=== PATIENT | female | born 2000 | race Caucasian/White ===

== ENCOUNTER 2019-01-29 19:55 | Emergency (ER) | payer OTHER ==
[~2019-01-29] VITALS: Ht 165.1 cm; Wt 95.3 kg
[~2019-01-29 19:55] MED LIST: ALPR0.25 PO; POLY17PO23 PO
--- NOTE | 2019-01-29 20:12 | ED Integumentary General ---
General Chief Complaint: Skin/Wound Problems Stated Complaint: CUT R THUMB,WANTS TETANUS SHOT Source: patient Exam Limitations: no limitations History of Present Illness Date Seen by Provider: Jan 29, 2019 Time Seen by Provider: 20:09 Initial Comments to ER with concern of need for tetanus vaccination. She was at the [facility] with her friend, she was sliding her hand down the bed rail of her friend's truck which was lined with metal, a piece of this was sharp and she has a superficial laceration to the right thumb. Last tetanus vaccine greater than 5 years ago she states. Timing/Duration: just prior to arrival Severity: mild Associated Symptoms: denies symptoms Allergies and Home Medications Allergies Coded Allergies: No Known Drug Allergies (Unverified , 05/19/14) Home Medications Alprazolam 0.25 Mg Tablet, 0.25 MG PO Q8H PRN for ANXIETY take 1/2 to 1 tablet every 8 hours for acute anxiety attack Prescribed by: SARITA RODRIGUEZ on 04/16/18 1515 Polyethylene Glycol 17 Gm Pack, 17 GM PO BID PRN for CONSTIPATION FOR CONSTIPATION Prescribed by: PEE KENT on 05/19/14 0916 Patient Home Medication List Home Medication List Reviewed: Yes Review of Systems Review of Systems Constitutional: see HPI EENTM: see HPI Respiratory: no symptoms reported Cardiovascular: no symptoms reported Genitourinary: no symptoms reported Musculoskeletal: no symptoms reported Skin: see HPI Psychiatric/Neurological: No Symptoms Reported Endocrine: No Symptoms Reported Past Qudrbvt-Wxsjxu-Tsfvhi Hx Patient Social History 2nd Hand Smoke Exposure: No Recent Foreign Travel: No Contact w/Someone Who Travel: No Past Medical History Surgeries: No Respiratory: No Cardiac: No Neurological: No Reproductive Disorders: No Female Reproductive Disorders: Ovarian Cyst Gastrointestinal: No Musculoskeletal: No Endocrine: No Cancer: No Psychosocial: No Anxiety Integumentary: No Blood Disorders: No Physical Exam Vital Signs Capillary Refill : General Appearance: WD/WN, no apparent distress HEENT: PERRL/EOMI, normal ENT inspection Respiratory: no respiratory distress, no accessory muscle use Neurologic/Psychiatric: alert, normal mood/affect, oriented x 3 Skin: normal color, warm/dry Skin Problem Location: upper extremities Skin Problem Character: other (superficial laceration to the pad of the right thumb 1 cm in length) Progress/Results/Core Measures Results/Orders My Orders Orders - ETHEL DE JESUS APRN Dipht,Pertuss(Acell),Tet Adult (Boostrix (01/29/19 20:15) Departure Impression Primary Impression: Tetanus toxoid vaccination administered at current visit Disposition: HOME, SELF-CARE Condition: Stable Departure-Patient Inst. Decision time for Depature: 20:11 Referrals: [facility] (PCP/Family) Primary Care Physician Patient Instructions: Diphtheria and Tetanus Toxoids, and Acellular Pertussis Vaccine Add. Discharge Instructions: . Return to ER for any concerns All discharge instructions reviewed with patient and/or family. Voiced understanding. ETHEL DE JESUS APRN Jan 29, 2019 20:12
[2019-01-29] MEDS ORDERED: TETANUS,DIPTH,PERTUSS P/F (BOOSTRIX) 0.5 ML VIAL IM ONE (20:15)
[2019-01-29 20:30] VITALS: BP 138/80
== END 2019-01-29 20:30 | disposition home or self-care (01) ==
LOC: EDUNIT# 19:55 → ER 19:56
DX: S61.011A Laceration without foreign body of right thumb without damage to nail, initial encounter (principal); F41.9 Anxiety disorder, unspecified; Z23 Encounter for immunization; Z87.448 Personal history of other diseases of urinary system; W26.8XXA Contact with other sharp object(s), not elsewhere classified, initial encounter
CPT/HCPCS: 90715; 99284

== ENCOUNTER → 2019-02-25 | Outpatient (CLI) | payer OTHER ==
--- NOTE | 2019-02-25 15:50 | Diagnostic Imaging Report ---
PROCEDURE: US Non-ob pelvis comp/trans. TECHNIQUE: Multiple realtime grayscale images were obtained of the pelvis in various projections endovaginally. Transabdominal imaging was also performed. INDICATION: Pelvic pain. FINDINGS: Uterus measures 5.8 x 3.7 x 3.0 cm. Endometrium is 3 mm in thickness. There is a small subcentimeter cervical nabothian cyst. No myometrial mass is seen. Ovaries were not visualized due to bowel gas. No adnexal mass is detected. There is small amount of free fluid in the posterior cul-de-sac. IMPRESSION: Nonvisualized ovaries. Study is otherwise unremarkable. Dictated by: Dictated on workstation # [id number]
== END ==
LOC: RAD 12:40
PROVIDERS: ATTEND Nurse Practitioner Primary Care
DX: R10.2 Pelvic and perineal pain (principal)
CPT/HCPCS: 76830; 76856

== ENCOUNTER 2020-03-05 13:08 | Emergency (ER) | payer OTHER ==
[~2020-03-05] VITALS: Ht 162.5 cm; Wt 63.5 kg
--- NOTE | 2020-03-05 13:26 | ED Integumentary General ---
General Stated Complaint: LEFT ARM LACERATION Source: patient Exam Limitations: no limitations History of Present Illness Date Seen by Provider: March 05, 2020 Time Seen by Provider: 13:24 Initial Comments To ER with a laceration to the ulnar volar side of the left forearm. She was cutting open a package of chicken when the knife slipped lacerating her arm. Tetanus is up-to-date within the past 5 years. Timing/Duration: constant Severity: mild Location: none Associated Symptoms: denies symptoms Allergies and Home Medications Allergies Coded Allergies: No Known Drug Allergies (Unverified , 05/19/14) Home Medications Alprazolam 0.25 Mg Tablet, 0.25 MG PO Q8H PRN for ANXIETY take 1/2 to 1 tablet every 8 hours for acute anxiety attack Prescribed by: SARITA RODRIGUEZ on 04/16/18 1515 Polyethylene Glycol 17 Gm Pack, 17 GM PO BID PRN for CONSTIPATION FOR CONSTIPATION Prescribed by: PEE KENT on 05/19/14 0916 Patient Home Medication List Home Medication List Reviewed: Yes Review of Systems Review of Systems Constitutional: see HPI EENTM: see HPI Respiratory: no symptoms reported Cardiovascular: no symptoms reported Genitourinary: no symptoms reported Musculoskeletal: no symptoms reported Skin: see HPI Psychiatric/Neurological: No Symptoms Reported Endocrine: No Symptoms Reported Past Nwmjkfi-Jafkve-Hgjezy Hx Patient Social History 2nd Hand Smoke Exposure: No Recent Foreign Travel: No Contact w/Someone Who Travel: No Past Medical History Surgeries: No Respiratory: No Cardiac: No Neurological: No Reproductive Disorders: No Female Reproductive Disorders: Ovarian Cyst Gastrointestinal: No Musculoskeletal: No Endocrine: No Cancer: No Psychosocial: No Anxiety Integumentary: No Blood Disorders: No Physical Exam Vital Signs Capillary Refill : General Appearance: WD/WN, no apparent distress Respiratory: no respiratory distress, no accessory muscle use Extremities: normal range of motion, non-tender Neurologic/Psychiatric: alert, normal mood/affect, oriented x 3 Skin: normal color, warm/dry, other (superficial 2 cm laceration to the volar ulnar side of the left forearm. No active bleeding.) Skin Problem Character: other (laceration) Procedures/Interventions Wound Location: Upper Extremities Wound Length (cm): 2 Wound's Depth, Shape: linear Wound Explored: clean Other Closure Supply: Wound Adhesive Wound scrubbed with chlorhexidine/saline solution then patted dry then covered with Dermabond Departure Impression Primary Impression: Arm laceration Qualified Codes: S41.112A - Laceration without foreign body of left upper arm, initial encounter Disposition: 01 HOME, SELF-CARE Condition: Stable Departure-Patient Inst. Decision time for Depature: 13:25 Referrals: [facility] ([facility]P/Family) Primary Care Physician Patient Instructions: Laceration Repair With Glue (DC) Add. Discharge Instructions: 1. Do not apply any lotions creams or ointments to this. The glue will follow off on its own in 3-5 days. You can keep this covered with a bandage to help provide some added protection. Showering is fine. Return to ER for any concerns such as redness or swelling that may indicate infection. ETHEL DE JESUS CARDING UTILITY TENDER March 05, 2020 13:26
[2020-03-05 13:28] VITALS: BP 124/90
== END 2020-03-05 13:28 | disposition home or self-care (01) ==
LOC: EDUNIT# 13:08 → ER 13:10
DX: S51.812A Laceration without foreign body of left forearm, initial encounter (principal); F41.9 Anxiety disorder, unspecified; W26.0XXA Contact with knife, initial encounter

== ENCOUNTER 2020-04-20 23:58 | Emergency (ER) | payer OTHER ==
[~2020-04-20] VITALS: Ht 162 cm; Wt 98.0 kg
--- OUTSIDE RECORDS SUMMARY | 2020-04-21 00:05 | XMS REPORT ---
Author Author Skyler Bell [facility] Address [address] [place] [address] Care Team Providers Care Corporate Sales Trainer Name Role Phone TERENCE Bell Unavailable PROBLEMS Type Condition ICD9-CM Code JAR75-UO Code Onset Dates Condition S tatus SNOMED Code Problem Menorrhagia with irregular cycle N92.1 Active 399833482 Problem Constipation, unspecified constipation type K59.00 Active 89062661 Problem Other chronic pain G89.29 Active 8 7228919 Problem Elevated testosterone level in female R79.89 Active 404817736 Problem Generalized anxiety disorder F41.1 A ctive 43169381 Problem Major depressive disorder, recurrent, moderate F33 .1 Active 826456369 Problem 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 Active 41163285 Problem PCOS (polycystic ovarian syndrome) E28.2 Active 611085545 Problem Morbid (severe) obesity due to excess calories E66 .01 Active 631383388 Problem Morbid (severe) obesity due to excess calories E66 .01 Active 811313297 Problem Body mass index (BMI) of 37.0-37.9 in adult Z68.37 Active 898420206 ALLERGIES No Information ENCOUNTERS Encounter Location Date Diagnosis [place] [address] [facility] [id number] [address] [place] [address] Jan, Encounter for test Z32.00 [place] [address] [facility] [id number] [address] [place] [address] Oct, Generalized anxiety disorder F41.1 ; Major depressive disorder, recurrent, moderate F33.1 and Other correction (current) drug therapy Z79.899 [facility] [address] [facility] [id number] [address] [place] [address] Sep, Generalized anxiety disorder F41.1 ; 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 ; Body mass index (BMI) of 37.0-37.9 in adult Z68.37 ; PCOS (polycystic ovarian syndrome) E28.2 and Elevated testosterone level in female R79.89 [facility] [place] [facility] [id number] [address] Sep, Drug screening, pre-employme nt Z02.1 [place] [address] [facility] [id number] [address] [place] [address] Aug, [place] [address] [facility] [id number] [address] [place] [address] Aug, Generalized abdominal pain R 10.84 ; Constipation, unspecified constipation type K59.00 ; PCOS (polycystic ovarian syndrome) E28.2 and Elevated testosterone level in female R79.89 [place] [address] [facility] [id number] [address] [place] [address] Jun, PCOS (polycystic ovarian syn drome) E28.2 ; Menorrhagia with irregular cycle N92.1 ; Nonintractable episodic headache, unspecified headache type R51 ; Elevated testosterone level in female R79.89 ; Morbid (severe) obesity due to excess calories E66.01 and Body mass index (BMI) of 37.0-37.9 in adult Z68.37 [place] [address] [facility] [id number] [address] [place] [address] Jun, Nonintractable episodic head ache, unspecified headache type R51 ; Menorrhagia with irregular cycle N92.1 and PCOS (polycystic ovarian syndrome) E28.2 [facility] [address] [facility] [id number] [address] [place] [address] May, Nonintractable episodic head ache, unspecified headache type R51 and Amenorrhea N91.2 [facility] [address] [facility] [id number] [address] [place] [address] Apr, Acute strain of neck muscle, initial encounter S16.1XXA and Acute bilateral low back pain without sciatica M54.5 [facility] [address] [place] [id number] [address] [place] [address] 10 Apr, 2019 Pharyngitis due to other org anism J02.8 [facility] [address] [place] [id number] [address] [place] [address] 17 Mar, 2019 Acute left ankle pain M25.57 2 [place] [address] [address] February, Pelvic pain R10.2 ; Acute vu lvitis N76.2 and Encounter for initial prescription of transdermal patch hormonal contraceptive device Z30.016 [place] [address] [address] 12 Jan, 2019 control counseling Z30 .9 ; Contraception management Z30.9 ; Contraceptive education Z30.09 ; Encounter for immunization Z23 ; Other chronic pain G89.29 and Pain in left knee M25.562 [facility] [place] [address] [address] 16 Dec, 2018 Dysuria R30.0 ; Pelvic pain R10.2 ; Constipation, unspecified constipation type K59.00 and Menorrhagia with irregular cycle N92.1 [place] [address] [address] 17 Jul, 2018 Encounter for immunization Z 23 [place] [address] [place] [id number] [address] [place] [address] 11 Jun, 2018 Mild episode of recurrent ma odilon depressive disorder F33.0 ; Effusion, left knee M25.462 ; Acute cystitis without hematuria N30.00 and Encounter for initial prescription of vaginal ring hormonal contraceptive Z30.015 [facility] [place] [address] [address] 07 Jun, 2018 Left anterior knee pain M25. 562 [place] [address] [address] May, [place] [address] [address] Apr, Generalized anxiety disorder F41.1 and Severe episode of recurrent major depressive disorder, without 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 [facility] [address] [place] [id number] [address] [place] [address] Mar, Generalized anxiety disorder F41.1 and Severe episode of recurrent major depressive disorder, without 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 [place] [address] [place] [id number] [address] [place] [address] Mar, 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 ; Anxiety F41.9 and Irregular menstrual bleeding N92.6 [place] [address] [place] [id number] [address] [place] [address] Sep, Weight gain R63.5 [place] [address] [place] [id number] [address] [place] [address] Sep, Weight gain R63.5 [facility] [place] [address] [place] [id number] [place] [id number] Aug, Athlete's foot on left B35.3 and Athlete's foot on right B35.3 [facility] [address] [place] [id number] [place] [address] Apr, Sore throat J02.9 ; Cough R0 5 ; Dysphagia, unspecified type R13.10 and Shortness of breath R06.02 [place] [id number] [place] [address] Apr, Encounter for initial manage ment of nuvaring Z30.49 [place] [address] [place] [id number] [address] [place] [address] Mar, [place] [address] [place] [id number] [address] [place] [address] Mar, Overweight E66.3 [facility] [address] [place] [id number] [address] [place] [address] February, Nexplanon removal Z30.49 and Encounter for initial prescription of other contraceptives Z30.018 [facility] [address] [facility] [id number] [address] [place] [address] 09 Dec, 2015 Back pain M54.9 [facility] [address] [facility] [id number] [address] [place] [address] Dec, Surveillance of implantable subdermal contraceptive Z30.49 ; Irregular bleeding N92.6 ; Vaginal irritation N89.8 ; Routine screening for STI (sexually transmitted infection) Z11.3 and OCP (oral contraceptive pills) initiation Z30.011 [facility] [address] [facility] [id number] [address] [place] [address] Dec, Back pain M54.9 [facility] [address] [facility] [id number] [address] [place] [address] 29 Nov, 2015 Back pain M54.9 [facility] [address] [facility] [id number] [place] [id number] 24 Nov, 2015 Dysfunctional uterine bleedi ng N93.8 and Vaginal itching L29.8 [facility] [address] [facility] [id number] [address] [place] [address] Nov, Cervicalgia M54.2 [facility] [address] [facility] [id number] [address] [place] [address] Nov, Cervicalgia M54.2 [facility] [address] [facility] [id number] [address] [place] [address] Nov, Cervicalgia M54.2 [facility] [address] [facility] [id number] [place] [id number] Nov, Cervicalgia M54.2 [facility] [address] [facility] [id number] [address] [place] [address] Sep, Screening for tuberculosis Z 11.1 [facility] [address] [id number] [address] [place] [id number] Aug, Dental examination Z01.20 [facility] [address] [id number] [address] [place] [address] Apr, Irregular bleeding 626.4 and Screen for STD (sexually transmitted disease) V74.5 [facility] [address] [id number] [address] [place] [address] Jan, [facility] [address] [id number] [address] [place] [address] Jan, [facility] [address] [id number] [address] [place] [address] Oct, [facility] [address] [id number] [address] [place] [address] Oct, [facility] [address] [id number] [address] [place] [address] Oct, [facility] [address] [id number] [address] [place] [address] Oct, [facility] [address] [id number] [address] [place] [address] Sep, [facility] [address] [id number] [address] [place] [address] Sep, [facility] [address] [id number] [address] [place] [address] Jul, [facility] [address] [id number] [address] [place] [address] Jul, [facility] [address] [id number] [address] [place] [address] Jul, [facility] [address] [id number] [address] [place] [address] Jul, [facility] [address] [id number] [address] [place] [address] Jul, [facility] [address] [id number] [address] [place] [address] 24 Jun, 2014 [facility] [address] [id number] [address] [place] [address] [place] [address] 24 Jun, 2014 [facility] [address] [id number] [address] [place] [address], [place] [address] 10 Jun, 2014 [facility] [address] [id number] [address] [place] [address], [place] [address] Jun, [facility] [address] [id number] [address] [place] [address], [place] [address] Jan, [facility] [address] [id number] [address] [place] [address], [place] [address] Jan, [facility] [address] [id number] [address] [place] [address], [place] [address] Oct, [facility] [address] [id number] [address] [place] [address], [place] [address] Oct, [facility] [address] [id number] [address] [place] [address], [place] [address] Oct, [facility] [address] [id number] [address] [place] [address], [place] [address] Oct, [facility] [address] [id number] [address] [place] [address], [place] [address] Sep, [facility] [address] [id number] [address] [place] [address], [place] [address] Sep, [facility] [address] [id number] [address] [place] [address], [place] [address] Aug, [facility] [address] [id number] [address] [place] [address], [place] [address] Aug, [facility] [address] [id number] [address] [place] [address], [place] [address] Aug, [facility] [address] [id number] [address] [place] [address], [place] [address] Aug, [facility] [address] [id number] [address] [place] [address], [place] [address] Aug, [facility] [address] [id number] [address] [place] [address], [place] [address] 08 Aug, 2013 [facility] [address] [id number] [address] [place] [address], [place] [address] 05 Aug, 2013 [facility] [address] [id number] [address] [place] [address], [place] [address] 05 Aug, 2013 [facility] [address] [id number] [address] [place] [address], [place] [address] 30 Jul, 2013 [facility] [address] [id number] [address] [place] [address], [place] [address] 30 Jul, 2013 [facility] [address] [id number] [address] [place] [address], [place] [address] Jul, [facility] [address] [id number] [address] [place] [address], [place] [address] Jul, [facility] [address] [id number] [address] [place] [address], [place] [address] Jul, [facility] [address] [id number] [address] [place] [address], [place] [address] Jul, [facility] [address] [id number] [address] [place] [address], [place] [address] Jul, [facility] [address] [id number] [address] [place] [address], [place] [address] Jul, [facility] [address] [id number] [address] [place] [address], [place] [address] Jul, [facility] [address] [id number] [address] [place] [address], [place] [address] Jul, [facility] [address] [id number] [address] [place] [address], [place] [address] Jul, [facility] [address] [id number] [address] [place] [address] 09 Jul, 2013 [facility] [address] [id number] [address] [place] [address] Jul, [facility] [address] [id number] [address] [place] [address], [place] [address] Jun, [facility] [address] [id number] [address] [place] [address], [place] [address] May, [facility] [address] [id number] [address] [place] [address], [place] [address] Jan, [facility] [address] [id number] [address] [place] [address], [place] [address] Nov, [facility] [address] [id number] [address] [place] [address], [place] [address] Sep, [facility] [address] [id number] [address] [place] [address], [place] [address] Sep, [facility] [address] [id number] [address] [place] [address], [place] [address] Aug, [facility] [address] [id number] [address] [place] [address], [place] [address] Aug, [facility] [address] [id number] [address] [place] [address], [place] [address] Jun, [facility] [address] [id number] [address] [place] [address], [place] [address] Mar, [facility] [address] [id number] [address] [place] [address], [place] [address] February, [facility] [address] [id number] [address] [place] [address], [place] [address] Jan, [facility] [address] [id number] [address] [place] [address], [place] [address] Dec, [facility] [address] [id number] [address] [place] [address], [place] [address] Nov, [facility] [address] [id number] [address] [place] [address], [place] [address] Nov, [facility] [address] [id number] [address] [place] [address] 16 Nov, 2011 [facility] [address] [facility] [id number] [address] [place] [address] Aug, [facility] [address] [facility] [id number] [address] [place] [address] 19 Jun, 2011 [facility] [address] [facility] [id number] [address] [place] [address] 11 Jun, 2010 IMMUNIZATIONS No Known Immunizations SOCIAL HISTORY Never Assessed REASON FOR VISIT PLAN OF CARE VITAL SIGNS MEDICATIONS Unknown Medications RESULTS No Results PROCEDURES No Known procedures INSTRUCTIONS MEDICATIONS ADMINISTERED No Known Medications MEDICAL (GENERAL) HISTORY Type Description Date Medical History Nexplanon inserted Nexplanon rem deepa 2015 Medical History chronic headaches/migraines Medical History Current moderate episode of major depressive disorder without prior episode Medical History Generalized anxiety disorder Medical History PCOS (polycystic ovarian syndrome) Surgical History No Surgical history information
--- OUTSIDE RECORDS SUMMARY | 2020-04-21 00:05 | XMS REPORT ---
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 Name Role Phone Migration, Doctor Unavailable Unavailable PROBLEMS Type Condition ICD9-CM Code [id number] Code Onset Dates Condition S tatus SNOMED Code Problem Menorrhagia with irregular cycle N92.1 Active 596255751 Problem Constipation, unspecified constipation type K59.00 Active 04616908 Problem Other chronic pain G89.29 Active 8 1438099 Problem Elevated testosterone level in female R79.89 Active 222879943 Problem Generalized anxiety disorder F41.1 A ctive 40641609 Problem Major depressive disorder, recurrent, moderate F33 .1 Active 917294268 Problem 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 Active 71751311 Problem PCOS (polycystic ovarian syndrome) E28.2 Active 233437975 Problem Morbid (severe) obesity due to excess calories E66 .01 Active 591696356 Problem Morbid (severe) obesity due to excess calories E66 .01 Active 192009591 Problem Body mass index (BMI) of 37.0-37.9 in adult Z68.37 Active 254814869 ALLERGIES No Information ENCOUNTERS Encounter Location Date Diagnosis [place] [address] [address] [facility] [id number] [address] [place] [address] Jan, Encounter for test Z32.00 [place] [address] [address] [facility] [id number] [address] [place] [address] Oct, Generalized anxiety disorder F41.1 ; Major depressive disorder, recurrent, moderate F33.1 and 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 [place] [address] [address] [facility] [id number] [address] [place] [address] Sep, Generalized anxiety disorder F41.1 ; 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 ; Body mass index (BMI) of 37.0-37.9 in adult Z68.37 ; PCOS (polycystic ovarian syndrome) E28.2 and Elevated testosterone level in female R79.89 [facility] [id number] [address] Sep, Drug screening, pre-employme nt Z02.1 [id number] [address] [facility] [id number] [address] [place] [address] Aug, [place] [address] [address] [place] [id number] [place] [address] Aug, Generalized abdominal pain R 10.84 ; Constipation, unspecified constipation type K59.00 ; PCOS (polycystic ovarian syndrome) E28.2 and Elevated testosterone level in female R79.89 [place] [address] [address] [place] [id number] [place] [address] Jun, PCOS (polycystic ovarian syn drome) E28.2 ; Menorrhagia with irregular cycle N92.1 ; Nonintractable episodic headache, unspecified headache type R51 ; Elevated testosterone level in female R79.89 ; Morbid (severe) obesity due to excess calories E66.01 and Body mass index (BMI) of 37.0-37.9 in adult Z68.37 [place] [address] [address] [place] [id number] [place] [address] Jun, Nonintractable episodic head ache, unspecified headache type R51 ; Menorrhagia with irregular cycle N92.1 and PCOS (polycystic ovarian syndrome) E28.2 [place] [address] [address] [place] [id number] [address] [place] [address] May, Nonintractable episodic head ache, unspecified headache type R51 and Amenorrhea N91.2 [facility] WALK IN [facility] [address] [facility] [id number] [address] [place] [address] Apr, Acute strain of neck muscle, initial encounter S16.1XXA and Acute bilateral low back pain without sciatica M54.5 [facility] WALK IN [facility] [address] [facility] [id number] [address] [place] [address] Apr, Pharyngitis due to other org anism J02.8 [facility] [address] [facility] [id number] [address] [place] [address] 17 Mar, 2019 Acute left ankle pain M25.57 2 [place] [address] [address] [facility] [id number] [address] [place] [address] February, Pelvic pain R10.2 ; Acute vu lvitis N76.2 and Encounter for initial prescription of transdermal patch hormonal contraceptive device Z30.016 [place] [address] [address] [place] [id number] [address] [place] [address] 12 Jan, 2019 control counseling Z30 .9 ; Contraception management Z30.9 ; Contraceptive education Z30.09 ; Encounter for immunization Z23 ; Other chronic pain G89.29 and Pain in left knee M25.562 [facility] WALK IN [facility] [address] [place] [id number] [address] [place] [address] 16 Dec, 2018 Dysuria R30.0 ; Pelvic pain R10.2 ; Constipation, unspecified constipation type K59.00 and Menorrhagia with irregular cycle N92.1 [place] [address] [address] [place] [address] 17 Jul, 2018 Encounter for immunization Z 23 [place] [address] [address] [facility] [id number] [address] [place] [address] 11 Jun, 2018 Mild episode of recurrent ma odilon depressive disorder F33.0 ; Effusion, left knee M25.462 ; Acute cystitis without hematuria N30.00 and Encounter for initial prescription of vaginal ring hormonal contraceptive Z30.015 [facility] WALK IN [facility] [address] [facility] [id number] [address] [place] [address] 07 Jun, 2018 Left anterior knee pain M25. 562 [place] [address] [address] [place] [id number] [address] [place] [address] May, [place] [address] [address] [facility] [id number] [place] [address] Apr, Generalized anxiety disorder F41.1 and Severe episode of recurrent major depressive disorder, without 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 [facility] [address] [facility] [id number] [address] [place] [address] Mar, Generalized anxiety disorder F41.1 and Severe episode of recurrent major depressive disorder, without 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 [facility] [place] [address] [facility] [id number] [address] [place] [address] Mar, 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 ; Anxiety F41.9 and Irregular menstrual bleeding N92.6 [facility] [place] [address] [facility] [id number] [address] [place] [address] Sep, Weight gain R63.5 [facility] [place] [address] [place] [address] Sep, Weight gain R63.5 [facility] [address] [place] [id number] [place] [id number] Aug, Athlete's foot on left B35.3 and Athlete's foot on right B35.3 [facility] [address] [facility] [id number] [address] [place] [address] Apr, Sore throat J02.9 ; Cough R0 5 ; Dysphagia, unspecified type R13.10 and Shortness of breath R06.02 [facility] [place] [address] [place] [id number] [address] [place] [address] Apr, Encounter for initial manage ment of nuvaring Z30.49 [place] [address] [address] [place] [id number] [address] [place] [address] Mar, [place] [address] [address] [place] [id number] [address] [place] [address] Mar, Overweight E66.3 [place] [address] [address] [place] [id number] [address] [place] [address] February, Nexplanon removal Z30.49 and Encounter for initial prescription of other contraceptives Z30.018 [place] [address] [address] [place] [id number] [address] [place] [address] Dec, Back pain M54.9 [facility] [place] [address] [place] [id number] [address] [place] [address] Dec, Surveillance of implantable subdermal contraceptive Z30.49 ; Irregular bleeding N92.6 ; Vaginal irritation N89.8 ; Routine screening for STI (sexually transmitted infection) Z11.3 and OCP (oral contraceptive pills) initiation Z30.011 [facility] [place] [address] [place] [address] Dec, Back pain M54.9 [facility] [place] [address] [place] [id number] [address] [place] [address] Nov, Back pain M54.9 [facility] [address] [id number] Nov, Dysfunctional uterine bleedi ng N93.8 and Vaginal itching L29.8 [facility] [place] [address] [place] [id number] [address] [place] [address] Nov, Cervicalgia M54.2 [facility] [place] [address] [place] [id number] [address] [place] [address] Nov, Cervicalgia M54.2 [facility] [place] [address] [place] [id number] [address] [place] [address] Nov, Cervicalgia M54.2 [facility] [address] [place] [id number] [place] [id number] Nov, Cervicalgia M54.2 [facility] [place] [address] [place] [id number] [address] [place] [address] Sep, Screening for tuberculosis Z 11.1 [facility] [address] [place] [id number] [address] [place] [id number] Aug, Dental examination Z01.20 [facility] [place] [address] [place] [id number] [address] [place] [address] 13 Apr, 2015 Irregular bleeding 626.4 and Screen for STD (sexually transmitted disease) V74.5 [facility] [address] [id number] [address] [place] [address], [place] [address] 14 Jan, 2015 [facility] [address] [id number] [address] [place] [address], [place] [address] Jan, [facility] [address] [id number] [address] [place] [address], [place] [address] Oct, [facility] [address] [id number] [address] [place] [address], [place] [address] Oct, [facility] [address] [id number] [address] [place] [address], [place] [address] Oct, [facility] [address] [id number] [address] [place] [address], [place] [address] Oct, [facility] [address] [id number] [address] [place] [address], [place] [address] Sep, [facility] [address] [id number] [address] [place] [address] Sep, [facility] [address] [id number] [address] [place] [address], [place] [address] Jul, [facility] [address] [id number] [address] [place] [address] 30 Jul, 2014 [facility] [address] [id number] [address] [place] [address] 17 Jul, 2014 [facility] [address] [id number] [address] [place] [address] 15 Jul, 2014 [facility] [address] [id number] [address] [place] [address], [place] [address] 15 Jul, 2014 [facility] [address] [id number] [address] [place] [address] 24 Jun, 2014 [facility] [address] [id number] [address] [place] [address] 24 Jun, 2014 [facility] [address] [id number] [address] [place] [address] Jun, [facility] [address] [id number] [address] [place] [address], [place] [address] Jun, [facility] [address] [id number] [address] [place] [address], [place] [address] Jan, [facility] [address] [id number] [address] [place] [address], [place] [address] Jan, [facility] [address] [id number] [address] [place] [address], [place] [address] Oct, [facility] [address] [id number] [address] [place] [address], [place] [address] Oct, [facility] [address] [id number] [address] [place] [address], [place] [address] Oct, [facility] [address] [id number] [address] [place] [address], [place] [address] Oct, [facility] [address] [id number] [address] [place] [address], [place] [address] Sep, [facility] [address] [id number] [address] [place] [address], [place] [address] Sep, [facility] [address] [id number] [address] [place] [address], [place] [address] Aug, [facility] [address] [id number] [address] [place] [address], [place] [address] Aug, [facility] [address] [id number] [address] [place] [address], [place] [address] Aug, [facility] [address] [id number] [address] [place] [address], [place] [address] Aug, [facility] [address] [id number] [address] [place] [address], [place] [address] Aug, [facility] [address] [id number] [address] [place] [address], [place] [address] Aug, [facility] [address] [id number] [address] [place] [address], [place] [address] 05 Aug, 2013 [facility] [address] [id number] [address] [place] [address], [place] [address] Aug, [facility] [address] [id number] [address] [place] [address], [place] [address] Jul, [facility] [address] [id number] [address] [place] [address], [place] [address] 30 Jul, 2013 [facility] [address] [id number] [address] [place] [address], [place] [address] Jul, [facility] [address] [id number] [address] [place] [address], [place] [address] Jul, [facility] [address] [id number] [address] [place] [address], [place] [address] Jul, [facility] [address] [id number] [address] [place] [address], [place] [address] Jul, [facility] [address] [id number] [address] [place] [address], [place] [address] Jul, [facility] [address] [id number] [address] [place] [address], [place] [address] Jul, [facility] [address] [id number] [address] [place] [address], [place] [address] Jul, [facility] [address] [id number] [address] [place] [address], [place] [address] 10 Jul, 2013 [facility] [address] [id number] [address] [place] [address], [place] [address] Jul, [facility] [address] [id number] [address] [place] [address], [place] [address] Jul, [facility] [address] [id number] [address] [place] [address], [place] [address] Jul, [facility] [address] [id number] [address] [place] [address], [place] [address] Jun, [facility] [address] [id number] [address] [place] [address], [place] [address] May, [facility] [address] [id number] [address] [place] [address], [place] [address] Jan, [facility] [address] [id number] [address] [place] [address], [place] [address] Nov, [facility] [address] [id number] [address] [place] [address], [place] [address] Sep, [facility] [address] [id number] [address] [place] [address], [place] [address] Sep, [facility] [address] [id number] [address] [place] [address], [place] [address] Aug, [facility] [address] [id number] [address] [place] [address], [place] [address] Aug, [facility] [address] [id number] [address] [place] [address], [place] [address] Jun, [facility] [address] [id number] [address] [place] [address], [place] [address] Mar, [facility] [address] [id number] [address] [place] [address], [place] [address] February, [facility] [address] [id number] [address] [place] [address], [place] [address] Jan, [facility] [address] [id number] [address] [place] [address], [place] [address] Dec, [facility] [address] [id number] [address] [place] [address], [place] [address] Nov, [facility] [address] [id number] [address] [place] [address], [place] [address] Nov, [facility] [address] [id number] [address] [place] [address], [place] [address] Nov, [facility] [address] [id number] [address] [place] [address] 17 Aug, 2011 [facility] [address] [facility] [id number] [address] [place] [address] 19 Jun, 2011 [facility] [address] [facility] [id number] [address] [place] [address] 11 Jun, 2010 IMMUNIZATIONS No Known Immunizations SOCIAL HISTORY Never Assessed REASON FOR VISIT PLAN OF CARE VITAL SIGNS MEDICATIONS Unknown Medications RESULTS No Results PROCEDURES Procedure Date Ordered Result Body Site PSYCH DIAGNOSTIC EVALUATION Aug 08, 2013 INSTRUCTIONS MEDICATIONS ADMINISTERED No Known Medications MEDICAL (GENERAL) HISTORY Type Description Date Medical History Nexplanon inserted Nexplanon rem deepa 2015 Medical History chronic headaches/migraines Medical History Current moderate episode of major depressive disorder without prior episode Medical History Generalized anxiety disorder Medical History PCOS (polycystic ovarian syndrome) Surgical History No Surgical history information
--- OUTSIDE RECORDS SUMMARY | 2020-04-21 00:05 | XMS REPORT ---
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 Name Role Phone TERENCE Bell Unavailable PROBLEMS Type Condition ICD9-CM Code [id number] Code Onset Dates Condition S tatus SNOMED Code Problem Menorrhagia with irregular cycle N92.1 Active 773007910 Problem Constipation, unspecified constipation type K59.00 Active 76550205 Problem Other chronic pain G89.29 Active 8 5849600 Problem Elevated testosterone level in female R79.89 Active 705243085 Problem Generalized anxiety disorder F41.1 A ctive 11407285 Problem Major depressive disorder, recurrent, moderate F33 .1 Active 568822304 Problem 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 Active 29968691 Problem PCOS (polycystic ovarian syndrome) E28.2 Active 597606362 Problem Morbid (severe) obesity due to excess calories E66 .01 Active 929587950 Problem Morbid (severe) obesity due to excess calories E66 .01 Active 406310508 Problem Body mass index (BMI) of 37.0-37.9 in adult Z68.37 Active 616494155 ALLERGIES No Information ENCOUNTERS Encounter Location Date Diagnosis [place] [address] [facility] [id number] [address] [place] [address] Mar, [facility] [address] [facility] [id number] [address] [place] [address] Mar, Generalized anxiety disorder F41.1 [place] [address] [facility] [id number] [address] [place] [address] Jan, Encounter for test Z32.00 [facility] [address] [facility] [id number] [address] [place] [address] Oct, Generalized anxiety disorder F41.1 ; Major depressive disorder, recurrent, moderate F33.1 and 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 [facility] [address] [place] [id number] [address] [place] [address] Sep, Generalized anxiety disorder F41.1 ; 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 ; Body mass index (BMI) of 37.0-37.9 in adult Z68.37 ; PCOS (polycystic ovarian syndrome) E28.2 and Elevated testosterone level in female R79.89 [facility] [id number] [address] Sep, Drug screening, pre-employme nt Z02.1 [place] [address] [facility] [id number] [address] [place] [address] Aug, [place] [address] [place] [id number] [address] [place] [address] Aug, Generalized abdominal pain R 10.84 ; Constipation, unspecified constipation type K59.00 ; PCOS (polycystic ovarian syndrome) E28.2 and Elevated testosterone level in female R79.89 [facility] [address] [facility] [id number] [address] [place] [address] Jun, PCOS (polycystic ovarian syn drome) E28.2 ; Menorrhagia with irregular cycle N92.1 ; Nonintractable episodic headache, unspecified headache type R51 ; Elevated testosterone level in female R79.89 ; Morbid (severe) obesity due to excess calories E66.01 and Body mass index (BMI) of 37.0-37.9 in adult Z68.37 [facility] [address] [facility] [id number] [address] [place] [address] Jun, Nonintractable episodic head ache, unspecified headache type R51 ; Menorrhagia with irregular cycle N92.1 and PCOS (polycystic ovarian syndrome) E28.2 [facility] [address] [facility] [id number] [address] [place] [address] May, Nonintractable episodic head ache, unspecified headache type R51 and Amenorrhea N91.2 [facility] [address] [address] 25 Apr, 2019 Acute strain of neck muscle, initial encounter S16.1XXA and Acute bilateral low back pain without sciatica M54.5 [facility] N [address] [address] 10 Apr, 2019 Pharyngitis due to other org anism J02.8 [facility] N [address] [address] 17 Mar, 2019 Acute left ankle pain M25.[address] [address] February, Pelvic pain R10.2 ; Acute vu lvitis N76.2 and Encounter for initial prescription of transdermal patch hormonal contraceptive device Z30.[address] [address] 12 Jan, 2019 control counseling Z30 .9 ; Contraception management Z30.9 ; Contraceptive education Z30.09 ; Encounter for immunization Z23 ; Other chronic pain G89.29 and Pain in left knee M25.562 [facility] [address] [address] 16 Dec, 2018 Dysuria R30.0 ; Pelvic pain R10.2 ; Constipation, unspecified constipation type K59.00 and Menorrhagia with irregular cycle N92.1 [place] [address] [address] Jul, Encounter for immunization Z [address] [address] Jun, Mild episode of recurrent ma odilon depressive disorder F33.0 ; Effusion, left knee M25.462 ; Acute cystitis without hematuria N30.00 and Encounter for initial prescription of vaginal ring hormonal contraceptive Z30.015 [facility] [address] [place] [address] Jun, Left anterior knee pain M25. 562 [facility] [address] [facility] [id number] [address] [place] [address] May, [facility] [address] [place] [id number] [address] [place] [address] Apr, Generalized anxiety disorder F41.1 and Severe episode of recurrent major depressive disorder, without 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 [facility] [address] [place] [id number] [address] [place] [address] Mar, Generalized anxiety disorder F41.1 and Severe episode of recurrent major depressive disorder, without 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 [place] [address] [place] [id number] [address] [place] [address] Mar, 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 ; Anxiety F41.9 and Irregular menstrual bleeding N92.6 [place] [address] [place] [id number] [address] [place] [address] Sep, Weight gain R63.5 [facility] [address] [place] [id number] [address] [place] [address] Sep, Weight gain R63.5 [facility] [address] [place] [id number] [place] [id number] Aug, Athlete's foot on left B35.3 and Athlete's foot on right B35.3 [facility] [address] [place] [id number] [address] [place] [address] Apr, Sore throat J02.9 ; Cough R0 5 ; Dysphagia, unspecified type R13.10 and Shortness of breath R06.02 [facility] [address] [place] [id number] [address] [place] [address] Apr, Encounter for initial manage ment of nuvaring Z30.49 [facility] [address] [place] [id number] [address] [place] [address] Mar, [place] [address] [place] [id number] [address] Mar, Overweight E66.3 [facility] [address] [address] February, Nexplanon removal Z30.49 and Encounter for initial prescription of other contraceptives Z30.018 [facility] [address] [place] [id number] [place] [address] Dec, Back pain M54.9 [place] [address] [address] Dec, Surveillance of implantable subdermal contraceptive Z30.49 ; Irregular bleeding N92.6 ; Vaginal irritation N89.8 ; Routine screening for STI (sexually transmitted infection) Z11.3 and OCP (oral contraceptive pills) initiation Z30.011 [place] [address] [address] Dec, Back pain M54.9 [place] [address] [address] Nov, Back pain M54.9 [facility] [address] [id number] Nov, Dysfunctional uterine bleedi ng N93.8 and Vaginal itching L29.8 [place] [id number] [address] Nov, Cervicalgia M54.2 [place] [address] [place] [id number] [address] [place] [address] Nov, Cervicalgia M54.2 [place] [address] [place] [id number] [place] [address] Nov, Cervicalgia M54.2 [facility] [address] [id number] Nov, Cervicalgia M54.2 [place] [address] [place] [id number] [address] [place] [address] 02 Sep, 2015 Screening for tuberculosis Z 11.1 [facility] [address] [id number] [address] [place] [id number] Aug, Dental examination Z01.20 [facility] [address] [id number] [address] [place] [address] 13 Apr, 2015 Irregular bleeding 626.4 and Screen for STD (sexually transmitted disease) V74.5 [facility] [address] [id number] [address] [place] [address] 14 Jan, 2015 [facility] [address] [id number] [address] [place] [address] Jan, [facility] [address] [id number] [address] [place] [address] Oct, [facility] [address] [id number] [address] [place] [address] Oct, [facility] [address] [id number] [address] [place] [address] Oct, [facility] [address] [id number] [address] [place] [address] Oct, [facility] [address] [id number] [address] [place] [address] Sep, [facility] [address] [id number] [address] [place] [address] Sep, [facility] [address] [id number] [address] [place] [address] Jul, [facility] [address] [id number] [address] [place] [address] Jul, [facility] [address] [id number] [address] [place] [address] Jul, [facility] [address] [id number] [address] [place] [address] Jul, [facility] [place] [facility] [address] [id number] [address] [place] [address], [place] [address] 15 Jul, 2014 [facility] [address] [id number] [address] [place] [address], [place] [address] 24 Jun, 2014 [facility] [address] [id number] [address] [place] [address], [place] [address] 24 Jun, 2014 [facility] [address] [id number] [address] [place] [address], [place] [address] Jun, [facility] [address] [id number] [address] [place] [address], [place] [address] Jun, [facility] [address] [id number] [address] [place] [address], [place] [address] Jan, [facility] [address] [id number] [address] [place] [address], [place] [address] Jan, [facility] [address] [id number] [address] [place] [address], [place] [address] Oct, [facility] [address] [id number] [address] [place] [address], [place] [address] Oct, [facility] [address] [id number] [address] [place] [address], [place] [address] Oct, [facility] [address] [id number] [address] [place] [address], [place] [address] Oct, [facility] [address] [id number] [address] [place] [address], [place] [address] Sep, [facility] [address] [id number] [address] [place] [address], [place] [address] Sep, [facility] [address] [id number] [address] [place] [address], [place] [address] Aug, [facility] [address] [id number] [address] [place] [address], [place] [address] Aug, [facility] [address] [id number] [address] [place] [address], [place] [address] Aug, [facility] [address] [id number] [address] [place] [address], [place] [address] Aug, [facility] [place] [facility] [address] [id number] [address] [place] [address], [place] [address] Aug, [facility] [address] [id number] [address] [place] [address], [place] [address] Aug, [facility] [place] [facility] [address] [id number] [address] [place] [address], [place] [address] Aug, [facility] [address] [id number] [address] [place] [address], [place] [address] Aug, [facility] [place] [facility] [address] [id number] [address] [place] [address], [place] [address] Jul, [facility] [address] [id number] [address] [place] [address], [place] [address] Jul, [facility] [address] [id number] [address] [place] [address] Jul, [facility] [address] [id number] [address] [place] [address], [place] [address] Jul, [facility] [address] [id number] [address] [place] [address] Jul, [facility] [address] [id number] [address] [place] [address] Jul, [facility] [place] [facility] [address] [id number] [address] [place] [address] Jul, [facility] [place] [facility] [address] [id number] [address] [place] [address] Jul, [facility] [place] [facility] [address] [id number] [address] [place] [address] Jul, [facility] [place] [facility] [address] [id number] [address] [place] [address] 10 Jul, 2013 [facility] [place] [facility] [address] [id number] [address] [place] [address] Jul, [facility] [address] [id number] [address] [place] [address], [place] [address] Jul, [facility] [address] [id number] [address] [place] [address], [place] [address] Jul, [facility] [address] [id number] [address] [place] [address], [place] [address] Jun, [facility] [address] [id number] [address] [place] [address], [place] [address] May, [facility] [address] [id number] [address] [place] [address], [place] [address] Jan, [facility] [address] [id number] [address] [place] [address], [place] [address] Nov, [facility] [address] [id number] [address] [place] [address], [place] [address] Sep, [facility] [address] [id number] [address] [place] [address], [place] [address] Sep, [facility] [address] [id number] [address] [place] [address], [place] [address] Aug, [facility] [address] [id number] [address] [place] [address], [place] [address] Aug, [facility] [address] [id number] [address] [place] [address], [place] [address] Jun, [facility] [address] [id number] [address] [place] [address], [place] [address] Mar, [facility] [address] [id number] [address] [place] [address], [place] [address] February, [facility] [address] [id number] [address] [place] [address], [place] [address] Jan, [facility] [address] [id number] [address] [place] [address], [place] [address] Dec, [facility] [address] [facility] [id number] [address] [place] [address] Nov, [facility] [address] [id number] [address] [place] [address] Nov, [facility] [address] [facility] [id number] [address] [place] [address] 16 Nov, 2011 [facility] [address] [facility] [id number] [address] [place] [address] Aug, [facility] [address] [facility] [id number] [address] [place] [address] Jun, [facility] [address] [facility] [id number] [address] [place] [address] Jun, IMMUNIZATIONS No Known Immunizations SOCIAL HISTORY Never Assessed REASON FOR VISIT PLAN OF CARE VITAL SIGNS Height 66 in 2013-05-27 Weight 175 lbs 2013-05-27 Heart Rate 72 bpm 2013-05-27 Respiratory Rate 18 2013-05-27 Blood pressure systolic 108 mmHg 2013-05-27 Blood pressure diastolic 64 mmHg 2013-05-27 MEDICATIONS Unknown Medications RESULTS No Results PROCEDURES Procedure Date Ordered Result Body Site VISUAL ACUITY SCREEN May 27, 2013 INSTRUCTIONS MEDICATIONS ADMINISTERED No Known Medications MEDICAL (GENERAL) HISTORY Type Description Date Medical History Nexplanon inserted Nexplanon rem deepa 2015 Medical History chronic headaches/migraines Medical History Current moderate episode of major depressive disorder without prior episode Medical History Generalized anxiety disorder Medical History PCOS (polycystic ovarian syndrome) Surgical History No Surgical history information
--- OUTSIDE RECORDS SUMMARY | 2020-04-21 00:05 | XMS REPORT ---
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 [facility] [employer] Address [address] [address] Care Team Providers Care Chief Clerk Name Role Phone TERENCE GRAMAJO Unavailable Unavailable VANDANA FARR Unavailable Unavailable [facility] Unavailable [phone] YAHIR CACERES Unavailable [facility] Unavailable MARYANN AGUILLON Unavailable MARYANN AGUILLON Unavailable SHAKIRA TAYLOR Unavailable MCCRAY, ANNEMARIE Unavailable MCCRAY, ANNEMARIE Unavailable Migration, Doctor Unavailable Unavailable [facility] PCP Migration, Doctor Unavailable Unavailable ETHEL DE JESUS APRN Unavailable Unavailable zzCAREY, ANNEMARIE Unavailable Unavailable MAI JOHANSEN, PEE No Unavailable Unavailable SARITA RODRIGUEZ Unavailable Unavailable MANOJ GUEVARA APRN Unavailable Unavailable Migration, Doctor Unavailable Unavailable Migration, Doctor Unavailable Unavailable Migration, Doctor Unavailable Unavailable HEMAL MERCER Unavailable Migration, Doctor Unavailable Unavailable MANOJ GUEVARA Unavailable zzHEIMAN, LIANNA Unavailable zzRAJOTTE, TERENCE Unavailable zzHEIMAN, LIANNA Unavailable zzRAJOTTE, TERENCE Unavailable PCP, TRANSITION Unavailable Unavailable KRISSY MANJARREZ Unavailable Unavailable zzRAJOTTE, TERENCE Unavailable Migration, Doctor Unavailable Unavailable Migration, Doctor Unavailable Unavailable zzRAJOTTE, TERENCE Unavailable Unavailable Unavailable HOA GALVAN Unavailable EMILY CORTES MD Unavailable Unavailable ETHEL DE JESUS APRN Unavailable Unavailable [facility] PCP Migration, Doctor Unavailable Unavailable Migration, Doctor Unavailable Unavailable jeanmariejeanmarieJAGDEEPRACHEL TimYL Unavailable Migration, Doctor Unavailable Unavailable Ray TERENCE Unavailable Unavailable Unavailable Unavailable Unavailable Unavailable Unavailable Unavailable Unavailable Allergies Normalized Allergy Reported Date of Reaction(s) Care Provider Facility Allergy Type classification allergen Allergy Onset DA (13 Unclassified No Known Drug 05-19-2014 - no information TERENCE GRAMAJO Not Available sources.) Allergies (99219) Medications Medication Ingredient Drug Dose Dates Status Sig Sig Care Class(es) (Normalized) (Original) Provid er acetaminoph acetaminoph no 325 mg Active take 1 Tylenol 325 no en 325 mg en information capsule by MG Orally name oral Translation mouth every every 4 hrs capsule (2 s: [ four hours 1 capsule as sources.) Tylenol 325 as needed needed 4h MG, Tylenol Active 325 MG] escitalopra escitalopra Serotonin 10 mg 07-02-20 Active no Escitalopram no m 10 mg m Reuptake 18 information Oxalate 10 nam e oral tablet Translation Inhibitor mg Orally (1 source.) s: [ Once a day 1 Escitalopra tablet 24h m Oxalate Jun, 10 mg] 30 day(s) Active 21 day ethinyl Progestin, 07-02-20 Active no NuvaRing no ethinyl estradiol / Estrogen 18 information 0.12-0.015 name estradiol etonogestre MG/24HR 1 0.393308 l ring Jun, mg/hr / Translation 2017 etonogestre s: [ day(s) l 0.005 NuvaRing Active mg/hr 0.12-0.015 vaginal MG/24HR] ring (1 source.) no nitrofurant no 100 mg 07-02-20 Active no Nitrofur anto no information oin information 18 - information in 100 mg name (1 source.) 07-07-20 Orally twice 18 a day 1 capsule with food 12h Jun, Jun, 5 days Active sertraline sertraline Serotonin 50 mg 04-11-20 Active no Se rtraline no 50 mg oral Translation Reuptake 18 information HCl 50 mg name tablet (1 s: [ Inhibitor Orally Once source.) Sertraline a day 1 HCl 50 mg] tablet 24h Mar, 30 day(s) Active Problems Active Problems Problem Normalized Date Last Normalized Normalized Provider Fa cility Classification Problem(s) Recorded Problem Problem Sta tus Duration Other Constipation, Episodic Active PEE Not Avai lable gastrointestin unspecified MAI , (03250) al disorders (7 sources.) External cause Contact with 03-08-2020 - Episodic Active ETHEL DE JESUS [facility] Via codes: knife, initial BIOMATHEMATICIAN Miesha Cut/valenzuela (1 encounter Hospital - source.) [place] ([address]) Contraceptive Encounter for Episodic Active [facility] and initial [address] [place] [address] procreative prescription of [place] management (20 of other [place] ([address]) sources.) contraceptives Translations: [ - Encounter for initial prescription of other contraceptives Z30.018, - OCP (oral contraceptive pills) initiation Z30.011, - Encounter for initial management of nuvaring Z30.49, - Surveillance of implantable subdermal contraceptive Z30.49, - Nexplanon removal Z30.49, - Encounter for initial prescription of other contraceptives Z30.018, - OCP (oral contraceptive pills) initiation Z30.011, - Encounter for initial management of nuvaring Z30.49, - Surveillance of implantable subdermal contraceptive Z30.49, - Nexplanon removal Z30.49, - control counseling Z30.9, - Contraceptive education Z30.09, - Contraception management Z30.9, - Encounter for initial prescription of transdermal patch hormonal contraceptive device Z30.016, - Encounter for initial prescription of vaginal ring hormonal contraceptive Z30.015] Anxiety Generalized 03-08-2020 - Chronic Active SARITA JENNIFER No t Available disorders (20 anxiety (29297) sources.) disorder Translations: [ - Generalized anxiety disorder F41.1, - Anxiety F41.9, Anxiety, Anxiety, Generalized anxiety disorder, Generalized anxiety disorder, - Generalized anxiety disorder F41.1, - Anxiety F41.9, Anxiety, Generalized anxiety disorder] Open wounds of Laceration 03-08-2020 - Episodic Active ETHEL MURRAY [facility] Via extremities (2 without BIOMATHEMATICIAN Miesha sources.) foreign body Hospital - of left [place] forearm, ([address]) initial encounter Open wounds of Laceration Episodic Active ETHEL DE JESUS Not Available extremities (7 without (54750) sources.) foreign body of right thumb without damage to nail, initial encounter Translations: [ Laceration of upper extremity] Mood disorders Moderate major Chronic Active MARYANN ARCINIEGA T Community (20 sources.) depression, [address] [facility] single episode of [place] Translations: [place] ([address]) [ Current moderate episode of major depressive disorder without prior episode, - 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, Severe episode of recurrent major depressive disorder, without psychotic features, Severe episode of recurrent major depressive disorder, without psychotic features, - Severe episode of recurrent major depressive disorder, without 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, Current moderate episode of major depressive disorder without prior episode, - 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, Severe episode of recurrent major depressive disorder, without psychotic features, - Severe episode of recurrent major depressive disorder, without 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, - Mild episode of recurrent major depressive disorder F33.0, Mild episode of recurrent major depressive disorder, Mild episode of recurrent major depressive disorder, Mild episode of recurrent major depressive disorder, - Mild episode of recurrent major depressive disorder F33.0, Major depressive disorder, recurrent, moderate, - Major depressive disorder, recurrent, moderate F33.1] Nausea and Nausea with Episodic Active PEE Not Avail able vomiting (9 vomiting BRUEGGEMANN , (25507) sources.) Translations: [ Vomiting] Ovarian cyst Other and Episodic Active TERENCE RAJOTTE Not Available (5 sources.) unspecified (95762) ovarian cyst Other female Personal Episodic Active SARITA JENNIFER Not Availa ble genital history of (08662) disorders (6 other diseases sources.) of the female genital tract Past or Other Problems Problem Normalized Date Last Normalized Normalized Provider Fa cility Classification Problem(s) Recorded Problem Problem Sta tus Duration External cause Contact with no information no information ETHEL DE JESUS Not Available codes: other sharp (30886) Cut/valenzuela (3 object(s), not sources.) elsewhere classified, initial encounter Unclassified Medication no information Completed [facility] Asc ension Via (1 source.) [facility]/[place] [address] (Work Hospital Phone: [phone]) ) Procedures Procedure Normalized Procedure Procedure Result Performer Facility Date 04-02-2012 Cryotherapy co2 slush no information [facility] (48642) 01-04-2019 Culture bacterial no information no name [facility] quantt[facility] colony [facility] (64029) 07-02-2018 Culture bacterial no information no name [facility] quanttative colony [facility] (40970) 11-11-2014 Iaadiadoo influenza no information no name Com munity Health [facility] (79189) 01-04-2019 [facility] trichomonas no information [facility] vaginal[facility] (53098) 01-04-2019 Iadna chlamydia no information no name [facility] trachomatis amplified [facility] (85650) 01-04-2019 Iadna neisseria no information no name [facility] gonorrhoeae amplified [facility] (42735) 01-04-2019 Infectious agent no information no name [facility] enzymatic actv oth/thn [facility] (79820) 09-29-2014 Insj non-biodegradable no information no name [facility] drug delivery implant [facility] (99302) 04-11-2018 Psychiatric diagnostic no information no name [facility] evaluation [facility] (14155) 08-08-2013 Psychiatric diagnostic no information no name [facility] evaluation [facility] (95496) 11-20-2013 Psychotherapy no information no name [facility] w/patient 30 minutes [facility] (15108) 11-03-2013 Psychotherapy no information no name [facility] w/patient 30 minutes [facility] (15184) 04-30-2018 Psychotherapy no information no name [facility] w/patient 45 minutes [facility] (57390) 09-16-2013 Psychotherapy no information no name [facility] w/patient 45 minutes [facility] (68032) 09-08-2013 Psychotherapy no information no name [facility] w/patient 45 minutes [facility] (73094) 08-12-2013 Psychotherapy no information no name [facility] w/patient 45 minutes [facility] (69434) 07-02-2018 Urine test no information no name [facility] visual color cmprsn [facility] (33847) 09-29-2014 Urine test no information no name [facility] visual color cmprsn [facility] (35869) 01-04-2019 Urnls dip stick/tablet no information no name [facility] rgnt auto w/o [facility] (87236) 07-02-2018 Urnls dip stick/tablet no information no name [facility] rgnt auto w/o [facility] (92312) Immunizations Normalized Immunization Date Notes Care Provider Facili ty Immunization Human Papillomavirus 01-31-2019 no information no name [facility] 9-valent vaccine [facility] (72238) influenza, seasonal, 08-07-2018 no information no name [facility] injectable [facility] (24332) tetanus toxoid, 01-29-2019 no information no name Not Yessi ilable reduced diphtheria (43702) toxoid, and acellular pertussis vaccine, adsorbed tetanus toxoid, 01-29-2019 - no information [facility]/ [place] Via reduced diphtheria 01-29-2019 [address] [facility] toxoid, and (28448) acellular pertussis vaccine, adsorbed Results Test Name Value Interpretation Reference Range Date Time Fa cility (Normalized) (Normalized) (Medline Reference) laboratory on 2020-02-19 Beta HCG Negative (N) [facility] ( test) [facility] (63256) laboratory on 2019-11-07 Calcidiol 16 ng/mL (L) 20 - 50 ng/mL Pending Sale To [facility] ealt [Mass/Vol] [facility] (14565) Free T4 1.3 ng/dL (N) 0.9 - 2.2 ng/dL [facility] [Mass/Vol] [facility] (18926) TSH Qn 2.48 m[IU]/L (N) 0.4 - 4 m[IU]/L [facility] (70996) not yet categorized on 2019-07-15 Exp date +~01/20/2020 (no code) [facility] (66969) Lot # [id number] (no code) [facility] (59400) RESULTS Negative (no code) [facility] (86020) laboratory on 2019-07-01 Albumin 4.3 g/dL (N) 3.4 - 5.4 g/dL [facility] [Mass/Vol] [facility] (23513) Albumin/Globulin 1.5 {ratio} (N) 1 - 2.5 {ratio} [facility] [Mass ratio] [facility] (66639) ALP [Catalytic 79 U/L (N) 44 - 147 U/L [facility] activity/Vol] [facility] (61434) ALT [Catalytic 25 U/L (N) 4 - 40 U/L [facility] ealt activity/Vol] [facility] (66111) AST [Catalytic 20 U/L (N) 10 - 34 U/L [facility] activity/Vol] [facility] (56960) Basophils (Bld) 0.065 10*3/uL (N) 0 - 0.3 10*3/uL [facility] [#/Vol] [facility] (37982) Basophils/100 0.6 % (N) 0.5 - 1 % [facility] alth WBC (Bld) [facility] (59896) Bilirubin 0.3 mg/dL (N) 0.1 - 1.2 mg/dL [facility] [Mass/Vol] [facility] (75551) Calcium 9.6 mg/dL (N) 8.5 - 10.2 mg/dL [facility] [Mass/Vol] [facility] (15259) Chloride 103 mmol/L (N) 95 - 106 mmol/L [facility] [Moles/Vol] [facility] (93804) CO2 [Moles/Vol] 28 mmol/L (N) 23 - 29 mmol/L [facility] (32555) Creatinine 0.80 mg/dL (N) [facility] [Mass/Vol] [facility] (01407) Eosinophils 0.153 10*3/uL (N) 0.05 - 0.5 Community [facility] (Bld) [#/Vol] 10*3/uL [facility] (89988) Eosinophils/100 1.4 % (N) 1 - 4 % [facility] WBC (Bld) [facility] (71987) Erythrocyte 12.7 % (N) 11.6 - 14.6 % [facility] ealth distribution [facility] width (RBC) [facility] [Ratio] (30457) GFR/1.73 sq M 122 (N) 90 - 120 [facility] predicted among mL/min/{1.73_m2} mL/min/{1.73_m2} Center o f [facility] blacks MDRD [facility] (S/P/Bld) [Vol (85882) rate/Area] GFR/1.73 sq 105 (N) 90 - 120 [facility] M.predicted MDRD mL/min/{1.73_m2} mL/min/{1.73_m2} [facility] (S/P/Bld) [Vol [facility] rate/Area] (61068) Globulin (S) 2.9 g/dL (N) 2 - 3.5 g/dL [facility] [Mass/Vol] [facility] (70725) Glucose 88 mg/dL (N) 60 - 125 mg/dL [facility] [Mass/Vol] [facility] (24258) Hematocrit (Bld) 41.4 % (N) 36.1 - 50.3 % [facility] [Volume [facility]] [facility] (94007) Hemoglobin (Bld) 13.4 g/dL (N) 12.1 - 17.2 g/dL [facility] [Mass/Vol] [facility] (48467) Lymphocytes 2.845 10*3/uL (N) 0.9 - 2.9 Community [facility] (Bld) [#/Vol] 10*3/uL [facility] (57291) Lymphocytes/100 26.1 % (N) 20 - 40 % [facility] WBC (Bld) [facility] (99104) MCH (RBC) 27.9 pg (N) 27 - 31 pg [facility] [Entitic mass] [facility] (50636) MCHC (RBC) 32.4 g/dL (N) 32 - 36 g/dL [facility] [Mass/Vol] [facility] (93363) MCV (RBC) 86.3 fL (N) 80 - 100 fL [facility] [Entitic vol] [facility] (58311) Monocytes (Bld) 0.828 10*3/uL (N) 0.3 - 0.9 Communit y Health [#/Vol] 10*3/uL [facility] (95693) Monocytes/100 7.6 % (N) 2 - 8 % [facility] alth WBC (Bld) [facility] (32906) Neutrophils 7.009 10*3/uL (N) 1.7 - 7 10*3/uL [facility] (Bld) [#/Vol] [facility] (95165) Neutrophils/100 64.3 % (N) 40 - 60 % [facility] WBC (Bld) [facility] (30008) Platelet mean 9.2 fL (N) 7.2 - 11.7 fL [facility] volume (Bld) [facility] [Entitic vol] [facility] (57738) Platelets (Bld) 315 10*3/uL (N) 150 - 450 [facility] [#/Vol] 10*3/uL [facility] (35205) Potassium 4.0 mmol/L (N) 3.7 - 5.2 mmol/L [facility] [Moles/Vol] [facility] (27932) Protein 7.2 g/dL (N) 6.4 - 8.3 g/dL [facility] [Mass/Vol] [facility] (52553) RBC (Bld) 4.80 10*6/uL (N) 4.2 - 6.1 [facility] lth [#/Vol] 10*6/uL [facility] (69032) Sodium 138 mmol/L (N) 135 - 145 mmol/L [facility] [Moles/Vol] [facility] (68225) Testosterone 61 ng/dL (H) [facility] [Mass/Vol] [facility] (56898) Testosterone 61 ng/dL (H) [facility] [Mass/Vol] [facility] (69752) Testosterone 6.2 (no code) [facility] Free [Mass/Vol] [facility] (69386) Testosterone 6.2 (no code) [facility] Free [Mass/Vol] [facility] (82725) Urea nitrogen 13 mg/dL (N) 7 - 20 mg/dL [facility] [Mass/Vol] [facility] (01346) Urea NOT APPLICABLE (no code) [facility] nitrogen/Creatin [facility] [Mass ratio] [facility] (14414) WBC (Bld) 10.9 10*3/uL (H) 3.5 - 10.5 [facility] [#/Vol] 10*3/uL [facility] (44406) not yet categorized on 2019-06-16 Exp date +~01/20/2020 (no code) [facility] (60687) Lot # [id number] (no code) [facility] (23676) RESULTS Negative (no code) [facility] (78604) other on 2019-02-19 COMMENT no information (no code) [facility] (75456) Control Negative (no code) [facility] (11597) Exp date 01/2020 (no code) [facility] (28703) Exp date 10/2019 (no code) [facility] (82908) Lot # [id number] (no code) [facility] (48321) Lot # [id number] (no code) [facility] (64425) imm/path on 2019-02-19 C. trachomatis NOT DETECTED (N) [facility] rRNA ARNAV+probe [facility] (Unsp spec) [facility] (68348) N. gonorrhoeae NOT DETECTED (N) [facility] (Unsp spec) [facility] (60198) other on 2019-01-31 Exp date +~04/2020 (no code) [facility] (11811) Lot # [id number] (no code) [facility] (13822) RESULTS Negative (no code) [facility] (23998) urinalysis on 2019-01-04 Bacteria SEE NOTE (no code) [facility] identified Cx [facility] (U) [facility] (08647) Protein (U) Negative (no code) 0 - 20 mg/dL [facility]th [Mass/Vol] [facility] (71118) other on 2019-01-04 BLO Trace-lysed (no code) [facility] (93216) COMMENT no information (no code) [facility] (04415) Exp date 2019 01 (no code) [facility] (18483) Exp date Negative (no code) [facility] (68993) KET 06/2019~Cloudy~Y (no code) [facility] ellow~Slight~Neg [facility] ative~Negative~N [facility] egative (65956) Lot # [id number] (no code) [facility] (80808) Lot # [id number] (no code) [facility] (05229) SG 1.025 (no code) [facility] (76882) URO 0.2 (no code) [facility] (94410) imm/path on 2019-01-04 C. trachomatis NOT DETECTED (N) [facility] rRNA ARNAV+probe [facility] (Unsp spec) [facility] (92657) N. gonorrhoeae NOT DETECTED (N) [facility] ARNAV+probe [facility] (Unsp spec) [facility] (22711) hematology on 2019-01-04 pH (Bld) 7.0 [pH] (no code) 7.38 - 7.42 [pH] Communit y [facility] (96898) urinalysis on 2018-07-02 Bacteria SEE NOTE (A) Community Healt h identified Cx [facility] (U) [facility] (98931) Protein mass Negative (no code) 0 - 20 mg/dL no informat ion conc (U) other on 2018-07-02 BLO 1+ (no code) no information Exp date +~12/2019 (no code) no information KET 01/2019~CLOUDY~Y (no code) no informatio n ELLOW~NO~NEG~NEG ~NEG ALTA NEG~3+ (no code) no information Lot # [id number] (no code) no information Lot # [id number] (no code) no information RESULTS Negative (no code) no information SG 1.025 (no code) no information URO 0.2 (no code) no information hematology on 2018-07-02 pH (Bld) 6.5 [pH] (no code) 7.38 - 7.42 [pH] no infor mation Vital Signs Vital Sign Value Interpretation Reference Date Time Care Prov ider Facility (Normalized) (Normalized) Range BMI (Body Mass 38.1 kg/m2 (no code) 15 - 25 kg/m2 01-04-2019 JAYE GRAHAM Community Index) 13:40-[address] [place] [address] (27389) BMI (Body Mass 35.97 kg/m2 (no code) 15 - 25 kg/m2 07-02-2018 Reddy MCCRAY Community Index) 15:40-[address] [place] [address] (22251) BMI (Body Mass 35.44 kg/m2 (no code) 15 - 25 kg/m2 06-28-2018 Americo TAYLOR Community Index) 13:20-[address] [place] [address] (87541) Body height 165.1 cm (no code) cm 07-01-2014 TERENCE Com munity 09:35-[address] (21156) Body height 166.37 cm (no code) cm 04-02-2012 [facility] 17:19-0400 00108 (Other Health Center Phone: of [facility] ) [place] (63913) Body 98.1 [degF] (no code) 97.8 - 99.0 01-04-2019 [facility] Temperature [degF] 13:40-0400 GARRETT [address] Health Cent er of [facility] (87380) Body 97.8 [degF] (no code) 97.8 - 99.0 07-02-2018 [facility] [degF[facility] 15:40-0400 195[address] Health Cent[facility] r of [facility] (41399) Body 98.6 [degF] (no code) 97.8 - 99.0 06-28-2018 SHAKIRA [facility] Temperature [degF] 13:20-0400 06431 Health Cente r [facility] (67628) Body 99.8 [degF] (no code) 97.8 - 99.0 11-11-2014 [facility] Temperature [degF] 12:43-[address] [place] [address] nter [facility] (77676) Body 97.6 [degF] (no code) 97.8 - 99.0 07-01-2014 [facility] temperature [degF] 09:35-0400 [facility] Cente r [address] [place] [address] (80478) Body 99 [degF] (no code) 97.8 - 99.0 04-02-2012 [facility] temperature [degF] 17:19-0400 64061 (Other Health Cent er Phone: of [facility] ) [place] (95017) Body weight 103.87 kg (no code) kg 01-04-2019 MANOJ C ommunity 13:40-[address] (00468) Body weight 83.92 kg (no code) kg 11-11-2014 HEMAL Com munity 12:43-[address] [place] [address] (20620) Body weight 89.72 kg (no code) kg 09-29-2014 LIANNA Collado [facility] 15:500500 [id number] [place] [address] ([id number]) Body weight 80.02 kg (no code) kg 07-01-2014 [facility] [id number] [address] ([id number]) Body weight 76.61 kg (no code) kg 04-02-2012 [facility] 17:00-8198 [id number] (Other [facility] Phone: [facility] ) [place] ([id number]) Height 165.1 cm (no code) cm 01-04-2019 MANOJ Isabel nitcorbin 13:40-[id number] [place] [address] ([id number]) Height 165.1 cm (no code) cm 07-02-2018 ANNEMARIE Gama [facility] 15:40-[id number] [place] [address] ([id number]) Height 165.1 cm (no code) cm 06-28-2018 SHAKIRA Conroy [facility] 13:200400 [address] [place] [address] ([id number]) Height 162.56 cm (no code) cm 09-29-2014 [facility] 15:500500 [id number] [facility] ([id number]) Weight 98.07 kg (no code) kg 07-02-2018 ANNEMARIE Gama [facility] 15:40-[id number] [place] [address] ([id number]) Weight 96.62 kg (no code) kg 06-28-2018 SHAKIRA TAYLOR [facility] 13:200400 [address] [place] [address] ([id number]) Interventions No Information Plan of Treatment Normalized Care Care Detail Care Activity Date Care Provider F acility Activity Patient Education Laceration Repair no information [facility] [place] [facility] (DC) [id number] (Work Phone: [place] [phone] ) ([id number]) Patient referral no information no information [facility] [place] [address] [address] (Work Phone: [place] [phone] ) ([id number]) no information no information no information ANNEMARIE MCCRAY [address] [place] [address] ([id number]) Goals Patient Goal Desired Goal no information no information Social History Normalized Code Original Code Date Value no information no information 05-19-2014 Denies Use no information no information 05-19-2014 No no information no information 03-05-2020 Denies Sex Assigned At Sex Assigned At no information F emale Functional Status The data below is from unstructured sourcesNo functional status results.No functional status information available.No functional status information available.No functional status information available.No functional status information available.No Functional Status information availableNo Functional Status information availableNo Functional Status information av ailableNo Functional Status information availableNo Functional Status informatio n availableNo Functional Status information available Mental Status The data below is from unstructured sourcesNo Mental Status Information AvailableNo Mental Status Information AvailableNo Mental Status Information AvailableNo Mental Status Information AvailableNo Mental Status Information Available Encounters Encounter Normalized Encounter Encounter Diagnosis Care Provi maikel Organization Date Type 07-18-2018 ([facility]) Chronic Health no information ANNEMARIE BELLOY ( no [facility] Maintenance phone) (no phone) 12-06-2015 (XRAY) xray Cervicalgia [facility] (no phone) 02-19-2020 Consultation for Encounter for KRISSY MANJARREZ (no [facility] laboratory medicine test, result phone) (n o phone) unknown 03-05-2020 Emergency department no information (no phone) [facility] - patient visit Hospital (no phone) 03-05-2020 03-05-2020 Emergency department no information EMILY CORTES MD (no [facility] [address] [facility] phone[facility] BIOMATHEMATICIAN (no phone) (no phone) 01-29-2019 Emergency department no information ETHEL Driscoll APRN BA MARGIE no organization name - patient visit Work Phone: 01-29-2019 NEGATED Patient encounter no information no name no or ganization name 07-02-2018 04-16-2018 Patient encounter no information no name no or ganization name 08-25-2013 Patient encounter no information no name no or ganization name Patient encounter no information no name no organizat ion name 03-05-2020 Patient encounter no information ETHEL DE JESUS APRN (no [facility] procedure phone) [facility] (no phone) 02-19-2020 Patient encounter no information (no phone) [facility] (no phone) 11-07-2019 Patient encounter no information no name no or ganization name procedure 10-01-2019 Patient encounter no information no name no or ganization name procedure 09-24-2019 Patient encounter no information no name no or ganization name procedure 08-26-2019 Patient encounter no information no name no or ganization name procedure 07-15-2019 Patient encounter no information no name no or ganization name procedure 07-01-2019 Patient encounter no information no name no or ganization name procedure 07-01-2019 Patient encounter no information no name no or ganization name procedure 06-16-2019 Patient encounter no information no name no or ganization name procedure 06-16-2019 Patient encounter no information no name no or ganization name procedure 05-15-2019 Patient encounter no information no name no or ganization name procedure 05-15-2019 Patient encounter no information no name no or ganization name procedure 04-30-2019 Patient encounter no information no name no or ganization name procedure 04-07-2019 Patient encounter no information no name no or ganization name procedure 04-07-2019 Patient encounter no information no name no or ganization name procedure 02-25-2019 Patient encounter no information no name no or ganization name procedure 02-25-2019 Patient encounter no information no name no or ganization name procedure 02-19-2019 Patient encounter no information no name no or ganization name procedure 01-31-2019 Patient encounter no information no name no or ganization name procedure 01-29-2019 Patient encounter no information no name no or ganization name procedure 01-04-2019 Patient encounter no information no name no or ganization name procedure Medical Equipment The data below is from unstructured sourcesNo Medical Equipment Information availableNo Medical Equipment Information availableNo Medical Equipment Information availableNo Medical Equipment Information a vailableNo Medical Equipment Information available Payers Normalized Payer Value Private Health Insurance [id number]) Private Health Insurance no information ([id number]) Clinical Notes 2019-12-23 to 2020-03-18 Note Type Note Facility History general Narrative - Reported Type Medical Nexplanon inserted Nexplanon removed 2016 History Medical chronic headaches/migraines History Medical Current moderate episode of major depressive disorder without prior episode History Medical Generalized anxiety disorde r History Medical PCOS (polycystic ovarian sy ndrome) History Surgical No Surgical history informa tion History [facility] ([id number]) History general Narrative - Reported Type Description Date Medical History Nexplanon inserted Nexplanon removed 2015 Medical History chronic he adaches/migraines Medical History Current mo derate episode of major depressive disorder without prior episode Medical History Generalize d anxiety disorder Medical History PCOS (poly cystic ovarian syndrome) Surgical History No Surgic al history information [facility] ([id number]) History general Narrative - Reported Type Description Date Medical History Nexplanon inserted Nexplanon removed 2015 Medical History chronic he adaches/migraines Medical History Current mo derate episode of major depressive disorder without prior episode Medical History Generalize d anxiety disorder Medical History PCOS (poly cystic ovarian syndrome) Surgical History No Surgic al history information [facility] ([id number]) History general Narrative - Reported Type Description Date Medical History Nexplanon inserted Nexplanon removed 2016 Medical History chronic he adaches/migraines Medical History Current mo derate episode of major depressive disorder without prior episode Medical History Generalize d anxiety disorder Medical History PCOS (poly cystic ovarian syndrome) Surgical History No Surgic al history information [facility] ([id number]) History general Narrative - Reported Type Description Date Medical History Nexplanon inserted Nexplanon removed 2016 Medical History chronic he adaches/migraines Medical History Current mo derate episode of major depressive disorder without prior episode Medical History Generalize d anxiety disorder Medical History PCOS (poly cystic ovarian syndrome) Surgical History No Surgic al history information [facility] ([id number]) History general Narrative - Reported Type Description Date Medical History Nexplanon inserted Nexplanon removed 2016 Medical History chronic he adaches/migraines Medical History Current mo derate episode of major depressive disorder without prior episode Medical History Generalize d anxiety disorder Medical History PCOS (poly cystic ovarian syndrome) Surgical History No Surgic al history information [facility] ([id number]) History general Narrative - Reported Type Description Date Medical History Nexplanon inserted Nexplanon removed 2016 Medical History chronic he adaches/migraines Medical History Current mo derate episode of major depressive disorder without prior episode Medical History Generalize d anxiety disorder Medical History PCOS (poly cystic ovarian syndrome) Surgical History No Surgic al history information [facility] ([id number]) History general Narrative - Reported Type Description Date Medical History Nexplanon inserted Nexplanon removed 2016 Medical History chronic he adaches/migraines Medical History Current mo derate episode of major depressive disorder without prior episode Medical History Generalize d anxiety disorder Medical History PCOS (poly cystic ovarian syndrome) Surgical History No Surgic al history information [facility] ([id number]) History general Narrative - Reported Type Description Date Medical History Nexplanon inserted Nexplanon removed 2015 Medical History chronic he adaches/migraines Medical History Current mo derate episode of major depressive disorder without prior episode Medical History Generalize d anxiety disorder Medical History PCOS (poly cystic ovarian syndrome) Surgical History No Surgic al history information [facility] ([id number]) History general Narrative - Reported Type Description Date Medical History Nexplanon inserted Nexplanon removed 2016 Medical History chronic he adaches/migraines Medical History Current mo derate episode of major depressive disorder without prior episode Medical History Generalize d anxiety disorder Medical History PCOS (poly cystic ovarian syndrome) Surgical History No Surgic al history information [facility] ([id number]) History general Narrative - Reported Type Description Date Medical History Nexplanon inserted Nexplanon removed 2016 Medical History chronic he adaches/migraines Medical History Current mo derate episode of major depressive disorder without prior episode Medical History Generalize d anxiety disorder Medical History PCOS (poly cystic ovarian syndrome) Surgical History No Surgic al history [facility] ([id number]) Evaluation note No Assessments Information Available [place] [facility] ([id number]) Summary Purpose eClinicalWorks SubmissioneClinicalWorks SubmissioneClinicalWorks SubmissioneClinicalWorks Submission Advance Directives Directive Response Recor ded Date/Time Advance Directives No 7:45am Resuscitation Status Full Code 05/19/14 7:45am Directive Response Recor ded Date/Time Advance Directives No 2:35pm Resuscitation Status Full Code 04/16/18 2:35pm Directive Response Recor ded Date/Time Advance Directives No 8:02pm Resuscitation Status Full Code 01/29/19 8:02pm Advance Directive Response Recorded Date/Time Advance Directives No Ma y 2019 1:16pm Resuscitation Status Full Code March 05, 2020 1:16pm Discharge Instructions No hospital discharge instructions.No hospital discharge instruction information available.No hospital discharge instruction information available. Chief Complaint and Reason for Visit Chief Complaint Skin/Wound Problems Reason for Visit Tetanus toxoid vacc ination administered at current visit Chief Complaint Laceration Reason for Visit [id number] Additional Source Comments This clinical document has been generated using [employer] software that has been certified by the Office of the National Coordinator for Health Information Technology (ONC 15.99.04.3023.Diam.[id number]) and the National Committee for Resident Care Coordinator (NCQA, as an eMeasure certified technology). FOR RECORDS PERTAINING TO PATIENTS WHO ARE OR HAVE BEEN ENROLLED IN A CHEMICAL D EPENDENCY/SUBSTANCE ABUSE PROGRAM, SOME INFORMATION MAY BE OMITTED. This clinica l summary was aggregated from multiple sources. Caution should be exercised in using it in the provision of clinical care. This summary normalizes information from multiple sources, and as a consequence, information in this document may ma terially change the coding, format and clinical context of patient data. In corbin tion, data may be omitted in some cases. CLINICAL DECISIONS SHOULD BE BASED ON T HE PRIMARY CLINICAL RECORDS. [employer] provides no warranty or guara ntee of the accuracy or completeness of information in this document.The followi ng information is based on time limited clinical information UNRECOGNIZED CONTENT PROVIDED BELOW FOR UNRECOGNIZED SECTION MEDICAL (GENERAL) HISTORY Type Description Date Medical History Nexplanon inserted Nexplanon removed 2015 Type Description Date Medical History Nexplanon inserted Nexplanon removed 2016 Surgical History No Surgical history information Type Description Date Medical History Nexplanon inserted Nexplanon removed 2015 Surgical History No know Surgical history Type Description Date Medical History Nexplanon inserted Nexplanon removed 2015 Medical History chronic headaches/migraine s Surgical History No know Surgical history UNRECOGNIZED CONTENT PROVIDED BELOW FOR UNRECOGNIZED SECTION REASON FOR VISIT BH f/uchronic left knee pain for 8 years. was cleaning last weekend...down on he r knees...now has pain in her left knee. kbullardrnknee pain Pt c/o L knee pain, states 8 years ago injured during basketball. A couple of weeks ago she was te aning and feels she reinjured. Would also like to discuss antidepression medicat ions and control She, MAMedication [id number] [id number]-MigDiscomfort and difficulty urinating; occasional burning with urination; symptoms 2-3 weeks ago - ADALGISA Herrera, Sharp pelvic pain; LMP: 1 week ago
--- OUTSIDE RECORDS SUMMARY | 2020-04-21 00:05 | XMS REPORT ---
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 Name Role Phone Migration, Doctor Unavailable Unavailable PROBLEMS Type Condition ICD9-CM Code [id number] Code Onset Dates Condition S tatus SNOMED Code Problem Menorrhagia with irregular cycle N92.1 Active 606605963 Problem Constipation, unspecified constipation type K59.00 Active 42097522 Problem Other chronic pain G89.29 Active 8 6334484 Problem Elevated testosterone level in female R79.89 Active 675615834 Problem Generalized anxiety disorder F41.1 A ctive 02093952 Problem Major depressive disorder, recurrent, moderate F33 .1 Active 512774237 Problem 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 Active 14871356 Problem PCOS (polycystic ovarian syndrome) E28.2 Active 340644698 Problem Morbid (severe) obesity due to excess calories E66 .01 Active 946337075 Problem Morbid (severe) obesity due to excess calories E66 .01 Active 806035143 Problem Body mass index (BMI) of 37.0-37.9 in adult Z68.37 Active 252734717 ALLERGIES No Information ENCOUNTERS Encounter Location Date Diagnosis [place] [address] [address] [facility] [id number] [address] [place] [address] Jan, Encounter for test Z32.00 [place] [address] [address] [facility] [id number] [address] [place] [address] Oct, Generalized anxiety disorder F41.1 ; Major depressive disorder, recurrent, moderate F33.1 and 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 [place] [address] [address] [facility] [id number] [address] [place] [address] Sep, Generalized anxiety disorder F41.1 ; 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 ; Body mass index (BMI) of 37.0-37.9 in adult Z68.37 ; PCOS (polycystic ovarian syndrome) E28.2 and Elevated testosterone level in female R79.89 [facility] [place] [facility] [id number] [place] [address] Sep, Drug screening, pre-employme nt Z02.1 [place] [id number] [facility] [id number] [address] [place] [address] Aug, [place] [address] [address] [place] [id number] [place] [address] Aug, Generalized abdominal pain R 10.84 ; Constipation, unspecified constipation type K59.00 ; PCOS (polycystic ovarian syndrome) E28.2 and Elevated testosterone level in female R79.89 [place] [address] [address] [place] [id number] [place] [address] Jun, PCOS (polycystic ovarian syn drome) E28.2 ; Menorrhagia with irregular cycle N92.1 ; Nonintractable episodic headache, unspecified headache type R51 ; Elevated testosterone level in female R79.89 ; Morbid (severe) obesity due to excess calories E66.01 and Body mass index (BMI) of 37.0-37.9 in adult Z68.37 [place] [address] [place] [id number] [place] [address] Jun, Nonintractable episodic head ache, unspecified headache type R51 ; Menorrhagia with irregular cycle N92.1 and PCOS (polycystic ovarian syndrome) E28.2 [place] [address] [place] [id number] [address] [place] [address] May, Nonintractable episodic head ache, unspecified headache type R51 and Amenorrhea N91.2 [facility] [address] [facility] [id number] [address] [place] [address] Apr, Acute strain of neck muscle, initial encounter S16.1XXA and Acute bilateral low back pain without sciatica M54.5 [facility] [address] [facility] [id number] [address] [place] [address] Apr, Pharyngitis due to other org anism J02.8 [facility] [address] [facility] [id number] [address] [place] [phone] 17 Mar, 2019 Acute left ankle pain M25.57 2 [place] [address] [address] [facility] [id number] [address] [place] [address] February, Pelvic pain R10.2 ; Acute vu lvitis N76.2 and Encounter for initial prescription of transdermal patch hormonal contraceptive device Z30.016 [place] [address] [address] [place] [id number] [address] [place] [address] 12 Jan, 2019 control counseling Z30 .9 ; Contraception management Z30.9 ; Contraceptive education Z30.09 ; Encounter for immunization Z23 ; Other chronic pain G89.29 and Pain in left knee M25.562 [facility] [address] [place] [id number] [address] [place] [id number] 16 Dec, 2018 Dysuria R30.0 ; Pelvic pain R10.2 ; Constipation, unspecified constipation type K59.00 and Menorrhagia with irregular cycle N92.1 [place] [address] [address] [place] [address] 17 Jul, 2018 Encounter for immunization Z 23 [place] [address] [address] [facility] [id number] [address] [place] [address] 11 Jun, 2018 Mild episode of recurrent ma odilon depressive disorder F33.0 ; Effusion, left knee M25.462 ; Acute cystitis without hematuria N30.00 and Encounter for initial prescription of vaginal ring hormonal contraceptive Z30.015 [facility] [address] [facility] [id number] [address] [place] [address] 07 Jun, 2018 Left anterior knee pain M25. 562 [place] [address] [address] [place] [id number] [address] [place] [address] May, [place] [address] [address] [facility] [id number] [place] [address] Apr, Generalized anxiety disorder F41.1 and Severe episode of recurrent major depressive disorder, without 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 [facility] [address] [facility] [id number] [address] [place] [address] Mar, Generalized anxiety disorder F41.1 and Severe episode of recurrent major depressive disorder, without 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 [facility] [address] [facility] [id number] [address] [place] [address] Mar, 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 ; Anxiety F41.9 and Irregular menstrual bleeding N92.6 [facility] [address] [facility] [id number] [address] [place] [address] Sep, Weight gain R63.5 [facility] [address] [place] [address] Sep, Weight gain R63.5 [facility] [place] [address] [place] [id number] [place] [id number] Aug, Athlete's foot on left B35.3 and Athlete's foot on right B35.3 [facility] [address] [facility] [id number] [address] [place] [address] Apr, Sore throat J02.9 ; Cough R0 5 ; Dysphagia, unspecified type R13.10 and Shortness of breath R06.02 [facility] [address] [place] [id number] [address] [place] [address] Apr, Encounter for initial manage ment of nuvaring Z30.49 [place] [address] [address] [place] [id number] [address] [place] [address] Mar, [place] [address] [place] [id number] [address] [place] [phone] Mar, Overweight E66.3 [place] [address] [address] [place] [id number] [address] [place] [address] February, Nexplanon removal Z30.49 and Encounter for initial prescription of other contraceptives Z30.018 [place] [address] [place] [id number] [address] [place] [phone] Dec, Back pain M54.9 [facility] [address] [place] [id number] [address] [place] [address] Dec, Surveillance of implantable subdermal contraceptive Z30.49 ; Irregular bleeding N92.6 ; Vaginal irritation N89.8 ; Routine screening for STI (sexually transmitted infection) Z11.3 and OCP (oral contraceptive pills) initiation Z30.011 [facility] [address] [place] [address] Dec, Back pain M54.9 [facility] [address] [place] [id number] [address] [place] [address] Nov, Back pain M54.9 [facility] [address] [id number] Nov, Dysfunctional uterine bleedi ng N93.8 and Vaginal itching L29.8 [facility] [address] [place] [id number] [address] [place] [address] Nov, Cervicalgia M54.2 [facility] [address] [place] [id number] [address] [place] [phone] Nov, Cervicalgia M54.2 [facility] [address] [place] [id number] [address] [place] [address] Nov, Cervicalgia M54.2 [facility] [address] [place] [id number] [place] [address] [id number] Nov, Cervicalgia M54.2 [facility] [address] [place] [id number] [address] [place] [phone] Sep, Screening for tuberculosis Z 11.1 [facility] [address] [place] [id number] [address] [place] [id number] Aug, Dental examination Z01.20 [facility] [address] [place] [id number] [address] [place] [id number] 13 Apr, 2015 Irregular bleeding 626.4 and Screen for STD (sexually transmitted disease) V74.5 [facility] [address] [id number] [address] [place] [address], [place] [id number] 14 Jan, 2015 [facility] [address] [id number] [address] [place] [address], [place] [address] Jan, [facility] [address] [id number] [address] [place] [address], [place] [address] Oct, [facility] [address] [id number] [address] [place] [address], [place] [address] Oct, [facility] [address] [id number] [address] [place] [address], [place] [address] Oct, [facility] [address] [id number] [address] [place] [address], [place] [address] Oct, [facility] [address] [id number] [address] [place] [address], [place] [address] Sep, [facility] [address] [id number] [address] [place] [id number] Sep, [facility] [address] [id number] [address] [place] [address], [place] [address] Jul, [facility] [address] [id number] [address] [place] [phone] 30 Jul, 2014 [facility] [address] [id number] [address] [place] [phone] 17 Jul, 2014 [facility] [address] [id number] [address] [place] [phone] 15 Jul, 2014 [facility] [address] [id number] [address] [place] [address], [place] [id number] 15 Jul, 2014 [facility] [address] [id number] [address] [place] [id number] 24 Jun, 2014 [facility] [address] [id number] [address] [place] [id number] 24 Jun, 2014 [facility] [address] [id number] [address] [place] [phone] Jun, [facility] [address] [id number] [address] [place] [address], [place] [address] Jun, [facility] [address] [id number] [address] [place] [address], [place] [address] Jan, [facility] [address] [id number] [address] [place] [address], [place] [address] Jan, [facility] [address] [id number] [address] [place] [address], [place] [address] Oct, [facility] [address] [id number] [address] [place] [address], [place] [id number] Oct, [facility] [address] [id number] [address] [place] [address], [place] [address] Oct, [facility] [address] [id number] [address] [place] [address], [place] [address] Oct, [facility] [address] [id number] [address] [place] [address], [place] [id number] Sep, [facility] [address] [id number] [address] [place] [address], [place] [address] Sep, [facility] [address] [id number] [address] [place] [address], [place] [address] Aug, [facility] [address] [id number] [address] [place] [address], [place] [address] Aug, [facility] [address] [id number] [address] [place] [address], [place] [id number] Aug, [facility] [address] [id number] [address] [place] [address], [place] [id number] Aug, [facility] [address] [id number] [address] [place] [address], [place] [address] Aug, [facility] [address] [id number] [address] [place] [address], [place] [id number] Aug, [facility] [address] [id number] [address] [place] [address], [place] [address] 05 Aug, 2013 [facility] [address] [id number] [address] [place] [address], [place] [address] Aug, [facility] [address] [id number] [address] [place] [address], [place] [address] Jul, [facility] [address] [id number] [address] [place] [address], [place] [id number] 30 Jul, 2013 [facility] [address] [id number] [address] [place] [address], [place] [address] Jul, [facility] [address] [id number] [address] [place] [address], [place] [address] Jul, [facility] [address] [id number] [address] [place] [address], [place] [address] Jul, [facility] [address] [id number] [address] [place] [address], [place] [address] Jul, [facility] [address] [id number] [address] [place] [address], [place] [address] Jul, [facility] [address] [id number] [address] [place] [address], [place] [address] Jul, [facility] [address] [id number] [address] [place] [address], [place] [address] Jul, [facility] [address] [id number] [address] [place] [address], [place] [address] 10 Jul, 2013 [facility] [address] [id number] [address] [place] [address], [place] [address] Jul, [facility] [address] [id number] [address] [place] [address], [place] [address] Jul, [facility] [address] [id number] [address] [place] [address], [place] [address] Jul, [facility] [address] [id number] [address] [place] [address], [place] [address] Jun, [facility] [address] [id number] [address] [place] [address], [place] [address] May, [facility] [address] [id number] [address] [place] [address], [place] [address] Jan, [facility] [address] [id number] [address] [place] [address], [place] [address] Nov, [facility] [address] [id number] [address] [place] [address], [place] [address] Sep, [facility] [address] [id number] [address] [place] [address], [place] [address] Sep, [facility] [address] [id number] [address] [place] [address], [place] [address] Aug, [facility] [address] [id number] [address] [place] [address], [place] [address] Aug, [facility] [address] [id number] [address] [place] [address], [place] [address] Jun, [facility] [address] [id number] [address] [place] [address], [place] [address] Mar, [facility] [address] [id number] [address] [place] [address], [place] [address] February, [facility] [address] [id number] [address] [place] [address], [place] [address] Jan, [facility] [address] [id number] [address] [place] [address], [place] [address] Dec, [facility] [address] [id number] [address] [place] [address], [place] [address] Nov, [facility] [address] [id number] [address] [place] [address], [place] [address] Nov, [facility] [address] [id number] [address] [place] [address], [place] [address] Nov, [facility] [address] [id number] [address] [place] [id number] 17 Aug, 2011 [facility] [address] [facility] [id number] [address] [place] [id number] 19 Jun, 2011 [facility] [address] [facility] [id number] [address] [place] [id number] 11 Jun, 2010 IMMUNIZATIONS No Known Immunizations SOCIAL HISTORY Never Assessed REASON FOR VISIT PLAN OF CARE VITAL SIGNS MEDICATIONS Unknown Medications RESULTS No Results PROCEDURES Procedure Date Ordered Result Body Site PSYTX PT&/FAMILY 45 MINUTES Sep 16, 2013 INSTRUCTIONS MEDICATIONS ADMINISTERED No Known Medications MEDICAL (GENERAL) HISTORY Type Description Date Medical History Nexplanon inserted Nexplanon rem deepa 2015 Medical History chronic headaches/migraines Medical History Current moderate episode of major depressive disorder without prior episode Medical History Generalized anxiety disorder Medical History PCOS (polycystic ovarian syndrome) Surgical History No Surgical history information
--- OUTSIDE RECORDS SUMMARY | 2020-04-21 00:05 | XMS REPORT ---
Author Author Skyler Bell [facility] Address [address] [place] [address] Care Team Providers Care Supervisor [facility] Name Role Phone TERENCE Bell Unavailable PROBLEMS Type Condition ICD9-CM Code JEO63-WP Code Onset Dates Condition S tatus SNOMED Code Problem Menorrhagia with irregular cycle N92.1 Active 453651716 Problem Constipation, unspecified constipation type K59.00 Active 79747771 Problem Other chronic pain G89.29 Active 8 2977883 Problem Elevated testosterone level in female R79.89 Active 246182737 Problem Generalized anxiety disorder F41.1 A ctive 47953621 Problem Major depressive disorder, recurrent, moderate F33 .1 Active 489840800 Problem 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 Active 09670484 Problem PCOS (polycystic ovarian syndrome) E28.2 Active 007009912 Problem Morbid (severe) obesity due to excess calories E66 .01 Active 354142003 Problem Morbid (severe) obesity due to excess calories E66 .01 Active 329911896 Problem Body mass index (BMI) of 37.0-37.9 in adult Z68.37 Active 426103276 ALLERGIES No Information ENCOUNTERS Encounter Location Date Diagnosis [place] [address] [address] [facility] [id number] [address] [place] [id number] Jan, Encounter for test Z32.00 [place] [address] [facility] [id number] [address] [place] [phone] Oct, Generalized anxiety disorder F41.1 ; Major depressive disorder, recurrent, moderate F33.1 and Other correction (current) drug therapy Z79.899 [facility] [address] [facility] [id number] [address] [place] [address] Sep, Generalized anxiety disorder F41.1 ; 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 ; Body mass index (BMI) of 37.0-37.9 in adult Z68.37 ; PCOS (polycystic ovarian syndrome) E28.2 and Elevated testosterone level in female R79.89 [facility] [place] [facility] [id number] [place] [address] Sep, Drug screening, pre-employme nt Z02.1 [place] [address] [facility] [id number] [address] [place] [address] Aug, [place] [address] [facility] [id number] [address] [place] [id number] Aug, Generalized abdominal pain R 10.84 ; Constipation, unspecified constipation type K59.00 ; PCOS (polycystic ovarian syndrome) E28.2 and Elevated testosterone level in female R79.89 [place] [address] [facility] [id number] [address] [place] [address] Jun, PCOS (polycystic ovarian syn drome) E28.2 ; Menorrhagia with irregular cycle N92.1 ; Nonintractable episodic headache, unspecified headache type R51 ; Elevated testosterone level in female R79.89 ; Morbid (severe) obesity due to excess calories E66.01 and Body mass index (BMI) of 37.0-37.9 in adult Z68.37 [place] [address] [facility] [id number] [address] [place] [address] Jun, Nonintractable episodic head ache, unspecified headache type R51 ; Menorrhagia with irregular cycle N92.1 and PCOS (polycystic ovarian syndrome) E28.2 [facility] [address] [facility] [id number] [address] [place] [phone] May, Nonintractable episodic head ache, unspecified headache type R51 and Amenorrhea N91.2 [facility] [address] [facility] [id number] [address] [place] [address] Apr, Acute strain of neck muscle, initial encounter S16.1XXA and Acute bilateral low back pain without sciatica M54.5 [facility] [address] [place] [id number] [address] [place] [phone] 10 Apr, 2019 Pharyngitis due to other org anism J02.8 [facility] [address] [place] [id number] [address] [place] [id number] 17 Mar, 2019 Acute left ankle pain M25.57 2 [place] [address] [address] February, Pelvic pain R10.2 ; Acute vu lvitis N76.2 and Encounter for initial prescription of transdermal patch hormonal contraceptive device Z30.016 [place] [address] [address] 12 Jan, 2019 control counseling Z30 .9 ; Contraception management Z30.9 ; Contraceptive education Z30.09 ; Encounter for immunization Z23 ; Other chronic pain G89.29 and Pain in left knee M25.562 [facility] [place] [address] [address] 16 Dec, 2018 Dysuria R30.0 ; Pelvic pain R10.2 ; Constipation, unspecified constipation type K59.00 and Menorrhagia with irregular cycle N92.1 [place] [address] [id number] 17 Jul, 2018 Encounter for immunization Z 23 [place] [address] [address] [place] [id number] [address] [place] [id number] 11 Jun, 2018 Mild episode of recurrent ma odilon depressive disorder F33.0 ; Effusion, left knee M25.462 ; Acute cystitis without hematuria N30.00 and Encounter for initial prescription of vaginal ring hormonal contraceptive Z30.015 [facility] [place] [address] [address] 07 Jun, 2018 Left anterior knee pain M25. 562 [place] [address] [address] May, [place] [address] [address] Apr, Generalized anxiety disorder F41.1 and Severe episode of recurrent major depressive disorder, without 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 [facility] [address] [place] [id number] [address] [place] [phone] Mar, Generalized anxiety disorder F41.1 and Severe episode of recurrent major depressive disorder, without 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 [place] [address] [place] [id number] [address] [place] [phone] Mar, 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 ; Anxiety F41.9 and Irregular menstrual bleeding N92.6 [place] [address] [place] [id number] [address] [place] [address] Sep, Weight gain R63.5 [place] [address] [place] [id number] [address] [place] [phone] Sep, Weight gain R63.5 [facility] [address] [place] [id number] [place] [id number] Aug, Athlete's foot on left B35.3 and Athlete's foot on right B35.3 [facility] [address] [place] [id number] [place] [address] Apr, Sore throat J02.9 ; Cough R0 5 ; Dysphagia, unspecified type R13.10 and Shortness of breath R06.02 [place] [id number] [place] [address] Apr, Encounter for initial manage ment of nuvaring Z30.49 [place] [address] [address] [place] [id number] [address] [place] [phone] Mar, [place] [address] [address] [place] [id number] [address] [place] [phone] Mar, Overweight E66.3 [facility] [address] [place] [id number] [address] [place] [phone] February, Nexplanon removal Z30.49 and Encounter for initial prescription of other contraceptives Z30.018 [facility] [address] [facility] [id number] [address] [place] [phone] 09 Dec, [address] [facility] [address] [facility] [id number] [address] [place] [phone] Dec, Surveillance of implantable subdermal contraceptive Z30.49 ; Irregular bleeding N92.6 ; Vaginal irritation N89.8 ; Routine screening for STI (sexually transmitted infection) Z11.3 and OCP (oral contraceptive pills) initiation Z30.011 [facility] [address] [facility] [id number] [address] [place] [phone] Dec, Back pain M54.9 [facility] [address] [facility] [id number] [address] [place] [phone] 29 Nov, 2015 Back pain M54.9 [facility] [address] [facility] [id number] [place] [id number] 24 Nov, 2015 Dysfunctional uterine bleedi ng N93.8 [address] Vaginal itching L29.8 [facility] [address] [facility] [id number] [address] [place] [phone] Nov, Cervicalgia M54.2 [facility] [address] [facility] [id number] [address] [place] [id number] Nov, Cervicalgia M54.2 [facility] [address] [facility] [id number] [address] [place] [phone] Nov, Cervicalgia M54.2 [facility] [address] [facility] [id number] [place] [id number] Nov, Cervicalgia M54.2 [facility] [address] [facility] [id number] [address] [place] [phone] Sep, Screening for tuberculosis Z 11.1 [facility] [address] [id number] [address] [place] [id number] Aug, Dental examination Z01.20 [facility] [address] [id number] [address] [place] [phone] Apr, Irregular bleeding 626.4 and Screen for STD (sexually transmitted disease) V74.5 [facility] [address] [id number] [address] [place] [phone] Jan, [facility] [address] [id number] [address] [place] [phone] Jan, [facility] [address] [id number] [address] [place] [phone] Oct, [facility] [address] [id number] [address] [place] [phone] Oct, [facility] [address] [id number] [address] [place] [phone] Oct, [facility] [address] [id number] [address] [place] [phone] Oct, [facility] [address] [id number] [address] [place] [phone] Sep, [facility] [address] [id number] [address] [place] [phone] Sep, [facility] [address] [id number] [address] [place] [phone] Jul, [facility] [address] [id number] [address] [place] [id number] Jul, [facility] [address] [id number] [address] [place] [phone] Jul, [facility] [address] [id number] [address] [place] [phone] Jul, [facility] [address] [id number] [address] [place] [phone] Jul, [facility] [address] [id number] [address] [place] [phone] 24 Jun, 2014 [facility] [address] [id number] [address] [place] [address] [place] [address] 24 Jun, 2014 [facility] [address] [id number] [address] [place] [address], [place] [address] 10 Jun, 2014 [facility] [address] [id number] [address] [place] [address], [place] [address] Jun, [facility] [address] [id number] [address] [place] [address], [place] [address] Jan, [facility] [address] [id number] [address] [place] [address], [place] [address] Jan, [facility] [address] [id number] [address] [place] [address], [place] [address] Oct, [facility] [address] [id number] [address] [place] [address], [place] [address] Oct, [facility] [address] [id number] [address] [place] [address], [place] [address] Oct, [facility] [address] [id number] [address] [place] [address], [place] [address] Oct, [facility] [address] [id number] [address] [place] [address], [place] [address] Sep, [facility] [address] [id number] [address] [place] [address], [place] [address] Sep, [facility] [address] [id number] [address] [place] [address], [place] [address] Aug, [facility] [address] [id number] [address] [place] [address], [place] [address] Aug, [facility] [address] [id number] [address] [place] [address], [place] [address] Aug, [facility] [address] [id number] [address] [place] [address], [place] [address] Aug, [facility] [address] [id number] [address] [place] [address], [place] [address] Aug, [facility] [address] [id number] [address] [place] [address], [place] [address] 08 Aug, 2013 [facility] [address] [id number] [address] [place] [address], [place] [address] 05 Aug, 2013 [facility] [address] [id number] [address] [place] [address], [place] [address] 05 Aug, 2013 [facility] [address] [id number] [address] [place] [address], [place] [address] 30 Jul, 2013 [facility] [address] [id number] [address] [place] [address], [place] [address] 30 Jul, 2013 [facility] [address] [id number] [address] [place] [address], [place] [address] Jul, [facility] [address] [id number] [address] [place] [address], [place] [address] Jul, [facility] [address] [id number] [address] [place] [address], [place] [address] Jul, [facility] [address] [id number] [address] [place] [address], [place] [address] Jul, [facility] [address] [id number] [address] [place] [address], [place] [address] Jul, [facility] [address] [id number] [address] [place] [address], [place] [address] Jul, [facility] [address] [id number] [address] [place] [address], [place] [address] Jul, [facility] [address] [id number] [address] [place] [address], [place] [address] Jul, [facility] [address] [id number] [address] [place] [address], [place] [address] Jul, [facility] [address] [id number] [address] [place] [phone] 09 Jul, 2013 [facility] [address] [id number] [address] [place] [phone] Jul, [facility] [address] [id number] [address] [place] [address], [place] [address] Jun, [facility] [address] [id number] [address] [place] [address], [place] [address] May, [facility] [address] [id number] [address] [place] [address], [place] [address] Jan, [facility] [address] [id number] [address] [place] [address], [place] [address] Nov, [facility] [address] [id number] [address] [place] [address], [place] [address] Sep, [facility] [address] [id number] [address] [place] [address], [place] [address] Sep, [facility] [address] [id number] [address] [place] [address], [place] [address] Aug, [facility] [address] [id number] [address] [place] [address], [place] [address] Aug, [facility] [address] [id number] [address] [place] [address], [place] [address] Jun, [facility] [address] [id number] [address] [place] [address], [place] [address] Mar, [facility] [address] [id number] [address] [place] [address], [place] [address] February, [facility] [address] [id number] [address] [place] [address], [place] [address] Jan, [facility] [address] [id number] [address] [place] [address], [place] [address] Dec, [facility] [address] [id number] [address] [place] [address], [place] [address] Nov, [facility] [address] [id number] [address] [place] [address], [place] [address] Nov, [facility] [address] [id number] [address] [place] [id number] [address], [address] [facility] [address] [facility] [id number] [address] [place] [phone] Aug, [facility] [address] [facility] [id number] [address] [place] [id number] 19 Jun, 2011 [facility] [address] [facility] [id number] [address] [place] [id number] 11 Jun, 2010 IMMUNIZATIONS No Known Immunizations [...]
--- OUTSIDE RECORDS SUMMARY | 2020-04-21 00:06 | XMS REPORT ---
Author Author Skyler Duran Doctor Organization [facility] Address Unknown Phone Unavailable Care Team Providers Care Adult Education Instructor Name Role Phone Migration, Doctor Unavailable Unavailable PROBLEMS Type Condition ICD9-CM Code [id number] Code Onset Dates Condition S tatus SNOMED Code Problem Menorrhagia with irregular cycle N92.1 Active 712697221 Problem Constipation, unspecified constipation type K59.00 Active 44104475 Problem Other chronic pain G89.29 Active 8 1208086 Problem Elevated testosterone level in female R79.89 Active 850912258 Problem Generalized anxiety disorder F41.1 A ctive 50307926 Problem Major depressive disorder, recurrent, moderate F33 .1 Active 077924478 Problem 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 Active 85632053 Problem PCOS (polycystic ovarian syndrome) E28.2 Active 894049924 Problem Morbid (severe) obesity due to excess calories E66 .01 Active 504856103 Problem Morbid (severe) obesity due to excess calories E66 .01 Active 561668686 Problem Body mass index (BMI) of 37.0-37.9 in adult Z68.37 Active 517738687 ALLERGIES No Information ENCOUNTERS Encounter Location Date Diagnosis [place] [address] [facility] [id number] [address] [place] [address] Jan, Encounter for test Z32.00 [place] [address] 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 [id number] [address] [place] [address] Sep, Generalized anxiety disorder F41.1 ; 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 ; Body mass index (BMI) of 37.0-37.9 in adult Z68.37 ; PCOS (polycystic ovarian syndrome) E28.2 and Elevated testosterone level in female R79.89 [facility] [place] [facility] [id number] [address] Sep, Drug screening, pre-employme nt Z02.1 [place] [id number] [facility] [id number] [address] [place] [address] Aug, [place] [address] [place] [id number] [place] [address] Aug, Generalized abdominal pain R 10.84 ; Constipation, unspecified constipation type K59.00 ; PCOS (polycystic ovarian syndrome) E28.2 and Elevated testosterone level in female R79.89 [place] [address] [place] [id number] [place] [address] Jun, PCOS (polycystic ovarian syn drome) E28.2 ; Menorrhagia with irregular cycle N92.1 ; Nonintractable episodic headache, unspecified headache type R51 ; Elevated testosterone level in female R79.89 ; Morbid (severe) obesity due to excess calories E66.01 and Body mass index (BMI) of 37.0-37.9 in adult Z68.37 [place] [address] [place] [id number] [place] [address] Jun, Nonintractable episodic head ache, unspecified headache type R51 ; Menorrhagia with irregular cycle N92.1 and PCOS (polycystic ovarian syndrome) E28.2 [place] [address] [place] [id number] [address] [place] [address] May, Nonintractable episodic head ache, unspecified headache type R51 and Amenorrhea N91.2 [facility] [address] [facility] [id number] [address] [place] [address] Apr, Acute strain of neck muscle, initial encounter S16.1XXA and Acute bilateral low back pain without sciatica M54.5 [facility] [address] [facility] [id number] [address] [place] [address] Apr, Pharyngitis due to other org anism J02.8 [facility] [address] [facility] [id number] [address] [place] [address] 17 Mar, 2019 Acute left ankle pain M25.57 2 [place] [address] [facility] [id number] [address] [place] [address] February, Pelvic pain R10.2 ; Acute vu lvitis N76.2 and Encounter for initial prescription of transdermal patch hormonal contraceptive device Z30.016 [place] [address] [place] [id number] [address] [place] [address] 12 Jan, 2019 control counseling Z30 .9 ; Contraception management Z30.9 ; Contraceptive education Z30.09 ; Encounter for immunization Z23 ; Other chronic pain G89.29 and Pain in left knee M25.562 [facility] [address] [place] [id number] [address] [place] [address] 16 Dec, 2018 Dysuria R30.0 ; Pelvic pain R10.2 ; Constipation, unspecified constipation type K59.00 and Menorrhagia with irregular cycle N92.1 [place] [id number] [place] [address] 17 Jul, 2018 Encounter for immunization Z 23 [place] [address] [facility] [id number] [address] [place] [address] 11 Jun, 2018 Mild episode of recurrent ma odilon depressive disorder F33.0 ; Effusion, left knee M25.462 ; Acute cystitis without hematuria N30.00 and Encounter for initial prescription of vaginal ring hormonal contraceptive Z30.015 [facility] [address] [facility] [id number] [address] [place] [address] 07 Jun, 2018 Left anterior knee pain M25. 562 [place] [address] [place] [id number] [address] [place] [address] May, [place] [address] [facility] [id number] [place] [address] Apr, Generalized anxiety disorder F41.1 and Severe episode of recurrent major depressive disorder, without 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 [facility] [address] [facility] [id number] [address] [place] [address] Mar, Generalized anxiety disorder F41.1 and Severe episode of recurrent major depressive disorder, without 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 [facility] [address] [facility] [id number] [address] [place] [address] Mar, 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 ; Anxiety F41.9 and Irregular menstrual bleeding N92.6 [facility] [address] [facility] [id number] [address] [place] [address] Sep, Weight gain R63.5 [facility] [id number] [place] [address] Sep, Weight gain R63.5 [facility] [address] [place] [id number] [place] [id number] Aug, Athlete's foot on left B35.3 and Athlete's foot on right B35.3 [facility] [address] [facility] [id number] [address] [place] [address] Apr, Sore throat J02.9 ; Cough R0 5 ; Dysphagia, unspecified type R13.10 and Shortness of breath R06.02 [facility] [address] [place] [id number] [address] [place] [address] Apr, Encounter for initial manage ment of nuvaring Z30.49 [place] [address] [place] [id number] [address] [place] [address] Mar, [place] [address] [place] [id number] [address] [place] [address] Mar, Overweight E66.3 [place] [address] [place] [id number] [address] [place] [address] February, Nexplanon removal Z30.49 and Encounter for initial prescription of other contraceptives Z30.018 [place] [address] [place] [id number] [address] [place] [address] Dec, Back pain M54.9 [facility] [address] [place] [id number] [address] [place] [address] Dec, Surveillance of implantable subdermal contraceptive Z30.49 ; Irregular bleeding N92.6 ; Vaginal irritation N89.8 ; Routine screening for STI (sexually transmitted infection) Z11.3 and OCP (oral contraceptive pills) initiation Z30.011 [facility] [address] [place] [address] Dec, Back pain M54.9 [facility] [address] [place] [id number] [address] [place] [address] Nov, Back pain M54.9 [facility] [address] [id number] Nov, Dysfunctional uterine bleedi ng N93.8 and Vaginal itching L29.8 [facility] [address] [place] [id number] [address] [place] [address] Nov, Cervicalgia M54.2 [facility] [address] [place] [id number] [address] [place] [address] Nov, Cervicalgia M54.2 [facility] [address] [place] [id number] [address] [place] [address] Nov, Cervicalgia M54.2 [facility] [address] [place] [id number] [place] [id number] Nov, Cervicalgia M54.2 [facility] [address] [place] [id number] [address] [place] [phone] Sep, Screening for tuberculosis Z 11.1 [facility] [address] [place] [id number] [address] [place] [id number] Aug, Dental examination Z01.20 [facility] [address] [place] [id number] [address] [place] [address] 13 Apr, 2015 Irregular bleeding 626.4 and Screen for STD (sexually transmitted disease) V74.5 [facility] [address] [id number] [address] [place] [address], [place] [address] 14 Jan, 2015 [facility] [address] [id number] [address] [place] [address], [place] [address] Jan, [facility] [address] [id number] [address] [place] [address], [place] [address] Oct, [facility] [address] [id number] [address] [place] [address], [place] [address] Oct, [facility] [address] [id number] [address] [place] [address], [place] [address] Oct, [facility] [address] [id number] [address] [place] [address], [place] [address] Oct, [facility] [address] [id number] [address] [place] [address], [place] [address] Sep, [facility] [address] [id number] [address] [place] [address] Sep, [facility] [address] [id number] [address] [place] [address], [place] [address] Jul, [facility] [address] [id number] [address] [place] [id number] 30 Jul, 2014 [facility] [address] [id number] [address] [place] [address] 17 Jul, 2014 [facility] [address] [id number] [address] [place] [address] 15 Jul, 2014 [facility] [address] [id number] [address] [place] [address], [place] [address] 15 Jul, 2014 [facility] [address] [id number] [address] [place] [address] 24 Jun, 2014 [facility] [address] [id number] [address] [place] [phone] 24 Jun, 2014 [facility] [address] [id number] [address] [place] [address] Jun, [facility] [address] [id number] [address] [place] [address], [place] [address] Jun, [facility] [address] [id number] [address] [place] [address], [place] [address] Jan, [facility] [address] [id number] [address] [place] [address], [place] [address] Jan, [facility] [address] [id number] [address] [place] [address], [place] [address] Oct, [facility] [address] [id number] [address] [place] [address], [place] [address] Oct, [facility] [address] [id number] [address] [place] [address], [place] [address] Oct, [facility] [address] [id number] [address] [place] [address], [place] [address] Oct, [facility] [address] [id number] [address] [place] [address], [place] [address] Sep, [facility] [address] [id number] [address] [place] [address], [place] [address] Sep, [facility] [address] [id number] [address] [place] [address], [place] [address] Aug, [facility] [address] [id number] [address] [place] [address], [place] [address] Aug, [facility] [address] [id number] [address] [place] [address], [place] [address] Aug, [facility] [address] [id number] [address] [place] [address], [place] [address] Aug, [facility] [address] [id number] [address] [place] [address], [place] [address] Aug, [facility] [address] [id number] [address] [place] [address], [place] [address] Aug, [facility] [address] [id number] [address] [place] [address], [place] [address] 05 Aug, 2013 [facility] [address] [id number] [address] [place] [address], [place] [address] Aug, [facility] [address] [id number] [address] [place] [address], [place] [address] Jul, [facility] [address] [id number] [address] [place] [address], [place] [address] 30 Jul, 2013 [facility] [address] [id number] [address] [place] [address], [place] [address] Jul, [facility] [address] [id number] [address] [place] [address], [place] [address] Jul, [facility] [address] [id number] [address] [place] [address], [place] [address] Jul, [facility] [address] [id number] [address] [place] [address], [place] [address] Jul, [facility] [address] [id number] [address] [place] [address], [place] [address] Jul, [facility] [address] [id number] [address] [place] [address], [place] [address] Jul, [facility] [address] [id number] [address] [place] [address], [place] [address] Jul, [facility] [address] [id number] [address] [place] [address], [place] [address] 10 Jul, 2013 [facility] [address] [id number] [address] [place] [address], [place] [address] Jul, [facility] [address] [id number] [address] [place] [address], [place] [address] Jul, [facility] [address] [id number] [address] [place] [address], [place] [address] Jul, [facility] [address] [id number] [address] [place] [address], [place] [address] Jun, [facility] [address] [id number] [address] [place] [address], [place] [address] May, [facility] [address] [id number] [address] [place] [address], [place] [address] Jan, [facility] [address] [id number] [address] [place] [address], [place] [address] Nov, [facility] [address] [id number] [address] [place] [address], [place] [address] Sep, [facility] [address] [id number] [address] [place] [address], [place] [address] Sep, [facility] [address] [id number] [address] [place] [address], [place] [address] Aug, [facility] [address] [id number] [address] [place] [address], [place] [address] Aug, [facility] [address] [id number] [address] [place] [address], [place] [address] Jun, [facility] [address] [id number] [address] [place] [address], [place] [address] Mar, [facility] [address] [id number] [address] [place] [address], [place] [address] February, [facility] [address] [id number] [address] [place] [address], [place] [address] Jan, [facility] [address] [id number] [address] [place] [address], [place] [address] Dec, [facility] [address] [id number] [address] [place] [address], [place] [address] Nov, [facility] [address] [id number] [address] [place] [address], [place] [address] Nov, [facility] [address] [id number] [address] [place] [address], [place] [address] Nov, [facility] [address] [id number] [address] [place] [address] 17 Aug, 2011 [facility] [address] [facility] [id number] [address] [place] [address] 19 Jun, 2011 [facility] [address] [facility] [id number] [address] [place] [address] 11 Jun, 2010 IMMUNIZATIONS No Known Immunizations SOCIAL HISTORY Never Assessed REASON FOR VISIT PLAN OF CARE VITAL SIGNS MEDICATIONS Unknown Medications RESULTS No Results PROCEDURES Procedure Date Ordered Result Body Site PSYTX PT&/FAMILY 45 MINUTES Aug 12, 2013 INSTRUCTIONS MEDICATIONS ADMINISTERED No Known Medications MEDICAL (GENERAL) HISTORY Type Description Date Medical History Nexplanon inserted Nexplanon rem deeap 2015 Medical History chronic headaches/migraines Medical History Current moderate episode of major depressive disorder without prior episode Medical History Generalized anxiety disorder Medical History PCOS (polycystic ovarian syndrome) Surgical History No Surgical history information
--- OUTSIDE RECORDS SUMMARY | 2020-04-21 00:06 | XMS REPORT ---
Author Author Skyler Duran Doctor Organization [facility] Address Unknown Phone Unavailable Care Team Providers Care Loan Funder Name Role Phone Migration, Doctor Unavailable Unavailable PROBLEMS Type Condition ICD9-CM Code TUE60-VJ Code Onset Dates Condition S tatus SNOMED Code Problem Menorrhagia with irregular cycle N92.1 Active 725226935 Problem Constipation, unspecified constipation type K59.00 Active 95545666 Problem Other chronic pain G89.29 Active 8 3108128 Problem Elevated testosterone level in female R79.89 Active 295208663 Problem Generalized anxiety disorder F41.1 A ctive 19185219 Problem Major depressive disorder, recurrent, moderate F33 .1 Active 072714672 Problem 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 Active 43306675 Problem PCOS (polycystic ovarian syndrome) E28.2 Active 037013930 Problem Morbid (severe) obesity due to excess calories E66 .01 Active 866186254 Problem Morbid (severe) obesity due to excess calories E66 .01 Active 033338224 Problem Body mass index (BMI) of 37.0-37.9 in adult Z68.37 Active 064195773 ALLERGIES No Information ENCOUNTERS Encounter Location Date Diagnosis [facility] [address] [id number] [place] [address] Oct, Generalized anxiety disorder F41.1 ; Ricardo or depressive disorder, recurrent, moderate F33.1 and Other senior living (current) drug therapy Z79.899 [facility] [address] [id number] [place] [address] Sep, Generalized anxiety disorder F41.1 ; Cur rent moderate episode of major depressive disorder without prior episode F32.1 ; Body mass index (BMI) of 37.0- 37.9 in adult Z68.37 ; PCOS (polycystic ovarian syndrome) E28.2 and Elevated testosterone level in female R79.89 [facility] [address] [address] [place] [address] Sep, Drug screening, pre-employme nt Z02.1 [place] [id number] [place] [address] Aug, [place] [address] [address] Aug, Generalized abdominal pain R10.84 ; Cons tipation, unspecified constipation type K59.00 ; PCOS (polycystic ovarian syndrome) E28.2 and Elevated testosterone level in female R79.89 [place] [address] [address] 24 Jun, 2019 PCOS (polycystic ovarian syndrome) E28.2 ; Menorrhagia with irregular cycle N92.1 ; Nonintractable episodic headache, unspecified headache type R51 ; Elevated testosterone level in female R79.89 ; Morbid (severe) obesity due to excess calories E66.01 and Body mass index (BMI) of 37.0-37.9 in adult Z68.37 [place] [id number] [place] [address] Jun, Nonintractable episodic headache, unspec ified headache type R51 ; Menorrhagia with irregular cycle N92.1 and PCOS (polycystic ovarian syndrome) E28.2 [place] [id number] [place] [address] May, Nonintractable episodic headache, unspec ified headache type R51 and Amenorrhea N91.2 [facility] [address] [place] [id number] [address] [place] [address] Apr, Acute strain of neck muscle, initial encounter S16.1XXA and Acute bilateral low back pain without sciatica M54.5 [facility] [address] [address] Apr, Pharyngitis due to other org anism J02.8 [facility] [place] [id number] [place] [address] Mar, Acute left ankle pain M25.57 [address] [address] [address] February, Pelvic pain R10.2 ; Acute vulvitis N76.2 and Encounter for initial prescription of transdermal patch hormonal contraceptive device Z30.016 [place] [address] [address] 12 Jan, 2019 control counseling Z30.9 ; Contrac eption management Z30.9 ; Contraceptive education Z30.09 ; Encounter for immunization Z23 ; Other chronic pain G89.29 and Pain in left knee M25.562 [facility] [id number] [place] [address] 16 Dec, 2018 Dysuria R30.0 ; Pelvic pain R10.2 ; Constipation, unspecified constipation type K59.00 and Menorrhagia with irregular cycle N92.1 [place] [address] [address] 17 Jul, 2018 Encounter for immunization Z23 [place] [address] [address] 11 Jun, 2018 Mild episode of recurrent major depressi ve disorder F33.0 ; Effusion, left knee M25.462 ; Acute cystitis without hematuria N30.00 and Encounter for initial prescription of vaginal ring hormonal contraceptive Z30.015 [facility] [address] [place] [id number] [place] [address] 07 Jun, 2018 Left anterior knee pain M25. 562 [place] [address] [address] May, [place] [address] [address] Apr, Generalized anxiety disorder F41.1 and S evere episode of recurrent major depressive disorder, without 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 [place] [address] [address] Mar, Generalized anxiety disorder F41.1 and S evere episode of recurrent major depressive disorder, without 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 [place] [id number] [place] [address] Mar, Current moderate episode of major depres sive disorder without prior episode F32.1 ; Anxiety F41.9 and Irregular menstrual bleeding N92.6 [place] [id number] [place] [address] Sep, Weight gain R63.5 [place] [id number] [place] [address] Sep, Weight gain R63.5 [facility] [address] [id number] [place] [id number] Aug, Athlete's foot on left B35.3 and Athlete 's foot on right B35.3 [facility] [address] [facility] [id number] [place] [address] Apr, Sore throat J02.9 ; Cough R0 5 ; Dysphagia, unspecified type R13.10 and Shortness of breath R06.02 [place] [address] [address] Apr, Encounter for initial management of nuva ring Z30.[address] [address] Mar, [address] [address] Mar, Overweight E66.[address] [address] February, Nexplanon removal Z30.49 and Encounter f or initial prescription of other contraceptives Z30.[address] [address] Dec, Back pain M54.[address] [address] Dec, Surveillance of implantable subdermal co ntraceptive Z30.49 ; Irregular bleeding N92.6 ; Vaginal irritation N89.8 ; Routine screening for STI (sexually transmitted infection) Z11.3 and OCP (oral contraceptive pills) initiation Z30.011 [place] [id number] [place] [address] Dec, Back pain M54.9 [place] [address] [address] 29 Nov, 2015 Back pain M54.9 [facility] [id number] [place] [id number] Nov, Dysfunctional uterine bleeding N93.8 and Vaginal itching L29.8 [place] [address] [address] Nov, Cervicalgia M54.2 [place] [address] [address] Nov, Cervicalgia M54.2 [place] [address] [address] Nov, Cervicalgia M54.2 [place] [id number] [place] [id number] Nov, Cervicalgia M54.2 [place] [address] [address] Sep, Screening for tuberculosis Z11.1 [facility] [address] [facility] [place] [id number] Aug, Dental examination Z01.20 [place] [id number] [place] [address] Apr, Irregular bleeding 626.4 and Screen for STD (sexually transmitted disease) V74.5 [place] [address] [address] 14 Jan, 2015 [place] [address] [address] Jan, [place] [address] [address] Oct, [facility] [address] [id number] [place] [address] Oct, [facility] [address] [id number] [place] [address] Oct, [facility] [address] [id number] [place] [address] Oct, [facility] [address] [id number] [place] [address] Sep, [facility] [address] [id number] [place] [address] Sep, [facility] [address] [id number] [place] [address] Jul, [facility] [address] [id number] [place] [address] Jul, [facility] [address] [id number] [place] [address] 17 Jul, 2014 [facility] [address] [id number] [place] [address] 15 Jul, 2014 [facility] [address] [id number] [place] [address] 15 Jul, 2014 [facility] [address] [id number] [place] [address] 24 Jun, 2014 [facility] [address] [id number] [place] [address] 24 Jun, 2013 [facility] [address] [id number] [place] [address] 10 Jun, 2013 [facility] [address] [id number] [place] [address] 10 Jun, 2013 [facility] [address] [id number] [place] [address] 23 Jan, 2014 [facility] [address] [id number] [place] [address] Jan, [facility] [address] [id number] [place] [address] Oct, [facility] [address] [id number] [place] [address] Oct, [facility] [address] [id number] [place] [address] Oct, [facility] [address] [id number] [place] [address] Oct, [facility] [address] [id number] [place] [address] Sep, [facility] [address] [id number] [place] [address] Sep, [facility] [address] [id number] [place] [address] Aug, [facility] [id number] [place] [address] Aug, [facility] [id number] [place] [address] Aug, [facility] [address] [id number] [place] [address] Aug, [facility] [id number] [place] [address] Aug, [facility] [address] [id number] [place] [address] Aug, [facility] [id number] [place] [address] Aug, [facility] [address] [id number] [place] [address] Aug, [facility] [id number] [place] [address] Jul, [facility] [address] [id number] [place] [address] Jul, [facility] [address] [id number] [place] [address] Jul, [facility] [address] [id number] [place] [address] Jul, [facility] [address] [id number] [place] [address] Jul, [facility] [address] [id number] [place] [address] Jul, [facility] [address] [id number] [place] [address] Jul, [facility] [address] [id number] [place] [address] Jul, [facility] [address] [id number] [place] [address] Jul, [facility] [address] [id number] [place] [address] Jul, [facility] [address] [id number] [place] [address] Jul, [facility] [address] [id number] [place] [address] Jul, [facility] [address] [id number] [place] [address] Jul, [facility] [address] [id number] [place] [address] Jun, [facility] [address] [id number] [place] [address] May, [facility] [address] [id number] [place] [address] Jan, [facility] [address] [id number] [place] [address] Nov, [facility] [id number] [place] [address] Sep, [facility] [address] [id number] [place] [address] Sep, [facility] [address] [id number] [place] [address] Aug, [facility] [address] [id number] [place] [address] Aug, [facility] [address] [id number] [place] [address] Jun, [facility] [address] [id number] [place] [address] Mar, [facility] [id number] [place] [address] February, [facility] [address] [id number] [place] [address] Jan, [facility] [id number] [place] [address] Dec, [facility] [address] [id number] [place] [address] Nov, [facility] [id number] [place] [address] Nov, [facility] [address] [id number] [place] [address] Nov, [facility] [id number] [place] [address] Aug, [facility] [address] [id number] [place] [address] Jun, [facility] [id number] [place] [address] Jun, IMMUNIZATIONS No Known Immunizations SOCIAL HISTORY Never Assessed REASON FOR VISIT PLAN OF CARE VITAL SIGNS MEDICATIONS Unknown Medications RESULTS No Results PROCEDURES Procedure Date Ordered Result Body Site PSYTX PT&/FAMILY 30 MINUTES Nov 20, 2013 INSTRUCTIONS MEDICATIONS ADMINISTERED No Known Medications MEDICAL (GENERAL) HISTORY Type Description Date Medical History Nexplanon inserted Nexplanon rem deepa 2015 Medical History chronic headaches/migraines Medical History Current moderate episode of major depressive disorder without prior episode Medical History Generalized anxiety disorder Medical History PCOS (polycystic ovarian syndrome) Surgical History No Surgical history information
--- OUTSIDE RECORDS SUMMARY | 2020-04-21 00:06 | XMS REPORT ---
Author Author Skyler Duran Doctor Organization [facility] Address Unknown Phone Unavailable Care Team Providers Care Special Events Manager Name Role Phone Migration, Doctor Unavailable Unavailable PROBLEMS Type Condition ICD9-CM Code NRQ21-BB Code Onset Dates Condition S tatus SNOMED Code Problem Menorrhagia with irregular cycle N92.1 Active 720607241 Problem Constipation, unspecified constipation type K59.00 Active 86807882 Problem Other chronic pain G89.29 Active 8 4970287 Problem Elevated testosterone level in female R79.89 Active 898558593 Problem Generalized anxiety disorder F41.1 A ctive 84738765 Problem Major depressive disorder, recurrent, moderate F33 .1 Active 683627340 Problem 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 Active 84638664 Problem PCOS (polycystic ovarian syndrome) E28.2 Active 036264802 Problem Morbid (severe) obesity due to excess calories E66 .01 Active 622096674 Problem Morbid (severe) obesity due to excess calories E66 .01 Active 123239394 Problem Body mass index (BMI) of 37.0-37.9 in adult Z68.37 Active 235415230 ALLERGIES No Information ENCOUNTERS Encounter Location Date Diagnosis [facility] [address] [id number] [place] [address] Oct, Generalized anxiety disorder F41.1 ; Ricardo or depressive disorder, recurrent, moderate F33.1 and Other residential (current) drug therapy Z79.899 [facility] [address] [id number] [place] [address] Sep, Generalized anxiety disorder F41.1 ; Cur rent moderate episode of major depressive disorder without prior episode F32.1 ; Body mass index (BMI) of 37.0- 37.9 in adult Z68.37 ; PCOS (polycystic ovarian syndrome) E28.2 and Elevated testosterone level in female R79.89 [facility] [place] [facility] [address] [address] [place] [address] Sep, Drug screening, pre-employme nt Z02.1 [place] [id number] [place] [address] Aug, [place] [address] [address] Aug, Generalized abdominal pain R10.84 ; Cons tipation, unspecified constipation type K59.00 ; PCOS (polycystic ovarian syndrome) E28.2 and Elevated testosterone level in female R79.89 [place] [address] [address] 24 Jun, 2019 PCOS (polycystic ovarian syndrome) E28.2 ; Menorrhagia with irregular cycle N92.1 ; Nonintractable episodic headache, unspecified headache type R51 ; Elevated testosterone level in female R79.89 ; Morbid (severe) obesity due to excess calories E66.01 and Body mass index (BMI) of 37.0-37.9 in adult Z68.37 [place] [id number] [place] [address] Jun, Nonintractable episodic headache, unspec ified headache type R51 ; Menorrhagia with irregular cycle N92.1 and PCOS (polycystic ovarian syndrome) E28.2 [place] [id number] [place] [address] May, Nonintractable episodic headache, unspec ified headache type R51 and Amenorrhea N91.2 [facility] [address] [place], [place] [id number] [address] [place] [address] Apr, Acute strain of neck muscle, initial encounter S16.1XXA and Acute bilateral low back pain without sciatica M54.5 [facility] [address] [address] Apr, Pharyngitis due to other org anism J02.8 [facility] [place] [id number] [place] [address] Mar, Acute left ankle pain M25.57 [address] [address] [address] February, Pelvic pain R10.2 ; Acute vulvitis N76.2 and Encounter for initial prescription of transdermal patch hormonal contraceptive device Z30.016 [place] [address] [address] 12 Jan, 2019 control counseling Z30.9 ; Contrac eption management Z30.9 ; Contraceptive education Z30.09 ; Encounter for immunization Z23 ; Other chronic pain G89.29 and Pain in left knee M25.562 [facility] [id number] [place] [address] 16 Dec, 2018 Dysuria R30.0 ; Pelvic pain R10.2 ; Constipation, unspecified constipation type K59.00 and Menorrhagia with irregular cycle N92.1 [place] [address] [address] 17 Jul, 2018 Encounter for immunization Z23 [place] [address] [address] 11 Jun, 2018 Mild episode of recurrent major depressi ve disorder F33.0 ; Effusion, left knee M25.462 ; Acute cystitis without hematuria N30.00 and Encounter for initial prescription of vaginal ring hormonal contraceptive Z30.015 [facility] [place] [id number] [place] [address] 07 Jun, 2018 Left anterior knee pain M25. 562 [place] [address] [address] May, [place] [address] [address] Apr, Generalized anxiety disorder F41.1 and S evere episode of recurrent major depressive disorder, without 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 [place] [address] [address] Mar, Generalized anxiety disorder F41.1 and S evere episode of recurrent major depressive disorder, without 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 [place] [id number] [place] [address] Mar, Current moderate episode of major depres sive disorder without prior episode F32.1 ; Anxiety F41.9 and Irregular menstrual bleeding N92.6 [place] [id number] [place] [address] Sep, Weight gain R63.5 [place] [id number] [place] [address] Sep, Weight gain R63.5 [facility] [address] [id number] [place] [id number] Aug, Athlete's foot on left B35.3 and Athlete 's foot on right B35.3 [facility] [address] [facility] [id number] [place] [address] Apr, Sore throat J02.9 ; Cough R0 5 ; Dysphagia, unspecified type R13.10 and Shortness of breath R06.02 [place] [address] [address] Apr, Encounter for initial management of nuva ring Z30.[address] [address] Mar, [address] [address] Mar, Overweight E66.[address] [address] February, Nexplanon removal Z30.49 and Encounter f or initial prescription of other contraceptives Z30.[address] [address] Dec, Back pain M54.[address] [address] Dec, Surveillance of implantable subdermal co ntraceptive Z30.49 ; Irregular bleeding N92.6 ; Vaginal irritation N89.8 ; Routine screening for STI (sexually transmitted infection) Z11.3 and OCP (oral contraceptive pills) initiation Z30.011 [place] [id number] [place] [address] Dec, Back pain M54.9 [place] [address] [address] 29 Nov, 2015 Back pain M54.9 [facility] [id number] [place] [id number] Nov, Dysfunctional uterine bleeding N93.8 and Vaginal itching L29.8 [place] [address] [address] Nov, Cervicalgia M54.2 [place] [address] [address] Nov, Cervicalgia M54.2 [place] [address] [address] Nov, Cervicalgia M54.2 [place] [id number] [place] [id number] Nov, Cervicalgia M54.2 [place] [address] [address] Sep, Screening for tuberculosis Z11.1 [facility] [address] [facility] [place] [id number] Aug, Dental examination Z01.20 [place] [id number] [place] [address] Apr, Irregular bleeding 626.4 and Screen for STD (sexually transmitted disease) V74.5 [place] [address] [address] 14 Jan, 2015 [place] [address] [address] Jan, [place] [address] [address] Oct, [facility] [address] [id number] [place] [address] Oct, [facility] [address] [id number] [place] [address] Oct, [facility] [address] [id number] [place] [address] Oct, [facility] [address] [id number] [place] [address] Sep, [facility] [address] [id number] [place] [address] Sep, [facility] [address] [id number] [place] [address] Jul, [facility] [address] [id number] [place] [address] Jul, [facility] [address] [id number] [place] [address] 17 Jul, 2014 [facility] [address] [id number] [place] [address] 15 Jul, 2014 [facility] [address] [id number] [place] [address] 15 Jul, 2014 [facility] [address] [id number] [place] [address] 24 Jun, 2014 [facility] [address] [id number] [place] [address] 24 Jun, 2013 [facility] [address] [id number] [place] [address] 10 Jun, 2013 [facility] [address] [id number] [place] [address] 10 Jun, 2013 [facility] [address] [id number] [place] [address] 23 Jan, 2014 [facility] [address] [id number] [place] [address] Jan, [facility] [address] [id number] [place] [address] Oct, [facility] [address] [id number] [place] [address] Oct, [facility] [address] [id number] [place] [address] Oct, [facility] [address] [id number] [place] [address] Oct, [facility] [address] [id number] [place] [address] Sep, [facility] [address] [id number] [place] [address] Sep, [facility] [address] [id number] [place] [address] Aug, [facility] [id number] [place] [address] Aug, [facility] [id number] [place] [address] Aug, [facility] [address] [id number] [place] [address] Aug, [facility] [id number] [place] [address] Aug, [facility] [address] [id number] [place] [address] Aug, [facility] [id number] [place] [address] Aug, [facility] [address] [id number] [place] [address] Aug, [facility] [id number] [place] [address] Jul, [facility] [address] [id number] [place] [address] Jul, [facility] [address] [id number] [place] [address] Jul, [facility] [address] [id number] [place] [address] Jul, [facility] [address] [id number] [place] [address] Jul, [facility] [address] [id number] [place] [address] Jul, [facility] [address] [id number] [place] [address] Jul, [facility] [address] [id number] [place] [address] Jul, [facility] [address] [id number] [place] [address] Jul, [facility] [address] [id number] [place] [address] Jul, [facility] [address] [id number] [place] [address] Jul, [facility] [address] [id number] [place] [address] Jul, [facility] [address] [id number] [place] [address] Jul, [facility] [address] [id number] [place] [address] Jun, [facility] [address] [id number] [place] [address] May, [facility] [address] [id number] [place] [address] Jan, [facility] [address] [id number] [place] [address] Nov, [facility] [id number] [place] [address] Sep, [facility] [address] [facility] [id number] [place] [address] Sep, [facility] [address] [id number] [place] [address] Aug, [facility] [address] [id number] [place] [address] Aug, [facility] [address] [id number] [place] [address] Jun, [facility] [address] [id number] [place] [address] Mar, [facility] [id number] [place] [address] February, [facility] [address] [id number] [place] [address] Jan, [facility] [id number] [place] [address] Dec, [facility] [address] [id number] [place] [address] Nov, [facility] [id number] [place] [address] Nov, [facility] [address] [id number] [place] [address] Nov, [facility] [id number] [place] [address] Aug, [facility] [id number] [place] [address] Jun, [facility] [id number] [place] [address] Jun, IMMUNIZATIONS No Known Immunizations SOCIAL HISTORY Never Assessed REASON FOR VISIT PLAN OF CARE VITAL SIGNS MEDICATIONS Unknown Medications RESULTS No Results PROCEDURES Procedure Date Ordered Result Body Site PSYTX PT&/FAMILY 30 MINUTES Nov 03, 2013 INSTRUCTIONS MEDICATIONS ADMINISTERED No Known Medications MEDICAL (GENERAL) HISTORY Type Description Date Medical History Nexplanon inserted Nexplanon rem deepa 2015 Medical History chronic headaches/migraines Medical History Current moderate episode of major depressive disorder without prior episode Medical History Generalized anxiety disorder Medical History PCOS (polycystic ovarian syndrome) Surgical History No Surgical history information
--- OUTSIDE RECORDS SUMMARY | 2020-04-21 00:06 | XMS REPORT ---
Author Author Skyler Bell [facility] Address [address] [place] [address] Care Team Providers Care Barrel Maker Name Role Phone TERENCE Bell Unavailable PROBLEMS Type Condition ICD9-CM Code HFQ49-QC Code Onset Dates Condition S tatus SNOMED Code Problem Menorrhagia with irregular cycle N92.1 Active 909860666 Problem Constipation, unspecified constipation type K59.00 Active 08193693 Problem Other chronic pain G89.29 Active 8 0148652 Problem Elevated testosterone level in female R79.89 Active 293609920 Problem Generalized anxiety disorder F41.1 A ctive 69223370 Problem Major depressive disorder, recurrent, moderate F33 .1 Active 389279502 Problem 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 Active 46974933 Problem PCOS (polycystic ovarian syndrome) E28.2 Active 378133578 Problem Morbid (severe) obesity due to excess calories E66 .01 Active 959376783 Problem Morbid (severe) obesity due to excess calories E66 .01 Active 772602910 Problem Body mass index (BMI) of 37.0-37.9 in adult Z68.37 Active 637769157 ALLERGIES No Information ENCOUNTERS Encounter Location Date Diagnosis [place] [address] [address] [facility] [id number] [address] [place] [address] Oct, Generalized anxiety disorder F41.1 ; Major depressive disorder, recurrent, moderate F33.1 and 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 [place] [address] [address] [facility] [id number] [address] [place] [address] Sep, Generalized anxiety disorder F41.1 ; 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 ; Body mass index (BMI) of 37.0-37.9 in adult Z68.37 ; PCOS (polycystic ovarian syndrome) E28.2 and Elevated testosterone level in female R79.89 [facility] [place] [facility] [id number] [address] Sep, Drug screening, pre-employme nt Z02.1 [facility] [address] [facility] [id number] [address] [place] [address] Aug, [place] [address] [address] [facility] [id number] [address] [place] [address] Aug, Generalized abdominal pain R 10.84 ; Constipation, unspecified constipation type K59.00 ; PCOS (polycystic ovarian syndrome) E28.2 and Elevated testosterone level in female R79.89 [place] [address] [address] [facility] [id number] [address] [place] [address] Jun, PCOS (polycystic ovarian syn drome) E28.2 ; Menorrhagia with irregular cycle N92.1 ; Nonintractable episodic headache, unspecified headache type R51 ; Elevated testosterone level in female R79.89 ; Morbid (severe) obesity due to excess calories E66.01 and Body mass index (BMI) of 37.0-37.9 in adult Z68.37 [place] [address] [address] [place] [id number] [address] [place] [address] Jun, Nonintractable episodic head ache, unspecified headache type R51 ; Menorrhagia with irregular cycle N92.1 and PCOS (polycystic ovarian syndrome) E28.2 [place] [address] [address] [facility] [id number] [address] [place] [address] May, Nonintractable episodic head ache, unspecified headache type R51 and Amenorrhea N91.2 [facility] WALK IN [facility] [address] [facility] [id number] [address] [place] [address] Apr, Acute strain of neck muscle, initial encounter S16.1XXA and Acute bilateral low back pain without sciatica M54.5 [facility] [address] [facility] [id number] [address] [place] [address] Apr, Pharyngitis due to other org anism J02.8 [facility] [address] [facility] [id number] [address] [place] [address] 17 Mar, 2019 Acute left ankle pain M25.57 2 [place] [id number] [place] [address] February, Pelvic pain R10.2 ; Acute vu lvitis N76.2 and Encounter for initial prescription of transdermal patch hormonal contraceptive device Z30.016 [place] [address] [address] [place] [id number] [address] [place] [address] Jan, control counseling Z30 .9 ; Contraception management Z30.9 ; Contraceptive education Z30.09 ; Encounter for immunization Z23 ; Other chronic pain G89.29 and Pain in left knee M25.562 [facility]ALK IN [facility] [address] [place] [id number] [address] [place] [address] 16 Dec, 2018 Dysuria R30.0 ; Pelvic pain R10.2 ; Constipation, unspecified constipation type K59.00 and Menorrhagia with irregular cycle N92.1 [place] [address] [address] [place] [id number] [address] [place] [address] 17 Jul, 2018 Encounter for immunization Z 23 [place] [address] [address] [place] [id number] [address] [place] [address] 11 Jun, 2018 Mild episode of recurrent ma odilon depressive disorder F33.0 ; Effusion, left knee M25.462 ; Acute cystitis without hematuria N30.00 and Encounter for initial prescription of vaginal ring hormonal contraceptive Z30.015 [facility] W[facility] IN [facility] [address] [place] [id number] [address] [place] [address] 07 Jun, 2018 Left anterior knee pain M25. 562 [place] [address] [address] [place] [id number] [address] [place] [address] May, [place] [address] [address] Apr, Generalized anxiety disorder F41.1 and Severe episode of recurrent major depressive disorder, without 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 [place] [address] [address] [place] [id number] [address] [place] [address] Mar, Generalized anxiety disorder F41.1 and Severe episode of recurrent major depressive disorder, without 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 [facility] [address] [place] [id number] [address] [place] [address] Mar, 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 ; Anxiety F41.9 and Irregular menstrual bleeding N92.6 [facility] [address] [place] [id number] [address] [place] [address] Sep, Weight gain R63.5 [place] [address] [address] Sep, Weight gain R63.5 [facility] [address] [place] [id number] [place] [id number] Aug, Athlete's foot on left B35.3 and Athlete's foot on right B35.3 [facility] [address] [place] [id number] [address] [place] [address] Apr, Sore throat J02.9 ; Cough R0 5 ; Dysphagia, unspecified type R13.10 and Shortness of breath R06.02 [facility] [address] [place] [id number] [address] [place] [address] Apr, Encounter for initial manage ment of nuvaring Z30.49 [place] [address] [address] [place] [id number] [address] [place] [address] Mar, [place] [address] [address] [place] [id number] [address] [place] [address] Mar, Overweight E66.3 [place] [address] [address] February, Nexplanon removal Z30.49 and Encounter for initial prescription of other contraceptives Z30.018 [place] [address] [address] Dec, Back pain M54.9 [facility] [address] [facility] [id number] [address] [place] [address] Dec, Surveillance of implantable subdermal contraceptive Z30.49 ; Irregular bleeding N92.6 ; Vaginal irritation N89.8 ; Routine screening for STI (sexually transmitted infection) Z11.3 and OCP (oral contraceptive pills) initiation Z30.011 [facility] [address] [place] [id number] [address] [place] [address] Dec, Back pain M54.9 [facility] [address] [place] [id number] [address] [place] [address] Nov, Back pain M54.9 [facility] [address] [id number] 24 Nov, 2015 Dysfunctional uterine bleedi ng N93.8 and Vaginal itching L29.8 [facility] [address] [place] [id number] [address] [place] [address] Nov, Cervicalgia M54.2 [facility] [address] [place] [id number] [address] [place] [address] Nov, Cervicalgia M54.2 [facility] [address] [place] [id number] [address] [place] [address] Nov, Cervicalgia M54.2 [facility] [address] [place] [id number] [place] [id number] Nov, Cervicalgia M54.2 [facility] [address] [place] [id number] [address] [place] [address] Sep, Screening for tuberculosis Z 11.1 [facility] [address] [place] [id number] [address] [place] [id number] Aug, Dental examination Z01.20 [facility] [address] [place] [id number] [address] [place] [id number] 13 Apr, 2015 Irregular bleeding 626.4 and Screen for STD (sexually transmitted disease) V74.5 [facility] [address] [id number] [address] [place] [address], [place] [address] 14 Jan, 2015 [facility] [address] [id number] [address] [place] [address], [place] [address] Jan, [facility] [address] [id number] [address] [place] [address], [place] [address] Oct, [facility] [address] [id number] [address] [place] [address], [place] [address] Oct, [facility] [address] [id number] [address] [place] [address], [place] [address] Oct, [facility] [address] [id number] [address] [place] [address], [place] [address] Oct, [facility] [address] [id number] [address] [place] [address], [place] [address] Sep, [facility] [address] [id number] [address] [place] [address], [place] [address] Sep, [facility] [address] [id number] [address] [place] [address], [place] [address] Jul, [facility] [address] [id number] [address] [place] [address], [place] [address] 30 Jul, 2014 [facility] [address] [id number] [address] [place] [address], [place] [address] 17 Jul, 2014 [facility] [address] [id number] [address] [place] [address], [place] [address] 15 Jul, 2014 [facility] [address] [id number] [address] [place] [address], [place] [address] 15 Jul, 2014 [facility] [address] [id number] [address] [place] [address], [place] [address] 24 Jun, 2014 [facility] [address] [id number] [address] [place] [address], [place] [address] 24 Jun, 2014 [facility] [address] [id number] [address] [place] [address], [place] [address] Jun, [facility] [address] [id number] [address] [place] [address], [place] [address] Jun, [facility] [address] [id number] [address] [place] [address], [place] [address] Jan, [facility] [address] [id number] [address] [place] [address], [place] [address] Jan, [facility] [address] [id number] [address] [place] [address], [place] [address] Oct, [facility] [address] [id number] [address] [place] [address], [place] [address] Oct, [facility] [address] [id number] [address] [place] [address], [place] [address] Oct, [facility] [address] [id number] [address] [place] [address], [place] [address] Oct, [facility] [address] [id number] [address] [place] [address], [place] [address] Sep, [facility] [address] [id number] [address] [place] [address], [place] [address] Sep, [facility] [address] [id number] [address] [place] [address], [place] [address] Aug, [facility] [address] [id number] [address] [place] [address], [place] [address] Aug, [facility] [address] [id number] [address] [place] [address] Aug, [facility] [address] [id number] [address] [place] [address], [place] [address] Aug, [facility] [address] [id number] [address] [place] [address], [place] [address] Aug, [facility] [address] [id number] [address] [place] [address] Aug, [facility] [address] [id number] [address] [place] [address], [place] [address] 05 Aug, 2012 [facility] [address] [id number] [address] [place] [address], [place] [address] Aug, 2012 [facility] [address] [id number] [address] [place] [address], [place] [address] 30 Jul, 2013 [facility] [address] [id number] [address] [place] [address], [place] [address] 30 Jul, 2013 [facility] [address] [id number] [address] [place] [address], [place] [address] Jul, [facility] [address] [id number] [address] [place] [address], [place] [address] Jul, [facility] [address] [id number] [address] [place] [address], [place] [address] Jul, [facility] [address] [id number] [address] [place] [address], [place] [address] Jul, [facility] [address] [id number] [address] [place] [address], [place] [address] Jul, [facility] [address] [id number] [address] [place] [address], [place] [address] Jul, [facility] [address] [id number] [address] [place] [address], [place] [address] Jul, [facility] [address] [id number] [address] [place] [address], [place] [address] Jul, [facility] [address] [id number] [address] [place] [address], [place] [address] Jul, [facility] [address] [id number] [address] [place] [address], [place] [address] Jul, [facility] [address] [id number] [address] [place] [address], [place] [address] Jul, [facility] [address] [id number] [address] [place] [address], [place] [address] Jun, [facility] [address] [id number] [address] [place] [address], [place] [address] May, [facility] [address] [id number] [address] [place] [address], [place] [address] Jan, [facility] [address] [id number] [address] [place] [address], [place] [address] Nov, [facility] [address] [id number] [address] [place] [address], [place] [address] Sep, [facility] [address] [id number] [address] [place] [address], [place] [address] Sep, [facility] [address] [id number] [address] [place] [address], [place] [address] Aug, [facility] [address] [id number] [address] [place] [address], [place] [address] Aug, [facility] [address] [id number] [address] [place] [address], [place] [address] Jun, [facility] [address] [id number] [address] [place] [address], [place] [address] Mar, [facility] [address] [id number] [address] [place] [address], [place] [address] February, [facility] [address] [id number] [address] [place] [address], [place] [address] Jan, [facility] [address] [id number] [address] [place] [address], [place] [address] Dec, [facility] [address] [id number] [address] [place] [address], [place] [address] Nov, [facility] [address] [id number] [address] [place] [address], [place] [address] Nov, [facility] [address] [id number] [address] [place] [address], [place] [address] Nov, [facility] [address] [id number] [address] [place] [address] 17 Aug, 2011 [facility] [address] [facility] [id number] [address] [place] [address] 19 Jun, 2011 [facility] [address] [facility] [id number] [address] [place] [address] 11 Jun, 2010 IMMUNIZATIONS No Known Immunizations SOCIAL HISTORY Never Assessed REASON FOR VISIT PLAN OF CARE VITAL SIGNS Height 65 in 2014-07-01 Weight 176.4 lbs 2014-07-01 Temperature 97.6 degrees Fahrenheit 2014-07-01 Heart Rate 75 bpm 2014-07-01 Respiratory Rate 18 2014-07-01 Blood pressure systolic 114 mmHg 2014-07-01 Blood pressure diastolic 60 mmHg 2014-07-01 MEDICATIONS No Known Medications RESULTS No Results PROCEDURES No Known [...]
--- OUTSIDE RECORDS SUMMARY | 2020-04-21 00:06 | XMS REPORT ---
Author Author Skyler GALVAN Organization [facility] Address [address] [place] [address] Care Team Providers Care Investment Specialist Name Role Phone HOA GALVAN Unavailable PROBLEMS Type Condition ICD9-CM Code [id number] Code Onset Dates Condition S tatus SNOMED Code Problem Menorrhagia with irregular cycle N92.1 Active 315138807 Problem Constipation, unspecified constipation type K59.00 Active 60214879 Problem Other chronic pain G89.29 Active 8 8186400 Problem Elevated testosterone level in female R79.89 Active 286986616 Problem Generalized anxiety disorder F41.1 A ctive 47461019 Problem Major depressive disorder, recurrent, moderate F33 .1 Active 029467175 Problem 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 Active 89002923 Problem PCOS (polycystic ovarian syndrome) E28.2 Active 907500832 Problem Morbid (severe) obesity due to excess calories E66 .01 Active 108570523 Problem Morbid (severe) obesity due to excess calories E66 .01 Active 211145892 Problem Body mass index (BMI) of 37.0-37.9 in adult Z68.37 Active 345547416 ALLERGIES No Information ENCOUNTERS Encounter Location Date Diagnosis [place] [address] [address] [facility] [id number] [address] [place] [id number] 30 Jan, 2020 Encounter for test Z32.00 [facility] [address] [facility] [id number] [address] [place] [phone] Oct, Generalized anxiety disorder F41.1 ; Major depressive disorder, recurrent, moderate F33.1 and Other terminal carman (current) drug therapy Z79.899 [facility] [address] [facility] [id number] [address] [place] [address] Sep, Generalized anxiety disorder F41.1 ; 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 ; Body mass index (BMI) of 37.0-37.9 in adult Z68.37 ; PCOS (polycystic ovarian syndrome) E28.2 and Elevated testosterone level in female R79.89 [facility] [id number] [address] Sep, Drug screening, pre-employme nt Z02.1 [place] [address] [address] [facility] [id number] [address] [place] [phone] Aug, [place] [address] [address] [facility] [id number] [address] [place] [phone] Aug, Generalized abdominal pain R 10.84 ; Constipation, unspecified constipation type K59.00 ; PCOS (polycystic ovarian syndrome) E28.2 and Elevated testosterone level in female R79.89 [place] [address] [address] [facility] [id number] [address] [place] [phone] Jun, PCOS (polycystic ovarian syn drome) E28.2 ; Menorrhagia with irregular cycle N92.1 ; Nonintractable episodic headache, unspecified headache type R51 ; Elevated testosterone level in female R79.89 ; Morbid (severe) obesity due to excess calories E66.01 and Body mass index (BMI) of 37.0-37.9 in adult Z68.37 [place] [address] [facility] [id number] [address] [place] [phone] Jun, Nonintractable episodic head ache, unspecified headache type R51 ; Menorrhagia with irregular cycle N92.1 and PCOS (polycystic ovarian syndrome) E28.2 [place] [address] [facility] [id number] [address] [place] [phone] May, Nonintractable episodic head ache, unspecified headache type R51 and Amenorrhea N91.2 [facility] [address] [facility] [id number] [address] [place] [id number] Apr, Acute strain of neck muscle, initial encounter S16.1XXA and Acute bilateral low back pain without sciatica M54.5 [facility] [address] [facility] [id number] [address] [place] [id number] 10 Apr, 2019 Pharyngitis due to other org anism J02.8 [facility] [address] [place] [id number] [address] [place] [id number] 17 Mar, 2019 Acute left ankle pain M25.57 2 [facility] [address] [place] [id number] [address] [place] [phone] February, Pelvic pain R10.2 ; Acute vu lvitis N76.2 and Encounter for initial prescription of transdermal patch hormonal contraceptive device Z30.016 [place] [address] [address] [place] [id number] [address] [place] [id number] 12 Jan, 2019 control counseling Z30 .9 ; Contraception management Z30.9 ; Contraceptive education Z30.09 ; Encounter for immunization Z23 ; Other chronic pain G89.29 and Pain in left knee M25.562 [facility] [address] [place] [id number] [address] [place] [id number] 16 Dec, 2018 Dysuria R30.0 ; Pelvic pain R10.2 ; Constipation, unspecified constipation type K59.00 and Menorrhagia with irregular cycle N92.1 [place] [address] [address] [place] [id number] [address] [place] [phone] 17 Jul, 2018 Encounter for immunization Z 23 [place] [address] [address] [place] [id number] [address] [place] [phone] 11 Jun, 2018 Mild episode of recurrent ma odilon depressive disorder F33.0 ; Effusion, left knee M25.462 ; Acute cystitis without hematuria N30.00 and Encounter for initial prescription of vaginal ring hormonal contraceptive Z30.015 [facility] [address] [place] [id number] [address] [place] [id number] 07 Jun, 2018 Left anterior knee pain M25. 562 [facility] [address] [place] [id number] [address] [place] [id number] May, [place] [address] [address] [place] [id number] [address] [place] [phone] Apr, Generalized anxiety disorder F41.1 and Severe episode of recurrent major depressive disorder, without 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 [facility] [address] [facility] [id number] [address] [place] [id number] Mar, Generalized anxiety disorder F41.1 and Severe episode of recurrent major depressive disorder, without 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 [facility] [address] [facility] [id number] [address] [place] [id number] Mar, 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 ; Anxiety F41.9 and Irregular menstrual bleeding N92.6 [facility] [address] [facility] [id number] [address] [place] [id number] Sep, Weight gain R63.5 [facility] [address] [place] [id number] [address] [place] [phone] Sep, Weight gain R63.5 [facility] [address] [place] [id number] [place] [id number] Aug, Athlete's foot on left B35.3 and Athlete's foot on right B35.3 [facility] [address] [facility] [id number] [address] [place] [id number] Apr, Sore throat J02.9 ; Cough R0 5 ; Dysphagia, unspecified type R13.10 and Shortness of breath R06.02 [place] [address] [address] [place] [id number] [address] [place] [phone] Apr, Encounter for initial manage ment of nuvaring Z30.49 [facility] [address] [facility] [id number] [address] [place] [phone] Mar, [place] [address] [address] [place] [id number] [address] [place] [phone] Mar, Overweight E66.3 [facility] [address] [facility] [id number] [address] [place] [id number] February, Nexplanon removal Z30.49 and Encounter for initial prescription of other contraceptives Z30.018 [facility] [address] [facility] [id number] [address] [place] [phone] 09 Dec, 2015 Back pain M54.9 [facility] [address] [facility] [id number] [address] [place] [id number] 02 Dec, 2015 Surveillance of implantable subdermal contraceptive Z30.49 ; Irregular bleeding N92.6 ; Vaginal irritation N89.8 ; Routine screening for STI (sexually transmitted infection) Z11.3 and OCP (oral contraceptive pills) initiation Z30.011 [facility] [address] [facility] [id number] [address] [place] [id number] Dec, Back pain M54.9 [facility] [address] [facility] [id number] [address] [place] [id number] Nov, Back pain M54.9 [facility] [address] [id number] Nov, 2015 Dysfunctional uterine bleedi ng N93.8 and Vaginal itching L29.8 [facility] [address] [facility] [id number] [address] [place] [id number] Nov, Cervicalgia M54.2 [facility] [address] [place] [id number] [address] [place] [phone] Nov, Cervicalgia M54.2 [facility] [address] [place] [id number] [address] [place] [phone] Nov, Cervicalgia M54.2 [facility] [address] [facility] [id number] [place] [id number] Nov, Cervicalgia M54.2 [facility] [address] [facility] [id number] [address] [place] [phone] Sep, Screening for tuberculosis Z 11.1 [facility] [address] [facility] [id number] [address] [place] [id number] Aug, Dental examination Z01.20 [facility] [address] [facility] [id number] [address] [place] [phone] Apr, Irregular bleeding 626.4 and Screen for STD (sexually transmitted disease) V74.5 [facility] [address] [id number] [address] [place] [id number] Jan, [facility] [address] [id number] [address] [place] [id number] Jan, [facility] [address] [id number] [address] [place] [id number] Oct, [facility] [address] [id number] [address] [place] [id number] Oct, [facility] [address] [id number] [address] [place] [id number] Oct, [facility] [address] [id number] [address] [place] [id number] Oct, [facility] [address] [id number] [address] [place] [id number] Sep, [facility] [address] [id number] [address] [place] [id number] Sep, [facility] [address] [id number] [address] [place] [phone] Jul, [facility] [address] [id number] [address] [place] [id number] Jul, [facility] [address] [id number] [address] [place] [id number] Jul, [facility] [address] [id number] [address] [place] [id number] Jul, [facility] [address] [id number] [address] [place] [id number] Jul, [facility] [address] [id number] [address] [place] [id number] Jun, [facility] [address] [id number] [address] [place] [id number] Jun, [facility] [address] [id number] [address] [place] [address], [place] [id number] Jun, [facility] [address] [id number] [address] [place] [address], [place] [address] Jun, [facility] [address] [id number] [address] [place] [address], [place] [id number] Jan, [facility] [address] [id number] [address] [place] [address], [place] [id number] Jan, [facility] [address] [id number] [address] [place] [address], [place] [id number] Oct, [facility] [address] [id number] [address] [place] [address], [place] [id number] Oct, [facility] [address] [id number] [address] [place] [address], [place] [address] Oct, [facility] [address] [id number] [address] [place] [address], [place] [address] Oct, [facility] [address] [id number] [address] [place] [address], [place] [id number] Sep, [facility] [address] [id number] [address] [place] [address], [place] [id number] Sep, [facility] [address] [id number] [address] [place] [address], [place] [address] Aug, [facility] [address] [id number] [address] [place] [address], [place] [address] Aug, [facility] [address] [id number] [address] [place] [address], [place] [id number] Aug, [facility] [address] [id number] [address] [place] [address], [place] [address] Aug, [facility] [address] [id number] [address] [place] [address], [place] [id number] Aug, [facility] [address] [id number] [address] [place] [id number] 08 Aug, 2013 [facility] [address] [id number] [address] [place] [address], [place] [id number] 05 Aug, 2012 [facility] [address] [id number] [address] [place] [id number] Aug, [facility] [address] [id number] [address] [place] [address], [place] [id number] 30 Jul, 2012 [facility] [address] [id number] [address] [place] [address], [place] [id number] 30 Jul, 2013 [facility] [address] [id number] [address] [place] [address], [place] [address] Jul, [facility] [address] [id number] [address] [place] [address], [place] [address] Jul, [facility] [address] [id number] [address] [place] [address], [place] [id number] Jul, [facility] [address] [id number] [address] [place] [address], [place] [address] Jul, [facility] [address] [id number] [address] [place] [address], [place] [address] Jul, [facility] [address] [id number] [address] [place] [phone] Jul, [facility] [address] [id number] [address] [place] [address], [place] [id number] 10 Jul, 2013 [facility] [address] [id number] [address] [place] [phone] Jul, [facility] [address] [id number] [address] [place] [phone] Jul, [facility] [address] [id number] [address] [place] [id number] Jul, [facility] [address] [id number] [address] [place] [phone] Jul, [facility] [address] [id number] [address] [place] [address], [place] [id number] Jun, [facility] [address] [id number] [address] [place] [address], [place] [id number] May, [facility] [address] [id number] [address] [place] [address], [place] [address] Jan, [facility] [address] [id number] [address] [place] [address], [place] [id number] Nov, [facility] [address] [id number] [address] [place] [address], [place] [address] Sep, [facility] [address] [id number] [address] [place] [address], [place] [address] Sep, [facility] [address] [id number] [address] [place] [address], [place] [address] Aug, [facility] [address] [id number] [address] [place] [address], [place] [address] Aug, [facility] [address] [id number] [address] [place] [address], [place] [address] Jun, [facility] [address] [id number] [address] [place] [address], [place] [address] Mar, [facility] [address] [id number] [address] [place] [address], [place] [address] February, [facility] [address] [id number] [address] [place] [address], [place] [address] Jan, [facility] [address] [id number] [address] [place] [address], [place] [address] Dec, [facility] [address] [id number] [address] [place] [address], [place] [address] Nov, [facility] [address] [id number] [address] [place] [address], [place] [address] Nov, [facility] [address] [id number] [place] [address] 16 Nov, 2011 [facility] [address] [facility] [id number] [address] [place] [id number] Aug, [facility] [address] [facility] [id number] [address] [place] [id number] 19 Jun, 2011 [facility] [address] [facility] [id number] [address] [place] [id number] 11 Jun, 2010 IMMUNIZATIONS No Known Immunizations SOCIAL HISTORY Never Assessed REASON FOR VISIT PLAN OF CARE VITAL SIGNS Height 65.5 in 2012-04-02 Weight 168.9 lbs 2012-04-02 Temperature 99 degrees Fahrenheit 2012-04-02 Heart Rate 78 bpm 2012-04-02 Respiratory Rate 18 2012-04-02 Blood pressure systolic 110 mmHg 2012-04-02 Blood pressure diastolic 64 mmHg 2012-04-02 MEDICATIONS Unknown Medications RESULTS No Results PROCEDURES Procedure Date Ordered Result Body Site CRYOTHERAPY OF SKIN April 02, 2012 INSTRUCTIONS MEDICATIONS ADMINISTERED No Known Medications MEDICAL (GENERAL) HISTORY Type Description Date Medical History Nexplanon inserted Nexplanon rem deepa 2015 Medical History chronic headaches/migraines Medical History Current moderate episode of major depressive disorder without prior episode Medical History Generalized anxiety disorder Medical History PCOS (polycystic ovarian syndrome) Surgical History No Surgical history information
--- OUTSIDE RECORDS SUMMARY | 2020-04-21 00:06 | XMS REPORT ---
Author Author Skyler Bell [facility] [place] Address [address] [place] [address] Care Team Providers Care Bean Dumper Name Role Phone TERENCE Bell Unavailable PROBLEMS Type Condition ICD9-CM Code TGP03-FL Code Onset Dates Condition S tatus SNOMED Code Problem Menorrhagia with irregular cycle N92.1 Active 450784931 Problem Constipation, unspecified constipation type K59.00 Active 57218896 Problem Other chronic pain G89.29 Active 8 7194772 Problem Elevated testosterone level in female R79.89 Active 526409795 Problem Generalized anxiety disorder F41.1 A ctive 62017370 Problem Major depressive disorder, recurrent, moderate F33 .1 Active 244455246 Problem 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 Active 60577601 Problem PCOS (polycystic ovarian syndrome) E28.2 Active 206634152 Problem Morbid (severe) obesity due to excess calories E66 .01 Active 215800718 Problem Morbid (severe) obesity due to excess calories E66 .01 Active 843438293 Problem Body mass index (BMI) of 37.0-37.9 in adult Z68.37 Active 769393231 ALLERGIES No Information ENCOUNTERS Encounter Location Date Diagnosis [place] [address] [id number] [place] [address] Nov, [place] [address] [id number] [place] [address] Oct, Generalized anxiety disorder F41.1 ; Ricardo or depressive disorder, recurrent, moderate F33.1 and 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 [place] [address] [id number] [place] [address] Sep, Generalized anxiety disorder F41.1 ; Cur rent moderate episode of major depressive disorder without prior episode F32.1 ; Body mass index (BMI) of 37.0- 37.9 in adult Z68.37 ; PCOS (polycystic ovarian syndrome) E28.2 and Elevated testosterone level in female R79.89 [facility] [place] [facility] [address] [place] [address] [place] [address] Sep, Drug screening, pre-employme nt Z02.[address] [address] Aug, [address] [address] Aug, Generalized abdominal pain R10.84 ; Cons tipation, unspecified constipation type K59.00 ; PCOS (polycystic ovarian syndrome) E28.2 and Elevated testosterone level in female R79.[address] [address] Jun, PCOS (polycystic ovarian syndrome) E28.2 ; Menorrhagia with irregular cycle N92.1 ; Nonintractable episodic headache, unspecified headache type R51 ; Elevated testosterone level in female R79.89 ; Morbid (severe) obesity due to excess calories E66.01 and Body mass index (BMI) of 37.0-37.9 in adult Z68.[address] [address] Jun, Nonintractable episodic headache, unspec ified headache type R51 ; Menorrhagia with irregular cycle N92.1 and PCOS (polycystic ovarian syndrome) E28.[address] [address] May, Nonintractable episodic headache, unspec ified headache type R51 and Amenorrhea N91.2 [facility] IN [place] [id number] [place] [address] Apr, Acute strain of neck muscle, initial encounter S16.1XXA and Acute bilateral low back pain without sciatica M54.5 [facility] [place] [id number] [place] [address] Apr, Pharyngitis due to other org anism J02.8 [facility] [address] [place] [address] Mar, Acute left ankle pain M25.57 2 [place] [address] [address] February, Pelvic pain R10.2 ; Acute vulvitis N76.2 and Encounter for initial prescription of transdermal patch hormonal contraceptive device Z30.016 [place] [address] [address] 12 Jan, 2019 control counseling Z30.9 ; Contrac eption management Z30.9 ; Contraceptive education Z30.09 ; Encounter for immunization Z23 ; Other chronic pain G89.29 and Pain in left knee M25.562 [facility] IN [facility] [address] [place] [id number] [place] [address] 16 Dec, 2018 Dysuria R30.0 ; Pelvic pain R10.2 ; Constipation, unspecified constipation type K59.00 and Menorrhagia with irregular cycle N92.1 [place] [address] [address] 17 Jul, 2018 Encounter for immunization Z23 [place] [address] [address] 11 Jun, 2018 Mild episode of recurrent major depressi ve disorder F33.0 ; Effusion, left knee M25.462 ; Acute cystitis without hematuria N30.00 and Encounter for initial prescription of vaginal ring hormonal contraceptive Z30.015 [facility] IN [facility] [address] [place] [id number] [place] [address] 07 Jun, 2018 Left anterior knee pain M25. 562 [place] [address] [address] May, [place] [address] [address] Apr, Generalized anxiety disorder F41.1 and S evere episode of recurrent major depressive disorder, without 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 [place] [address] [address] Mar, Generalized anxiety disorder F41.1 and S evere episode of recurrent major depressive disorder, without 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 [place] [address] [address] Mar, Current moderate episode of major depres sive disorder without prior episode F32.1 ; Anxiety F41.9 and Irregular menstrual bleeding N92.6 [place] [address] [address] Sep, Weight gain R63.5 [place] [address] [address] Sep, Weight gain R63.5 [facility] [place] [address] [id number] [place] [id number] Aug, Athlete's foot on left B35.3 and Athlete 's foot on right B35.3 [facility] [address] [facility] [id number] [place] [address] Apr, Sore throat J02.9 ; Cough R0 5 ; Dysphagia, unspecified type R13.10 and Shortness of breath R06.02 [place] [address] [address] Apr, Encounter for initial management of nuva ring Z30.49 [place] [address] [address] Mar, [place] [address] [address] Mar, Overweight E66.3 [place] [address] [address] February, Nexplanon removal Z30.49 and Encounter f or initial prescription of other contraceptives Z30.[address] [address] Dec, Back pain M54.9 [place] [address] [address] Dec, Surveillance of implantable subdermal co ntraceptive Z30.49 ; Irregular bleeding N92.6 ; Vaginal irritation N89.8 ; Routine screening for STI (sexually transmitted infection) Z11.3 and OCP (oral contraceptive pills) initiation Z30.011 [place] [address] [address] Dec, Back pain M54.9 [place] [address] [address] Nov, Back pain M54.9 [place] [address] [id number] 24 Nov, 2015 Dysfunctional uterine bleeding N93.8 and Vaginal itching L29.8 [place] [address] [address] Nov, Cervicalgia M54.2 [place] [address] [address] Nov, Cervicalgia M54.2 [place] [address] [address] Nov, Cervicalgia M54.2 [place] [address] [id number] 03 Nov, 2015 Cervicalgia M54.2 [place] [address] [address] Sep, Screening for tuberculosis Z11.1 [facility] [address] [id number] [place] [id number] Aug, Dental examination Z01.20 [place] [address] [address] 13 Apr, 2015 Irregular bleeding 626.4 and Screen for STD (sexually transmitted disease) V74.5 [place] [address] [address] 14 Jan, 2015 [facility] [address] [id number] [place] [address] 13 Jan, 2015 [facility] [address] [id number] [place] [address] Oct, [facility] [address] [id number] [place] [address] Oct, [facility] [address] [id number] [place] [address] Oct, [facility] [address] [id number] [place] [address] Oct, [facility] [address] [id number] [place] [address] Sep, [facility] [address] [id number] [place] [address] Sep, [facility] [address] [id number] [place] [address] Jul, [facility] [address] [id number] [place] [address] 30 Jul, 2014 [facility] [address] [id number] [place] [address] 17 Jul, 2014 [facility] [address] [id number] [place] [address] 15 Jul, 2014 [facility] [address] [id number] [place] [address] 15 Jul, 2014 [facility] [address] [id number] [place] [address] 24 Jun, 2013 [facility] [address] [id number] [place] [address] 24 Jun, 2013 [facility] [address] [id number] [place] [address] 10 Jun, 2013 [facility] [address] [id number] [place] [address] 10 Jun, 2013 [facility] [address] [id number] [place] [address] Jan, [facility] [address] [id number] [place] [address] Jan, [facility] [address] [id number] [place] [address] Oct, [facility] [address] [id number] [place] [address] Oct, [facility] [address] [id number] [place] [address] Oct, [facility] [address] [id number] [place] [address] Oct, [facility] [address] [id number] [place] [address] Sep, [facility] [address] [place] [id number] [place] [address] Sep, [facility] [address] [place] [id number] [place] [address] Aug, [facility] [address] [id number] [place] [address] Aug, [facility] [address] [place] [id number] [place] [address] Aug, [facility] [address] [place] [id number] [place] [address] Aug, [facility] [address] [id number] [place] [address] Aug, [facility] [address] [id number] [place] [address] Aug, [facility] [address] [place] [id number] [place] [address] Aug, [facility] [address] [id number] [place] [address] Aug, [facility] [address] [place] [id number] [place] [address] Jul, [facility] [address] [facility] [id number] [place] [address] Jul, [facility] [address] [id number] [place] [address] Jul, [facility] [address] [id number] [place] [address] Jul, [facility] [address] [id number] [place] [address] Jul, [facility] [address] [facility] [id number] [place] [address] Jul, [facility] [address] [id number] [place] [address] Jul, [facility] [address] [id number] [place] [address] Jul, [facility] [address] [id number] [place] [address] Jul, [facility] [address] [id number] [place] [address] Jul, [facility] [address] [id number] [place] [address] Jul, [facility] [address] [id number] [place] [address] Jul, [facility] [address] [id number] [place] [address] Jul, [facility] [address] [id number] [place] [address] Jun, [facility] [address] [id number] [place] [address] May, [facility] [address] [id number] [place] [address] Jan, [facility] [address] [id number] [place] [address] Nov, [facility] [address] [id number] [place] [address] Sep, [facility] [address] [place] [id number] [place] [address] Sep, [facility] [address] [place] [id number] [place] [address] Aug, [facility] [address] [place] [id number] [place] [address] Aug, [facility] [address] [place] [id number] [place] [address] Jun, [facility] [address] [place] [id number] [place] [address] Mar, [facility] [address] [place] [id number] [place] [address] February, [facility] [address] [place] [id number] [place] [address] Jan, [facility] [address] [place] [id number] [place] [address] Dec, [facility] [address] [place] [id number] [place] [address] Nov, [facility] [address] [place] [id number] [place] [address] Nov, [facility] [address] [place] [id number] [place] [address] Nov, [facility] [address] [place] [id number] [place] [address] Aug, [facility] [address] [place] [id number] [place] [address] Jun, [facility] [address] [place] [id number] [place] [address] Jun, IMMUNIZATIONS No Known Immunizations SOCIAL HISTORY Never Assessed REASON FOR VISIT PLAN OF CARE VITAL SIGNS Height 66 in 2014-02-11 Weight 175 lbs 2014-02-11 Temperature 97.5 degrees Fahrenheit 2014-02-11 Heart Rate 72 bpm 2014-02-11 Respiratory Rate 16 2014-02-11 Blood pressure systolic 118 mmHg 2014-02-11 Blood pressure diastolic 72 mmHg 2014-02-11 MEDICATIONS Unknown Medications RESULTS No Results PROCEDURES [...]
--- OUTSIDE RECORDS SUMMARY | 2020-04-21 00:07 | XMS REPORT ---
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 Name Role Phone TERENCE Bell Unavailable PROBLEMS Type Condition ICD9-CM Code XBG28-PK Code Onset Dates Condition S tatus SNOMED Code Problem Other chronic pain G89.29 Active 8 7668987 Problem PCOS (polycystic ovarian syndrome) E28.2 Active 955685381 Problem 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 Active 71004778 Problem Generalized anxiety disorder F41.1 A ctive 14049164 Problem Menorrhagia with irregular cycle N92.1 Active 786126272 Problem Constipation, unspecified constipation type K59.00 Active 67825238 ALLERGIES No Information ENCOUNTERS Encounter Location Date Diagnosis [facility] [address] [id number] [address] [place] [id number] Jun, [facility] [address] [id number] [address] [place] [phone] Jun, Nonintractable episodic head ache, unspecified headache type R51 ; Menorrhagia with irregular cycle N92.1 and PCOS (polycystic ovarian syndrome) E28.2 [facility] [address] [id number] [address] [place] [phone] May, Nonintractable episodic head ache, unspecified headache type R51 and Amenorrhea N91.2 [facility] [address] [id number] [address] [place] [address] Apr, Acute strain of neck muscle, initial encounter S16.1XXA and Acute bilateral low back pain without sciatica M54.5 [facility] [address] [id number] [address] [place] [address] Apr, Pharyngitis due to other org anism J02.8 [facility] [address] [facility] [id number] [address] [place] [id number] 17 Mar, 2019 Acute left ankle pain M25.57 2 [facility] [address] [facility] [id number] [address] [place] [phone] February, Pelvic pain R10.2 ; Acute vu lvitis N76.2 and Encounter for initial prescription of transdermal patch hormonal contraceptive device Z30.016 [place] [place] [address] [facility] [id number] [address] [place] [phone] 12 Jan, 2019 control counseling Z30 .9 ; Contraception management Z30.9 ; Contraceptive education Z30.09 ; Encounter for immunization Z23 ; Other chronic pain G89.29 and Pain in left knee M25.562 [facility] [address] [facility] [id number] [address] [place] [phone] 16 Dec, 2018 Dysuria R30.0 ; Pelvic pain R10.2 ; Constipation, unspecified constipation type K59.00 and Menorrhagia with irregular cycle N92.1 [place] [address] [facility] [id number] [address] [place] [id number] 17 Jul, 2018 Encounter for immunization Z 23 [place] [address] [facility] [id number] [address] [place] [phone] 11 Jun, 2018 Mild episode of recurrent ma odilon depressive disorder F33.0 ; Effusion, left knee M25.462 ; Acute cystitis without hematuria N30.00 and Encounter for initial prescription of vaginal ring hormonal contraceptive Z30.015 [facility] [address] [facility] [id number] [address] [place] [phone] 07 Jun, 2018 Left anterior knee pain M25. 562 [place] [address] [facility] [id number] [address] [place] [phone] May, [place] [address] [facility] [id number] [address] [place] [phone] 10 Apr, 2018 Generalized anxiety disorder F41.1 and Severe episode of recurrent major depressive disorder, without 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 [facility] [address] [facility] [id number] [address] [place] [phone] Mar, Generalized anxiety disorder F41.1 and Severe episode of recurrent major depressive disorder, without 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 [facility] [address] [facility] [id number] [address] [place] [phone] Mar, 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 ; Anxiety F41.9 and Irregular menstrual bleeding N92.6 [facility] [address] [facility] [id number] [address] [place] [phone] Sep, Weight gain R63.5 [place] [address] [facility] [id number] [address] [place] [phone] Sep, Weight gain R63.5 [facility] [address] [id number] [place] [id number] Aug, Athlete's foot on left B35.3 and Athlete's foot on right B35.3 [facility] [address] [id number] [address] [place] [phone] Apr, Sore throat J02.9 ; Cough R0 5 ; Dysphagia, unspecified type R13.10 and Shortness of breath R06.02 [facility] [address] [id number] [address] [place] [phone] Apr, Encounter for initial manage ment of nuvaring Z30.49 [facility] [address] [facility] [id number] [address] [place] [phone] Mar, [facility] [address] [facility] [id number] [address] [place] [phone] Mar, Overweight E66.3 [facility] [address] [id number] [address] [place] [phone] February, Nexplanon removal Z30.49 and Encounter for initial prescription of other contraceptives Z30.018 [facility] [address] [id number] [address] [place] [phone] Dec, Back pain M54.9 [facility] [address] [facility] [id number] [address] [place] [phone] Dec, Surveillance of implantable subdermal contraceptive Z30.49 ; Irregular bleeding N92.6 ; Vaginal irritation N89.8 ; Routine screening for STI (sexually transmitted infection) Z11.3 and OCP (oral contraceptive pills) initiation Z30.011 [facility] [address] [facility] [id number] [address] [place] [phone] Dec, Back pain M54.9 [facility] [address] [facility] [id number] [address] [place] [phone] Nov, Back pain M54.9 [facility] [address] [facility] [id number] [address] [place] [address] [id number] Nov, Dysfunctional uterine bleedi ng N93.8 and Vaginal itching L29.8 [facility] [address] [facility] [id number] [address] [place] [phone] Nov, Cervicalgia M54.2 [facility] [address] [facility] [id number] [address] [place] [phone] Nov, Cervicalgia M54.2 [facility] [address] [facility] [id number] [address] [place] [phone] Nov, Cervicalgia M54.2 [facility] [address] [facility] [id number] [place] [address] [id number] Nov, Cervicalgia M54.2 [facility] [address] [facility] [id number] [address] [place] [phone] Sep, Screening for tuberculosis Z 11.1 [facility] [address] [id number] [address] [place] [id number] Aug, Dental examination Z01.20 [facility] [address] [facility] [id number] [address] [place] [id number] 13 Apr, 2015 Irregular bleeding 626.4 and Screen for STD (sexually transmitted disease) V74.5 [facility] [address] [id number] [address] [place] [address], [place] [address] Jan, [facility] [address] [id number] [address] [place] [phone] Jan, [facility] [address] [id number] [address] [place] [phone] Oct, [facility] [address] [id number] [address] [place] [phone] Oct, [facility] [address] [id number] [address] [place] [address], [place] [address] Oct, [facility] [address] [id number] [address] [place] [phone] Oct, [facility] [address] [id number] [address] [place] [phone] Sep, [facility] [address] [id number] [address] [place] [phone] Sep, [facility] [address] [id number] [address] [place] [id number] Jul, [facility] [address] [id number] [address] [place] [phone] Jul, [facility] [address] [id number] [address] [place] [phone] Jul, [facility] [address] [id number] [address] [place] [id number] 15 Jul, 2014 [facility] [address] [id number] [address] [place] [address], [place] [address] Jul, [facility] [address] [id number] [address] [place] [phone] Jun, [facility] [address] [id number] [address] [place] [phone] Jun, [facility] [address] [id number] [address] [place] [address], [place] [address] 10 Jun, 2014 [facility] [address] [id number] [address] [place] [address], [place] [address] Jun, [facility] [address] [id number] [address] [place] [address], [place] [address] Jan, [facility] [address] [id number] [address] [place] [address], [place] [address] Jan, [facility] [address] [id number] [address] [place] [address], [place] [address] Oct, [facility] [address] [id number] [address] [place] [address], [place] [address] Oct, [facility] [address] [id number] [address] [place] [address], [place] [address] Oct, [facility] [address] [id number] [address] [place] [address], [place] [phone] Oct, [facility] [address] [id number] [address] [place] [address], [place] [address] Sep, [facility] [address] [id number] [address] [place] [address], [place] [address] Sep, [facility] [address] [id number] [address] [place] [address], [place] [address] Aug, [facility] [address] [id number] [address] [place] [address], [place] [address] Aug, [facility] [address] [id number] [address] [place] [address], [place] [address] Aug, [facility] [address] [id number] [address] [place] [address], [place] [address] Aug, [facility] [address] [id number] [address] [place] [address], [place] [address] Aug, [facility] [address] [id number] [address] [place] [address], [place] [address] Aug, [facility] [address] [id number] [address] [place] [address], [place] [phone] 05 Aug, 2013 [facility] [address] [id number] [address] [place] [address], [place] [address] Aug, [facility] [address] [id number] [address] [place] [address], [place] [address] Jul, [facility] [address] [id number] [address] [place] [address], [place] [address] Jul, [facility] [address] [id number] [address] [place] [address], [place] [address] Jul, [facility] [address] [id number] [address] [place] [address], [place] [address] Jul, [facility] [address] [id number] [address] [place] [address], [place] [address] Jul, [facility] [address] [id number] [address] [place] [address], [place] [address] Jul, [facility] [address] [id number] [address] [place] [address], [place] [address] Jul, [facility] [address] [id number] [address] [place] [phone] Jul, [facility] [address] [id number] [address] [place] [phone] Jul, [facility] [address] [id number] [address] [place] [phone] Jul, [facility] [address] [id number] [address] [place] [phone] Jul, [facility] [address] [id number] [address] [place] [id number] Jul, [facility] [address] [id number] [address] [place] [phone] Jul, [facility] [address] [id number] [address] [place] [phone] Jun, [facility] [address] [id number] [address] [place] [address], [place] [address] May, [facility] [address] [id number] [address] [place] [address], [place] [address] Jan, [facility] [address] [id number] [address] [place] [address], [place] [address] Nov, [facility] [address] [id number] [address] [place] [address], [place] [address] Sep, [facility] [address] [id number] [address] [place] [address], [place] [address] Sep, [facility] [address] [id number] [address] [place] [address], [place] [address] Aug, [facility] [address] [id number] [address] [place] [address], [place] [address] Aug, [facility] [address] [id number] [address] [place] [address], [place] [address] Jun, [facility] [address] [id number] [address] [place] [address], [place] [address] Mar, [facility] [address] [id number] [address] [place] [address], [place] [address] February, [facility] [address] [id number] [address] [place] [address], [place] [address] Jan, [facility] [address] [id number] [address] [place] [address], [place] [address] Dec, [facility] [address] [id number] [address] [place] [address], [place] [address] Nov, [facility] [address] [id number] [address] [place] [address], [place] [address] Nov, [facility] [address] [id number] [address] [place] [address], [place] [address] Nov, [facility] [address] [facility] [id number] [address] [address] Aug, [facility] [address] [facility] [id number] [address] [place] [id number] 19 Jun, 2011 [facility] [address] [facility] [id number] [address] [address] 11 Jun, 2010 IMMUNIZATIONS No Known Immunizations SOCIAL HISTORY Never Assessed REASON FOR VISIT PLAN OF CARE VITAL SIGNS Height 65 in 2014-10-28 Weight 190 lbs 2014-10-28 Temperature 98.3 degrees Fahrenheit 2014-10-28 Heart Rate 106 bpm 2014-10-28 Respiratory Rate 20 2014-10-28 Blood pressure systolic 106 mmHg 2014-10-28 Blood pressure diastolic 64 mmHg 2014-10-28 MEDICATIONS Unknown Medications RESULTS No Results PROCEDURES No Known procedures INSTRUCTIONS MEDICATIONS ADMINISTERED No Known Medications MEDICAL (GENERAL) HISTORY Type Description Date Medical History Nexplanon inserted Nexplanon rem deepa 2015 Medical History chronic headaches/migraines Surgical History No know Surgical history
--- OUTSIDE RECORDS SUMMARY | 2020-04-21 00:07 | XMS REPORT ---
Author Author Skyler Duran Doctor Organization [facility] Address Unknown Phone Unavailable Care Team Providers Care Senior Bioinformatics Specialist Name Role Phone Migration, Doctor Unavailable Unavailable PROBLEMS Type Condition ICD9-CM Code ILA45-SL Code Onset Dates Condition S tatus SNOMED Code Problem Anxiety F41.9 Active 63840995 Problem Irregular menstrual bleeding N92.6 A ctive 53621835 Problem 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 Active 69811071 Problem Constipation, unspecified constipation type K59.00 Active 59860382 Problem Other chronic pain G89.29 Active 8 3183066 Problem Severe episode of recurrent major depressive disorder, without 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 Active 85783102 Problem Generalized anxiety disorder F41.1 A ctive 21555656 Problem Mild episode of recurrent major depressive disorder F33.0 Active 448514841 Problem Menorrhagia with irregular cycle N92.1 Active [id number] ALLERGIES No Information ENCOUNTERS Encounter Location Date Diagnosis [facility] [address] [facility] [id number] [address] [place] [phone] Apr, Acute strain of neck muscle, initial encounter S16.1XXA and Acute bilateral low back pain without sciatica M54.5 [facility] [address] [facility] [id number] [address] [place] [phone] Apr, Pharyngitis due to other org anism J02.8 [facility] [address] [facility] [id number] [address] [place] [phone] Mar, Acute left ankle pain M25.57 2 [facility] [place] [address] [facility] [id number] [address] [place] [phone] February, Pelvic pain R10.2 ; Acute vu lvitis N76.2 and Encounter for initial prescription of transdermal patch hormonal contraceptive device Z30.016 [facility] [place] [address] [facility] [id number] [address] [place] [id number] 12 Jan, 2019 control counseling Z30 .9 ; Contraception management Z30.9 ; Contraceptive education Z30.09 ; Encounter for immunization Z23 ; Other chronic pain G89.29 and Pain in left knee M25.562 [facility] [address] [address] 16 Dec, 2018 Dysuria R30.0 ; Pelvic pain R10.2 ; Constipation, unspecified constipation type K59.00 and Menorrhagia with irregular cycle N92.1 [place] [address] [address] 17 Jul, 2018 Encounter for immunization Z 23 [place] [address] [address] 11 Jun, 2018 Mild episode of recurrent ma odilon depressive disorder F33.0 ; Effusion, left knee M25.462 ; Acute cystitis without hematuria N30.00 and Encounter for initial prescription of vaginal ring hormonal contraceptive Z30.015 [facility] [address] [address] 07 Jun, 2018 Left anterior knee pain M25. 562 [place] [address] [address] May, [place] [address] [address] Apr, Generalized anxiety disorder F41.1 and Severe episode of recurrent major depressive disorder, without 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 [place] [address] [address] Mar, Generalized anxiety disorder F41.1 and Severe episode of recurrent major depressive disorder, without 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 [place] [address] [address] Mar, 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 ; Anxiety F41.9 and Irregular menstrual bleeding N92.6 [place] [address] [address] Sep, Weight gain R63.5 [facility] [place] [address] [place] [phone] Sep, Weight gain R63.5 [facility] [address] [facility] [id number] [place] [id number] 17 Aug, 2016 Athlete's foot on left B35.3 and Athlete's foot on right B35.3 [facility] [address] [place] [address] Apr, Sore throat J02.9 ; Cough R0 5 ; Dysphagia, unspecified type R13.10 and Shortness of breath R06.02 [place] [address] [place] [id number] [address] [place] [phone] Apr, Encounter for initial manage ment of nuvaring Z30.49 [place] [address] [address] Mar, [facility] [place] [address] [address] Mar, Overweight E66.3 [place] [address] [address] February, Nexplanon removal Z30.49 and Encounter for initial prescription of other contraceptives Z30.018 [place] [address] [place] [id number] [address] [place] [phone] Dec, Back pain M54.9 [place] [address] [place] [id number] [address] [place] [phone] Dec, Surveillance of implantable subdermal contraceptive Z30.49 ; Irregular bleeding N92.6 ; Vaginal irritation N89.8 ; Routine screening for STI (sexually transmitted infection) Z11.3 and OCP (oral contraceptive pills) initiation Z30.011 [place] [address] [place] [address] Dec, Back pain M54.9 [place] [address] [facility] [id number] [address] [place] [phone] 29 Nov, 2015 Back pain M54.9 [facility] [address] [facility] [id number] [place] [id number] 24 Nov, 2015 Dysfunctional uterine bleedi ng N93.8 and Vaginal itching L29.8 [facility] [place] [address] [facility] [id number] [address] [place] [phone] Nov, Cervicalgia M54.2 [facility] [place] [address] [facility] [id number] [address] [place] [phone] Nov, Cervicalgia M54.2 [facility] [place] [address] [facility] [id number] [address] [place] [id number] 10 Nov, 2015 Cervicalgia M54.2 [facility] [address] [place] [id number] [place] [id number] Nov, Cervicalgia M54.2 [facility] [place] [address] [place] [phone] Sep, Screening for tuberculosis Z 11.1 [facility] [address] [place] [id number] [place] [id number] Aug, Dental examination Z01.20 [facility] [place] [address] [place] [id number] [address] [place] [id number] Apr, Irregular bleeding 626.4 and Screen for STD (sexually transmitted disease) V74.5 [facility] [place] [address] [place] [id number] [address] [place] [phone] Jan, [facility] [place] [address] [facility] [id number] [address] [place] [phone] Jan, [facility] [place] [address] [place] [id number] [address] [place] [phone] Oct, [facility] [place] [address] [place] [id number] [address] [place] [phone] Oct, [facility] [address] [id number] [address] [place] [address], [place] [address] Oct, [facility] [address] [id number] [address] [place] [address], [place] [address] Oct, [facility] [address] [id number] [address] [place] [address], [place] [address] Sep, [facility] [address] [id number] [address] [place] [address], [place] [address] Sep, [facility] [address] [id number] [address] [place] [address], [place] [address] Jul, [facility] [address] [id number] [address] [place] [address], [place] [address] 30 Jul, 2014 [facility] [address] [id number] [address] [place] [address], [place] [address] 17 Jul, 2014 [facility] [address] [id number] [address] [place] [address], [place] [address] 15 Jul, 2014 [facility] [address] [id number] [address] [place] [address], [place] [address] 15 Jul, 2014 [facility] [address] [id number] [address] [place] [address], [place] [address] 24 Jun, 2014 [facility] [address] [id number] [address] [place] [address], [place] [address] 24 Jun, 2014 [facility] [address] [id number] [address] [place] [address], [place] [address] 10 Jun, 2014 [facility] [address] [id number] [address] [place] [address], [place] [address] 10 Jun, 2014 [facility] [address] [id number] [address] [place] [address], [place] [address] Jan, [facility] [address] [id number] [address] [place] [address], [place] [address] Jan, [facility] [address] [id number] [address] [place] [address], [place] [address] Oct, [facility] [address] [id number] [address] [place] [address], [place] [address] Oct, [facility] [address] [id number] [address] [place] [address], [place] [address] Oct, [facility] [address] [id number] [address] [place] [address], [place] [address] Oct, [facility] [address] [id number] [address] [place] [address], [place] [id number] Sep, [facility] [address] [id number] [address] [place] [address], [place] [address] Sep, [facility] [address] [id number] [address] [place] [address], [place] [address] Aug, [facility] [address] [id number] [address] [place] [address], [place] [address] Aug, [facility] [address] [id number] [address] [place] [phone] Aug, [facility] [address] [id number] [address] [place] [address], [place] [address] Aug, [facility] [address] [id number] [address] [place] [phone] Aug, [facility] [address] [id number] [address] [place] [phone] Aug, [facility] [address] [id number] [address] [place] [id number] Aug, [facility] [address] [id number] [address] [place] [address], [place] [address] Aug, [facility] [address] [id number] [address] [place] [phone] Jul, [facility] [address] [id number] [address] [place] [phone] Jul, [facility] [address] [id number] [address] [place] [address], [place] [address] Jul, [facility] [address] [id number] [address] [place] [address], [place] [address] Jul, [facility] [address] [id number] [address] [place] [address], [place] [address] Jul, [facility] [address] [id number] [address] [place] [address], [place] [id number] Jul, [facility] [address] [id number] [address] [place] [address], [place] [address] Jul, [facility] [address] [id number] [address] [place] [address], [place] [address] Jul, [facility] [address] [id number] [address] [place] [address], [place] [address] Jul, [facility] [address] [id number] [address] [place] [address], [place] [address] Jul, [facility] [address] [id number] [address] [place] [address], [place] [address] Jul, [facility] [address] [id number] [address] [place] [address], [place] [address] Jul, [facility] [address] [id number] [address] [place] [address], [place] [address] Jul, [facility] [address] [id number] [address] [place] [address], [place] [address] Jun, [facility] [address] [id number] [address] [place] [address], [place] [address] May, [facility] [address] [id number] [address] [place] [address], [place] [address] Jan, [facility] [address] [id number] [address] [place] [address], [place] [address] Nov, [facility] [address] [id number] [address] [place] [phone] Sep, [facility] [place] [address] [id number] [address] [place] [phone] Sep, [facility] [place] [address] [id number] [address] [place] [phone] Aug, [facility] [place] [address] [id number] [address] [place] [phone] Aug, [facility] [place] [address] [id number] [address] [place] [phone] Jun, [facility] [place] [address] [id number] [address] [place] [id number] Mar, [facility] [place] [address] [id number] [address] [place] [phone] February, [facility] [place] [address] [id number] [address] [place] [phone] Jan, [facility] [place] [address] [id number] [address] [place] [phone] Dec, [facility] [place] [address] [id number] [address] [place] [id number] Nov, [facility] [place] [address] [id number] [address] [place] [phone] Nov, [facility] [place] [address] [id number] [address] [place] [phone] Nov, [facility] [place] [address] [id number] [address] [place] [id number] Aug, [facility] [place] [address] [id number] [address] [place] [id number] Jun, [facility] [place] [address] [id number] [address] [place] [phone] Jun, IMMUNIZATIONS No Known Immunizations SOCIAL HISTORY Never Assessed REASON FOR VISIT PLAN OF CARE VITAL SIGNS MEDICATIONS No Known Medications RESULTS No Results PROCEDURES Procedure Date Ordered Result Body Site PSYTX PT&/FAMILY 45 MINUTES Sep 08, 2013 INSTRUCTIONS MEDICATIONS ADMINISTERED No Known Medications MEDICAL (GENERAL) HISTORY Type Description Date Medical History Nexplanon inserted Nexplanon rem deepa 2015 Surgical History No know Surgical history
--- OUTSIDE RECORDS SUMMARY | 2020-04-21 00:07 | XMS REPORT ---
Author Author Skyler Moreno Organization [facility] Address [address] [place] [address] Care Team Providers Care Paleology Teacher Name Role Phone LIANNA Moreno Unavailable PROBLEMS Type Condition ICD9-CM Code [id number] Code Onset Dates Condition S tatus SNOMED Code Problem Anxiety F41.9 Active 93021269 Problem Irregular menstrual bleeding N92.6 A ctive 36367062 Problem 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 Active 29358779 Problem Constipation, unspecified constipation type K59.00 Active 17156888 Problem Other chronic pain G89.29 Active 8 0365674 Problem Severe episode of recurrent major depressive disorder, without 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 Active 29040229 Problem Generalized anxiety disorder F41.1 A ctive 06044123 Problem Mild episode of recurrent major depressive disorder F33.0 Active 864623902 Problem Menorrhagia with irregular cycle N92.1 Active 472836724 ALLERGIES No Information ENCOUNTERS Encounter Location Date Diagnosis [facility] [address] [id number] [address] [place] [phone] Apr, Acute strain of neck muscle, initial encounter S16.1XXA and Acute bilateral low back pain without sciatica M54.5 [facility] [address] [id number] [address] [place] [phone] Apr, Pharyngitis due to other org anism J02.8 [facility] [address] [facility] [id number] [address] [place] [phone] Mar, Acute left ankle pain M25.57 2 [facility] [address] [facility] [id number] [address] [place] [address] February, Pelvic pain R10.2 ; Acute vu lvitis N76.2 and Encounter for initial prescription of transdermal patch hormonal contraceptive device Z30.016 [facility] [address] [facility] [id number] [address] [place] [phone] 12 Jan, 2019 control counseling Z30 .9 ; Contraception management Z30.9 ; Contraceptive education Z30.09 ; Encounter for immunization Z23 ; Other chronic pain G89.29 and Pain in left knee M25.562 [facility] [address] [facility] [id number] [address] [place] [phone] 16 Dec, 2018 Dysuria R30.0 ; Pelvic pain R10.2 ; Constipation, unspecified constipation type K59.00 and Menorrhagia with irregular cycle N92.1 [place] [address] [facility] [id number] [address] [place] [phone] 17 Jul, 2018 Encounter for immunization Z [id number] [facility] [id number] [address] [place] [phone] 11 Jun, 2018 Mild episode of recurrent ma odilon depressive disorder F33.0 ; Effusion, left knee M25.462 ; Acute cystitis without hematuria N30.00 and Encounter for initial prescription of vaginal ring hormonal contraceptive Z30.015 [facility] [address] [facility] [id number] [address] [place] [phone] 07 Jun, 2018 Left anterior knee pain M25. 562 [address] [address] [id number] [facility] [id number] [address] [place] [phone] May, [place] [address] [id number] [address] [place] [address] Apr, Generalized anxiety disorder F41.1 and Severe episode of recurrent major depressive disorder, without 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 [place] [address] [facility] [id number] [address] [place] [address] Mar, Generalized anxiety disorder F41.1 and Severe episode of recurrent major depressive disorder, without 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 [place] [address] [facility] [id number] [address] [place] [phone] Mar, 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 ; Anxiety F41.9 and Irregular menstrual bleeding N92.6 [facility] [address] [facility] [id number] [address] [place] [address] Sep, Weight gain R63.5 [facility] [address] [facility] [id number] [address] [place] [phone] Sep, Weight gain R63.5 [facility] [address] [facility] [id number] [place] [address] [id number] Aug, Athlete's foot on left B35.3 and Athlete's foot on right B35.3 [facility] [address] [facility] [id number] [address] [place] [phone] Apr, Sore throat J02.9 ; Cough R0 5 ; Dysphagia, unspecified type R13.10 and Shortness of breath R06.02 [place] [address] [id number] [address] [place] [phone] Apr, Encounter for initial manage ment of nuvaring Z30.49 [place] [address] [id number] [address] [place] [phone] Mar, [place] [address] [id number] [address] [place] [phone] Mar, Overweight E66.3 [place] [address] [id number] [address] [place] [phone] February, Nexplanon removal Z30.49 and Encounter for initial prescription of other contraceptives Z30.018 [place] [id number] [id number] [address] [place] [phone] Dec, Back pain M54.9 [place] [address] [id number] [address] [place] [phone] Dec, Surveillance of implantable subdermal contraceptive Z30.49 ; Irregular bleeding N92.6 ; Vaginal irritation N89.8 ; Routine screening for STI (sexually transmitted infection) Z11.3 and OCP (oral contraceptive pills) initiation Z30.011 [place] [address] [id number] [address] [place] [phone] Dec, Back pain M54.9 [facility] [address] [facility] [id number] [address] [place] [phone] 29 Nov, 2015 Back pain M54.9 [facility] [address] [facility] [id number] [place] [address] [id number] 24 Nov, 2015 Dysfunctional uterine bleedi ng N93.8 and Vaginal itching L29.8 [facility] [address] [facility] [id number] [address] [place] [phone] 15 Nov, 2015 Cervicalgia M54.2 [facility] [address] [id number] [address] [place] [phone] Nov, Cervicalgia M54.2 [facility] [address] [id number] [address] [place] [phone] Nov, Cervicalgia M54.2 [facility] [address] [id number] [place] [address] [id number] Nov, Cervicalgia M54.2 [facility] [address] [id number] [address] [place] [phone] Sep, Screening for tuberculosis Z 11.1 [facility] [address] [id number] [address] [place] [id number] Aug, Dental examination Z01.20 [facility] [address] [id number] [address] [place] [phone] Apr, Irregular bleeding 626.4 and Screen for STD (sexually transmitted disease) V74.5 [facility] [address] [facility] [id number] [address] [place] [phone] Jan, [facility] [address] [id number] [address] [place] [phone] Jan, [facility] [address] [id number] [address] [place] [phone] Oct, [facility] [address] [id number] [address] [place] [address], [place] [address] Oct, [facility] [address] [id number] [address] [place] [address], [place] [address] Oct, [facility] [address] [id number] [address] [place] [address], [place] [address] Oct, [facility] [address] [id number] [address] [place] [address], [place] [address] Sep, [facility] [address] [id number] [address] [place] [address], [place] [address] Sep, [facility] [address] [id number] [address] [place] [address], [place] [address] Jul, [facility] [address] [id number] [address] [place] [address], [place] [address] Jul, [facility] [address] [id number] [address] [place] [address], [place] [address] Jul, [facility] [address] [id number] [address] [place] [address], [place] [address] 15 Jul, 2014 [facility] [address] [id number] [address] [place] [address], [place] [address] 15 Jul, 2014 [facility] [address] [id number] [address] [place] [address], [place] [address] 24 Jun, 2014 [facility] [address] [id number] [address] [place] [address], [place] [address] 24 Jun, 2014 [facility] [address] [id number] [address] [place] [address], [place] [address] 10 Jun, 2014 [facility] [address] [id number] [address] [place] [address], [place] [address] 10 Jun, 2014 [facility] [address] [id number] [address] [place] [address], [place] [address] 23 Jan, 2014 [facility] [address] [id number] [address] [place] [address], [place] [address] Jan, [facility] [address] [id number] [address] [place] [address], [place] [address] Oct, [facility] [address] [id number] [address] [place] [address], [place] [address] Oct, [facility] [address] [id number] [address] [place] [address], [place] [address] Oct, [facility] [address] [id number] [address] [place] [address], [place] [address] Oct, [facility] [address] [id number] [address] [place] [address], [place] [address] Sep, [facility] [address] [id number] [address] [place] [address], [place] [address] Sep, [facility] [address] [id number] [address] [place] [address], [place] [address] Aug, [facility] [address] [id number] [address] [place] [address], [place] [address] Aug, [facility] [address] [id number] [address] [place] [address], [place] [address] Aug, [facility] [address] [id number] [address] [place] [address], [place] [address] Aug, [facility] [address] [id number] [address] [place] [address], [place] [address] Aug, [facility] [address] [id number] [address] [place] [phone] Aug, [facility] [address] [id number] [address] [place] [address], [place] [address] Aug, [facility] [address] [id number] [address] [place] [place] [address], [place] [address] Aug, [facility] [address] [id number] [address] [place] [address], [place] [address] Jul, [facility] [address] [id number] [address] [place] [address] [place] [address] 30 Jul, 2013 [facility] [address] [id number] [address] [place] [address], [place] [address] Jul, [facility] [address] [id number] [address] [place] [address], [place] [address] Jul, [facility] [address] [id number] [address] [place] [address], [place] [address] Jul, [facility] [address] [id number] [address] [place] [address], [place] [address] Jul, [facility] [address] [id number] [address] [place] [address], [place] [address] Jul, [facility] [address] [id number] [address] [place] [address], [place] [address] Jul, [facility] [address] [id number] [address] [place] [address], [place] [address] Jul, [facility] [address] [id number] [address] [place] [address], [place] [address] Jul, [facility] [address] [id number] [address] [place] [address], [place] [address] Jul, [facility] [address] [id number] [address] [place] [address], [place] [address] Jul, [facility] [address] [id number] [address] [place] [address], [place] [address] Jul, [facility] [address] [id number] [address] [place] [address], [place] [address] Jun, [facility] [address] [id number] [address] [place] [address], [place] [address] May, [facility] [address] [id number] [address] [place] [address], [place] [address] Jan, [facility] [address] [id number] [address] [place] [place] [address], [place] [address] Nov, [facility] [address] [id number] [address] [place] [address] Sep, [facility] [address] [id number] [address] [place] [address] Sep, [facility] [address] [id number] [address] [place] [address] Aug, [facility] [address] [id number] [address] [place] [address] Aug, [facility] [address] [id number] [address] [place] [address] Jun, [facility] [address] [id number] [address] [place] [phone] Mar, [facility] [address] [id number] [address] [place] [phone] February, [facility] [address] [id number] [address] [place] [address] Jan, [facility] [address] [id number] [address] [place] [phone] Dec, [facility] [address] [id number] [address] [place] [phone] Nov, [facility] [address] [id number] [address] [place] [address] Nov, [facility] [address] [id number] [address] [place] [phone] Nov, [facility] [address] [id number] [address] [place] [phone] Aug, [facility] [address] [id number] [address] [place] [phone] Jun, [facility] [address] [id number] [address] [place] [phone] Jun, IMMUNIZATIONS No Known Immunizations SOCIAL HISTORY Never Assessed REASON FOR VISIT PLAN OF CARE VITAL SIGNS Height 64 in 2014-09-29 Weight 197.8 lbs 2014-09-29 Heart Rate 84 bpm 2014-09-29 Respiratory Rate 18 2014-09-29 Blood pressure systolic 114 mmHg 2014-09-29 Blood pressure diastolic 74 mmHg 2014-09-29 MEDICATIONS No Known Medications RESULTS No Results PROCEDURES Procedure Date Ordered Result Body Site URINE TEST Sep 29, 2014 INSERT DRUG IMPLANT DEVICE Sep 29, 2014 INSTRUCTIONS MEDICATIONS ADMINISTERED No Known Medications MEDICAL (GENERAL) HISTORY Type Description Date Medical History Nexplanon inserted Nexplanon rem deepa 2015 Surgical History No know Surgical history
--- OUTSIDE RECORDS SUMMARY | 2020-04-21 00:07 | XMS REPORT ---
Author Author Skyler Bell Organization [facility] Address [address] [place] [address] Care Team Providers Care Laminator Name Role Phone TERENCE Bell Unavailable PROBLEMS Type Condition ICD9-CM Code PPO16-SH Code Onset Dates Condition S tatus SNOMED Code Problem Other chronic pain G89.29 Active 8 0951725 Problem PCOS (polycystic ovarian syndrome) E28.2 Active [id number] Problem 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 Active 38351373 Problem Generalized anxiety disorder F41.1 A ctive 04034163 Problem Menorrhagia with irregular cycle N92.1 Active 087294770 Problem Constipation, unspecified constipation type K59.00 Active 82507108 ALLERGIES No Information ENCOUNTERS Encounter Location Date Diagnosis [facility] [address] [id number] [address] [place] [address] Jun, [facility] [address] [id number] [address] [place] [address] Jun, Nonintractable episodic head ache, unspecified headache type R51 ; Menorrhagia with irregular cycle N92.1 and PCOS (polycystic ovarian syndrome) E28.2 [facility] [address] [id number] [address] [place] [address] May, Nonintractable episodic head ache, unspecified headache type R51 and Amenorrhea N91.2 [facility] [address] [id number] [address] [place] [address] Apr, Acute strain of neck muscle, initial encounter S16.1XXA and Acute bilateral low back pain without sciatica M54.5 [facility] [address] [id number] [address] [place] [address] Apr, Pharyngitis due to other org anism J02.8 [facility] [address] [facility] [id number] [address] [place] [address] 17 Mar, 2019 Acute left ankle pain M25.57 2 [facility] [address] [facility] [id number] [address] [place] [address] February, Pelvic pain R10.2 ; Acute vu lvitis N76.2 and Encounter for initial prescription of transdermal patch hormonal contraceptive device Z30.016 [address] [address] [facility] [id number] [address] [place] [address] 12 Jan, 2019 control counseling Z30 .9 ; Contraception management Z30.9 ; Contraceptive education Z30.09 ; Encounter for immunization Z23 ; Other chronic pain G89.29 and Pain in left knee M25.562 [facility] [address] [facility] [id number] [address] [place] [address] 16 Dec, 2018 Dysuria R30.0 ; Pelvic pain R10.2 ; Constipation, unspecified constipation type K59.00 and Menorrhagia with irregular cycle N92.1 [place] [address] [address] [facility] [id number] [address] [place] [address] 17 Jul, 2018 Encounter for immunization Z 23 [address] [address] [address] [facility] [id number] [address] [place] [address] 11 Jun, 2018 Mild episode of recurrent ma odilon depressive disorder F33.0 ; Effusion, left knee M25.462 ; Acute cystitis without hematuria N30.00 and Encounter for initial prescription of vaginal ring hormonal contraceptive Z30.015 [facility] [address] [facility] [id number] [address] [place] [phone] 07 Jun, 2018 Left anterior knee pain M25. 562 [address] [place] [address] [address] [facility] [id number] [address] [place] [address] May, [place] [address] [address] [facility] [id number] [address] [place] [address] 10 Apr, 2018 Generalized anxiety disorder F41.1 and Severe episode of recurrent major depressive disorder, without 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 [facility] [address] [facility] [id number] [address] [place] [address] Mar, Generalized anxiety disorder F41.1 and Severe episode of recurrent major depressive disorder, without 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 [facility] [address] [facility] [id number] [address] [place] [address] Mar, 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 ; Anxiety F41.9 and Irregular menstrual bleeding N92.6 [facility] [address] [facility] [id number] [address] [place] [address] Sep, Weight gain R63.5 [place] [address] [address] [facility] [id number] [address] [place] [address] Sep, Weight gain R63.5 [facility] [address] [id number] [place] [id number] Aug, Athlete's foot on left B35.3 and Athlete's foot on right B35.3 [facility] [address] [id number] [address] [place] [address] Apr, Sore throat J02.9 ; Cough R0 5 ; Dysphagia, unspecified type R13.10 and Shortness of breath R06.02 [facility] [address] [id number] [address] [place] [address] Apr, Encounter for initial manage ment of nuvaring Z30.49 [facility] [address] [facility] [id number] [address] [place] [address] Mar, [facility] [address] [facility] [id number] [address] [place] [address] Mar, Overweight E66.3 [facility] [address] [id number] [address] [place] [address] February, Nexplanon removal Z30.49 and Encounter for initial prescription of other contraceptives Z30.018 [facility] [address] [id number] [address] [place] [address] Dec, Back pain M54.9 [facility] [address] [facility] [id number] [address] [place] [address] Dec, Surveillance of implantable subdermal contraceptive Z30.49 ; Irregular bleeding N92.6 ; Vaginal irritation N89.8 ; Routine screening for STI (sexually transmitted infection) Z11.3 and OCP (oral contraceptive pills) initiation Z30.011 [facility] [address] [facility] [id number] [address] [place] [phone] Dec, Back pain M54.9 [facility] [address] [facility] [id number] [address] [place] [address] Nov, Back pain M54.9 [facility] [address] [facility] [id number] [address] [place] [id number] Nov, Dysfunctional uterine bleedi ng N93.8 and Vaginal itching L29.8 [facility] [address] [facility] [id number] [address] [place] [address] Nov, Cervicalgia M54.2 [facility] [address] [facility] [id number] [address] [place] [address] Nov, Cervicalgia M54.2 [facility] [address] [facility] [id number] [address] [place] [address] Nov, Cervicalgia M54.2 [facility] [address] [facility] [id number] [place] [id number] Nov, Cervicalgia M54.2 [facility] [address] [facility] [id number] [address] [place] [address] Sep, Screening for tuberculosis Z 11.1 [facility] [address] [id number] [address] [place] [id number] Aug, Dental examination Z01.20 [facility] [address] [facility] [id number] [address] [place] [phone] 13 Apr, 2015 Irregular bleeding 626.4 and Screen for STD (sexually transmitted disease) V74.5 [facility] [address] [id number] [address] [place] [address], [place] [address] Jan, [facility] [address] [id number] [address] [place] [phone] Jan, [facility] [address] [id number] [address] [place] [phone] Oct, [facility] [address] [id number] [address] [place] [address] Oct, [facility] [address] [id number] [address] [place] [address], [place] [address] Oct, [facility] [address] [id number] [address] [place] [address] Oct, [facility] [address] [id number] [address] [place] [phone] Sep, [facility] [address] [id number] [address] [place] [phone] Sep, [facility] [address] [id number] [address] [place] [phone] Jul, [facility] [address] [id number] [address] [place] [address] Jul, [facility] [address] [id number] [address] [place] [phone] Jul, [facility] [address] [id number] [address] [place] [id number] 15 Jul, 2014 [facility] [address] [id number] [address] [place] [address], [place] [address] Jul, [facility] [address] [id number] [address] [place] [phone] Jun, [facility] [address] [id number] [address] [place] [phone] Jun, [facility] [address] [id number] [address] [place] [address], [place] [address] 10 Jun, 2014 [facility] [address] [id number] [address] [place] [address], [place] [address] Jun, [facility] [address] [id number] [address] [place] [address], [place] [address] Jan, [facility] [address] [id number] [address] [place] [address], [place] [address] Jan, [facility] [address] [id number] [address] [place] [address], [place] [address] Oct, [facility] [address] [id number] [address] [place] [address], [place] [address] Oct, [facility] [address] [id number] [address] [place] [address], [place] [address] Oct, [facility] [address] [id number] [address] [place] [address], [place] [address] Oct, [facility] [address] [id number] [address] [place] [address], [place] [address] Sep, [facility] [address] [id number] [address] [place] [address], [place] [address] Sep, [facility] [address] [id number] [address] [place] [address], [place] [address] Aug, [facility] [address] [id number] [address] [place] [address], [place] [address] Aug, [facility] [address] [id number] [address] [place] [address], [place] [address] Aug, [facility] [address] [id number] [address] [place] [address], [place] [address] Aug, [facility] [address] [id number] [address] [place] [address], [place] [address] Aug, [facility] [address] [id number] [address] [place] [address], [place] [address] Aug, [facility] [address] [id number] [address] [place] [address], [place] [address] 05 Aug, 2013 [facility] [address] [id number] [address] [place] [address], [place] [address] Aug, [facility] [address] [id number] [address] [place] [address], [place] [address] Jul, [facility] [address] [id number] [address] [place] [address], [place] [address] Jul, [facility] [address] [id number] [address] [place] [address], [place] [address] Jul, [facility] [address] [id number] [address] [place] [address], [place] [address] Jul, [facility] [address] [id number] [address] [place] [address], [place] [address] Jul, [facility] [address] [id number] [address] [place] [address], [place] [address] Jul, [facility] [address] [id number] [address] [place] [address], [place] [address] Jul, [facility] [address] [id number] [address] [place] [address] Jul, [facility] [address] [id number] [address] [place] [address] Jul, [facility] [address] [id number] [address] [place] [address] Jul, [facility] [address] [id number] [address] [place] [address] Jul, [facility] [address] [id number] [address] [place] [address] Jul, [facility] [address] [id number] [address] [place] [address] Jul, [facility] [address] [id number] [address] [place] [phone] Jun, [facility] [address] [id number] [address] [place] [address], [place] [address] May, [facility] [address] [id number] [address] [place] [address], [place] [address] Jan, [facility] [address] [id number] [address] [place] [address], [place] [address] Nov, [facility] [address] [id number] [address] [place] [address], [place] [address] Sep, [facility] [address] [id number] [address] [place] [address], [place] [address] Sep, [facility] [address] [id number] [address] [place] [address], [place] [address] Aug, [facility] [address] [id number] [address] [place] [address], [place] [address] Aug, [facility] [address] [id number] [address] [place] [address], [place] [address] Jun, [facility] [address] [id number] [address] [place] [address], [place] [address] Mar, [facility] [address] [id number] [address] [place] [address], [place] [address] February, [facility] [address] [id number] [address] [place] [address], [place] [address] Jan, [facility] [address] [id number] [address] [place] [address], [place] [address] Dec, [facility] [address] [id number] [address] [place] [address], [place] [address] Nov, [facility] [address] [id number] [address] [place] [address], [place] [address] Nov, [facility] [address] [id number] [address] [place] [address], [place] [address] Nov, [facility] [address] [facility] [id number] [address] [place] [address] Aug, [facility] [address] [facility] [id number] [address] [place] [address] Jun, [facility] [address] [facility] [id number] [address] [place] [address] 11 Jun, 2010 IMMUNIZATIONS No Known Immunizations SOCIAL HISTORY Never Assessed REASON FOR VISIT PLAN OF CARE VITAL SIGNS MEDICATIONS Unknown Medications RESULTS No Results PROCEDURES Procedure Date Ordered Result Body Site TB INTRADERMAL TEST Aug 05, 2014 INSTRUCTIONS MEDICATIONS ADMINISTERED No Known Medications MEDICAL (GENERAL) HISTORY Type Description Date Medical History Nexplanon inserted Nexplanon rem deepa 2015 Medical History chronic headaches/migraines Surgical History No know Surgical history
--- OUTSIDE RECORDS SUMMARY | 2020-04-21 00:07 | XMS REPORT ---
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 Active 96068944 Problem Generalized anxiety disorder F41.1 A ctive 87112269 Problem Menorrhagia with irregular cycle N92.1 Active 694529335 Problem Constipation, unspecified constipation type K59.00 Active 23117073 ALLERGIES No Information ENCOUNTERS Encounter Location Date Diagnosis [facility] [address] [id number] [address] [place] [id number] Jun, [facility] [place] [address] [id number] [address] [place] [phone] Jun, Nonintractable episodic head ache, unspecified headache type R51 ; Menorrhagia with irregular cycle N92.1 and PCOS (polycystic ovarian syndrome) E28.2 [facility] [place] [address] [id number] [address] [place] [phone] May, Nonintractable episodic head ache, unspecified headache type R51 and Amenorrhea N91.2 [facility] [address] [facility] [id number] [address] [place] [phone] Apr, Acute strain of neck muscle, initial encounter S16.1XXA and Acute bilateral low back pain without sciatica M54.5 [facility] [address] [id number] [address] [place] [address] Apr, Pharyngitis due to other org anism J02.8 [facility] [address] [facility] [id number] [address] [place] [id number] 17 Mar, 2019 Acute left ankle pain M25.57 2 [facility] [place] [address] [facility] [id number] [address] [place] [phone] February, Pelvic pain R10.2 ; Acute vu lvitis N76.2 and Encounter for initial prescription of transdermal patch hormonal contraceptive device Z30.016 [place] [address] [id number] [address] [place] [address] 12 Jan, 2019 control counseling Z30 .9 ; Contraception management Z30.9 ; Contraceptive education Z30.09 ; Encounter for immunization Z23 ; Other chronic pain G89.29 and Pain in left knee M25.562 [facility] [address] [id number] [address] [place] [id number] 16 Dec, 2018 Dysuria R30.0 ; Pelvic pain R10.2 ; Constipation, unspecified constipation type K59.00 and Menorrhagia with irregular cycle N92.1 [facility] [place] [address] [id number] [address] [place] [id number] 17 Jul, 2018 Encounter for immunization Z 23 [place] [address] [id number] [address] [place] [phone] 11 Jun, 2018 Mild episode of recurrent ma odilon depressive disorder F33.0 ; Effusion, left knee M25.462 ; Acute cystitis without hematuria N30.00 and Encounter for initial prescription of vaginal ring hormonal contraceptive Z30.015 [facility] [address] [facility] [id number] [address] [place] [phone] 07 Jun, 2018 Left anterior knee pain M25. 562 [place] [address] [id number] [address] [place] [phone] May, [place] [address] [id number] [address] [place] [address] Apr, Generalized anxiety disorder F41.1 and Severe episode of recurrent major depressive disorder, without 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 [facility] [place] [address] [facility] [id number] [address] [place] [address] Mar, Generalized anxiety disorder F41.1 and Severe episode of recurrent major depressive disorder, without 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 [facility] [place] [address] [facility] [id number] [address] [place] [address] Mar, 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 ; Anxiety F41.9 and Irregular menstrual bleeding N92.6 [facility] [place] [address] [id number] [address] [place] [phone] Sep, Weight gain R63.5 [facility] [place] [address] [address] Sep, Weight gain R63.5 [facility] [address] [id number] [place] [id number] Aug, Athlete's foot on left B35.3 and Athlete's foot on right B35.3 [facility] [address] [id number] [address] [place] [address] Apr, Sore throat J02.9 ; Cough R0 5 ; Dysphagia, unspecified type R13.10 and Shortness of breath R06.02 [place] [id number] [id number] [address] [place] [phone] Apr, Encounter for initial manage ment of nuvaring Z30.49 [place] [address] [id number] [address] [place] [address] Mar, [facility] [place] [address] [id number] [address] [place] [address] Mar, Overweight E66.3 [facility] [place] [address] [id number] [address] [place] [address] February, Nexplanon removal Z30.49 and Encounter for initial prescription of other contraceptives Z30.018 [facility] [place] [address] [id number] [address] [place] [phone] Dec, Back pain M54.9 [facility] [place] [address] [facility] [id number] [address] [place] [address] Dec, Surveillance of implantable subdermal contraceptive Z30.49 ; Irregular bleeding N92.6 ; Vaginal irritation N89.8 ; Routine screening for STI (sexually transmitted infection) Z11.3 and OCP (oral contraceptive pills) initiation Z30.011 [facility] [place] [address] [facility] [id number] [address] [place] [phone] Dec, Back pain M54.9 [facility] [place] [address] [facility] [id number] [address] [place] [phone] Nov, Back pain M54.9 [facility] [id number] [place] [id number] Nov, Dysfunctional uterine bleedi ng N93.8 and Vaginal itching L29.8 [facility] [place] [address] [facility] [id number] [address] [place] [phone] Nov, Cervicalgia M54.2 [place] [id number] [facility] [id number] [address] [place] [phone] Nov, Cervicalgia M54.2 [facility] [place] [address] [id number] [address] [place] [phone] Nov, Cervicalgia M54.2 [facility] [address] [facility] [id number] [place] [id number] Nov, Cervicalgia M54.2 [facility] [place] [address] [facility] [id number] [address] [place] [phone] Sep, Screening for tuberculosis Z 11.1 [facility] [address] [id number] [address] [place] [id number] Aug, Dental examination Z01.20 [facility] [place] [address] [facility] [id number] [address] [place] [phone] 13 Apr, 2015 Irregular bleeding 626.4 and Screen for STD (sexually transmitted disease) V74.5 [facility] [address] [id number] [address] [place] [address], [place] [address] 14 Jan, 2015 [facility] [address] [id number] [address] [place] [phone] Jan, [facility] [address] [id number] [address] [place] [address], [place] [address] Oct, [facility] [address] [id number] [address] [place] [phone] Oct, [facility] [address] [id number] [address] [place] [address], [place] [address] Oct, [facility] [address] [id number] [address] [place] [phone] Oct, [facility] [address] [id number] [address] [place] [address], [place] [address] Sep, [facility] [address] [id number] [address] [place] [phone] Sep, [facility] [address] [id number] [address] [place] [address], [place] [address] Jul, [facility] [address] [id number] [address] [place] [phone] 30 Jul, 2014 [facility] [address] [id number] [address] [place] [phone] Jul, [facility] [address] [id number] [address] [place] [id number] 15 Jul, 2014 [facility] [address] [id number] [address] [place] [phone] 15 Jul, 2014 [facility] [address] [id number] [address] [place] [phone] 24 Jun, 2014 [facility] [address] [id number] [address] [place] [phone] Jun, [facility] [address] [id number] [address] [place] [address], [place] [address] 10 Jun, 2014 [facility] [address] [id number] [address] [place] [address], [place] [address] 10 Jun, 2014 [facility] [address] [id number] [address] [place] [address], [place] [address] Jan, [facility] [address] [id number] [address] [place] [address], [place] [address] Jan, [facility] [address] [id number] [address] [place] [address], [place] [address] Oct, [facility] [address] [id number] [address] [place] [address], [place] [address] Oct, [facility] [address] [id number] [address] [place] [address], [place] [address] Oct, [facility] [address] [id number] [address] [place] [address], [place] [address] Oct, [facility] [address] [id number] [address] [place] [address], [place] [address] Sep, [facility] [address] [id number] [address] [place] [address], [place] [address] Sep, [facility] [address] [id number] [address] [place] [address], [place] [address] Aug, [facility] [address] [id number] [address] [place] [address], [place] [address] Aug, [facility] [address] [id number] [address] [place] [address], [place] [address] Aug, [facility] [address] [id number] [address] [place] [address], [place] [address] Aug, [facility] [address] [id number] [address] [place] [address], [place] [address] Aug, [facility] [address] [id number] [address] [place] [address], [place] [address] Aug, [facility] [address] [id number] [address] [place] [address], [place] [address] 05 Aug, 2013 [facility] [address] [id number] [address] [place] [address], [place] [address] Aug, 2012 [facility] [address] [id number] [address] [place] [address], [place] [address] Jul, [facility] [address] [id number] [address] [place] [address], [place] [address] Jul, [facility] [address] [id number] [address] [place] [address], [place] [address] Jul, [facility] [address] [id number] [address] [place] [address], [place] [address] Jul, [facility] [address] [id number] [address] [place] [address], [place] [address] Jul, [facility] [address] [id number] [address] [place] [address], [place] [address] Jul, [facility] [address] [id number] [address] [place] [address], [place] [address] Jul, [facility] [address] [id number] [address] [place] [address], [place] [address] Jul, [facility] [address] [id number] [address] [place] [address], [place] [address] Jul, [facility] [address] [id number] [address] [place] [address], [place] [address] Jul, [facility] [address] [id number] [address] [place] [address], [place] [address] Jul, [facility] [address] [id number] [address] [place] [address], [place] [address] Jul, [facility] [address] [id number] [address] [place] [address], [place] [address] Jul, [facility] [address] [id number] [address] [place] [address], [place] [address] Jun, [facility] [address] [id number] [address] [place] [address], [place] [address] May, [facility] [address] [id number] [address] [place] [address], [place] [address] Jan, [facility] [address] [id number] [address] [place] [address], [place] [address] Nov, [facility] [address] [id number] [address] [place] [address], [place] [address] Sep, [facility] [address] [id number] [address] [place] [address], [place] [address] Sep, [facility] [address] [id number] [address] [place] [address], [place] [address] Aug, [facility] [address] [id number] [address] [place] [address], [place] [address] Aug, [facility] [address] [id number] [address] [place] [address], [place] [address] Jun, [facility] [address] [id number] [address] [place] [address], [place] [address] Mar, [facility] [address] [id number] [address] [place] [address], [place] [address] February, [facility] [address] [id number] [address] [place] [address], [place] [address] Jan, [facility] [address] [id number] [address] [place] [address], [place] [address] Dec, [facility] [address] [id number] [address] [place] [address], [place] [address] Nov, [facility] [address] [id number] [address] [place] [address], [place] [address] Nov, [facility] [address] [id number] [address] [place] [address], [place] [address] 16 Nov, 2011 [facility] [address] [id number] [address] [address] 17 Aug, 2011 [facility] [place] [address] [facility] [id number] [address] [address] 19 Jun, 2011 [facility] [place] [address] [facility] [id number] [address] [address] 11 Jun, 2010 IMMUNIZATIONS No Known Immunizations SOCIAL HISTORY Never Assessed REASON FOR VISIT PLAN OF CARE VITAL SIGNS Height 64 in 2014-08-20 Weight 185.3 lbs 2014-08-20 Temperature 97 degrees Fahrenheit 2014-08-20 Heart Rate 88 bpm 2014-08-20 Respiratory Rate 18 2014-08-20 Blood pressure systolic 118 mmHg 2014-08-20 Blood pressure diastolic 74 mmHg 2014-08-20 MEDICATIONS Unknown Medications RESULTS No Results PROCEDURES Procedure Date Ordered Result Body Site URINE TEST Aug 20, 2014 INSTRUCTIONS MEDICATIONS ADMINISTERED No Known Medications MEDICAL (GENERAL) HISTORY Type Description Date Medical History Nexplanon inserted Nexplanon rem deepa 2015 Medical History chronic headaches/migraines Surgical History No know Surgical history
--- OUTSIDE RECORDS SUMMARY | 2020-04-21 00:07 | XMS REPORT ---
Author Author Skyler GUEVARA Organization [facility] [place] Address [address] [place] [address] Care Team Providers Care Lab Coordinator Name Role Phone MANOJ GUEVARA Unavailable PROBLEMS Type Condition ICD9-CM Code NTS40-MG Code Onset Dates Condition S tatus SNOMED Code Problem Anxiety F41.9 Active 90139248 Problem Irregular menstrual bleeding N92.6 A ctive 25974843 Problem 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 Active 79052806 Problem Constipation, unspecified constipation type K59.00 Active 91083063 Problem Other chronic pain G89.29 Active 8 3617113 Problem Severe episode of recurrent major depressive disorder, without 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 Active 76694734 Problem Generalized anxiety disorder F41.1 A ctive 97789796 Problem Mild episode of recurrent major depressive disorder F33.0 Active 690281147 Problem Menorrhagia with irregular cycle N92.1 Active 481295379 ALLERGIES No Known Allergies ENCOUNTERS Encounter Location Date Diagnosis [facility] [address] [id number] [address] [place] [phone] Apr, Acute strain of neck muscle, initial encounter S16.1XXA and Acute bilateral low back pain without sciatica M54.5 [facility] [id number] [address] [place] [phone] Apr, Pharyngitis due to other org anism J02.8 [facility] [address] [facility] [id number] [address] [place] [phone] Mar, Acute left ankle pain M25.57 2 [facility] [place] [address] [facility] [id number] [address] [place] [phone] February, Pelvic pain R10.2 ; Acute vu lvitis N76.2 and Encounter for initial prescription of transdermal patch hormonal contraceptive device Z30.016 [facility] [place] [address] [facility] [id number] [address] [place] [phone] 12 Jan, 2019 control counseling Z30 .9 ; Contraception management Z30.9 ; Contraceptive education Z30.09 ; Encounter for immunization Z23 ; Other chronic pain G89.29 and Pain in left knee M25.562 [facility] [address] [facility] [id number] [address] [place] [id number] 16 Dec, 2018 Dysuria R30.0 ; Pelvic pain R10.2 ; Constipation, unspecified constipation type K59.00 and Menorrhagia with irregular cycle N92.1 [place] [address] [facility] [id number] [address] [place] [id number] 17 Jul, 2018 Encounter for immunization Z 23 [place] [address] [facility] [id number] [address] [place] [phone] 11 Jun, 2018 Mild episode of recurrent ma odilon depressive disorder F33.0 ; Effusion, left knee M25.462 ; Acute cystitis without hematuria N30.00 and Encounter for initial prescription of vaginal ring hormonal contraceptive Z30.015 [facility] [address] [facility] [id number] [address] [place] [phone] 07 Jun, 2018 Left anterior knee pain M25. 562 [place] [address] [facility] [id number] [address] [place] [phone] May, [place] [id number] [address] [place] [address] Apr, Generalized anxiety disorder F41.1 and Severe episode of recurrent major depressive disorder, without 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 [place] [address] [facility] [id number] [address] [place] [phone] Mar, Generalized anxiety disorder F41.1 and Severe episode of recurrent major depressive disorder, without 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 [place] [address] [facility] [id number] [address] [place] [address] Mar, 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 ; Anxiety F41.9 and Irregular menstrual bleeding N92.6 [facility] [place] [address] [facility] [id number] [address] [place] [phone] Sep, Weight gain R63.5 [facility] [place] [id number] [address] [place] [phone] Sep, Weight gain R63.5 [facility] [id number] [place] [address] [id number] Aug, Athlete's foot on left B35.3 and Athlete's foot on right B35.3 [facility] [address] [facility] [id number] [address] [place] [phone] Apr, Sore throat J02.9 ; Cough R0 5 ; Dysphagia, unspecified type R13.10 and Shortness of breath R06.02 [place] [id number] [address] [place] [phone] Apr, Encounter for initial manage ment of nuvaring Z30.49 [facility] [place] [id number] [place] [address] Mar, [place] [address] [address] Mar, Overweight E66.3 [place] [address] [address] [id number] [address] [place] [address] February, Nexplanon removal Z30.49 and Encounter for initial prescription of other contraceptives Z30.018 [facility] [place] [id number] [address] [place] [address] Dec, Back pain M54.9 [place] [address] [id number] [address] [place] [phone] Dec, Surveillance of implantable subdermal contraceptive Z30.49 ; Irregular bleeding N92.6 ; Vaginal irritation N89.8 ; Routine screening for STI (sexually transmitted infection) Z11.3 and OCP (oral contraceptive pills) initiation Z30.011 [place] [address] [place] [id number] [address] [place] [address] Dec, Back pain M54.9 [facility] [place] [address] [facility] [id number] [address] [place] [phone] 29 Nov, 2015 Back pain M54.9 [facility] [address] [facility] [id number] [place] [address] [id number] 24 Nov, 2015 Dysfunctional uterine bleedi ng N93.8 and Vaginal itching L29.8 [facility] [place] [address] [facility] [id number] [address] [place] [phone] 15 Nov, 2015 Cervicalgia M54.2 [facility] [place] [address] [facility] [id number] [address] [place] [phone] Nov, Cervicalgia M54.2 [facility] [place] [address] [facility] [id number] [address] [place] [phone] Nov, Cervicalgia M54.2 [facility] [address] [facility] [id number] [place] [id number] 03 Nov, 2015 Cervicalgia M54.2 [facility] [place] [address] [facility] [id number] [address] [place] [phone] Sep, Screening for tuberculosis Z 11.1 [facility] [address] [facility] [id number] [address] [place] [address] [id number] Aug, Dental examination Z01.20 [facility] [place] [address] [facility] [id number] [address] [place] [phone] Apr, Irregular bleeding 626.4 and Screen for STD (sexually transmitted disease) V74.5 [facility] [place] [address] [facility] [id number] [address] [place] [id number] 14 Jan, 2015 [facility] [place] [address] [facility] [id number] [address] [place] [phone] Jan, [facility] [place] [address] [facility] [id number] [address] [place] [phone] Oct, [facility] [address] [id number] [address] [place] [address], [place] [address] Oct, [facility] [address] [id number] [address] [place] [address], [place] [address] Oct, [facility] [address] [id number] [address] [place] [address], [place] [address] Oct, [facility] [address] [id number] [address] [place] [address], [place] [address] Sep, [facility] [address] [id number] [address] [place] [address], [place] [address] Sep, [facility] [address] [id number] [address] [place] [address], [place] [address] Jul, [facility] [address] [id number] [address] [place] [address], [place] [address] Jul, [facility] [address] [id number] [address] [place] [address], [place] [address] Jul, [facility] [address] [id number] [address] [place] [address], [place] [address] 15 Jul, 2014 [facility] [address] [id number] [address] [place] [address], [place] [address] Jul, [facility] [address] [id number] [address] [place] [address], [place] [address] 24 Jun, 2014 [facility] [address] [id number] [address] [place] [address], [place] [address] 24 Jun, 2014 [facility] [address] [id number] [address] [place] [address], [place] [address] 10 Jun, 2014 [facility] [address] [id number] [address] [place] [address], [place] [address] 10 Jun, 2014 [facility] [address] [id number] [address] [place] [address], [place] [address] Jan, [facility] [address] [id number] [address] [place] [address], [place] [address] Jan, [facility] [address] [id number] [address] [place] [address], [place] [address] Oct, [facility] [address] [id number] [address] [place] [address], [place] [address] Oct, [facility] [address] [id number] [address] [place] [address], [place] [address] Oct, [facility] [address] [id number] [address] [place] [address], [place] [address] Oct, [facility] [address] [id number] [address] [place] [address], [place] [address] Sep, [facility] [address] [id number] [address] [place] [address], [place] [address] Sep, [facility] [address] [id number] [address] [place] [address], [place] [address] Aug, [facility] [address] [id number] [address] [place] [phone] Aug, [facility] [address] [id number] [address] [place] [address], [place] [address] Aug, [facility] [address] [id number] [address] [place] [phone] Aug, [facility] [address] [id number] [address] [place] [address] Aug, [facility] [address] [id number] [address] [place] [id number] Aug, [facility] [address] [id number] [address] [place] [address], [place] [address] Aug, [facility] [address] [id number] [address] [place] [phone] Aug, [facility] [address] [id number] [address] [place] [address], [place] [address] Jul, [facility] [address] [id number] [address] [place] [address], [place] [address] 30 Jul, 2013 [facility] [address] [id number] [address] [place] [address], [place] [address] Jul, [facility] [address] [id number] [address] [place] [address], [place] [address] Jul, [facility] [address] [id number] [address] [place] [address], [place] [address] Jul, [facility] [address] [id number] [address] [place] [address], [place] [address] Jul, [facility] [address] [id number] [address] [place] [address], [place] [address] Jul, [facility] [address] [id number] [address] [place] [address], [place] [address] Jul, [facility] [address] [id number] [address] [place] [address], [place] [address] Jul, [facility] [address] [id number] [address] [place] [address], [place] [address] 10 Jul, 2013 [facility] [address] [id number] [address] [place] [address], [place] [address] Jul, [facility] [address] [id number] [address] [place] [address], [place] [address] Jul, [facility] [address] [id number] [address] [place] [address], [place] [address] Jul, [facility] [address] [id number] [address] [place] [address], [place] [address] Jun, [facility] [address] [id number] [address] [place] [address], [place] [address] May, [facility] [address] [id number] [address] [place] [address], [place] [address] Jan, [facility] [address] [id number] [address] [place] [address], [place] [address] Nov, [facility] [place] [address] [id number] [address] [place] [address] Sep, [facility] [place] [address] [id number] [address] [place] [address] Sep, [facility] [place] [address] [id number] [address] [place] [address] Aug, [facility] [place] [address] [id number] [address] [place] [address] Aug, [facility] [place] [address] [id number] [address] [place] [address] Jun, [facility] [place] [address] [id number] [address] [place] [phone] Mar, [facility] [place] [address] [id number] [address] [place] [address] February, [facility] [place] [address] [id number] [address] [place] [phone] Jan, [facility] [place] [address] [id number] [address] [place] [address] Dec, [facility] [place] [address] [id number] [address] [place] [address] Nov, [facility] [place] [address] [id number] [address] [place] [address] Nov, [facility] [place] [address] [id number] [address] [place] [address] Nov, [facility] [place] [address] [id number] [address] [place] [address] Aug, [facility] [place] [address] [id number] [address] [place] [address] Jun, [facility] [place] [address] [id number] [address] [place] [address] Jun, IMMUNIZATIONS No Known Immunizations SOCIAL HISTORY Never Assessed REASON FOR VISIT Discomfort and difficulty urinating; occasional burning with urination; symptoms 2-3 weeks ago - ADALGISA Herrera, Sharp pelvic pain; LMP: 1 week ago PLAN OF CARE Activity Details Follow Up 2-4W Reason:BC consult VITAL SIGNS Height 65 in 2019-01-04 Weight 229.0 lbs 2019-01-04 Temperature 98.1 degrees Fahrenheit 2019-01-04 Heart Rate 92 bpm 2019-01-04 Respiratory Rate 16 2019-01-04 BMI 38.1 kg/m2 2019-01-04 Blood pressure systolic 118 mmHg 2019-01-04 Blood pressure diastolic 78 mmHg 2019-01-04 MEDICATIONS Medication Instructions Dosage Frequency Start Date End Date Duration S tatus Fluconazole 150 MG Orally q 72hr 1 tablet Dec, 2 doses Active Tylenol 325 MG Orally every 4 hrs 1 capsule as needed 4h Active RESULTS No Results PROCEDURES Procedure Date Ordered Result Body Site Bacterial Vaginosis In House January 04, 2019 TRICHOMONAS ASSAY W/OPTIC January 04, 2019 N.GONORRHOEAE, DNA, AMP PROB January 04, 2019 CHYLMD TRACH, DNA, AMP PROBE January 04, 2019 URINE CULTURE/COLONY COUNT January 04, 2019 URINALYSIS, AUTO, W/O SCOPE January 04, 2019 INSTRUCTIONS MEDICATIONS ADMINISTERED No Known Medications MEDICAL (GENERAL) HISTORY Type Description Date Medical History Nexplanon inserted Nexplanon rem deepa 2015 Surgical History No know Surgical history
--- OUTSIDE RECORDS SUMMARY | 2020-04-21 00:08 | XMS REPORT ---
Author Author Skyler TAYLOR Organization [facility] Address [address] [place] [address] Care Team Providers Care Marketing Co Op Name Role Phone SHAKIRA TAYLOR Unavailable PROBLEMS Type Condition ICD9-CM Code PPQ31-GD Code Onset Dates Condition S tatus SNOMED Code Problem Mild episode of recurrent major depressive disorder F33.0 Active 217528944 Problem Generalized anxiety disorder F41.1 A ctive 52670712 Problem Irregular menstrual bleeding N92.6 A ctive 55781747 Problem 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 Active 96861686 Problem Severe episode of recurrent major depressive disorder, without 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 Active 91343080 Problem Anxiety F41.9 Active 60112732 ALLERGIES No Known Allergies ENCOUNTERS Encounter Location Date Diagnosis [facility] [id number] [place] [address] Jun, Mild episode of recurrent ma odilon depressive disorder F33.0 ; Effusion, left knee M25.462 ; Acute cystitis without hematuria N30.00 and Encounter for initial prescription of vaginal ring hormonal contraceptive Z30.015 [facility] [address] [facility] [id number] [address] [place] [address] Jun, Left anterior knee pain M25. 562 [facility] [address] [facility] [id number] [address] [place] [address] May, [facility] [id number] [place] [address] Apr, Generalized anxiety disorder F41.1 and Severe episode of recurrent major depressive disorder, without 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 [facility] [id number] [place] [address] Mar, Generalized anxiety disorder F41.1 and Severe episode of recurrent major depressive disorder, without 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 [facility] [id number] [place] [address] Mar, 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 ; Anxiety F41.9 and Irregular menstrual bleeding N92.6 [facility] [id number] [place] [address] Sep, Weight gain R63.5 [facility] [id number] [place] [address] Sep, Weight gain R63.5 [facility] [id number] [place] [id number] Aug, Athlete's foot on left B35.3 and Athlete's foot on right B35.3 [facility] [id number] [place] [address] Apr, Sore throat J02.9 ; Cough R0 5 ; Dysphagia, unspecified type R13.10 and Shortness of breath R06.02 [place] [address] [address] Apr, Encounter for initial manage ment of nuvaring Z30.49 [place] [id number] [place] [address] Mar, [place] [address] [address] Mar, Overweight E66.3 [place] [id number] [place] [phone] February, Nexplanon removal Z30.49 and Encounter for initial prescription of other contraceptives Z30.018 [place] [id number] [place] [address] Dec, Back pain M54.9 [place] [id number] [place] [address] Dec, Surveillance of implantable subdermal contraceptive Z30.49 ; Irregular bleeding N92.6 ; Vaginal irritation N89.8 ; Routine screening for STI (sexually transmitted infection) Z11.3 and OCP (oral contraceptive pills) initiation Z30.011 [facility] [address] [facility] [id number] [address] [place] [address] Dec, Back pain M54.9 [facility] [address] [id number] [place] [address] Nov, Back pain M54.9 [facility] [address] [facility] [id number] [place] [id number] 24 Nov, 2015 Dysfunctional uterine bleedi ng N93.8 and Vaginal itching L29.8 [facility] [id number] [place] [address] Nov, Cervicalgia M54.2 [facility] [address] [id number] [address] [place] [address] Nov, Cervicalgia M54.2 [facility] [address] [place] [address] Nov, Cervicalgia M54.2 [facility] [id number] [place] [id number] 03 Nov, 2015 Cervicalgia M54.2 [facility] [id number] [place] [address] Sep, Screening for tuberculosis Z 11.1 [facility] [address] [facility] [id number] [address] [place] [id number] 11 Aug, 2015 Dental examination Z01.20 [facility] [id number] [address] [place] [id number] 13 Apr, 2015 Irregular bleeding 626.4 and Screen for STD (sexually transmitted disease) V74.5 [facility] [id number] [place] [phone] 14 Jan, 2015 [facility] [address] [id number] [address] [place] [address], [place] [address] Jan, [facility] [address] [id number] [address] [place] [address], [place] [address] Oct, [facility] [address] [id number] [address] [place] [address], [place] [address] Oct, [facility] [address] [id number] [address] [place] [address], [place] [address] Oct, [facility] [address] [id number] [address] [place] [address], [place] [address] Oct, [facility] [address] [id number] [address] [place] [address], [place] [address] Sep, [facility] [address] [id number] [address] [place] [address], [place] [address] Sep, [facility] [address] [id number] [address] [place] [address], [place] [address] Jul, [facility] [address] [id number] [address] [place] [address], [place] [address] 30 Jul, 2014 [facility] [address] [id number] [address] [place] [address], [place] [address] Jul, [facility] [address] [id number] [address] [place] [address], [place] [address] 15 Jul, 2014 [facility] [address] [id number] [address] [place] [address], [place] [address] 15 Jul, 2014 [facility] [address] [id number] [address] [place] [address], [place] [address] 24 Jun, 2014 [facility] [address] [id number] [address] [place] [address], [place] [address] 24 Jun, 2014 [facility] [address] [id number] [address] [place] [address], [place] [address] 10 Jun, 2014 [facility] [address] [id number] [address] [place] [address], [place] [address] Jun, [facility] [address] [id number] [address] [place] [address], [place] [address] Jan, [facility] [address] [id number] [address] [place] [address], [place] [address] Jan, [facility] [address] [id number] [address] [place] [address], [place] [address] Oct, [facility] [address] [id number] [address] [place] [address], [place] [address] Oct, [facility] [address] [id number] [address] [place] [address], [place] [address] Oct, [facility] [address] [id number] [address] [place] [address], [place] [address] Oct, [facility] [address] [id number] [address] [place] [address], [place] [address] Sep, [facility] [address] [id number] [address] [place] [phone] Sep, [facility] [address] [id number] [address] [place] [address], [place] [address] Aug, [facility] [address] [id number] [address] [place] [address] Aug, [facility] [address] [id number] [address] [place] [address] Aug, [facility] [address] [id number] [address] [place] [address] Aug, [facility] [address] [id number] [address] [place] [address], [place] [address] Aug, [facility] [address] [id number] [address] [place] [address] Aug, [facility] [address] [id number] [address] [place] [address] Aug, [facility] [address] [id number] [address] [place] [address] 05 Aug, 2013 [facility] [address] [id number] [address] [place] [address], [place] [address] 30 Jul, 2013 [facility] [address] [id number] [address] [place] [address] 30 Jul, 2013 [facility] [address] [id number] [address] [place] [address], [place] [address] Jul, [facility] [address] [id number] [address] [place] [address] Jul, [facility] [address] [id number] [address] [place] [address], [place] [address] Jul, [facility] [address] [id number] [address] [place] [address], [place] [address] Jul, [facility] [address] [id number] [address] [place] [address] Jul, [facility] [address] [id number] [address] [place] [address] Jul, [facility] [address] [id number] [address] [place] [address] Jul, [facility] [address] [id number] [address] [place] [address] Jul, [facility] [address] [id number] [address] [place] [address] Jul, [facility] [address] [id number] [address] [place] [address] Jul, [facility] [address] [id number] [address] [place] [address] Jul, [facility] [address] [id number] [address] [place] [address] Jun, [facility] [address] [id number] [address] [place] [address] May, [facility] [address] [id number] [address] [place] [address], [place] [address] Jan, [facility] [address] [id number] [address] [place] [address], [place] [address] Nov, [facility] [address] [id number] [address] [place] [address], [place] [address] Sep, [facility] [address] [id number] [address] [place] [address], [place] [address] Sep, [facility] [address] [id number] [address] [place] [address], [place] [address] Aug, [facility] [address] [id number] [address] [place] [address], [place] [address] Aug, [facility] [address] [id number] [address] [place] [address], [place] [address] Jun, [facility] [address] [id number] [address] [place] [address], [place] [address] Mar, [facility] [address] [id number] [address] [place] [address], [place] [address] February, [facility] [address] [id number] [address] [place] [address], [place] [address] Jan, [facility] [address] [id number] [address] [place] [address], [place] [address] Dec, [facility] [address] [id number] [address] [place] [address], [place] [address] Nov, [facility] [address] [id number] [address] [place] [address], [place] [address] Nov, [facility] [address] [id number] [address] [place] [address], [place] [address] Nov, [facility] [address] [id number] [address] [place] [address], [place] [address] Aug, [facility] [address] [id number] [address] [place] [address], [place] [address] Jun, [facility] [address] [facility] [id number] [address] [place] [address] 11 Jun, 2010 IMMUNIZATIONS No Known Immunizations SOCIAL HISTORY Never Assessed REASON FOR VISIT chronic left knee pain for 8 years. was cleaning last weekend...down on her knee s...now has pain in her left knee. [email or web address] PLAN OF CARE Activity Details Follow Up w/ PCP 07/18 Reason:depressio n/chronic knee pain if possible VITAL SIGNS Height 65 in 2018-06-28 Weight 213.0 lbs 2018-06-28 Temperature 98.6 degrees Fahrenheit 2018-06-28 Heart Rate 82 bpm 2018-06-28 Respiratory Rate 20 2018-06-28 BMI 35.44 kg/m2 2018-06-28 Blood pressure systolic 126 mmHg 2018-06-28 Blood pressure diastolic 80 mmHg 2018-06-28 MEDICATIONS No Known Medications RESULTS No Results PROCEDURES No Known procedures INSTRUCTIONS MEDICATIONS ADMINISTERED No Known Medications MEDICAL (GENERAL) HISTORY Type Description Date Medical History Nexplanon inserted Nexplanon rem deepa 2015 Surgical History No Surgical history information
--- OUTSIDE RECORDS SUMMARY | 2020-04-21 00:08 | XMS REPORT ---
Author Author Skyler Duran Doctor Organization [facility] Address Unknown Phone Unavailable Care Team Providers Care Public Transit Specialist Name Role Phone Migration, Doctor Unavailable Unavailable PROBLEMS Type Condition ICD9-CM Code ZQX37-LX Code Onset Dates Condition S tatus SNOMED Code Problem 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 Active 72355627 Problem Irregular menstrual bleeding N92.6 A ctive 98666830 Problem Menorrhagia with irregular cycle N92.1 Active 258350046 Problem Constipation, unspecified constipation type K59.00 Active 67666111 Problem Anxiety F41.9 Active 02397169 Problem Generalized anxiety disorder F41.1 A ctive 59652818 Problem Severe episode of recurrent major depressive disorder, without 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 Active 90136157 Problem Mild episode of recurrent major depressive disorder F33.0 Active [id number] ALLERGIES No Information ENCOUNTERS Encounter Location Date Diagnosis [facility] [id number] [address] [place] [id number] 12 Jan, 2019 [facility] [address] [id number] 16 Dec, 2018 Dysuria R30.0 ; Pelvic pain R10.2 ; Constipation, unspecified constipation type K59.00 and Menorrhagia with irregular cycle N92.1 [facility] [id number] [place] [id number] 17 Jul, 2018 Encounter for immunization Z 23 [facility] [id number] [address] [place] [id number] 11 Jun, 2018 Mild episode of recurrent ma odilon depressive disorder F33.0 ; Effusion, left knee M25.462 ; Acute cystitis without hematuria N30.00 and Encounter for initial prescription of vaginal ring hormonal contraceptive Z30.015 [facility] [id number] [address] [place] [phone] Jun, Left anterior knee pain M25. 562 [facility] [address] [id number] [address] [place] [phone] May, [place] [id number] [place] [phone] Apr, Generalized anxiety disorder F41.1 and Severe episode of recurrent major depressive disorder, without 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 [facility] [address] [phone] Mar, Generalized anxiety disorder F41.1 and Severe episode of recurrent major depressive disorder, without 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 [place] [address] [address] Mar, 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 ; Anxiety F41.9 and Irregular menstrual bleeding N92.6 [place] [id number] [place] [id number] Sep, Weight gain R63.5 [facility] [id number] [place] [id number] Sep, Weight gain R63.5 [facility] [id number] [place] [id number] Aug, Athlete's foot on left B35.3 and Athlete's foot on right B35.3 [facility] [address] [id number] [address] [place] [id number] Apr, Sore throat J02.9 ; Cough R0 5 ; Dysphagia, unspecified type R13.10 and Shortness of breath R06.02 [place] [id number] [place] [phone] Apr, Encounter for initial manage ment of nuvaring Z30.49 [facility] [id number] [place] [id number] Mar, [facility] [id number] [place] [phone] Mar, Overweight E66.3 [facility] [address] [facility] [id number] [address] [place] [phone] February, Nexplanon removal Z30.49 and Encounter for initial prescription of other contraceptives Z30.018 [facility] [address] [id number] [address] [place] [phone] Dec, Back pain M54.9 [place] [id number] [place] [phone] Dec, Surveillance of implantable subdermal contraceptive Z30.49 ; Irregular bleeding N92.6 ; Vaginal irritation N89.8 ; Routine screening for STI (sexually transmitted infection) Z11.3 and OCP (oral contraceptive pills) initiation Z30.011 [place] [id number] [place] [phone] Dec, Back pain M54.9 [place] [address] [id number] Nov, Back pain M54.9 [facility] [address] [id number] Nov, Dysfunctional uterine bleedi ng N93.8 and Vaginal itching L29.8 [place] [address] [id number] [place] [phone] Nov, Cervicalgia M54.2 [place] [address] [id number] [place] [phone] Nov, Cervicalgia M54.2 [place] [address] [id number] [place] [phone] Nov, Cervicalgia M54.2 [facility] [id number] [place] [id number] Nov, Cervicalgia M54.2 [facility] [address] [id number] [place] [phone] Sep, Screening for tuberculosis Z 11.1 [facility] [address] [place] [address] [id number] [address] [place] [id number] Aug, Dental examination Z01.20 [facility] [address] [id number] [address] [place] [phone] 13 Apr, 2015 Irregular bleeding 626.4 and Screen for STD (sexually transmitted disease) V74.5 [facility] [address] [id number] [address] [place] [phone] 14 Jan, 2015 [facility] [address] [id number] [address] [place] [phone] Jan, [facility] [address] [id number] [address] [place] [id number] Oct, [facility] [address] [id number] [address] [place] [phone] Oct, [facility] [address] [id number] [address] [place] [phone] Oct, [facility] [address] [id number] [address] [place] [phone] Oct, [facility] [address] [id number] [address] [place] [id number] Sep, [facility] [address] [id number] [address] [place] [phone] Sep, [facility] [address] [id number] [address] [place] [phone] Jul, [facility] [address] [id number] [address] [place] [phone] Jul, [facility] [address] [id number] [address] [place] [phone] Jul, [facility] [address] [id number] [address] [place] [phone] Jul, [facility] [address] [id number] [address] [place] [id number] 15 Jul, 2014 [facility] [address] [id number] [address] [place] [address], [place] [id number] Jun, [facility] [address] [id number] [address] [place] [address], [place] [id number] 24 Jun, 2014 [facility] [address] [id number] [address] [place] [address], [place] [id number] Jun, [facility] [address] [id number] [address] [place] [address], [place] [id number] Jun, [facility] [address] [id number] [address] [place] [address], [place] [id number] Jan, [facility] [address] [id number] [address] [place] [address], [place] [id number] Jan, [facility] [address] [id number] [address] [place] [address], [place] [id number] Oct, [facility] [address] [id number] [address] [place] [address], [place] [id number] Oct, [facility] [address] [id number] [address] [place] [address], [place] [id number] Oct, [facility] [address] [id number] [address] [place] [address], [place] [id number] Oct, [facility] [address] [id number] [address] [place] [address], [place] [id number] Sep, [facility] [address] [id number] [address] [place] [address], [place] [id number] Sep, [facility] [address] [id number] [address] [place] [address], [place] [id number] Aug, [facility] [address] [id number] [address] [place] [address], [place] [phone] Aug, [facility] [address] [id number] [address] [place] [address], [place] [id number] Aug, [facility] [address] [id number] [address] [place] [address], [place] [id number] 18 Aug, 2013 [facility] [address] [id number] [address] [place] [address], [place] [id number] 08 Aug, 2013 [facility] [address] [id number] [address] [place] [address], [place] [id number] 08 Aug, 2013 [facility] [address] [id number] [address] [place] [address], [place] [id number] Aug, [facility] [address] [id number] [address] [place] [address], [place] [phone] Aug, [facility] [address] [id number] [address] [place] [address], [place] [id number] Jul, [facility] [address] [id number] [address] [place] [address], [place] [id number] Jul, [facility] [address] [id number] [address] [place] [address], [place] [id number] Jul, [facility] [address] [id number] [address] [place] [address], [place] [id number] Jul, [facility] [address] [id number] [address] [place] [address], [place] [id number] Jul, [facility] [address] [id number] [address] [place] [address], [place] [id number] Jul, [facility] [address] [id number] [address] [place] [address], [place] [id number] Jul, [facility] [address] [id number] [address] [place] [address], [place] [id number] 18 Jul, 2013 [facility] [address] [id number] [address] [place] [address], [place] [phone] Jul, [facility] [address] [id number] [address] [place] [address], [place] [id number] 10 Jul, 2013 [facility] [address] [id number] [address] [place] [address], [place] [id number] Jul, [facility] [address] [id number] [address] [place] [address], [place] [id number] Jul, [facility] [address] [id number] [address] [place] [address], [place] [id number] Jul, [facility] [address] [id number] [address] [place] [address], [place] [id number] Jun, [facility] [address] [id number] [address] [place] [address], [place] [id number] May, [facility] [address] [id number] [address] [place] [address], [place] [id number] Jan, [facility] [address] [id number] [address] [place] [address], [place] [id number] Nov, [facility] [address] [id number] [address] [place] [address], [place] [id number] Sep, [facility] [address] [id number] [address] [place] [address], [place] [id number] Sep, [facility] [address] [id number] [address] [place] [address], [place] [id number] Aug, [facility] [address] [id number] [address] [place] [address], [place] [id number] Aug, [facility] [address] [id number] [address] [place] [address], [place] [id number] Jun, [facility] [address] [id number] [address] [place] [address], [place] [id number] Mar, [facility] [address] [id number] [address] [place] [address], [place] [id number] February, [facility] [address] [id number] [address] [place] [address], [place] [id number] Jan, [facility] [address] [id number] [address] [place] [address], [place] [id number] Dec, [facility] [address] [id number] [address] [place] [id number] Nov, [facility] [address] [facility] [id number] [address] [place] [phone] Nov, [facility] [address] [facility] [id number] [address] [place] [phone] Nov, [facility] [address] [facility] [id number] [address] [place] [phone] Aug, [facility] [address] [facility] [id number] [address] [place] [id number] Jun, [facility] [address] [facility] [id number] [address] [place] [phone] Jun, IMMUNIZATIONS No Known Immunizations SOCIAL HISTORY Never Assessed REASON FOR VISIT EMR-[place] PLAN OF CARE VITAL SIGNS MEDICATIONS Medication Instructions Dosage Frequency Start Date End Date Duration S tatus Tamiflu 75 mg 1 capsule by Oral ro [place] 2 times per day for 5 day(s) Treatment Dosing Oct, Active Naproxen 500 mg take 1 tablet by Ora l route 2 times per day with food Do not take Ibuprofen if taking this product. Oct, Active Amoxicillin 500 mg take 1 capsule (500 mg) by oral route every 8 hours for 10 days Jan, Active RESULTS No Results PROCEDURES No Known procedures INSTRUCTIONS MEDICATIONS ADMINISTERED No Known Medications MEDICAL (GENERAL) HISTORY Type Description Date Medical History Nexplanon inserted Nexplanon rem deepa 2015 Surgical History No know Surgical history
--- OUTSIDE RECORDS SUMMARY | 2020-04-21 00:08 | XMS REPORT ---
Author Author Skyler Duran Doctor Organization [facility] Address Unknown Phone Unavailable Care Team Providers Care Conference Assistant Name Role Phone Migration, Doctor Unavailable Unavailable PROBLEMS Type Condition ICD9-CM Code [id number] Code Onset Dates Condition S tatus SNOMED Code Problem Anxiety F41.9 Active 95385773 Problem Irregular menstrual bleeding N92.6 A ctive 09877121 Problem 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 Active 49845936 Problem Constipation, unspecified constipation type K59.00 Active 95170567 Problem Other chronic pain G89.29 Active 8 0218039 Problem Severe episode of recurrent major depressive disorder, without 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 Active 74013358 Problem Generalized anxiety disorder F41.1 A ctive 74806652 Problem Mild episode of recurrent major depressive disorder F33.0 Active 617662672 Problem Menorrhagia with irregular cycle N92.1 Active [id number] ALLERGIES No Information ENCOUNTERS Encounter Location Date Diagnosis [facility] [address] [facility] [id number] [address] [place] [id number] February, Pelvic pain R10.2 ; Acute vu lvitis N76.2 and Encounter for initial prescription of transdermal patch hormonal contraceptive device Z30.016 [facility] [address] [place] [id number] [address] [place] [id number] 12 Jan, 2019 control counseling Z30 .9 ; Contraception management Z30.9 ; Contraceptive education Z30.09 ; Encounter for immunization Z23 ; Other chronic pain G89.29 and Pain in left knee M25.562 [facility] [address] [facility] [id number] [address] [place] [phone] Dec, Dysuria R30.0 ; Pelvic pain R10.2 ; Constipation, unspecified constipation type K59.00 and Menorrhagia with irregular cycle N92.1 [facility] [address] [facility] [id number] [address] [place] [address] Jul, Encounter for immunization Z 23 [facility] [address] [facility] [id number] [address] [place] [id number] 11 Jun, 2018 Mild episode of recurrent ma odilon depressive disorder F33.0 ; Effusion, left knee M25.462 ; Acute cystitis without hematuria N30.00 and Encounter for initial prescription of vaginal ring hormonal contraceptive Z30.015 [facility] [address] [facility] [id number] [address] [place] [id number] 07 Jun, 2018 Left anterior knee pain M25. 562 [facility] [address] [facility] [id number] [address] [place] [address] May, [place] [address] [facility] [id number] [address] [place] [phone] Apr, Generalized anxiety disorder F41.1 and Severe episode of recurrent major depressive disorder, without 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 [facility] [address] [place] [id number] [address] [place] [id number] Mar, Generalized anxiety disorder F41.1 and Severe episode of recurrent major depressive disorder, without 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 [place] [address] [facility] [id number] [address] [place] [phone] Mar, 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 ; Anxiety F41.9 and Irregular menstrual bleeding N92.6 [facility] [address] [facility] [id number] [address] [place] [phone] Sep, Weight gain R63.5 [facility] [address] [facility] [id number] [address] [place] [phone] Sep, Weight gain R63.5 [facility] [address] [facility] [id number] [place] [id number] Aug, Athlete's foot on left B35.3 and Athlete's foot on right B35.3 [facility] [address] [facility] [id number] [address] [place] [id number] 14 Apr, 2016 Sore throat J02.9 ; Cough R0 5 ; Dysphagia, unspecified type R13.10 and Shortness of breath R06.02 [place] [address] [id number] Apr, Encounter for initial manage ment of nuvaring Z30.49 [place] [address] [address] Mar, [place] [address] [address] Mar, Overweight E66.3 [place] [address] [id number] February, Nexplanon removal Z30.49 and Encounter for initial prescription of other contraceptives Z30.018 [place] [address] [address] Dec, Back pain M54.9 [place] [address] [address] Dec, Surveillance of implantable subdermal contraceptive Z30.49 ; Irregular bleeding N92.6 ; Vaginal irritation N89.8 ; Routine screening for STI (sexually transmitted infection) Z11.3 and OCP (oral contraceptive pills) initiation Z30.011 [place] [address] [address] Dec, Back pain M54.9 [place] [address] [id number] Nov, Back pain M54.9 [facility] [address] [place] [id number] [place] [id number] Nov, Dysfunctional uterine bleedi ng N93.8 and Vaginal itching L29.8 [place] [address] [place] [id number] [address] [place] [phone] Nov, Cervicalgia M54.2 [place] [address] [address] 15 Nov, 2015 Cervicalgia M54.2 [facility] [address] [id number] [address] [place] [id number] 10 Nov, 2015 Cervicalgia M54.2 [facility] [address] [id number] [place] [id number] 03 Nov, 2015 Cervicalgia M54.2 [facility] [address] [id number] [address] [place] [id number] 02 Sep, 2015 Screening for tuberculosis Z 11.1 [facility] [address] [id number] [address] [place] [id number] Aug, Dental examination Z01.20 [facility] [address] [id number] [address] [place] [id number] 13 Apr, 2015 Irregular bleeding 626.4 and Screen for STD (sexually transmitted disease) V74.5 [facility] [address] [id number] [address] [place] [id number] 14 Jan, 2015 [facility] [address] [id number] [address] [place] [id number] Jan, [facility] [address] [id number] [address] [place] [id number] Oct, [facility] [address] [id number] [address] [place] [phone] Oct, [facility] [address] [id number] [address] [place] [phone] Oct, [facility] [address] [id number] [address] [place] [phone] Oct, [facility] [address] [facility] [id number] [address] [place] [phone] Sep, [facility] [address] [id number] [address] [place] [id number] Sep, [facility] [address] [id number] [address] [place] [id number] 30 Jul, 2014 [facility] [address] [id number] [address] [place] [address], [place] [address] 30 Jul, 2014 [facility] [address] [id number] [address] [place] [address], [place] [address] 17 Jul, 2014 [facility] [address] [id number] [address] [place] [address], [place] [address] 15 Jul, 2014 [facility] [address] [id number] [address] [place] [address], [place] [address] 15 Jul, 2014 [facility] [address] [id number] [address] [place] [address], [place] [address] 24 Jun, 2014 [facility] [address] [id number] [address] [place] [address], [place] [address] 24 Jun, 2014 [facility] [address] [id number] [address] [place] [address], [place] [address] Jun, [facility] [address] [id number] [address] [place] [address], [place] [address] 10 Jun, 2014 [facility] [address] [id number] [address] [place] [address], [place] [address] Jan, [facility] [address] [id number] [address] [place] [address], [place] [address] Jan, [facility] [address] [id number] [address] [place] [address], [place] [address] Oct, [facility] [address] [id number] [address] [place] [address], [place] [address] Oct, [facility] [address] [id number] [address] [place] [address], [place] [address] Oct, [facility] [address] [id number] [address] [place] [address], [place] [address] Oct, [facility] [address] [id number] [address] [place] [address], [place] [address] Sep, [facility] [address] [id number] [address] [place] [address], [place] [address] Sep, [facility] [address] [id number] [address] [place] [address], [place] [address] Aug, [facility] [address] [id number] [address] [place] [address], [place] [address] Aug, [facility] [address] [id number] [address] [place] [address], [place] [address] Aug, [facility] [address] [id number] [address] [place] [address], [place] [address] Aug, [facility] [address] [id number] [address] [place] [address], [place] [address] Aug, [facility] [address] [id number] [address] [place] [address], [place] [address] Aug, [facility] [address] [id number] [address] [place] [address], [place] [address] Aug, [facility] [address] [id number] [address] [place] [address], [place] [address] Aug, [facility] [address] [id number] [address] [place] [address], [place] [address] Jul, [facility] [address] [id number] [address] [place] [address], [place] [address] Jul, [facility] [address] [id number] [address] [place] [address], [place] [address] Jul, [facility] [address] [id number] [address] [place] [address], [place] [address] Jul, [facility] [address] [id number] [address] [place] [address], [place] [address] Jul, [facility] [address] [id number] [address] [place] [address], [place] [address] Jul, [facility] [address] [id number] [address] [place] [address], [place] [address] Jul, [facility] [address] [id number] [address] [place] [address], [place] [address] Jul, [facility] [address] [id number] [address] [place] [address], [place] [address] Jul, [facility] [address] [id number] [address] [place] [address], [place] [address] Jul, [facility] [address] [id number] [address] [place] [address], [place] [address] Jul, [facility] [address] [id number] [address] [place] [address], [place] [address] Jul, [facility] [address] [id number] [address] [place] [address], [place] [address] Jul, [facility] [address] [id number] [address] [place] [address], [place] [address] Jun, [facility] [address] [id number] [address] [place] [address], [place] [address] May, [facility] [address] [id number] [address] [place] [address], [place] [address] Jan, [facility] [address] [id number] [address] [place] [address], [place] [address] Nov, [facility] [address] [id number] [address] [place] [address], [place] [address] Sep, [facility] [address] [id number] [address] [place] [address], [place] [address] Sep, [facility] [address] [id number] [address] [place] [address], [place] [address] Aug, [facility] [address] [id number] [address] [place] [address], [place] [address] Aug, [facility] [address] [id number] [address] [place] [address], [place] [address] Jun, [facility] [address] [id number] [address] [place] [phone] Mar, [facility] [address] [id number] [address] [place] [address] February, [facility] [address] [id number] [address] [place] [address] Jan, [facility] [address] [id number] [address] [place] [address] Dec, [facility] [address] [id number] [address] [place] [address] Nov, [facility] [address] [id number] [address] [place] [address] Nov, [facility] [address] [id number] [address] [place] [address] Nov, [facility] [address] [id number] [address] [place] [address] Aug, [facility] [address] [id number] [address] [place] [id number] Jun, [facility] [address] [id number] [address] [place] [phone] Jun, IMMUNIZATIONS No Known Immunizations SOCIAL HISTORY Never Assessed REASON FOR VISIT [facility] [place] CARE VITAL SIGNS MEDICATIONS Unknown Medications RESULTS No Results PROCEDURES No Known procedures INSTRUCTIONS MEDICATIONS ADMINISTERED No Known Medications MEDICAL (GENERAL) HISTORY Type Description Date Medical History Nexplanon inserted Nexplanon rem deepa 2015 Surgical History No Surgical history information
--- OUTSIDE RECORDS SUMMARY | 2020-04-21 00:08 | XMS REPORT ---
Author Author Skyler Duran Doctor Organization [facility] Address Unknown Phone Unavailable Care Team Providers Care Configuration Management Architect Name Role Phone Migration, Doctor Unavailable Unavailable PROBLEMS Type Condition ICD9-CM Code [id number] Code Onset Dates Condition S tatus SNOMED Code Problem Anxiety F41.9 Active 42594768 Problem Irregular menstrual bleeding N92.6 A ctive 90913764 Problem 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 Active 29245878 Problem Constipation, unspecified constipation type K59.00 Active 61521977 Problem Other chronic pain G89.29 Active 8 6574880 Problem Severe episode of recurrent major depressive disorder, without 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 Active 95850357 Problem Generalized anxiety disorder F41.1 A ctive 91916236 Problem Mild episode of recurrent major depressive disorder F33.0 Active 941383343 Problem Menorrhagia with irregular cycle N92.1 Active 314338041 ALLERGIES No Information ENCOUNTERS Encounter Location Date Diagnosis [facility] [address] [id number] [address] [place] [id number] 12 Jan, 2019 control counseling Z30 .9 ; Contraception management Z30.9 ; Contraceptive education Z30.09 ; Encounter for immunization Z23 ; Other chronic pain G89.29 and Pain in left knee M25.562 [facility] [address] [id number] [address] [place] [id number] 16 Dec, 2018 Dysuria R30.0 ; Pelvic pain R10.2 ; Constipation, unspecified constipation type K59.00 and Menorrhagia with irregular cycle N92.1 [facility] [address] [id number] [address] [place] [id number] 17 Jul, 2018 Encounter for immunization Z 23 [facility] [address] [id number] [address] [place] [id number] 11 Jun, 2018 Mild episode of recurrent ma odilon depressive disorder F33.0 ; Effusion, left knee M25.462 ; Acute cystitis without hematuria N30.00 and Encounter for initial prescription of vaginal ring hormonal contraceptive Z30.015 [facility] [address] [id number] [address] [place] [id number] Jun, Left anterior knee pain M25. 562 [facility] [id number] [place] [phone] May, [facility] [address] [address] Apr, Generalized anxiety disorder F41.1 and Severe episode of recurrent major depressive disorder, without 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 [place] [address] [address] Mar, Generalized anxiety disorder F41.1 and Severe episode of recurrent major depressive disorder, without 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 [place] [address] [address] Mar, 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 ; Anxiety F41.9 and Irregular menstrual bleeding N92.6 [place] [address] [address] Sep, Weight gain R63.5 [facility] [address] [id number] [address] [place] [id number] Sep, Weight gain R63.5 [facility] [id number] [place] [address] [id number] Aug, Athlete's foot on left B35.3 and Athlete's foot on right B35.3 [facility] [id number] [address] [place] [id number] 14 Apr, 2016 Sore throat J02.9 ; Cough R0 5 ; Dysphagia, unspecified type R13.10 and Shortness of breath R06.02 [facility] [id number] [address] [place] [id number] Apr, Encounter for initial manage ment of nuvaring Z30.49 [facility] [address] [facility] [id number] [address] [place] [id number] Mar, [facility] [address] [facility] [id number] [address] [place] [id number] Mar, Overweight E66.3 [facility] [address] [facility] [id number] [address] [place] [id number] February, Nexplanon removal Z30.49 and Encounter for initial prescription of other contraceptives Z30.018 [facility] [address] [facility] [id number] [address] [place] [id number] Dec, Back pain M54.9 [place] [address] [facility] [id number] [address] [place] [id number] Dec, Surveillance of implantable subdermal contraceptive Z30.49 ; Irregular bleeding N92.6 ; Vaginal irritation N89.8 ; Routine screening for STI (sexually transmitted infection) Z11.3 and OCP (oral contraceptive pills) initiation Z30.011 [place] [address] [facility] [id number] [address] [place] [id number] Dec, Back pain M54.9 [place] [address] [facility] [id number] [address] [place] [id number] Nov, Back pain M54.9 [facility] [id number] [place] [address] [id number] Nov, Dysfunctional uterine bleedi ng N93.8 and Vaginal itching L29.8 [facility] [address] [facility] [id number] [address] [place] [id number] Nov, Cervicalgia M54.2 [facility] [address] [facility] [id number] [address] [place] [phone] Nov, Cervicalgia M54.2 [facility] [address] [facility] [id number] [address] [place] [id number] Nov, Cervicalgia M54.2 [facility] [address] [facility] [id number] [place] [id number] Nov, 2015 Cervicalgia M54.2 [facility] [address] [id number] [address] [place] [id number] 02 Sep, 2015 Screening for tuberculosis Z 11.1 [facility] [address] [id number] [address] [place] [id number] Aug, Dental examination Z01.20 [facility] [address] [id number] [address] [place] [id number] 13 Apr, 2015 Irregular bleeding 626.4 and Screen for STD (sexually transmitted disease) V74.5 [facility] [address] [id number] [address] [place] [id number] 14 Jan, 2015 [facility] [address] [id number] [address] [place] [id number] Jan, [facility] [address] [id number] [address] [place] [phone] Oct, [facility] [address] [id number] [address] [place] [phone] Oct, [facility] [address] [id number] [address] [place] [phone] Oct, [facility] [address] [id number] [address] [place] [phone] Oct, [facility] [address] [id number] [address] [place] [phone] Sep, [facility] [address] [id number] [address] [place] [id number] Sep, [facility] [address] [id number] [address] [place] [id number] Jul, [facility] [address] [id number] [address] [place] [phone] Jul, [facility] [address] [id number] [address] [place] [id number] 17 Jul, 2014 [facility] [address] [id number] [address] [place] [address], [place] [address] 15 Jul, 2014 [facility] [address] [id number] [address] [place] [address], [place] [address] 15 Jul, 2014 [facility] [address] [id number] [address] [place] [address], [place] [address] Jun, [facility] [address] [id number] [address] [place] [address], [place] [address] 24 Jun, 2014 [facility] [address] [id number] [address] [place] [address], [place] [address] Jun, [facility] [address] [id number] [address] [place] [address], [place] [address] Jun, [facility] [address] [id number] [address] [place] [address], [place] [address] Jan, [facility] [address] [id number] [address] [place] [address], [place] [address] Jan, [facility] [address] [id number] [address] [place] [address], [place] [address] Oct, [facility] [address] [id number] [address] [place] [address], [place] [address] Oct, [facility] [address] [id number] [address] [place] [address], [place] [address] Oct, [facility] [address] [id number] [address] [place] [id number] Oct, [facility] [address] [id number] [address] [place] [address], [place] [address] Sep, [facility] [address] [id number] [address] [place] [address], [place] [address] Sep, [facility] [address] [id number] [address] [place] [address], [place] [address] Aug, [facility] [address] [id number] [address] [place] [address], [place] [address] Aug, [facility] [address] [id number] [address] [place] [address], [place] [address] Aug, [facility] [address] [id number] [address] [place] [address], [place] [address] Aug, [facility] [address] [id number] [address] [place] [address], [place] [address] Aug, [facility] [address] [id number] [address] [place] [address], [place] [address] Aug, [facility] [address] [id number] [address] [place] [address], [place] [address] Aug, [facility] [address] [id number] [address] [place] [address], [place] [address] Aug, [facility] [address] [id number] [address] [place] [address], [place] [address] Jul, [facility] [address] [id number] [address] [place] [address], [place] [address] 30 Jul, 2013 [facility] [address] [id number] [address] [place] [address], [place] [address] Jul, [facility] [address] [id number] [address] [place] [address], [place] [address] Jul, [facility] [address] [id number] [address] [place] [address], [place] [address] Jul, [facility] [address] [id number] [address] [place] [address], [place] [address] Jul, [facility] [address] [id number] [address] [place] [address], [place] [address] Jul, [facility] [address] [id number] [address] [place] [address], [place] [address] 18 Jul, 2013 [facility] [address] [id number] [address] [place] [address], [place] [address] Jul, [facility] [address] [id number] [address] [place] [address], [place] [address] Jul, [facility] [address] [id number] [address] [place] [address], [place] [address] Jul, [facility] [address] [id number] [address] [place] [address], [place] [address] Jul, [facility] [address] [id number] [address] [place] [address], [place] [address] Jul, [facility] [address] [id number] [address] [place] [address], [place] [address] Jun, [facility] [address] [id number] [address] [place] [address], [place] [address] May, [facility] [address] [id number] [address] [place] [address], [place] [address] Jan, [facility] [address] [id number] [address] [place] [address], [place] [address] Nov, [facility] [address] [id number] [address] [place] [address], [place] [address] Sep, [facility] [address] [id number] [address] [place] [address], [place] [address] Sep, [facility] [address] [id number] [address] [place] [address], [place] [address] Aug, [facility] [address] [id number] [address] [place] [address] Aug, [facility] [address] [id number] [address] [place] [address], [place] [address] Jun, [facility] [address] [id number] [address] [place] [address], [place] [address] Mar, [facility] [address] [id number] [address] [place] [address], [place] [address] February, [facility] [address] [id number] [address] [place] [address] Jan, [facility] [address] [id number] [address] [place] [address] Dec, [facility] [address] [id number] [address] [place] [address] Nov, [facility] [address] [facility] [id number] [address] [place] [address] Nov, [facility] [address] [facility] [id number] [address] [place] [address] Nov, [facility] [address] [facility] [id number] [address] [place] [address] Aug, [facility] [address] [facility] [id number] [address] [place] [id number] Jun, [facility] [address] [facility] [id number] [address] [place] [address] Jun, IMMUNIZATIONS No Known Immunizations SOCIAL HISTORY Never Assessed REASON FOR VISIT EMR-[facility] PLAN OF CARE VITAL SIGNS MEDICATIONS Unknown Medications RESULTS No Results PROCEDURES No Known procedures INSTRUCTIONS MEDICATIONS ADMINISTERED No Known Medications MEDICAL (GENERAL) HISTORY Type Description Date Medical History Nexplanon inserted Nexplanon rem deepa 2015 Surgical History No Surgical history information
--- OUTSIDE RECORDS SUMMARY | 2020-04-21 00:08 | XMS REPORT ---
Author Author Skyler MERCER Organization [facility] Address [address] [place] [address] Care Team Providers Care Solar System Installer Name Role Phone HEMAL MERCER Unavailable PROBLEMS Type Condition ICD9-CM Code [id number] Code Onset Dates Condition S tatus SNOMED Code Problem Anxiety F41.9 Active 11899217 Problem Irregular menstrual bleeding N92.6 A ctive 19232818 Problem 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 Active 53697388 Problem Constipation, unspecified constipation type K59.00 Active 03586203 Problem Other chronic pain G89.29 Active 8 9531133 Problem Severe episode of recurrent major depressive disorder, without 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 Active 41282141 Problem Generalized anxiety disorder F41.1 A ctive 50362039 Problem Mild episode of recurrent major depressive disorder F33.0 Active 866699155 Problem Menorrhagia with irregular cycle N92.1 Active [id number] ALLERGIES No Information ENCOUNTERS Encounter Location Date Diagnosis [facility] [address] [facility] [id number] [address] [place] [id number] 17 Mar, 2019 Acute left ankle pain M25.57 2 [facility] [address] [facility] [id number] [address] [place] [id number] February, Pelvic pain R10.2 ; Acute vu lvitis N76.2 and Encounter for initial prescription of transdermal patch hormonal contraceptive device Z30.016 [facility] [address] [facility] [id number] [address] [place] [id number] 12 Jan, 2019 control counseling Z30 .9 ; Contraception management Z30.9 ; Contraceptive education Z30.09 ; Encounter for immunization Z23 ; Other chronic pain G89.29 and Pain in left knee M25.562 [facility] [address] [facility] [id number] [address] [place] [id number] 16 Dec, 2018 Dysuria R30.0 ; Pelvic pain R10.2 ; Constipation, unspecified constipation type K59.00 and Menorrhagia with irregular cycle N92.1 [place] [address] [address] [facility] [id number] [address] [place] [id number] 17 Jul, 2018 Encounter for immunization Z 23 [facility] [address] [facility] [id number] [address] [place] [id number] 11 Jun, 2018 Mild episode of recurrent ma odilon depressive disorder F33.0 ; Effusion, left knee M25.462 ; Acute cystitis without hematuria N30.00 and Encounter for initial prescription of vaginal ring hormonal contraceptive Z30.015 [facility] [address] [facility] [id number] [address] [place] [id number] 07 Jun, 2018 Left anterior knee pain M25. 562 [facility] [address] [facility] [id number] [address] [place] [phone] May, [place] [address] [address] [place] [id number] [address] [place] [phone] Apr, Generalized anxiety disorder F41.1 and Severe episode of recurrent major depressive disorder, without 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 [place] [address] [address] [facility] [id number] [address] [place] [phone] Mar, Generalized anxiety disorder F41.1 and Severe episode of recurrent major depressive disorder, without 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 [facility] [address] [facility] [id number] [address] [place] [phone] Mar, 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 ; Anxiety F41.9 and Irregular menstrual bleeding N92.6 [place] [address] [facility] [id number] [address] [place] [phone] Sep, Weight gain R63.5 [facility] [address] [facility] [id number] [address] [place] [id number] Sep, Weight gain R63.5 [facility] [address] [facility] [id number] [place] [id number] Aug, Athlete's foot on left B35.3 and Athlete's foot on right B35.3 [facility] [address] [place] [id number] [address] [place] [phone] Apr, Sore throat J02.9 ; Cough R0 5 ; Dysphagia, unspecified type R13.10 and Shortness of breath R06.02 [facility] [address] [place] [id number] [address] [place] [phone] Apr, Encounter for initial manage ment of nuvaring Z30.49 [facility] [address] [id number] Mar, [place] [address] [id number] Mar, Overweight E66.3 [place] [address] [phone] February, Nexplanon removal Z30.49 and Encounter for initial prescription of other contraceptives Z30.018 [facility] [address] [id number] Dec, Back pain M54.9 [facility] [address] [id number] Dec, Surveillance of implantable subdermal contraceptive Z30.49 ; Irregular bleeding N92.6 ; Vaginal irritation N89.8 ; Routine screening for STI (sexually transmitted infection) Z11.3 and OCP (oral contraceptive pills) initiation Z30.011 [facility] [address] [place] [id number] [address] [place] [phone] Dec, Back pain M54.9 [facility] [address] [id number] Nov, Back pain M54.9 [facility] [address] [place] [id number] [place] [id number] Nov, Dysfunctional uterine bleedi ng N93.8 and Vaginal itching L29.8 [facility] [address] [id number] [address] [place] [id number] 15 Nov, 2015 Cervicalgia M54.2 [facility] [address] [id number] [address] [place] [id number] 15 Nov, 2015 Cervicalgia M54.2 [facility] [address] [id number] [address] [place] [phone] 10 Nov, 2015 Cervicalgia M54.2 [facility] [address] [id number] [place] [id number] 03 Nov, 2015 Cervicalgia M54.2 [facility] [address] [facility] [id number] [address] [place] [id number] 02 Sep, 2015 Screening for tuberculosis Z 11.1 [facility] [address] [id number] [address] [place] [id number] Aug, Dental examination Z01.20 [facility] [address] [facility] [id number] [address] [place] [phone] Apr, Irregular bleeding 626.4 and Screen for STD (sexually transmitted disease) V74.5 [facility] [address] [facility] [id number] [address] [place] [id number] 14 Jan, 2015 [facility] [address] [facility] [id number] [address] [place] [phone] Jan, [facility] [address] [id number] [address] [place] [phone] Oct, [facility] [address] [id number] [address] [place] [id number] Oct, [facility] [address] [facility] [id number] [address] [place] [phone] Oct, [facility] [address] [facility] [id number] [address] [place] [phone] Oct, [facility] [address] [facility] [id number] [address] [place] [phone] Sep, [facility] [address] [id number] [address] [place] [address], [place] [address] Sep, [facility] [address] [id number] [address] [place] [address], [place] [address] Jul, [facility] [address] [id number] [address] [place] [address], [place] [id number] 30 Jul, 2014 [facility] [address] [id number] [address] [place] [address], [place] [address] Jul, [facility] [address] [id number] [address] [place] [address], [place] [id number] 15 Jul, 2014 [facility] [address] [id number] [address] [place] [address], [place] [address] Jul, [facility] [address] [id number] [address] [place] [address], [place] [id number] 24 Jun, 2014 [facility] [address] [id number] [address] [place] [address], [place] [id number] 24 Jun, 2014 [facility] [address] [id number] [address] [place] [address], [place] [address] 10 Jun, 2014 [facility] [address] [id number] [address] [place] [address], [place] [address] Jun, [facility] [address] [id number] [address] [place] [address], [place] [address] Jan, [facility] [address] [id number] [address] [place] [phone] Jan, [facility] [address] [id number] [address] [place] [address], [place] [address] Oct, [facility] [address] [id number] [address] [place] [address], [place] [address] Oct, [facility] [address] [id number] [address] [place] [address], [place] [address] Oct, [facility] [address] [id number] [address] [place] [address], [place] [address] Oct, [facility] [address] [id number] [address] [place] [address], [place] [address] Sep, [facility] [address] [id number] [address] [place] [address], [place] [address] Sep, [facility] [address] [id number] [address] [place] [address], [place] [address] Aug, [facility] [address] [id number] [address] [place] [address], [place] [address] Aug, [facility] [address] [id number] [address] [place] [address], [place] [address] Aug, [facility] [address] [id number] [address] [place] [address], [place] [address] Aug, [facility] [address] [id number] [address] [place] [address], [place] [address] Aug, [facility] [address] [id number] [address] [place] [address], [place] [address] Aug, [facility] [address] [id number] [address] [place] [address], [place] [address] Aug, [facility] [address] [id number] [address] [place] [address], [place] [address] Aug, [facility] [address] [id number] [address] [place] [address], [place] [address] Jul, [facility] [address] [id number] [address] [place] [address], [place] [address] Jul, [facility] [address] [id number] [address] [place] [address], [place] [address] Jul, [facility] [address] [id number] [address] [place] [address], [place] [address] Jul, [facility] [address] [id number] [address] [place] [address], [place] [address] Jul, [facility] [address] [id number] [address] [place] [address], [place] [address] Jul, [facility] [address] [id number] [address] [place] [address], [place] [address] Jul, [facility] [address] [id number] [address] [place] [address], [place] [address] Jul, [facility] [address] [id number] [address] [place] [address], [place] [address] Jul, [facility] [address] [id number] [address] [place] [address], [place] [address] Jul, [facility] [address] [id number] [address] [place] [address], [place] [address] Jul, [facility] [address] [id number] [address] [place] [address], [place] [address] Jul, [facility] [address] [id number] [address] [place] [id number] Jul, [facility] [address] [id number] [address] [place] [address], [place] [address] Jun, [facility] [address] [id number] [address] [place] [phone] May, [facility] [address] [id number] [address] [place] [phone] Jan, [facility] [address] [id number] [address] [place] [phone] Nov, [facility] [address] [id number] [address] [place] [phone] Sep, [facility] [address] [id number] [address] [place] [phone] Sep, [facility] [address] [id number] [address] [place] [phone] Aug, [facility] [address] [id number] [address] [place] [phone] Aug, [facility] [address] [id number] [address] [place] [phone] Jun, [facility] [address] [id number] [address] [place] [phone] Mar, [facility] [address] [id number] [address] [place] [phone] February, [facility] [address] [id number] [address] [place] [phone] Jan, [facility] [address] [id number] [address] [place] [phone] Dec, [facility] [address] [id number] [address] [place] [phone] Nov, [facility] [address] [id number] [address] [place] [phone] Nov, [facility] [address] [id number] [address] [place] [phone] Nov, [facility] [address] [id number] [address] [place] [phone] Aug, [facility] [address] [id number] [address] [place] [phone] Jun, [facility] [address] [id number] [address] [place] [phone] Jun, IMMUNIZATIONS No Known Immunizations SOCIAL HISTORY Never Assessed REASON FOR VISIT PLAN OF CARE VITAL SIGNS Weight 185 lbs 2014-11-11 Temperature 99.8 degrees Fahrenheit 2014-11-11 Heart Rate 80 bpm 2014-11-11 Blood pressure systolic 116 mmHg 2014-11-11 Blood pressure diastolic 68 mmHg 2014-11-11 MEDICATIONS No Known Medications RESULTS No Results PROCEDURES Procedure Date Ordered Result Body Site INFLUENZA ASSAY W/OPTIC Nov 11, 2014 INSTRUCTIONS MEDICATIONS ADMINISTERED No Known Medications MEDICAL (GENERAL) HISTORY Type Description Date Medical History Nexplanon inserted Nexplanon rem deepa 2015 Surgical History No Surgical history information
--- OUTSIDE RECORDS SUMMARY | 2020-04-21 00:08 | XMS REPORT ---
Author Author Skyler Duran Doctor Organization [facility] Address Unknown Phone Unavailable Care Team Providers Care Barber Instructor Name Role Phone Migration, Doctor Unavailable Unavailable PROBLEMS Type Condition ICD9-CM Code [id number] Code Onset Dates Condition S tatus SNOMED Code Problem Anxiety F41.9 Active 76605050 Problem Irregular menstrual bleeding N92.6 A ctive 19914544 Problem 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 Active 91635379 Problem Constipation, unspecified constipation type K59.00 Active 62216967 Problem Other chronic pain G89.29 Active 8 6112787 Problem Severe episode of recurrent major depressive disorder, without 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 Active 39454025 Problem Generalized anxiety disorder F41.1 A ctive 95090793 Problem Mild episode of recurrent major depressive disorder F33.0 Active 231800927 Problem Menorrhagia with irregular cycle N92.1 Active 075396371 ALLERGIES No Information ENCOUNTERS Encounter Location Date Diagnosis [facility] [address] [id number] [address] [place] [id number] February, [facility] [address] [id number] [address] [place] [address] February, Pelvic pain R10.2 ; Acute vu lvitis N76.2 and Encounter for initial prescription of transdermal patch hormonal contraceptive device Z30.016 [facility] [address] [id number] [address] [place] [address] Jan, control counseling Z30 .9 ; Contraception management Z30.9 ; Contraceptive education Z30.09 ; Encounter for immunization Z23 ; Other chronic pain G89.29 and Pain in left knee M25.562 [facility] [address] [facility] [id number] [address] [place] [address] Dec, Dysuria R30.0 ; Pelvic pain R10.2 ; Constipation, unspecified constipation type K59.00 and Menorrhagia with irregular cycle N92.1 [facility] [address] [id number] [address] [place] [id number] 17 Jul, 2018 Encounter for immunization Z 23 [facility] [address] [id number] [address] [place] [address] 11 Jun, 2018 Mild episode of recurrent ma odilon depressive disorder F33.0 ; Effusion, left knee M25.462 ; Acute cystitis without hematuria N30.00 and Encounter for initial prescription of vaginal ring hormonal contraceptive Z30.015 [facility] [address] [id number] [address] [place] [address] 07 Jun, 2018 Left anterior knee pain M25. 562 [place] [address] [id number] [address] [place] [address] May, [place] [address] [facility] [id number] [address] [place] [address] Apr, Generalized anxiety disorder F41.1 and Severe episode of recurrent major depressive disorder, without 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 [facility] [address] [id number] [address] [place] [address] Mar, Generalized anxiety disorder F41.1 and Severe episode of recurrent major depressive disorder, without 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 [place] [address] [id number] [address] [place] [address] Mar, 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 ; Anxiety F41.9 and Irregular menstrual bleeding N92.6 [facility] [address] [id number] [address] [place] [address] Sep, Weight gain R63.5 [facility] [address] [id number] [address] [place] [address] Sep, Weight gain R63.5 [facility] [address] [id number] [place] [id number] Aug, Athlete's foot on left B35.3 and Athlete's foot on right B35.3 [facility] [id number] [place] [id number] 14 Apr, 2016 Sore throat J02.9 ; Cough R0 5 ; Dysphagia, unspecified type R13.10 and Shortness of breath R06.02 [place] [id number] [place] [address] Apr, Encounter for initial manage ment of nuvaring Z30.49 [place] [address] [id number] Mar, [place] [address] [address] Mar, Overweight E66.3 [place] [address] [address] February, Nexplanon removal Z30.49 and Encounter for initial prescription of other contraceptives Z30.018 [place] [address] [address] Dec, Back pain M54.9 [place] [address] [address] Dec, Surveillance of implantable subdermal contraceptive Z30.49 ; Irregular bleeding N92.6 ; Vaginal irritation N89.8 ; Routine screening for STI (sexually transmitted infection) Z11.3 and OCP (oral contraceptive pills) initiation Z30.011 [place] [id number] [place] [address] Dec, Back pain M54.9 [place] [id number] [place] [address] Nov, Back pain M54.9 [facility] [id number] [place] [id number] Nov, Dysfunctional uterine bleedi ng N93.8 and Vaginal itching L29.8 [place] [id number] [place] [address] Nov, Cervicalgia M54.2 [facility] [address] [id number] [address] [place] [id number] 15 Nov, 2015 Cervicalgia M54.2 [facility] [address] [id number] [address] [place] [address] 10 Nov, 2015 Cervicalgia M54.2 [facility] [address] [id number] [place] [id number] 03 Nov, 2015 Cervicalgia M54.2 [facility] [address] [id number] [address] [place] [address] Sep, Screening for tuberculosis Z 11.1 [facility] [address] [id number] [address] [place] [id number] Aug, Dental examination Z01.20 [facility] [address] [facility] [id number] [address] [place] [address] Apr, Irregular bleeding 626.4 and Screen for STD (sexually transmitted disease) V74.5 [facility] [address] [id number] [address] [place] [phone] Jan, [facility] [address] [id number] [address] [place] [address] Jan, [facility] [address] [facility] [id number] [address] [place] [address] Oct, [facility] [address] [id number] [address] [place] [id number] Oct, [facility] [address] [id number] [address] [place] [id number] Oct, [facility] [address] [id number] [address] [place] [id number] Oct, [facility] [address] [facility] [id number] [address] [place] [phone] Sep, [facility] [address] [facility] [id number] [address] [place] [address] Sep, [facility] [address] [id number] [address] [place] [address], [place] [address] 30 Jul, 2014 [facility] [address] [id number] [address] [place] [address], [place] [address] 30 Jul, 2014 [facility] [address] [id number] [address] [place] [address], [place] [address] 17 Jul, 2014 [facility] [address] [id number] [address] [place] [address], [place] [address] 15 Jul, 2014 [facility] [address] [id number] [address] [place] [address], [place] [address] 15 Jul, 2014 [facility] [address] [id number] [address] [place] [address], [place] [address] 24 Jun, 2014 [facility] [address] [id number] [address] [place] [address], [place] [address] 24 Jun, 2014 [facility] [address] [id number] [address] [place] [address], [place] [address] 10 Jun, 2014 [facility] [address] [id number] [address] [place] [address], [place] [address] Jun, [facility] [address] [id number] [address] [place] [address], [place] [address] Jan, [facility] [address] [id number] [address] [place] [address], [place] [address] Jan, [facility] [address] [id number] [address] [place] [address], [place] [address] Oct, [facility] [address] [id number] [address] [place] [address], [place] [address] Oct, [facility] [address] [id number] [address] [place] [address], [place] [address] Oct, [facility] [address] [id number] [address] [place] [address], [place] [address] Oct, [facility] [address] [id number] [address] [place] [address], [place] [address] Sep, [facility] [address] [id number] [address] [place] [address], [place] [address] Sep, [facility] [address] [id number] [address] [place] [address], [place] [address] Aug, [facility] [address] [id number] [address] [place] [address], [place] [address] Aug, [facility] [address] [id number] [address] [place] [address], [place] [address] Aug, [facility] [address] [id number] [address] [place] [address], [place] [address] Aug, [facility] [address] [id number] [address] [place] [address], [place] [address] Aug, [facility] [address] [id number] [address] [place] [address], [place] [address] Aug, [facility] [address] [id number] [address] [place] [address], [place] [address] Aug, [facility] [address] [id number] [address] [place] [address], [place] [address] Aug, [facility] [address] [id number] [address] [place] [address], [place] [address] Jul, [facility] [address] [id number] [address] [place] [address], [place] [address] Jul, [facility] [address] [id number] [address] [place] [address], [place] [address] Jul, [facility] [address] [id number] [address] [place] [address], [place] [address] Jul, [facility] [address] [id number] [address] [place] [address], [place] [address] Jul, [facility] [address] [id number] [address] [place] [address] Jul, [facility] [address] [id number] [address] [place] [address], [place] [address] Jul, [facility] [address] [id number] [address] [place] [address], [place] [address] Jul, [facility] [address] [id number] [address] [place] [address], [place] [address] Jul, [facility] [address] [id number] [address] [place] [address], [place] [address] Jul, [facility] [address] [id number] [address] [place] [address], [place] [address] Jul, [facility] [address] [id number] [address] [place] [address], [place] [address] Jul, [facility] [address] [id number] [address] [place] [address], [place] [address] Jul, [facility] [address] [id number] [address] [place] [address], [place] [address] Jun, [facility] [address] [id number] [address] [place] [address], [place] [address] May, [facility] [address] [id number] [address] [place] [address], [place] [address] Jan, [facility] [address] [id number] [address] [place] [address], [place] [address] Nov, [facility] [address] [id number] [address] [place] [address], [place] [address] Sep, [facility] [address] [id number] [address] [place] [address], [place] [address] Sep, [facility] [address] [id number] [address] [place] [address], [place] [address] Aug, [facility] [address] [id number] [address] [place] [address], [place] [address] Aug, [facility] [address] [id number] [address] [place] [address] Jun, [facility] [address] [id number] [address] [place] [address] Mar, [facility] [address] [id number] [address] [place] [address] February, [facility] [address] [id number] [address] [place] [address] Jan, [facility] [address] [id number] [address] [place] [address] Dec, [facility] [address] [id number] [address] [place] [address] Nov, [facility] [address] [id number] [address] [place] [address] Nov, [facility] [address] [id number] [address] [place] [address] Nov, [facility] [address] [id number] [address] [place] [address] Aug, [facility] [address] [id number] [address] [place] [address] Jun, [facility] [address] [id number] [address] [place] [address] Jun, IMMUNIZATIONS No Known Immunizations SOCIAL HISTORY Never Assessed REASON FOR VISIT EMR[place] [place] PLAN OF CARE VITAL SIGNS MEDICATIONS Unknown Medications RESULTS No Results PROCEDURES No Known procedures INSTRUCTIONS MEDICATIONS ADMINISTERED No Known Medications MEDICAL (GENERAL) HISTORY Type Description Date Medical History Nexplanon inserted Nexplanon rem deepa 2015 Surgical History No Surgical history information
--- OUTSIDE RECORDS SUMMARY | 2020-04-21 00:08 | XMS REPORT ---
Author Author Skyler Duran Doctor Organization [facility] Address Unknown Phone Unavailable Care Team Providers Care Cds Sales Advisor Name Role Phone Migration, Doctor Unavailable Unavailable PROBLEMS Type Condition ICD9-CM Code LUW23-YV Code Onset Dates Condition S tatus SNOMED Code Problem Anxiety F41.9 Active 09105775 Problem Irregular menstrual bleeding N92.6 A ctive 68572837 Problem 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 Active 97509290 Problem Constipation, unspecified constipation type K59.00 Active 81859377 Problem Other chronic pain G89.29 Active 8 1974835 Problem Severe episode of recurrent major depressive disorder, without 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 Active 25752061 Problem Generalized anxiety disorder F41.1 A ctive 03113430 Problem Mild episode of recurrent major depressive disorder F33.0 Active 786227389 Problem Menorrhagia with irregular cycle N92.1 Active 056626105 ALLERGIES No Information ENCOUNTERS Encounter Location Date Diagnosis [facility] [address] [facility] [id number] [address] [place] [id number] February, Pelvic pain R10.2 ; Acute vu lvitis N76.2 and Encounter for initial prescription of transdermal patch hormonal contraceptive device Z30.016 [facility] [address] [place] [id number] [address] [place] [id number] 12 Jan, 2019 control counseling Z30 .9 ; Contraception management Z30.9 ; Contraceptive education Z30.09 ; Encounter for immunization Z23 ; Other chronic pain G89.29 and Pain in left knee M25.562 [facility] [address] [facility] [id number] [address] [place] [address] Dec, Dysuria R30.0 ; Pelvic pain R10.2 ; Constipation, unspecified constipation type K59.00 and Menorrhagia with irregular cycle N92.1 [facility] [address] [facility] [id number] [address] [place] [address] Jul, Encounter for immunization Z 23 [facility] [address] [facility] [id number] [address] [place] [phone] 11 Jun, 2018 Mild episode of recurrent ma odilon depressive disorder F33.0 ; Effusion, left knee M25.462 ; Acute cystitis without hematuria N30.00 and Encounter for initial prescription of vaginal ring hormonal contraceptive Z30.015 [facility] [address] [facility] [id number] [address] [place] [address] 07 Jun, 2018 Left anterior knee pain M25. 562 [facility] [address] [facility] [id number] [address] [place] [phone] May, [place] [address] [address] [facility] [id number] [address] [place] [address] Apr, Generalized anxiety disorder F41.1 and Severe episode of recurrent major depressive disorder, without 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 [facility] [address] [place] [id number] [address] [place] [address] Mar, Generalized anxiety disorder F41.1 and Severe episode of recurrent major depressive disorder, without 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 [place] [address] [facility] [id number] [address] [place] [address] Mar, 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 ; Anxiety F41.9 and Irregular menstrual bleeding N92.6 [facility] [address] [facility] [id number] [address] [place] [address] Sep, Weight gain R63.5 [facility] [address] [facility] [id number] [address] [place] [address] Sep, Weight gain R63.5 [facility] [address] [facility] [id number] [place] [id number] Aug, Athlete's foot on left B35.3 and Athlete's foot on right B35.3 [facility] [address] [facility] [id number] [address] [place] [address] 14 Apr, 2016 Sore throat J02.9 ; Cough R0 5 ; Dysphagia, unspecified type R13.10 and Shortness of breath R06.02 [place] [address] [address] Apr, Encounter for initial manage ment of nuvaring Z30.49 [place] [address] [address] Mar, [place] [address] [address] Mar, Overweight E66.3 [place] [address] [address] February, Nexplanon removal Z30.49 and Encounter for initial prescription of other contraceptives Z30.018 [place] [address] [address] Dec, Back pain M54.9 [place] [address] [address] Dec, Surveillance of implantable subdermal contraceptive Z30.49 ; Irregular bleeding N92.6 ; Vaginal irritation N89.8 ; Routine screening for STI (sexually transmitted infection) Z11.3 and OCP (oral contraceptive pills) initiation Z30.011 [place] [address] [address] Dec, Back pain M54.9 [place] [address] [address] Nov, Back pain M54.9 [facility] [address] [place] [id number] [place] [id number] Nov, Dysfunctional uterine bleedi ng N93.8 and Vaginal itching L29.8 [place] [address] [place] [id number] [address] [place] [address] Nov, Cervicalgia M54.2 [place] [address] [address] 15 Nov, 2015 Cervicalgia M54.2 [facility] [address] [id number] [address] [place] [address] 10 Nov, 2015 Cervicalgia M54.2 [facility] [address] [id number] [place] [id number] 03 Nov, 2015 Cervicalgia M54.2 [facility] [address] [id number] [address] [place] [phone] 02 Sep, 2015 Screening for tuberculosis Z 11.1 [facility] [address] [id number] [address] [place] [address] [id number] Aug, Dental examination Z01.20 [facility] [address] [id number] [address] [place] [id number] 13 Apr, 2015 Irregular bleeding 626.4 and Screen for STD (sexually transmitted disease) V74.5 [facility] [address] [id number] [address] [place] [id number] 14 Jan, 2015 [facility] [address] [id number] [address] [place] [address] Jan, [facility] [address] [id number] [address] [place] [phone] Oct, [facility] [address] [id number] [address] [place] [phone] Oct, [facility] [address] [id number] [address] [place] [address] Oct, [facility] [address] [id number] [address] [place] [phone] Oct, [facility] [address] [facility] [id number] [address] [place] [address] Sep, [facility] [address] [id number] [address] [place] [address] Sep, [facility] [address] [id number] [address] [place] [id number] 30 Jul, 2014 [facility] [address] [id number] [address] [place] [address], [place] [address] 30 Jul, 2014 [facility] [address] [id number] [address] [place] [address], [place] [address] 17 Jul, 2014 [facility] [address] [id number] [address] [place] [address], [place] [address] 15 Jul, 2014 [facility] [address] [id number] [address] [place] [address], [place] [address] 15 Jul, 2014 [facility] [address] [id number] [address] [place] [address], [place] [address] 24 Jun, 2014 [facility] [address] [id number] [address] [place] [address], [place] [address] 24 Jun, 2014 [facility] [address] [id number] [address] [place] [address], [place] [address] Jun, [facility] [address] [id number] [address] [place] [address], [place] [address] 10 Jun, 2014 [facility] [address] [id number] [address] [place] [address], [place] [address] Jan, [facility] [address] [id number] [address] [place] [address], [place] [address] Jan, [facility] [address] [id number] [address] [place] [address], [place] [address] Oct, [facility] [address] [id number] [address] [place] [address], [place] [address] Oct, [facility] [address] [id number] [address] [place] [address], [place] [address] Oct, [facility] [address] [id number] [address] [place] [address], [place] [address] Oct, [facility] [address] [id number] [address] [place] [address], [place] [address] Sep, [facility] [address] [id number] [address] [place] [address], [place] [address] Sep, [facility] [address] [id number] [address] [place] [address], [place] [address] Aug, [facility] [address] [id number] [address] [place] [address], [place] [address] Aug, [facility] [address] [id number] [address] [place] [address], [place] [address] Aug, [facility] [address] [id number] [address] [place] [address], [place] [address] Aug, [facility] [address] [id number] [address] [place] [address], [place] [address] Aug, [facility] [address] [id number] [address] [place] [address], [place] [address] Aug, [facility] [address] [id number] [address] [place] [address], [place] [address] Aug, [facility] [address] [id number] [address] [place] [address], [place] [address] Aug, [facility] [address] [id number] [address] [place] [address], [place] [address] Jul, [facility] [address] [id number] [address] [place] [address], [place] [address] Jul, [facility] [address] [id number] [address] [place] [address], [place] [address] Jul, [facility] [address] [id number] [address] [place] [address], [place] [address] Jul, [facility] [address] [id number] [address] [place] [address], [place] [address] Jul, [facility] [address] [id number] [address] [place] [address], [place] [address] Jul, [facility] [address] [id number] [address] [place] [address], [place] [address] Jul, [facility] [address] [id number] [address] [place] [address], [place] [address] Jul, [facility] [address] [id number] [address] [place] [address], [place] [address] Jul, [facility] [address] [id number] [address] [place] [address], [place] [address] Jul, [facility] [address] [id number] [address] [place] [address], [place] [address] Jul, [facility] [address] [id number] [address] [place] [address], [place] [address] Jul, [facility] [address] [id number] [address] [place] [address], [place] [address] Jul, [facility] [address] [id number] [address] [place] [address], [place] [address] Jun, [facility] [address] [id number] [address] [place] [address], [place] [address] May, [facility] [address] [id number] [address] [place] [address], [place] [address] Jan, [facility] [address] [id number] [address] [place] [address], [place] [address] Nov, [facility] [address] [id number] [address] [place] [address], [place] [address] Sep, [facility] [address] [id number] [address] [place] [address], [place] [address] Sep, [facility] [address] [id number] [address] [place] [address], [place] [address] Aug, [facility] [address] [id number] [address] [place] [address], [place] [address] Aug, [facility] [address] [id number] [address] [place] [address], [place] [address] Jun, [facility] [address] [id number] [address] [place] [phone] Mar, [facility] [address] [id number] [address] [place] [address] February, [facility] [address] [id number] [address] [place] [address] Jan, [facility] [address] [id number] [address] [place] [address] Dec, [facility] [address] [id number] [address] [place] [address] Nov, [facility] [address] [id number] [address] [place] [address] Nov, [facility] [address] [id number] [address] [place] [address] Nov, [facility] [address] [id number] [address] [place] [address] Aug, [facility] [address] [id number] [address] [place] [address] Jun, [facility] [address] [id number] [address] [place] [address] Jun, IMMUNIZATIONS No Known Immunizations SOCIAL HISTORY Never Assessed REASON FOR VISIT [facility] PLAN OF CARE VITAL SIGNS MEDICATIONS No Known Medications RESULTS No Results PROCEDURES No Known procedures INSTRUCTIONS MEDICATIONS ADMINISTERED No Known Medications MEDICAL (GENERAL) HISTORY Type Description Date Medical History Nexplanon inserted Nexplanon rem deepa 2015 Surgical History No Surgical history information
--- OUTSIDE RECORDS SUMMARY | 2020-04-21 00:08 | XMS REPORT ---
Author Author MAHENDRA Skylerlibby SHARPE Organization [facility] Address [address] [place] [address] Care Team Providers Care Marketing Analyst Name Role Phone MCCRAYANNEMARIE Quinones Unavailable PROBLEMS Type Condition ICD9-CM Code LVS60-CF Code Onset Dates Condition S tatus SNOMED Code Problem Mild episode of recurrent major depressive disorder F33.0 Active 881160597 Problem Generalized anxiety disorder F41.1 A ctive 34689347 Problem Irregular menstrual bleeding N92.6 A ctive 70581550 Problem 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 Active 46880129 Problem Severe episode of recurrent major depressive disorder, without 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 Active 20833252 Problem Anxiety F41.9 Active 54206484 ALLERGIES No Known Allergies ENCOUNTERS Encounter Location Date Diagnosis [facility] [address] [facility] [id number] [address] [place] [address] Jun, Mild episode of recurrent ma odilon depressive disorder F33.0 ; Effusion, left knee M25.462 ; Acute cystitis without hematuria N30.00 and Encounter for initial prescription of vaginal ring hormonal contraceptive Z30.015 [facility] [address] [facility] [id number] [address] [place] [address] Jun, Left anterior knee pain M25. 562 [facility] [address] [facility] [id number] [address] [place] [address] May, [facility] [address] [facility] [id number] [address] [place] [address] Apr, Generalized anxiety disorder F41.1 and Severe episode of recurrent major depressive disorder, without 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 [facility] [address] [facility] [id number] [address] [place] [address] Mar, Generalized anxiety disorder F41.1 and Severe episode of recurrent major depressive disorder, without 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 [facility] [address] [place] [id number] [address] [place] [address] Mar, 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 ; Anxiety F41.9 and Irregular menstrual bleeding N92.6 [facility] [address] [place] [id number] [address] [place] [address] Sep, Weight gain R63.5 [facility] [address] [place] [id number] [address] [place] [address] Sep, Weight gain R63.5 [facility] [address] [place] [id number] [place] [id number] Aug, Athlete's foot on left B35.3 and Athlete's foot on right B35.3 [facility] [address] [place] [id number] [address] [place] [address] Apr, Sore throat J02.9 ; Cough R0 5 ; Dysphagia, unspecified type R13.10 and Shortness of breath R06.02 [place] [address] [place] [id number] [address] [place] [address] Apr, Encounter for initial manage ment of nuvaring Z30.49 [place] [address] [place] [id number] [address] [place] [address] Mar, [place] [address] [place] [id number] [address] [place] [address] Mar, Overweight E66.3 [place] [address] [place] [id number] [address] [place] [address] February, Nexplanon removal Z30.49 and Encounter for initial prescription of other contraceptives Z30.018 [place] [address] [place] [id number] [address] [place] [address] Dec, Back pain M54.9 [place] [address] [place] [id number] [address] [place] [address] 02 Mar, 2016 Surveillance of implantable subdermal contraceptive Z30.49 ; Irregular bleeding N92.6 ; Vaginal irritation N89.8 ; Routine screening for STI (sexually transmitted infection) Z11.3 and OCP (oral contraceptive pills) initiation Z30.011 [facility] [address] [place] [id number] [address] [place] [id number] 02 Dec, 2015 Back pain M54.9 [facility] [address] [place] [id number] [address] [place] [id number] 29 Nov, 2015 Back pain M54.9 [facility] [address] [facility] [id number] [place] [id number] 24 Nov, 2015 Dysfunctional uterine bleedi ng N93.8 and Vaginal itching L29.8 [facility] [address] [place] [id number] [address] [place] [address] Nov, Cervicalgia M54.2 [facility] [address] [place] [id number] [address] [place] [address] Nov, Cervicalgia M54.2 [facility] [address] [place] [id number] [address] [place] [address] Nov, Cervicalgia M54.2 [facility] [address] [place] [id number] [place] [id number] 03 Nov, 2015 Cervicalgia M54.2 [facility] [address] [place] [id number] [address] [place] [id number] 02 Sep, 2015 Screening for tuberculosis Z 11.1 [facility] [address] [facility] [id number] [address] [place] [id number] 11 Aug, 2015 Dental examination Z01.20 [facility] [address] [place] [id number] [address] [place] [id number] 13 Apr, 2015 Irregular bleeding 626.4 and Screen for STD (sexually transmitted disease) V74.5 [facility] [address] [place] [id number] [address] [place] [id number] 14 Jan, 2015 [facility] [address] [id number] [address] [place] [address], [place] [address] Jan, [facility] [address] [id number] [address] [place] [address], [place] [address] Oct, [facility] [address] [id number] [address] [place] [address], [place] [address] Oct, [facility] [address] [id number] [address] [place] [address], [place] [address] Oct, [facility] [address] [id number] [address] [place] [address], [place] [phone] Oct, [facility] [address] [id number] [address] [place] [address], [place] [address] Sep, [facility] [address] [id number] [address] [place] [address], [place] [address] Sep, [facility] [address] [id number] [address] [place] [address], [place] [phone] Jul, [facility] [address] [id number] [address] [place] [address], [place] [id number] 30 Jul, 2014 [facility] [address] [id number] [address] [place] [address], [place] [address] 17 Jul, 2014 [facility] [address] [id number] [address] [place] [address], [place] [address] 15 Jul, 2014 [facility] [address] [id number] [address] [place] [address], [place] [address] 15 Jul, 2014 [facility] [address] [id number] [address] [place] [address], [place] [address] 24 Jun, 2014 [facility] [address] [id number] [address] [place] [address], [place] [address] 24 Jun, 2014 [facility] [address] [id number] [address] [place] [address], [place] [address] 10 Jun, 2014 [facility] [address] [id number] [address] [place] [address], [place] [address] Jun, [facility] [address] [id number] [address] [place] [address], [place] [address] Jan, [facility] [address] [id number] [address] [place] [address], [place] [address] Jan, [facility] [address] [id number] [address] [place] [address], [place] [address] Oct, [facility] [address] [id number] [address] [place] [address], [place] [address] Oct, [facility] [address] [id number] [address] [place] [address], [place] [address] Oct, [facility] [address] [id number] [address] [place] [address], [place] [address] Oct, [facility] [address] [id number] [address] [place] [address], [place] [address] Sep, [facility] [address] [id number] [address] [place] [address], [place] [address] Sep, [facility] [address] [id number] [address] [place] [address], [place] [address] Aug, [facility] [address] [id number] [address] [place] [address] Aug, [facility] [address] [id number] [address] [place] [address] Aug, [facility] [address] [id number] [address] [place] [phone] Aug, [facility] [address] [id number] [address] [place] [address], [place] [address] Aug, [facility] [address] [id number] [address] [place] [address] Aug, [facility] [address] [id number] [address] [place] [address] Aug, [facility] [address] [id number] [address] [place] [address] Aug, [facility] [address] [id number] [address] [place] [address], [place] [address] Jul, [facility] [address] [id number] [address] [place] [address] Jul, [facility] [address] [id number] [address] [place] [address], [place] [address] Jul, [facility] [address] [id number] [address] [place] [address] Jul, [facility] [address] [id number] [address] [place] [address], [place] [address] Jul, [facility] [address] [id number] [address] [place] [address] Jul, [facility] [address] [id number] [address] [place] [address] Jul, [facility] [address] [id number] [address] [place] [phone] Jul, [facility] [address] [id number] [address] [place] [address] Jul, [facility] [address] [id number] [address] [place] [address] Jul, [facility] [address] [id number] [address] [place] [address] Jul, [facility] [address] [id number] [address] [place] [address] Jul, [facility] [address] [id number] [address] [place] [address] Jul, [facility] [address] [id number] [address] [place] [address] Jun, [facility] [address] [id number] [address] [place] [address] May, [facility] [address] [id number] [address] [place] [address], [place] [address] Jan, [facility] [address] [id number] [address] [place] [address], [place] [address] Nov, [facility] [address] [id number] [address] [place] [address], [place] [address] Sep, [facility] [address] [id number] [address] [place] [address], [place] [address] Sep, [facility] [address] [id number] [address] [place] [address], [place] [address] Aug, [facility] [address] [id number] [address] [place] [address], [place] [address] Aug, [facility] [address] [id number] [address] [place] [address], [place] [address] Jun, [facility] [address] [id number] [address] [place] [address], [place] [address] Mar, [facility] [address] [id number] [address] [place] [address], [place] [address] February, [facility] [address] [id number] [address] [place] [address], [place] [address] Jan, [facility] [address] [id number] [address] [place] [address], [place] [address] Dec, [facility] [address] [id number] [address] [place] [address], [place] [address] Nov, [facility] [address] [id number] [address] [place] [address], [place] [address] Nov, [facility] [address] [id number] [address] [place] [address], [place] [address] Nov, [facility] [address] [id number] [address] [place] [address], [place] [address] Aug, [facility] [address] [id number] [address] [place] [address], [place] [address] 19 Jun, 2011 [facility] [address] [facility] [id number] [address] [place] [address] Jun, IMMUNIZATIONS No Known Immunizations SOCIAL HISTORY Never Assessed REASON FOR VISIT knee pain Pt c/o L knee pain, states 8 years ago injured during basketball. A c ouple of weeks ago she was cleaning and feels she reinjured. Would also like to discuss antidepression medications and control ADALGISA Nowak PLAN OF CARE Activity Details Follow Up 3 Months, prn Reason:CHM/Dep ression w/ Ruthie Pending Test UA W/CULTURE IF INDICATED (I N HOUSE) VITAL SIGNS Height 65 in 2018-07-02 Weight 216.2 lbs 2018-07-02 Temperature 97.8 degrees Fahrenheit 2018-07-02 Heart Rate 90 bpm 2018-07-02 Respiratory Rate 18 2018-07-02 BMI 35.97 kg/m2 2018-07-02 Blood pressure systolic 116 mmHg 2018-07-02 Blood pressure diastolic 76 mmHg 2018-07-02 MEDICATIONS Medication Instructions Dosage Frequency Start Date End Date Duration S tatus Naprosyn 250 MG Orally Twice a day 1 tablet with food or milk 12h Jun, Jun, 14 days Active Nitrofurantoin 100 mg Orally twice a day 1 capsule with food h Jun, Jun, 5 days Active Tylenol 325 MG Orally every 4 hrs 1 capsule as needed 4h Active Escitalopram Oxalate 10 mg Orally Once a day 1 tablet 24h 2017 30 day(s) Active NuvaRing 0.12-0.015 MG/24HR 1 ring Jun, 30 day(s) Active RESULTS No Results PROCEDURES Procedure Date Ordered Result Body Site URINE TEST Jul 02, 2018 URINALYSIS, AUTO, W/O SCOPE Jul 02, 2018 URINE CULTURE/COLONY COUNT Jul 02, 2018 INSTRUCTIONS MEDICATIONS ADMINISTERED No Known Medications MEDICAL (GENERAL) HISTORY Type Description Date Medical History Nexplanon inserted Nexplanon rem deepa 2015 Surgical History No Surgical history information
--- OUTSIDE RECORDS SUMMARY | 2020-04-21 00:09 | XMS REPORT ---
Author Author MAHENDRA Skylerlibby SHARPE Organization [facility] Address [address] [place] [address] Care Team Providers Care Patient Care Provider Name Role Phone MCCRAYANNEMARIE Quinones Unavailable PROBLEMS Type Condition ICD9-CM Code HLT60-FS Code Onset Dates Condition S tatus SNOMED Code Problem Mild episode of recurrent major depressive disorder F33.0 Active 581043020 Problem Generalized anxiety disorder F41.1 A ctive 57268906 Problem Irregular menstrual bleeding N92.6 A ctive 67092284 Problem 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 Active 05327861 Problem Severe episode of recurrent major depressive disorder, without 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 Active 75978320 Problem Anxiety F41.9 Active [id number] ALLERGIES No Information ENCOUNTERS Encounter Location Date Diagnosis [facility] [address] [id number] [address] [place] [address] Jun, [facility] [address] [id number] [address] [place] [id number] 11 Jun, 2018 Mild episode of recurrent ma odilon depressive disorder F33.0 ; Effusion, left knee M25.462 ; Acute cystitis without hematuria N30.00 and Encounter for initial prescription of vaginal ring hormonal contraceptive Z30.015 [facility] [address] [facility] [id number] [address] [place] [address] Jun, Left anterior knee pain M25. 562 [facility] [address] [facility] [id number] [address] [place] [address] May, [facility] [address] [id number] [address] [place] [address] Apr, Generalized anxiety disorder F41.1 and Severe episode of recurrent major depressive disorder, without 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 [facility] [address] [address] Mar, Generalized anxiety disorder F41.1 and Severe episode of recurrent major depressive disorder, without 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 [facility] [address] [address] Mar, 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 ; Anxiety F41.9 and Irregular menstrual bleeding N92.6 [place] [address] [address] Sep, Weight gain R63.5 [facility] [address] [address] Sep, Weight gain R63.5 [facility] [id number] [place] [id number] Aug, Athlete's foot on left B35.3 and Athlete's foot on right B35.3 [facility] [address] [address] Apr, Sore throat J02.9 ; Cough R0 5 ; Dysphagia, unspecified type R13.10 and Shortness of breath R06.02 [place] [address] [address] Apr, Encounter for initial manage ment of nuvaring Z30.49 [place] [address] [address] Mar, [place] [address] [address] Mar, Overweight E66.3 [place] [address] [address] February, Nexplanon removal Z30.49 and Encounter for initial prescription of other contraceptives Z30.018 [place] [address] [address] Dec, Back pain M54.9 [place] [address] [facility] [id number] [address] [place] [address] 02 Dec, 2015 Surveillance of implantable subdermal contraceptive Z30.49 ; Irregular bleeding N92.6 ; Vaginal irritation N89.8 ; Routine screening for STI (sexually transmitted infection) Z11.3 and OCP (oral contraceptive pills) initiation Z30.011 [facility] [address] [facility] [id number] [address] [place] [id number] 02 Dec, 2015 Back pain M54.9 [facility] [address] [facility] [id number] [address] [place] [id number] 29 Nov, 2015 Back pain M54.9 [facility] [address] [id number] 24 Nov, 2015 Dysfunctional uterine bleedi ng N93.8 and Vaginal itching L29.8 [place] [address] [place] [id number] [address] [place] [address] Nov, Cervicalgia M54.2 [place] [address] [facility] [id number] [address] [place] [address] Nov, Cervicalgia M54.2 [place] [address] [place] [id number] [address] [place] [address] Nov, Cervicalgia M54.2 [facility] [id number] [place] [id number] Nov, Cervicalgia M54.2 [facility] [address] [id number] [address] [place] [id number] 02 Sep, 2015 Screening for tuberculosis Z 11.1 [facility] [address] [id number] [address] [place] [id number] 11 Aug, 2015 Dental examination Z01.20 [facility] [address] [facility] [id number] [address] [place] [id number] 13 Apr, 2015 Irregular bleeding 626.4 and Screen for STD (sexually transmitted disease) V74.5 [facility] [address] [id number] [address] [place] [address], [place] [address] 14 Jan, 2015 [facility] [address] [id number] [address] [place] [address], [place] [address] 13 Jan, 2015 [facility] [address] [id number] [address] [place] [address], [place] [address] Oct, [facility] [address] [id number] [address] [place] [address], [place] [address] Oct, [facility] [address] [id number] [address] [place] [address], [place] [address] Oct, [facility] [address] [id number] [address] [place] [address], [place] [address] Oct, [facility] [address] [id number] [address] [place] [address], [place] [address] Sep, [facility] [address] [id number] [address] [place] [address], [place] [address] Sep, [facility] [address] [id number] [address] [place] [address], [place] [address] Jul, [facility] [address] [id number] [address] [place] [address], [place] [address] 30 Jul, 2014 [facility] [address] [id number] [address] [place] [address], [place] [address] 17 Jul, 2014 [facility] [address] [id number] [address] [place] [address], [place] [address] 15 Jul, 2014 [facility] [address] [id number] [address] [place] [address], [place] [address] 15 Jul, 2014 [facility] [address] [id number] [address] [place] [address], [place] [address] 24 Jun, 2014 [facility] [address] [id number] [address] [place] [address], [place] [address] 24 Jun, 2014 [facility] [address] [id number] [address] [place] [address], [place] [address] Jun, [facility] [address] [id number] [address] [place] [address], [place] [address] Jun, [facility] [address] [id number] [address] [place] [address], [place] [address] Jan, [facility] [address] [id number] [address] [place] [address], [place] [address] Jan, [facility] [address] [id number] [address] [place] [address], [place] [address] Oct, [facility] [address] [id number] [address] [place] [address], [place] [address] Oct, [facility] [address] [id number] [address] [place] [address], [place] [address] Oct, [facility] [address] [id number] [address] [place] [address], [place] [address] Oct, [facility] [address] [id number] [address] [place] [address], [place] [address] Sep, [facility] [address] [id number] [address] [place] [address], [place] [address] Sep, [facility] [address] [id number] [address] [place] [address], [place] [address] Aug, [facility] [address] [id number] [address] [place] [address], [place] [address] Aug, [facility] [address] [id number] [address] [place] [address], [place] [address] Aug, [facility] [address] [id number] [address] [place] [address], [place] [address] Aug, [facility] [address] [id number] [address] [place] [address], [place] [address] Aug, [facility] [address] [id number] [address] [place] [address], [place] [address] Aug, [facility] [address] [id number] [address] [place] [address] Aug, [facility] [address] [id number] [address] [place] [address], [place] [address] Aug, [facility] [address] [id number] [address] [place] [address] Jul, [facility] [address] [id number] [address] [place] [address] Jul, [facility] [address] [id number] [address] [place] [address] Jul, [facility] [address] [id number] [address] [place] [address], [place] [address] Jul, [facility] [address] [id number] [address] [place] [address] Jul, [facility] [address] [id number] [address] [place] [address] Jul, [facility] [address] [id number] [address] [place] [address] Jul, [facility] [address] [id number] [address] [place] [address] Jul, [facility] [address] [id number] [address] [place] [address] Jul, [facility] [address] [id number] [address] [place] [address] Jul, [facility] [address] [id number] [address] [place] [address] Jul, [facility] [address] [id number] [address] [place] [id number] Jul, [facility] [address] [id number] [address] [place] [address] Jul, [facility] [address] [id number] [address] [place] [address] Jun, [facility] [address] [id number] [address] [place] [address], [place] [address] May, [facility] [address] [id number] [address] [place] [address], [place] [address] Jan, [facility] [address] [id number] [address] [place] [address], [place] [address] 14 Nov, 2012 [facility] [address] [id number] [address] [place] [address], [place] [address] Sep, [facility] [address] [id number] [address] [place] [address], [place] [address] Sep, [facility] [address] [id number] [address] [place] [address], [place] [address] Aug, [facility] [address] [id number] [address] [place] [address], [place] [address] Aug, [facility] [address] [id number] [address] [place] [address], [place] [address] Jun, [facility] [address] [id number] [address] [place] [address], [place] [address] Mar, [facility] [address] [id number] [address] [place] [address], [place] [address] February, [facility] [address] [id number] [address] [place] [address], [place] [address] Jan, [facility] [address] [id number] [address] [place] [address], [place] [address] Dec, [facility] [address] [id number] [address] [place] [address], [place] [address] Nov, [facility] [address] [id number] [address] [place] [address], [place] [address] Nov, [facility] [address] [id number] [address] [place] [address], [place] [address] 16 Nov, 2011 [facility] [address] [id number] [address] [place] [address], [place] [address] Aug, [facility] [address] [facility] [id number] [address] [address] Jun, [facility] [address] [facility] [id number] [address] [place] [address] 11 Jun, 2010 IMMUNIZATIONS No Known Immunizations SOCIAL HISTORY Never Assessed REASON FOR VISIT Medication question PLAN OF CARE VITAL SIGNS MEDICATIONS Unknown Medications RESULTS No Results PROCEDURES No Known procedures INSTRUCTIONS MEDICATIONS ADMINISTERED No Known Medications MEDICAL (GENERAL) HISTORY Type Description Date Medical History Nexplanon inserted Nexplanon rem deepa 2015 Surgical History No Surgical history information
--- OUTSIDE RECORDS SUMMARY | 2020-04-21 00:09 | XMS REPORT ---
Author Author Skyler AGUILLON Organization [facility] [place] Address [address] [place] [address] Care Team Providers Care Fabric Awning Repairer Name Role Phone MARYANN AGUILLON Unavailable PROBLEMS Type Condition ICD9-CM Code YTI08-QH Code Onset Dates Condition S tatus SNOMED Code Problem Generalized anxiety disorder F41.1 A ctive 74149520 Problem Severe episode of recurrent major depressive disorder, without 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 Active 09911162 Problem Irregular menstrual bleeding N92.6 A ctive 74730311 Problem 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 Active 53177875 Problem Anxiety F41.9 Active [id number] ALLERGIES No Information ENCOUNTERS Encounter Location Date Diagnosis [place] [address] [place] [phone] Apr, Generalized anxiety disorder F41.1 and Severe episode of recurrent major depressive disorder, without 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 [place] [address] [place] [phone] Mar, Generalized anxiety disorder F41.1 and Severe episode of recurrent major depressive disorder, without 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 [place] [address] [address] [place] [id number] [address] [place] [phone] Mar, 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 ; Anxiety F41.9 and Irregular menstrual bleeding N92.6 [place] [address] [facility] [id number] [address] [place] [phone] Sep, Weight gain R63.5 [facility] [place] [address] [place] [id number] [address] [place] [phone] Sep, Weight gain R63.5 [facility] [address] [facility] [id number] [place] [id number] Aug, Athlete's foot on left B35.3 and Athlete's foot on right B35.3 [facility] [address] [place] [id number] [address] [place] [phone] Apr, Sore throat J02.9 ; Cough R0 5 ; Dysphagia, unspecified type R13.10 and Shortness of breath R06.02 [place] [address] [address] [place] [id number] [address] [place] [phone] Apr, Encounter for initial manage ment of nuvaring Z30.49 [place] [address] [phone] Mar, [place] [address] [address] Mar, Overweight E66.3 [place] [address] [phone] February, Nexplanon removal Z30.49 and Encounter for initial prescription of other contraceptives Z30.018 [facility] [place] [address] [place] [id number] [address] [place] [phone] Dec, Back pain M54.9 [facility] [place] [address] [address] Dec, Surveillance of implantable subdermal contraceptive Z30.49 ; Irregular bleeding N92.6 ; Vaginal irritation N89.8 ; Routine screening for STI (sexually transmitted infection) Z11.3 and OCP (oral contraceptive pills) initiation Z30.011 [facility] [place] [address] [place] [id number] [address] [place] [phone] Dec, Back pain M54.9 [place] [address] [place] [id number] [address] [place] [phone] Nov, Back pain M54.9 [facility] [address] [place] [id number] [place] [id number] Nov, Dysfunctional uterine bleedi ng N93.8 and Vaginal itching L29.8 [facility] [place] [address] [id number] [address] [place] [id number] 15 Nov, 2015 Cervicalgia M54.2 [facility] [place] [address] [id number] [address] [place] [phone] 15 Nov, 2015 Cervicalgia M54.2 [facility] [place] [address] [id number] [address] [place] [phone] 10 Nov, 2015 Cervicalgia M54.2 [facility] [address] [id number] [place] [id number] 03 Nov, 2015 Cervicalgia M54.2 [facility] [place] [address] [id number] [address] [place] [phone] Sep, Screening for tuberculosis Z 11.1 [facility] [address] [id number] [address] [place] [id number] Aug, Dental examination Z01.20 [facility] [place] [address] [id number] [address] [place] [phone] Apr, Irregular bleeding 626.4 and Screen for STD (sexually transmitted disease) V74.5 [facility] [place] [address] [id number] [address] [place] [id number] 14 Jan, 2015 [facility] [place] [address] [id number] [address] [place] [phone] Jan, [facility] [place] [address] [id number] [address] [place] [phone] Oct, [facility] [place] [address] [id number] [address] [place] [phone] Oct, [facility] [place] [address] [id number] [address] [place] [phone] Oct, [facility] [place] [address] [facility] [id number] [address] [place] [phone] Oct, [facility] [place] [address] [facility] [id number] [address] [place] [phone] Sep, [facility] [address] [id number] [address] [place] [address], [place] [address] Sep, [facility] [address] [id number] [address] [place] [address], [place] [address] Jul, [facility] [address] [id number] [address] [place] [address], [place] [address] Jul, [facility] [address] [id number] [address] [place] [address], [place] [address] Jul, [facility] [address] [id number] [address] [place] [address], [place] [address] Jul, [facility] [address] [id number] [address] [place] [address], [place] [address] Jul, [facility] [address] [id number] [address] [place] [address], [place] [address] 24 Jun, 2014 [facility] [address] [id number] [address] [place] [address], [place] [address] 24 Jun, 2014 [facility] [address] [id number] [address] [place] [address], [place] [address] Jun, [facility] [address] [id number] [address] [place] [address], [place] [address] Jun, [facility] [address] [id number] [address] [place] [address], [place] [address] Jan, [facility] [address] [id number] [address] [place] [address], [place] [address] Jan, [facility] [address] [id number] [address] [place] [address], [place] [address] Oct, [facility] [address] [id number] [address] [place] [address], [place] [address] Oct, [facility] [address] [id number] [address] [place] [address], [place] [address] Oct, [facility] [address] [id number] [address] [place] [address], [place] [address] Oct, [facility] [address] [id number] [address] [place] [address], [place] [address] Sep, [facility] [address] [id number] [address] [place] [address], [place] [address] Sep, [facility] [address] [id number] [address] [place] [address], [place] [address] Aug, [facility] [address] [id number] [address] [place] [address], [place] [address] Aug, [facility] [address] [id number] [address] [place] [address], [place] [address] Aug, [facility] [address] [id number] [address] [place] [address], [place] [address] Aug, [facility] [address] [id number] [address] [place] [address], [place] [address] Aug, [facility] [address] [id number] [address] [place] [address], [place] [address] Aug, [facility] [address] [id number] [address] [place] [address], [place] [address] Aug, [facility] [address] [id number] [address] [place] [address], [place] [address] Aug, [facility] [address] [id number] [address] [place] [address], [place] [address] Jul, [facility] [address] [id number] [address] [place] [address], [place] [address] Jul, [facility] [address] [id number] [address] [place] [address], [place] [address] Jul, [facility] [address] [id number] [address] [place] [address], [place] [address] Jul, [facility] [address] [id number] [address] [place] [address], [place] [address] Jul, [facility] [address] [id number] [address] [place] [address], [place] [address] Jul, [facility] [address] [id number] [address] [place] [address], [place] [address] Jul, [facility] [address] [id number] [address] [place] [address], [place] [address] Jul, [facility] [address] [id number] [address] [place] [address], [place] [address] Jul, [facility] [address] [id number] [address] [place] [address], [place] [address] Jul, [facility] [address] [id number] [address] [place] [address], [place] [address] Jul, [facility] [address] [id number] [address] [place] [address], [place] [address] Jul, [facility] [address] [id number] [address] [place] [address], [place] [address] Jul, [facility] [address] [id number] [address] [place] [address], [place] [address] Jun, [facility] [address] [id number] [address] [place] [phone] May, [facility] [address] [id number] [address] [place] [address], [place] [address] Jan, [facility] [address] [id number] [address] [place] [phone] Nov, [facility] [address] [id number] [address] [place] [address], [place] [address] Sep, [facility] [address] [id number] [address] [place] [phone] Sep, [facility] [address] [id number] [address] [place] [phone] Aug, [facility] [address] [id number] [address] [place] [phone] Aug, [facility] [place] [address] [id number] [address] [place] [phone] Jun, [facility] [place] [address] [id number] [address] [place] [phone] Mar, [facility] [place] [address] [id number] [address] [place] [phone] February, [facility] [place] [address] [id number] [address] [place] [phone] Jan, [facility] [place] [address] [id number] [address] [place] [phone] Dec, [facility] [place] [address] [id number] [address] [place] [phone] Nov, [facility] [place] [address] [id number] [address] [place] [phone] Nov, [facility] [place] [address] [id number] [address] [place] [phone] Nov, [facility] [place] [address] [id number] [address] [place] [phone] Aug, [facility] [place] [address] [id number] [address] [place] [phone] Jun, [facility] [place] [address] [id number] [address] [place] [phone] Jun, IMMUNIZATIONS No Known Immunizations SOCIAL HISTORY Never Assessed REASON FOR VISIT [facility] PLAN OF CARE Activity Details Follow Up Next Available Reason: F/U VITAL SIGNS MEDICATIONS Medication Instructions Dosage Frequency Start Date End Date Duration S tatus Sertraline HCl 50 mg Orally Once a day 1 tablet 24h Mar, 30 day(s) Active RESULTS No Results PROCEDURES Procedure Date Ordered Result Body Site Psych diagnostic evaluation, established patient April 11, 2018 INSTRUCTIONS MEDICATIONS ADMINISTERED No Known Medications MEDICAL (GENERAL) HISTORY Type Description Date Medical History Nexplanon inserted Nexplanon rem deepa 2015
--- OUTSIDE RECORDS SUMMARY | 2020-04-21 00:09 | XMS REPORT ---
Author Author Skyler AGUILLON Organization [facility] Address [address] [place] [address] Care Team Providers Care Dye House Wheel Operator Name Role Phone MARYANN AGUILLON Unavailable PROBLEMS Type Condition ICD9-CM Code VWK95-SQ Code Onset Dates Condition S tatus SNOMED Code Problem Generalized anxiety disorder F41.1 A ctive 54562576 Problem Severe episode of recurrent major depressive disorder, without 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 Active 49575841 Problem Irregular menstrual bleeding N92.6 A ctive 29648521 Problem 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 Active 68653461 Problem Anxiety F41.9 Active 19504814 ALLERGIES No Information ENCOUNTERS Encounter Location Date Diagnosis [place] [id number] [facility] [id number] [address] [place] [phone] Jun, [facility] [address] [facility] [id number] [address] [place] [phone] May, [facility] [address] [place] [id number] [address] [place] [phone] Apr, Generalized anxiety disorder F41.1 and Severe episode of recurrent major depressive disorder, without 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 [facility] [address] [facility] [id number] [address] [place] [id number] Mar, Generalized anxiety disorder F41.1 and Severe episode of recurrent major depressive disorder, without 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 [facility] [address] [facility] [id number] [address] [place] [phone] Mar, 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 ; Anxiety F41.9 and Irregular menstrual bleeding N92.6 [facility] [address] [facility] [id number] [address] [place] [id number] Sep, Weight gain R63.5 [facility] [address] [place] [id number] [address] [place] [phone] Sep, Weight gain R63.5 [facility] [address] [place] [id number] [place] [id number] Aug, Athlete's foot on left B35.3 and Athlete's foot on right B35.3 [facility] [address] [place] [id number] [address] [place] [id number] Apr, Sore throat J02.9 ; Cough R0 5 ; Dysphagia, unspecified type R13.10 and Shortness of breath R06.02 [place] [address] [place] [id number] [address] [place] [phone] Apr, Encounter for initial manage ment of nuvaring Z30.49 [facility] [address] [place] [id number] [address] [place] [phone] Mar, [facility] [address] [place] [id number] [address] [place] [id number] Mar, Overweight E66.3 [place] [address] [id number] February, Nexplanon removal Z30.49 and Encounter for initial prescription of other contraceptives Z30.018 [facility] [address] [place] [id number] [address] [place] [phone] Dec, Back pain M54.9 [facility] [id number] [place] [phone] Dec, Surveillance of implantable subdermal contraceptive Z30.49 ; Irregular bleeding N92.6 ; Vaginal irritation N89.8 ; Routine screening for STI (sexually transmitted infection) Z11.3 and OCP (oral contraceptive pills) initiation Z30.011 [facility] [address] [place] [id number] [address] [place] [phone] Dec, Back pain M54.9 [place] [id number] [place] [id number] [address] [place] [phone] Nov, Back pain M54.9 [facility] [address] [facility] [id number] [place] [address] [id number] Nov, Dysfunctional uterine bleedi ng N93.8 and Vaginal itching L29.8 [facility] [address] [facility] [id number] [address] [place] [phone] Nov, Cervicalgia M54.2 [facility] [address] [facility] [id number] [address] [place] [phone] Nov, Cervicalgia M54.2 [facility] [address] [facility] [id number] [address] [place] [phone] Nov, Cervicalgia M54.2 [facility] [address] [facility] [id number] [place] [id number] Nov, Cervicalgia M54.2 [facility] [address] [place] [id number] [address] [place] [phone] Sep, Screening for tuberculosis Z 11.1 [facility] [address] [place] [id number] [address] [place] [id number] Aug, Dental examination Z01.20 [facility] [address] [place] [id number] [address] [place] [id number] Apr, Irregular bleeding 626.4 and Screen for STD (sexually transmitted disease) V74.5 [facility] [address] [place] [id number] [address] [place] [id number] Jan, [facility] [address] [facility] [id number] [address] [place] [phone] Jan, [facility] [address] [place] [id number] [address] [place] [phone] Oct, [facility] [address] [facility] [id number] [address] [place] [phone] Oct, [facility] [address] [place] [id number] [address] [place] [phone] Oct, [facility] [address] [id number] [address] [place] [address], [place] [address] Oct, [facility] [address] [id number] [address] [place] [address], [place] [id number] Sep, [facility] [address] [id number] [address] [place] [address], [place] [address] Sep, [facility] [address] [id number] [address] [place] [address], [place] [id number] Jul, [facility] [address] [id number] [address] [place] [address], [place] [id number] 30 Jul, 2014 [facility] [address] [id number] [address] [place] [address], [place] [address] Jul, [facility] [address] [id number] [address] [place] [address], [place] [id number] Jul, [facility] [address] [id number] [address] [place] [address], [place] [id number] Jul, [facility] [address] [id number] [address] [place] [address], [place] [id number] 24 Jun, 2014 [facility] [address] [id number] [address] [place] [address], [place] [address] 24 Jun, 2014 [facility] [address] [id number] [address] [place] [address], [place] [address] 10 Jun, 2014 [facility] [address] [id number] [address] [place] [address], [place] [id number] 10 Jun, 2014 [facility] [address] [id number] [address] [place] [address], [place] [address] Jan, [facility] [address] [id number] [address] [place] [address], [place] [address] Jan, [facility] [address] [id number] [address] [place] [address], [place] [address] Oct, [facility] [address] [id number] [address] [place] [address], [place] [address] Oct, [facility] [address] [id number] [address] [place] [address], [place] [address] Oct, [facility] [address] [id number] [address] [place] [address], [place] [address] Oct, [facility] [address] [id number] [address] [place] [address], [place] [address] Sep, [facility] [address] [id number] [address] [place] [address], [place] [address] Sep, [facility] [address] [id number] [address] [place] [address], [place] [id number] Aug, [facility] [address] [id number] [address] [place] [address], [place] [address] Aug, [facility] [address] [id number] [address] [place] [address], [place] [address] Aug, [facility] [address] [id number] [address] [place] [address], [place] [address] Aug, [facility] [address] [id number] [address] [place] [address], [place] [address] Aug, [facility] [address] [id number] [address] [place] [address], [place] [address] Aug, [facility] [address] [id number] [address] [place] [address], [place] [address] Aug, [facility] [address] [id number] [address] [place] [address], [place] [address] Aug, [facility] [address] [id number] [address] [place] [address], [place] [address] Jul, [facility] [address] [id number] [address] [place] [address], [place] [address] Jul, [facility] [address] [id number] [address] [place] [address], [place] [address] Jul, [facility] [address] [id number] [address] [place] [address], [place] [address] Jul, [facility] [address] [id number] [address] [place] [address], [place] [address] Jul, [facility] [address] [id number] [address] [place] [address], [place] [address] Jul, [facility] [address] [id number] [address] [place] [address], [place] [address] Jul, [facility] [address] [id number] [address] [place] [address], [place] [address] Jul, [facility] [address] [id number] [address] [place] [address], [place] [address] Jul, [facility] [address] [id number] [address] [place] [address], [place] [address] Jul, [facility] [address] [id number] [address] [place] [phone] Jul, [facility] [address] [id number] [address] [place] [address], [place] [address] Jul, [facility] [address] [id number] [address] [place] [phone] Jul, [facility] [address] [id number] [address] [place] [phone] Jun, [facility] [address] [id number] [address] [place] [phone] May, [facility] [address] [id number] [address] [place] [address], [place] [address] Jan, [facility] [address] [id number] [address] [place] [phone] Nov, [facility] [address] [id number] [address] [place] [phone] Sep, [facility] [address] [id number] [address] [place] [phone] Sep, [facility] [address] [id number] [address] [place] [phone] Aug, [facility] [address] [id number] [address] [place] [phone] Aug, [facility] [address] [id number] [address] [place] [phone] Jun, [facility] [address] [id number] [address] [place] [phone] Mar, [facility] [address] [id number] [address] [place] [phone] February, [facility] [address] [id number] [address] [place] [phone] Jan, [facility] [address] [id number] [address] [place] [phone] Dec, [facility] [address] [id number] [address] [place] [phone] Nov, [facility] [address] [id number] [address] [place] [phone] Nov, [facility] [address] [id number] [address] [place] [phone] Nov, [facility] [address] [id number] [address] [place] [phone] Aug, [facility] [address] [id number] [address] [place] [phone] Jun, [facility] [address] [id number] [address] [place] [phone] Jun, IMMUNIZATIONS No Known Immunizations SOCIAL HISTORY Never Assessed REASON FOR VISIT f/u PLAN OF CARE Activity Details Follow Up 1 Week Reason: F/U VITAL SIGNS MEDICATIONS Unknown Medications RESULTS No Results PROCEDURES Procedure Date Ordered Result Body Site Psychotherapy, patient &/family, 45 minutes, established pat ient April 30, 2018 INSTRUCTIONS MEDICATIONS ADMINISTERED No Known Medications MEDICAL (GENERAL) HISTORY Type Description Date Medical History Nexplanon inserted Nexplanon rem deepa 2015
--- OUTSIDE RECORDS SUMMARY | 2020-04-21 00:09 | XMS REPORT | Continuity of Care Document ---
Author Organization Unknown Address Unknown Phone Unavailable Allergies Active Description Code Type Severity Reaction Onset Reported/Identified Relationship to Patient Clinical Status Yes No Known Drug Allergies [id number] Drug Allergy Unknown N/A 05/19/2014 Medications There is no data. Problems Date Dx Coded Attending Type Code Diagnosis Diagnosed By 07/02/2010 719.46 CHARLIE N IN JOINT, LOWER LEG 07/02/2010 719.46 CHARLIE N IN JOINT, LOWER LEG 07/02/2010 719.46 CHARLIE N IN JOINT, LOWER LEG 07/02/2010 719.46 CHARLIE N IN JOINT, LOWER LEG 07/02/2010 719.46 CHARLIE N IN JOINT, LOWER LEG 07/02/2010 719.46 CHARLIE N IN JOINT, LOWER LEG 07/02/2010 RACHEL GRAMAJO APRNYL A 719.46 PAIN IN JOINT, LOWER LEG 07/02/2010 [facility], [facility] A 719.46 PAIN IN JOINT, LOWER LEG 07/02/2010 [facility], [facility] A 719.46 PAIN IN JOINT, LOWER LEG 07/02/2010 RACHEL GRAMAJO APRNYL A 719.46 PAIN IN JOINT, LOWER LEG 07/02/2010 [facility], BRY[facility] A 719.46 PAIN IN JOINT, LOWER LEG 07/02/2010 [facility] A 719.46 PAIN IN JOINT, LOWER LEG 07/02/2010 [facility], [facility] A 719.46 PAIN IN JOINT, LOWER LEG 07/02/2010 [facility], BR[facility] A 719.46 PAIN IN JOINT, LOWER LEG 07/02/2010 [facility], [facility] A 719.46 PAIN IN JOINT, LOWER LEG 07/02/2010 [facility] A 719.46 PAIN IN JOINT, LOWER LEG 07/02/2010 AVILA BRICEÑO TERENCE A 719.46 PAIN IN JOINT, LOWER LEG 07/02/2010 AVILA BRICEÑO TERENCE A 719.46 PAIN IN JOINT, LOWER LEG 07/02/2010 RACHEL GRAMAJO APRNYL A 719.46 PAIN IN JOINT, LOWER LEG 07/02/2010 RACHEL GRAMAJO APRNYL A 719.46 PAIN IN JOINT, LOWER LEG 07/02/2010 [employer], LIANNA A 719.46 PAIN IN JOINT, LOWER LEG 07/02/2010 LAKSHMI ASSISTANT [employer]ANT MANAGER, LIANNA A 719.46 PAIN IN JOINT, LOWER LEG 07/02/2010 CRISPINHENRYGlenroy BRICEÑO TERENCE A 719.46 PAIN IN JOINT, LOWER LEG 07/02/2010 SYLVIE BRICEÑOJAYLAIA R 719.46 PAIN IN JOINT, LOWER LEG 09/05/2010 309.28 AD ADJ D/O W ANX DEP MOOD 09/05/2010 309.28 AD ADJ D/O W ANX DEP MOOD 09/05/2010 309.28 AD ADJ D/O W ANX DEP MOOD 09/05/2010 309.28 AD ADJ D/O W ANX DEP MOOD 09/05/2010 309.28 AD ADJ D/O W ANX DEP MOOD 09/05/2010 309.28 AD ADJ D/O W ANX DEP MOOD 09/05/2010 TERENCE GRAMAJO APRN 309.28 AD ADJ D/O W ANX DEP MOOD [facility]/05[facility] D/O W ANX DEP MOOD 09/05/2010 [facility] Jauregui 309.28 AD ADJ D/O W ANX DEP MOOD 09/05/2010 TERENCE GRAMAJO APRN A 309.28 AD ADJ D/O W ANX DEP MOOD 09/05/2010 [facility] D/O W ANX DEP MOOD 09/05/2010 [facility]28 AD ADJ D/O W ANX DEP MOOD 09/05/2010 [facility]28 AD ADJ D/O W ANX DEP MOOD 09/05/2010 [facility]28 AD ADJ D/O W ANX DEP MOOD 09/05/2010 [facility].28 AD ADJ D/O W ANX DEP MOOD 09/05/2010 [facility].28 AD ADJ D/O W ANX DEP MOOD 09/05/2010 [employer]TE [employer] MANAGER, TERENCE A 309.28 AD ADJ D/O W ANX DEP MOOD 09/05/2010 JAGDEEPGlenroy ASSISTANT PLANT MANAGER, TERENCE A 309.28 AD ADJ D/O W ANX DEP MOOD 09/05/2010 CRISPINHENRYGlenroy ASSISTANT PLANT MANAGER, TERENCE A 309.28 AD ADJ D/O W ANX DEP MOOD 09/05/2010 JAGDEEPE ASSISTANT PLANT MANAGER, TERENCE A 309.28 AD ADJ D/O W ANX DEP MOOD 09/05/2010 LAKSHMI ASSISTANT [employer] MANAGER, LIANNA A 309.28 AD ADJ D/O W ANX DEP MOOD 09/05/2010 LAKSHMI ASSISTANT [employer]ANT MANAGER, LIANNA A 309.28 AD ADJ D/O W ANX DEP MOOD 09/05/2010 JAGDEEPE ASSISTANT PLANT MANAGER, TERENCE A 309.28 AD ADJ D/O W ANX DEP MOOD 09/05/2010 SYLVIE ASSISTANT PLANT MANAGER, HEMAL R 309.28 AD ADJ D/O W ANX DEP MOOD 06/06/2011 V03.89 MEN INGOCOCCAL DX 06/06/2011 V06.1 TDAP DX 06/06/2011 V03.89 MEN INGOCOCCAL DX 06/06/2011 V06.1 TDAP DX 06/06/2011 V03.89 MEN INGOCOCCAL DX 06/06/2011 V06.1 TDAP DX 06/06/2011 V03.89 MEN INGOCOCCAL DX 06/06/2011 V06.1 TDAP DX 06/06/2011 V03.89 MEN INGOCOCCAL DX 06/06/2011 V06.1 TDAP DX 06/06/2011 V03.89 MEN INGOCOCCAL DX 06/06/2011 V06.1 TDAP DX 06/06/2011 AVILA SERRANON, TERENCE A V03.89 MENINGOCOCCAL DX 06/06/2011 AVILA ASSISTANT [employer] MANAGER, TERENCE A V06.1 TDAP DX 06/06/2011 [facility], [facility] A V03.89 MENINGOCOCCAL DX 06/06/2011 [facility] A V0 6.1 TDAP DX 06/06/2011 [facility] A V03.89 MENINGOCOCCAL DX 06/06/2011 [facility], [facility] A V0 6.1 TDAP DX 06/06/2011 AVILA ASS[employer] MANAGER, TERENCE A V03.89 MENINGOCOCCAL DX 06/06/2011 AVILA ASSISTANT [employer] MANAGER, TERENCE A V06.1 TDAP DX 06/06/2011 [facility] A V03.89 MENINGOCOCCAL DX 06/06/2011 [facility] A V0 6.1 TDAP DX 06/06/2011 [facility] A V03.89 MENINGOCOCCAL DX 06/06/2011 [facility] A V0 6.1 TDAP DX 06/06/2011 [facility] A V03.89 MENINGOCOCCAL DX 06/06/2011 [facility] A V0 6.1 TDAP DX 06/06/2011 [facility] A V03.89 MENINGOCOCCAL DX 06/06/2011 [facility] A V0 6.1 TDAP DX 06/06/2011 [facility] A V03.89 MENINGOCOCCAL DX 06/06/2011 [facility] A V0 6.1 TDAP DX 06/06/2011 [facility] A V03.89 MENINGOCOCCAL DX 06/06/2011 [facility] A V0 6.1 TDAP DX 06/06/2011 [employer], TERENCE A V03.89 MENINGOCOCCAL DX 06/06/2011 [employer]TE ASSIST[employer] MANAGER, TERENCE A V06.1 TDAP DX 06/06/2011 [employer]JOTTE ASSISTANT [employer] MANAGER, TERENCE A V03.89 MENINGOCOCCAL DX 06/06/2011 [employer]JOTTE ASSISTANT [employer]ANT MANAGER, TERENCE A V06.1 TDAP DX 06/06/2011 RAJOTTE ASSISTANT [employer] MANAGER, TERENCE A V03.89 MENINGOCOCCAL DX 06/06/2011 RAJOTTE ASSISTANT [employer]ANT MANAGER, TERENCE A V06.1 TDAP DX 06/06/2011 RAJOTTE ASSISTANT [employer]ANT MANAGER, TERENCE A V03.89 MENINGOCOCCAL DX 06/06/2011 RAJOTTE ASSISTANT [employer]ANT MANAGER, TERENCE A V06.1 TDAP DX 06/06/2011 LAKSHMI ASSISTANT [employer]ANT MANAGER, LIANNA A V03.89 MENINGOCOCCAL DX 06/06/2011 LAKSHMI ASSISTANT PLANT MANAGER, LIANNA A V0 6.1 TDAP DX 06/06/2011 LAKSHMI ASSISTANT PLANT MANAGER, LIANNA A V03.89 MENINGOCOCCAL DX 06/06/2011 LAKSHMI ASSISTANT PLANT MANAGER, LIANNA A V0 6.1 TDAP DX 06/06/2011 RAJOTTE ASSISTANT [employer] MANAGER, TERENCE A V03.89 MENINGOCOCCAL DX 06/06/2011 RAJOTTE ASSISTANT [employer]ANT MANAGER, TERENCE A V06.1 TDAP DX 06/06/2011 SYLVIE ASSISTANT PLANT MANAGER, HEMAL R V03.89 MENINGOCOCCAL DX 06/06/2011 SYLVIE ASSISTANT PLANT MANAGER, HEMAL R V06.1 TDAP DX 06/15/2011 373.11 HOR DEOLUM EXTERNUM 06/15/2011 373.11 HOR DEOLUM EXTERNUM 06/15/2011 373.11 HOR DEOLUM EXTERNUM 06/15/2011 373.11 HOR DEOLUM EXTERNUM 06/15/2011 373.11 HOR DEOLUM EXTERNUM 06/15/2011 373.11 HOR DEOLUM EXTERNUM 06/15/2011 [employer]JOTTE ASSIST[employer] MANAGER, TERENCE A 373.11 HORDEOLUM EXTERNUM 06/15/2011 [facility] A 373.11 HORDEOLUM EXTERNUM 06/15/2011 [facility] A 373.11 HORDEOLUM EXTERNUM 06/15/2011 CRISPINOTTE ASSISTANT PLANT MANAGER, TERENCE A 373.11 HORDEOLUM EXTERNUM 06/15/2011 [facility] A 373.11 HORDEOLUM EXTERNUM 06/15/2011 [facility] A 373.11 HORDEOLUM EXTERNUM 06/15/2011 [facility] A 373.11 HORDEOLUM EXTERNUM 06/15/2011 [facility] A 373.11 HORDEOLUM EXTERNUM 06/15/2011 [facility] A 373.11 HORDEOLUM EXTERNUM 06/15/2011 [facility] A 373.11 HORDEOLUM EXTERNUM 06/15/2011 [employer]JOTTE ASSISTANT [employer] MANAGER, TERENCE A 373.11 HORDEOLUM EXTERNUM 06/15/2011 RAJOTTE ASSISTANT PLANT MANAGER, TERENCE A 373.11 HORDEOLUM EXTERNUM 06/15/2011 RAJOTTE ASSISTANT PLANT MANAGER, TERENCE A 373.11 HORDEOLUM EXTERNUM 06/15/2011 RAJOTTE ASSISTANT PLANT MANAGER, TERENCE A 373.11 HORDEOLUM EXTERNUM 06/15/2011 LAKSHMI ASSISTANT [employer]ANT MANAGER, LIANNA A 373.11 HORDEOLUM EXTERNUM 06/15/2011 LAKSHMI ASSISTANT PLANT MANAGER, LIANNA A 373.11 HORDEOLUM EXTERNUM 06/15/2011 AVILA BRICEÑO, TERENCE A 373.11 HORDEOLUM EXTERNUM 06/15/2011 HEMAL MERCER APRN 373.11 HORDEOLUM EXTERNUM 07/10/2011 V70.3 SPOR TS/SCHOOL EXAM 07/10/2011 V70.3 SPOR TS/SCHOOL EXAM 07/10/2011 V70.3 SPOR TS/SCHOOL EXAM 07/10/2011 V70.3 SPOR TS/SCHOOL EXAM 07/10/2011 V70.3 SPOR TS/SCHOOL EXAM 07/10/2011 V70.3 SPOR TS/SCHOOL EXAM 07/10/2011 AVILA BRICEÑO, TERENCE A V70.3 SPORTS/SCHOOL EXAM 07/10/2011 [facility] A V7 0.3 SPORTS/SCHOOL EXAM 07/10/2011 [facility] A V7 0.3 SPORTS/SCHOOL EXAM 07/10/2011 AVILA BRICEÑO, TERENCE A V70.3 SPORTS/SCHOOL EXAM 07/10/2011 [facility] BR[facility] A V7 0.3 SPORTS/SCHOOL EXAM 07/10/2011 [facility], BRY[facility] A V7 0.3 SPORTS/SCHOOL EXAM 07/10/2011 [facility], BRY[facility] A V7 0.3 SPORTS/SCHOOL EXAM 07/10/2011 [facility], BR[facility] A V7 0.3 SPORTS/SCHOOL EXAM 07/10/2011 [facility], [facility] A V7 0.3 SPORTS/SCHOOL EXAM 07/10/2011 [facility], [facility] A V7 0.3 SPORTS/SCHOOL EXAM 07/10/2011 AVILA BRICEÑO, TERENCE A V70.3 SPORTS/SCHOOL EXAM 07/10/2011 AVILA BRICEÑO, TERENCE A V70.3 SPORTS/SCHOOL EXAM 07/10/2011 CRISPINOTTGlenroy ASSISTANT PLANT MANAGER, TERENCE A V70.3 SPORTS/SCHOOL EXAM 07/10/2011 AVILA ASSISTANT [employer] MANAGER, TERENCE A V70.3 SPORTS/SCHOOL EXAM 07/10/2011 JET MARTINS APRNIDI A V7 0.3 SPORTS/SCHOOL EXAM 07/10/2011 LAKSHMI BRICEÑO LIANNA A V7 0.3 SPORTS/SCHOOL EXAM 07/10/2011 AVILA BRICEÑO, TERENCE A V70.3 SPORTS/SCHOOL EXAM 07/10/2011 HEMAL MERCER APRN V70.3 SPORTS/SCHOOL EXAM 12/07/2011 842.00 SPR AIN/STRAIN WRIST 12/07/2011 842.00 SPR AIN/STRAIN WRIST 12/07/2011 842.00 SPR AIN/STRAIN WRIST 12/07/2011 842.00 SPR AIN/STRAIN WRIST 12/07/2011 842.00 SPR AIN/STRAIN WRIST 12/07/2011 842.00 SPR AIN/STRAIN WRIST 12/07/2011 AVILA BRICEÑO, TERENCE A 842.00 SPRAIN/STRAIN WRIST 12/07/2011 [facility], [facility] A 842.00 SPRAIN/STRAIN WRIST 12/07/2011 [facility] A 842.00 SPRAIN/STRAIN WRIST 12/07/2011 RAJARMANDO SERRANON, TERENCE A 842.00 SPRAIN/STRAIN WRIST 12/07/2011 [facility], [facility] A 842.00 SPRAIN/STRAIN WRIST 12/07/2011 [facility], [facility] A 842.00 SPRAIN/STRAIN WRIST 12/07/2011 [facility], [facility] A 842.00 SPRAIN/STRAIN WRIST 12/07/2011 [facility], [facility] A 842.00 SPRAIN/STRAIN WRIST 12/07/2011 [facility], [facility] A 842.00 SPRAIN/STRAIN WRIST 12/07/2011 [facility], [facility] A 842.00 SPRAIN/STRAIN WRIST 12/07/2011 RAJHENRYE ASSISTANT PLANT MANAGER, TERENCE A 842.00 SPRAIN/STRAIN WRIST 12/07/2011 RAJOTTE ASSISTANT [employer]ANT MANAGER, TERENCE A 842.00 SPRAIN/STRAIN WRIST 12/07/2011 RAJOTTE ASSISTANT PLANT MANAGER, TERENCE A 842.00 SPRAIN/STRAIN WRIST 12/07/2011 RAJOTTE ASSISTANT PLANT MANAGER, TERENCE A 842.00 SPRAIN/STRAIN WRIST 12/07/2011 LAKSHMI ASSISTANT PLANT MANAGER, LIANNA A 842.00 SPRAIN/STRAIN WRIST 12/07/2011 LAKSHMI ASSISTANT PLANT MANAGER, LIANNA A 842.00 SPRAIN/STRAIN WRIST 12/07/2011 RAJOTTE ASSISTANT [employer]ANT MANAGER, TERENCE A 842.00 SPRAIN/STRAIN WRIST 12/07/2011 HEMAL MERCER APRN 842.00 SPRAIN/STRAIN WRIST 02/10/2012 008.8 AZIZA ROENTERITIS, VIRAL 02/10/2012 008.8 AZIZA ROENTERITIS, VIRAL 02/10/2012 008.8 AZIZA ROENTERITIS, VIRAL 02/10/2012 008.8 AZIZA ROENTERITIS, VIRAL 02/10/2012 008.8 AZIZA ROENTERITIS, VIRAL 02/10/2012 008.8 AZIZA ROENTERITIS, VIRAL 02/10/2012 RAJOTTE ASSISTANT [employer] MANAGER, TERENCE A 008.8 GASTROENTERITIS, VIRAL 02/10/2012 [facility] A 00 8.8 GASTROENTERITIS, VIRAL 02/10/2012 [facility], BRY[facility] A 00 8.8 GASTROENTERITIS, VIRAL 02/10/2012 RAJOTTE ASSISTANT PLANT MANAGER, TERENCE A 008.8 GASTROENTERITIS, VIRAL 02/10/2012 [facility], BRY[facility] A 00 8.8 GASTROENTERITIS, VIRAL 02/10/2012 [facility], BRYON A 00 8.8 GASTROENTERITIS, VIRAL 02/10/2012 [facility], BRYON A 00 8.8 GASTROENTERITIS, VIRAL 02/10/2012 [facility], BRYON A 00 8.8 GASTROENTERITIS, VIRAL 02/10/2012 [facility], BRYON A 00 8.8 GASTROENTERITIS, VIRAL 02/10/2012 [facility], BRYON A 00 8.8 GASTROENTERITIS, VIRAL 02/10/2012 RAJOTTE ASSISTANT PLANT MANAGER, TERENCE A 008.8 GASTROENTERITIS, VIRAL 02/10/2012 RAJOTTE ASSISTANT PLANT MANAGER, TERENCE A 008.8 GASTROENTERITIS, VIRAL 02/10/2012 RAJOTTE ASSISTANT PLANT MANAGER, TERENCE A 008.8 GASTROENTERITIS, VIRAL 02/10/2012 RAJOTTE ASSISTANT PLANT MANAGER, TERENCE A 008.8 GASTROENTERITIS, VIRAL 02/10/2012 LAKSHMI ASSISTANT PLANT MANAGER, LIANNA A 00 8.8 GASTROENTERITIS, VIRAL 02/10/2012 LAKSHMI ASSISTANT PLANT MANAGER, LIANNA A 00 8.8 GASTROENTERITIS, VIRAL 02/10/2012 RAJOTTE ASSISTANT PLANT MANAGER, TERENCE A 008.8 GASTROENTERITIS, VIRAL 02/10/2012 SYLVIE ASSISTANT PLANT MANAGERIAMHEMAL R 008.8 GASTROENTERITIS, VIRAL 02/28/2012 078.19 WAR TS, COMMON 02/28/2012 078.19 WAR TS, COMMON 02/28/2012 078.19 WAR TS, COMMON 02/28/2012 078.19 WAR TS, COMMON 02/28/2012 078.19 WAR TS, COMMON 02/28/2012 078.19 WAR TS, COMMON 02/28/2012 RAJOTTE ASSISTANT [employer]ANT MANAGER, TERENCE A 078.19 WARTS, COMMON 02/28/2012 [facility] A 078.19 WARTS, COMMON 02/28/2012 [facility] BRY[facility] A 078.19 WARTS, COMMON 02/28/2012 RAJOTTE ASSISTANT [employer]ANT MANAGER, TERENCE A 078.19 WARTS, COMMON 02/28/2012 [facility] BRY[facility] A 078.19 WARTS, COMMON 02/28/2012 [facility], BRYON A 078.19 WARTS, COMMON 02/28/2012 [facility], BRYON A 078.19 WARTS, COMMON 02/28/2012 [facility], BRYON A 078.19 WARTS, COMMON 02/28/2012 [facility], BRY[facility] A 078.19 WARTS, COMMON 02/28/2012 [facility], BRY[facility] A 078.19 WARTS, COMMON 02/28/2012 RAJOTTE ASSISTANT PLANT MANAGER, TERENCE A 078.19 WARTS, COMMON 02/28/2012 RAJOTTE ASSISTANT PLANT MANAGER, TERENCE A 078.19 WARTS, COMMON 02/28/2012 RAJOTTE ASSISTANT PLANT MANAGER, TERENCE A 078.19 WARTS, COMMON 02/28/2012 RAJOTTE ASSISTANT PLANT MANAGER, TERENCE A 078.19 WARTS, COMMON 02/28/2012 LAKSHMI ASSISTANT PLANT MANAGER, LIANNA A 078.19 WARTS, COMMON 02/28/2012 LAKSHMI ASSISTANT PLANT MANAGER, LIANNA A 078.19 WARTS, COMMON 02/28/2012 RAJOTTE ASSISTANT PLANT MANAGER, TERENCE A 078.19 WARTS, COMMON 02/28/2012 MERCER ASSISTANT PLANT MANAGER, HEMAL R 078.19 WARTS, COMMON 06/27/2012 477.9 RHINITIS 06/27/2012 786.2 COUGH 06/27/2012 477.9 RHINITIS 06/27/2012 786.2 COUGH 06/27/2012 477.9 RHINITIS 06/27/2012 786.2 COUGH 06/27/2012 477.9 RHINITIS 06/27/2012 786.2 COUGH 06/27/2012 477.9 RHINITIS 06/27/2012 786.2 COUGH 06/27/2012 477.9 RHINITIS 06/27/2012 786.2 COUGH 06/27/2012 RAJOTTE ASSISTANT [employer]ANT MANAGER, TERENCE A 477.9 RHINITIS 06/27/2012 RAJOTTE ASSISTANT PLANT MANAGER, TERENCE A 786.2 COUGH 06/27/2012 [facility] BRY[facility] A 47 7.9 RHINITIS 06/27/2012 [facility] BR[facility] A 78 6.2 COUGH 06/27/2012 [facility], BRY[facility] A 47 7.9 RHINITIS 06/27/2012 [facility], BRY[facility] A 78 6.2 COUGH 06/27/2012 RAJOTTE ASSISTANT PLANT MANAGER, TERENCE A 477.9 RHINITIS 06/27/2012 RAJOTTE ASSISTANT PLANT MANAGER, TERENCE A 786.2 COUGH 06/27/2012 [facility], BRYON A 47 7.9 RHINITIS 06/27/2012 [facility], BRYON A 78 6.2 COUGH 06/27/2012 [facility], BRYON A 47 7.9 RHINITIS 06/27/2012 [facility], BRYON A 78 6.2 COUGH 06/27/2012 [facility], BRYON A 47 7.9 RHINITIS 06/27/2012 [facility], BRYON A 78 6.2 COUGH 06/27/2012 [facility], BRYON A 47 7.9 RHINITIS 06/27/2012 [facility], BRYON A 78 6.2 COUGH 06/27/2012 [facility], BRYON A 47 7.9 RHINITIS 06/27/2012 [facility], BRYON A 78 6.2 COUGH 06/27/2012 [facility], BRYON A 47 7.9 RHINITIS 06/27/2012 [facility], BRYON A 78 6.2 COUGH 06/27/2012 RAJOTTE ASSISTANT PLANT MANAGER, TERENCE A 477.9 RHINITIS 06/27/2012 RAJOTTE ASSISTANT PLANT MANAGER, TERENCE A 786.2 COUGH 06/27/2012 RAJOTTE ASSISTANT PLANT MANAGER, TERENCE A 477.9 RHINITIS 06/27/2012 RAJOTTE ASSISTANT PLANT MANAGER, TERENCE A 786.2 COUGH 06/27/2012 RAJOTTE ASSISTANT PLANT MANAGER, TERENCE A 477.9 RHINITIS 06/27/2012 RAJOTTE ASSISTANT PLANT MANAGER, TERENCE A 786.2 COUGH 06/27/2012 RAJOTTE ASSISTANT PLANT MANAGER, TERENCE A 477.9 RHINITIS 06/27/2012 RAJOTTE ASSISTANT PLANT MANAGER, TERENCE A 786.2 COUGH 06/27/2012 LAKSHMI ASSISTANT PLANT MANAGER, LIANNA A 47 7.9 RHINITIS 06/27/2012 LAKSHMI ASSISTANT PLANT MANAGER, LIANNA A 78 6.2 COUGH 06/27/2012 LAKSHMI ASSISTANT PLANT MANAGER, LIANNA A 47 7.9 RHINITIS 06/27/2012 LAKSHMI ASSISTANT PLANT MANAGER, LIANNA A 78 6.2 COUGH 06/27/2012 RAJOTTE ASSISTANT PLANT MANAGER, TERENCE A 477.9 RHINITIS 06/27/2012 RAJOTTE ASSISTANT PLANT MANAGER, TERENCE A 786.2 COUGH 06/27/2012 MERCER ASSISTANT PLANT MANAGER, HEMAL R 477.9 RHINITIS 06/27/2012 MERCER ASSISTANT PLANT MANAGER, HEMAL R 786.2 COUGH 08/22/2012 724.2 BACK PAIN, LOWER 08/22/2012 728.85 MUS BERNA SPASM 08/22/2012 724.2 BACK PAIN, LOWER 08/22/2012 728.85 MUS BERNA SPASM 08/22/2012 724.2 BACK PAIN, LOWER 08/22/2012 728.85 MUS BERNA SPASM 08/22/2012 724.2 BACK PAIN, LOWER 08/22/2012 728.85 MUS BERNA SPASM 08/22/2012 724.2 BACK PAIN, LOWER 08/22/2012 728.85 MUS BERNA SPASM 08/22/2012 724.2 BACK PAIN, LOWER 08/22/2012 728.85 MUS BERNA SPASM 08/22/2012 RAJOTTE ASSISTANT PLANT MANAGER, TERENCE A 724.2 BACK PAIN, LOWER 08/22/2012 RAJOTTE ASSISTANT PLANT MANAGER, TERENCE A 728.85 MUSCLE SPASM 08/22/2012 [facility], BRYON A 72 4.2 BACK PAIN, LOWER 08/22/2012 [facility], BRYON A 728.85 MUSCLE SPASM 08/22/2012 [facility], BRYON A 72 4.2 BACK PAIN, LOWER 08/22/2012 [facility], BRYON A 728.85 MUSCLE SPASM 08/22/2012 RAJOTTE ASSISTANT PLANT MANAGER, TERENCE A 724.2 BACK PAIN, LOWER 08/22/2012 RAJOTTE ASSISTANT PLANT MANAGER, TERENCE A 728.85 MUSCLE SPASM 08/22/2012 [facility], BRYON A 72 4.2 BACK PAIN, LOWER 08/22/2012 [facility], BRYON A 728.85 MUSCLE SPASM 08/22/2012 [facility], BRYON A 72 4.2 BACK PAIN, LOWER 08/22/2012 [facility], BRYON A 728.85 MUSCLE SPASM 08/22/2012 [facility], BRYON A 72 4.2 BACK PAIN, LOWER 08/22/2012 [facility] LSC[facility], BRYON A 728.85 MUSCLE SPASM 08/22/2012 [facility], BRYON A 72 4.2 BACK PAIN, LOWER 08/22/2012 [facility] L[facility], BRYON A 728.85 MUSCLE SPASM 08/22/2012 [facility], BRYON A 72 4.2 BACK PAIN, LOWER 08/22/2012 [facility] LSC[facility], BRYON A 728.85 MUSCLE SPASM 08/22/2012 [facility], BRYON A 72 4.2 BACK PAIN, LOWER 08/22/2012 [facility], BRYON A 728.85 MUSCLE SPASM 08/22/2012 RAJOTTE ASSISTANT [employer]ANT MANAGER, TERENCE A 724.2 BACK PAIN, LOWER 08/22/2012 RAJOTTE ASSISTANT PLANT MANAGER, TERENCE A 728.85 MUSCLE SPASM 08/22/2012 RAJOTTE ASSISTANT PLANT MANAGER, TERECNE A 724.2 BACK PAIN, LOWER 08/22/2012 RAJOTTE ASSISTANT PLANT MANAGER, TERENCE A 728.85 MUSCLE SPASM 08/22/2012 RAJOTTE ASSISTANT PLANT MANAGER, TERENCE A 724.2 BACK PAIN, LOWER 08/22/2012 RAJOTTE ASSISTANT PLANT MANAGER, TERENCE A 728.85 MUSCLE SPASM 08/22/2012 RAJOTTE ASSISTANT PLANT MANAGER, TERENCE A 724.2 BACK PAIN, LOWER 08/22/2012 RAJOTTE ASSISTANT PLANT MANAGER, TERENCE A 728.85 MUSCLE SPASM 08/22/2012 LAKSHMI ASSISTANT PLANT MANAGER, LIANNA A 72 4.2 BACK PAIN, LOWER 08/22/2012 LAKSHMI ASSISTANT PLANT MANAGER, LIANNA A 728.85 MUSCLE SPASM 08/22/2012 [employer]GER, LIANNA A 72 4.2 BACK PAIN, LOWER 08/22/2012 [employer]GER, LIANNA A 728.85 MUSCLE SPASM 08/22/2012 [employer] MANAGER, TERENCE A 724.2 BACK PAIN, LOWER 08/22/2012 [employer] MANAGER, TERENCE A 728.85 MUSCLE SPASM 08/22/2012 MERCER [employer]ISTANT [employer] MANAGER, HEMAL R 724.2 BACK PAIN, LOWER 08/22/2012 HEMAL MERCER APRN R 728.85 MUSCLE SPASM 09/26/2012 626.4 IRRE GULAR MENSTRUAL CYCLE 09/26/2012 626.4 IRRE GULAR MENSTRUAL CYCLE 09/26/2012 626.4 IRRE GULAR MENSTRUAL CYCLE 09/26/2012 626.4 IRRE GULAR MENSTRUAL CYCLE 09/26/2012 626.4 IRRE GULAR MENSTRUAL CYCLE 09/26/2012 AVILA BRICEÑO, TERENCE A 626.4 IRREGULAR MENSTRUAL CYCLE 09/26/2012 SELLERS [facility]SC[facility], BRYON A 62 6.4 IRREGULAR MENSTRUAL CYCLE 09/26/2012 SELLERS [facility]SC[facility], BRYON A 62 6.4 IRREGULAR MENSTRUAL CYCLE 09/26/2012 RAJHENRYE ASSISTANT [employer] MANAGER, TERENCE A 626.4 IRREGULAR MENSTRUAL CYCLE 09/26/2012 SELLERS [facility]SC[facility], BRYON A 62 6.4 IRREGULAR MENSTRUAL CYCLE 09/26/2012 SELLERS [facility]SC[facility], BRYON A 62 6.4 IRREGULAR MENSTRUAL CYCLE 09/26/2012 SELLERS [facility], BRYON A 62 6.4 IRREGULAR MENSTRUAL CYCLE 09/26/2012 SELL[facility], BRYON A 62 6.4 IRREGULAR MENSTRUAL CYCLE 09/26/2012 SELL[facility], BRYON A 62 6.4 IRREGULAR MENSTRUAL CYCLE 09/26/2012 SELLERS [facility]SC[facility], BRYON A 62 6.4 IRREGULAR MENSTRUAL CYCLE 09/26/2012 AVILA ASSISTANT [employer] MANAGER, TERENCE A 626.4 IRREGULAR MENSTRUAL CYCLE 09/26/2012 AVILA BRICEÑO, TERENCE A 626.4 IRREGULAR MENSTRUAL CYCLE 09/26/2012 AVILA BRICEÑO, TERENCE A 626.4 IRREGULAR MENSTRUAL CYCLE 09/26/2012 AVILA BRICEÑO, TERENCE A 626.4 IRREGULAR MENSTRUAL CYCLE 09/26/2012 LAKSHMIMary BRICEÑO LIANNA A 62 6.4 IRREGULAR MENSTRUAL CYCLE 09/26/2012 LAKSHMI [employer]IST[employer] MANAGER, LIANNA A 62 6.4 IRREGULAR MENSTRUAL CYCLE 09/26/2012 AVILA BRICEÑO, TERENCE A 626.4 IRREGULAR MENSTRUAL CYCLE 09/26/2012 HEMAL MERCER APRN R 626.4 IRREGULAR MENSTRUAL CYCLE 12/05/2012 461.9 SINU SITIS ACUTE 12/05/2012 465.9 UPPE R RESPIRATORY INFECTION 12/05/2012 461.9 SINU SITIS ACUTE 12/05/2012 465.9 UPPE R RESPIRATORY INFECTION 12/05/2012 461.9 SINU SITIS ACUTE 12/05/2012 465.9 UPPE R RESPIRATORY INFECTION 12/05/2012 461.9 SINU SITIS ACUTE 12/05/2012 465.9 UPPE R RESPIRATORY INFECTION 12/05/2012 [employer] MA[employer]GER, TERENCE A 461.9 SINUSITIS ACUTE 12/05/2012 [employer] MANAGER, TERENCE A 465.9 UPPER RESPIRATORY INFECTION 12/05/2012 SELLERS [facility]SC[employer], BRYON A 46 1.9 SINUSITIS ACUTE 12/05/2012 SELLERS [facility]SC[facility], BRYON A 46 5.9 UPPER RESPIRATORY INFECTION 12/05/2012 SELLERS [facility]SCS, BRYON A 46 1.9 SINUSITIS ACUTE 12/05/2012 SELLERS [facility]SCS, BRYON A 46 5.9 UPPER RESPIRATORY INFECTION 12/05/2012 [employer] MANAGER, TERENCE A 461.9 SINUSITIS ACUTE 12/05/2012 RAJOT[employer] ASS[employer] MANAGER, TERENCE A 465.9 UPPER RESPIRATORY INFECTION 12/05/2012 SELLERS [facility]SC[facility], BRYON A 46 1.9 SINUSITIS ACUTE 12/05/2012 SELLERS [facility]SC[facility], BRYON A 46 5.9 UPPER RESPIRATORY INFECTION 12/05/2012 SELLERS [facility]SC[facility], BRYON A 46 1.9 SINUSITIS ACUTE 12/05/2012 SELLERS [facility]SCS, BRYON A 46 5.9 UPPER RESPIRATORY INFECTION 12/05/2012 SELLERS LSCS, BRYON A 46 1.9 SINUSITIS ACUTE 12/05/2012 SELLERS LSCS, BRYON A 46 5.9 UPPER RESPIRATORY INFECTION 12/05/2012 SELLERS LSCS, BRYON A 46 1.9 SINUSITIS ACUTE 12/05/2012 SELLERS [facility]SCS, BRYON A 46 5.9 UPPER RESPIRATORY INFECTION 12/05/2012 SELLERS LSCS, BRYON A 46 1.9 SINUSITIS ACUTE 12/05/2012 SELLERS LSCS, BRYON A 46 5.9 UPPER RESPIRATORY INFECTION 12/05/2012 SELLERS LSCS, BRYON A 46 1.9 SINUSITIS ACUTE 12/05/2012 SELLERS LSCS, BRYON A 46 5.9 UPPER RESPIRATORY INFECTION 12/05/2012 [employer] MANAGER, TERENCE A 461.9 SINUSITIS ACUTE 12/05/2012 RAJOTTE ASSIST[employer] MANAGER, TERENCE A 465.9 UPPER RESPIRATORY INFECTION 12/05/2012 RAJOTTE ASSIST[employer] MANAGER, TERENCE A 461.9 SINUSITIS ACUTE 12/05/2012 RAJOTTE ASSIST[employer] MANAGER, TERENCE A 465.9 UPPER RESPIRATORY INFECTION 12/05/2012 RAJOTTE ASSIST[employer] MANAGER, TERENCE A 461.9 SINUSITIS ACUTE 12/05/2012 RAJOTTE ASSIST[employer] MANAGER, TERENCE A 465.9 UPPER RESPIRATORY INFECTION 12/05/2012 RAJOTTE ASSISTANT [employer] MANAGER, TERENCE A 461.9 SINUSITIS ACUTE 12/05/2012 RAJOTTE ASSISTANT [employer] MANAGER, TERENCE A 465.9 UPPER RESPIRATORY INFECTION 12/05/2012 LAKSHMI ASSISTANT [employer] MANAGER, LIANNA A 46 1.9 SINUSITIS ACUTE 12/05/2012 LAKSHMI ASSISTANT [employer] MANAGER, LIANNA A 46 5.9 UPPER RESPIRATORY INFECTION 12/05/2012 LAKHSMI ASSISTANT [employer] MANAGER, LIANNA A 46 1.9 SINUSITIS ACUTE 12/05/2012 LAKSHMI ASSISTANT [employer] MANAGER, LIANNA A 46 5.9 UPPER RESPIRATORY INFECTION 12/05/2012 RAJOTTE ASSISTANT [employer] MANAGER, TERENCE A 461.9 SINUSITIS ACUTE 12/05/2012 RAJOTTE ASSISTANT [employer] MANAGER, TERENCE A 465.9 UPPER RESPIRATORY INFECTION 12/05/2012 MERCER ASSISTANT [employer] MANAGER, HEMAL R 461.9 SINUSITIS ACUTE 12/05/2012 MERCER ASSISTANT [employer] MANAGER, HEMAL R 465.9 UPPER RESPIRATORY INFECTION 01/30/2013 528.00 STO MATITIS AND MUCOSITIS UNSPECIFIED 01/30/2013 528.00 STO MATITIS AND MUCOSITIS UNSPECIFIED 01/30/2013 528.00 STO MATITIS AND MUCOSITIS UNSPECIFIED 01/30/2013 RA[employer]OT[employer] ASSIST[employer] MANAGER, TERENCE A 528.00 STOMATITIS AND MUCOSITIS UNSPECIFIED 01/30/2013 [facility], BRYON A 528.00 STOMATITIS AND MUCOSITIS UNSPECIFIED 01/30/2013 [facility], BRYON A 528.00 STOMATITIS AND MUCOSITIS UNSPECIFIED 01/30/2013 RAJOT[employer] ASSISTANT [employer] MANAGER, TERENCE A 528.00 STOMATITIS AND MUCOSITIS UNSPECIFIED 01/30/2013 [facility], BRYON A 528.00 STOMATITIS AND MUCOSITIS UNSPECIFIED 01/30/2013 [facility], BRYON A 528.00 STOMATITIS AND MUCOSITIS UNSPECIFIED 01/30/2013 [facility], BRYON A 528.00 STOMATITIS AND MUCOSITIS UNSPECIFIED 01/30/2013 SELLERS [facility]SCS, BRYON A 528.00 STOMATITIS AND MUCOSITIS UNSPECIFIED 01/30/2013 SELLERS LSCS, BRYON A 528.00 STOMATITIS AND MUCOSITIS UNSPECIFIED 01/30/2013 SELLERS LSCS, BRYON A 528.00 STOMATITIS AND MUCOSITIS UNSPECIFIED 01/30/2013 RAJOTTE ASSISTANT PLANT MANAGER, TERENCE A 528.00 STOMATITIS AND MUCOSITIS UNSPECIFIED 01/30/2013 RAJOTTE ASSISTANT PLANT MANAGER, TERENCE A 528.00 STOMATITIS AND MUCOSITIS UNSPECIFIED 01/30/2013 RAJOTTE ASSISTANT PLANT MANAGER, TERENCE A 528.00 STOMATITIS AND MUCOSITIS UNSPECIFIED 01/30/2013 RAJOTTE ASSISTANT PLANT MANAGER, TERENCE A 528.00 STOMATITIS AND MUCOSITIS UNSPECIFIED 01/30/2013 LAKSHMI ASSISTANT PLANT MANAGER, LIANNA A 528.00 STOMATITIS AND MUCOSITIS UNSPECIFIED 01/30/2013 LAKSHMI ASSISTANT PLANT MANAGER, LIANNA A 528.00 STOMATITIS AND MUCOSITIS UNSPECIFIED 01/30/2013 RAJOTTE ASSISTANT PLANT MANAGER, TERENCE A 528.00 STOMATITIS AND MUCOSITIS UNSPECIFIED 01/30/2013 MERCER ASSISTANT PLANT MANAGER, HEMAL R 528.00 STOMATITIS AND MUCOSITIS UNSPECIFIED 07/09/2013 729.5 PAIN IN LIMB 07/09/2013 959.4 OTHE R AND UNSPECIFIED INJURY TO HAND EXCEPT FINGER 07/09/2013 E917.4 STR IKING AGAINST OR STRUCK ACCIDENTALLY BY OTHER STATIONARY OBJECT WITHOUT SUBSEQUENT FALL 07/09/2013 RAJOTTE ASSISTANT PLANT MANAGER, TERENCE A 729.5 PAIN IN LIMB 07/09/2013 RAJOTTE ASSISTANT PLANT MANAGER, TERENCE A 959.4 OTHER AND UNSPECIFIED INJURY TO HAND EXCEPT FINGER 07/09/2013 RAJOTTE ASSISTANT PLANT MANAGER, TERENCE A E917.4 STRIKING AGAINST OR STRUCK ACCIDENTALLY BY OTHER STATIONARY OBJECT WITHOUT SUBSEQUENT FALL 07/09/2013 SELLERS LSCS, BRYON A 72 9.5 PAIN IN LIMB 07/09/2013 SELLERS LSCS, BRYON A 95 9.4 OTHER AND UNSPECIFIED INJURY TO HAND EXCEPT FINGER 07/09/2013 SELLERS LSCS, BRYON A E917.4 STRIKING AGAINST OR STRUCK ACCIDENTALLY BY OTHER STATIONARY OBJECT WITHOUT SUBSEQUENT FALL 07/09/2013 SELLERS LSCS, BRYON A 72 9.5 PAIN IN LIMB 07/09/2013 SELLERS LSCS, BRYON A 95 9.4 OTHER AND UNSPECIFIED INJURY TO HAND EXCEPT FINGER 07/09/2013 SELLERS LSCS, BRYON A E917.4 STRIKING AGAINST OR STRUCK ACCIDENTALLY BY OTHER STATIONARY OBJECT WITHOUT SUBSEQUENT FALL 07/09/2013 RAJOTTE ASSISTANT PLANT MANAGER, TERENCE A 729.5 PAIN IN LIMB 07/09/2013 RAJOTTE ASSISTANT PLANT MANAGER, TERENCE A 959.4 OTHER AND UNSPECIFIED INJURY TO HAND EXCEPT FINGER 07/09/2013 RAJOTTE ASSISTANT PLANT MANAGER, TERENCE A E917.4 STRIKING AGAINST OR STRUCK ACCIDENTALLY BY OTHER STATIONARY OBJECT WITHOUT SUBSEQUENT FALL 07/09/2013 SELLERS LSCS, BRYON A 72 9.5 PAIN IN LIMB 07/09/2013 SELLERS LSCS, BRYON A 95 9.4 OTHER AND UNSPECIFIED INJURY TO HAND EXCEPT FINGER 07/09/2013 SELLERS LSCS, BRYON A E917.4 STRIKING AGAINST OR STRUCK ACCIDENTALLY BY OTHER STATIONARY OBJECT WITHOUT SUBSEQUENT FALL 07/09/2013 SELLERS LSCS, BRYON A 72 9.5 PAIN IN LIMB 07/09/2013 SELLERS LSCS, BRYON A 95 9.4 OTHER AND UNSPECIFIED INJURY TO HAND EXCEPT FINGER 07/09/2013 SELLERS LSCS, BRYON A E917.4 STRIKING AGAINST OR STRUCK ACCIDENTALLY BY OTHER STATIONARY OBJECT WITHOUT SUBSEQUENT FALL 07/09/2013 SELLERS LSCS, BRYON A 72 9.5 PAIN IN LIMB 07/09/2013 SELLERS LSCS, BRYON A 95 9.4 OTHER AND UNSPECIFIED INJURY TO HAND EXCEPT FINGER 07/09/2013 SELLERS LSCS, BRYON A E917.4 STRIKING AGAINST OR STRUCK ACCIDENTALLY BY OTHER STATIONARY OBJECT WITHOUT SUBSEQUENT FALL 07/09/2013 SELLERS LSCS, BRYON A 72 9.5 PAIN IN LIMB 07/09/2013 SELLERS LSCS, BRYON A 95 9.4 OTHER AND UNSPECIFIED INJURY TO HAND EXCEPT FINGER 07/09/2013 SELLERS LSCS, BRYON A E917.4 STRIKING AGAINST OR STRUCK ACCIDENTALLY BY OTHER STATIONARY OBJECT WITHOUT SUBSEQUENT FALL 07/09/2013 SELLERS LSCS, BRYON A 72 9.5 PAIN IN LIMB 07/09/2013 SELLERS LSCS, BRYON A 95 9.4 OTHER AND UNSPECIFIED INJURY TO HAND EXCEPT FINGER 07/09/2013 SELLERS LSCS, BRYON A E917.4 STRIKING AGAINST OR STRUCK ACCIDENTALLY BY OTHER STATIONARY OBJECT WITHOUT SUBSEQUENT FALL 07/09/2013 SELLERS LSCS, BRYON A 72 9.5 PAIN IN LIMB 07/09/2013 SELLERS LSCS, BRYON A 95 9.4 OTHER AND UNSPECIFIED INJURY TO HAND EXCEPT FINGER 07/09/2013 SELLERS LSCS, BRYON A E917.4 STRIKING AGAINST OR STRUCK ACCIDENTALLY BY OTHER STATIONARY OBJECT WITHOUT SUBSEQUENT FALL 07/09/2013 RAJOTTE ASSISTANT PLANT MANAGER, TERENCE A 729.5 PAIN IN LIMB 07/09/2013 RAJOTTE ASSISTANT PLANT MANAGER, TERENCE A 959.4 OTHER AND UNSPECIFIED INJURY TO HAND EXCEPT FINGER 07/09/2013 RAJOTTE ASSISTANT PLANT MANAGER, TERENCE A E917.4 STRIKING AGAINST OR STRUCK ACCIDENTALLY BY OTHER STATIONARY OBJECT WITHOUT SUBSEQUENT FALL 07/09/2013 RAJOTTE ASSISTANT PLANT MANAGER, TERENCE A 729.5 PAIN IN LIMB 07/09/2013 RAJOTTE ASSISTANT PLANT MANAGER, TERENCE A 959.4 OTHER AND UNSPECIFIED INJURY TO HAND EXCEPT FINGER 07/09/2013 RAJOTTE ASSISTANT PLANT MANAGER, TERENCE A E917.4 STRIKING AGAINST OR STRUCK ACCIDENTALLY BY OTHER STATIONARY OBJECT WITHOUT SUBSEQUENT FALL 07/09/2013 RAJOTTE ASSISTANT PLANT MANAGER, TERENCE A 729.5 PAIN IN LIMB 07/09/2013 RAJOTTE ASSISTANT PLANT MANAGER, TERENCE A 959.4 OTHER AND UNSPECIFIED INJURY TO HAND EXCEPT FINGER 07/09/2013 RAJOTTE ASSISTANT PLANT MANAGER, TERENCE A E917.4 STRIKING AGAINST OR STRUCK ACCIDENTALLY BY OTHER STATIONARY OBJECT WITHOUT SUBSEQUENT FALL 07/09/2013 RAJOTTE ASSISTANT PLANT MANAGER, TERENCE A 729.5 PAIN IN LIMB 07/09/2013 RAJOTTE ASSISTANT PLANT MANAGER, TERENCE A 959.4 OTHER AND UNSPECIFIED INJURY TO HAND EXCEPT FINGER 07/09/2013 RAJOTTE ASSISTANT PLANT MANAGER, TERENCE A E917.4 STRIKING AGAINST OR STRUCK ACCIDENTALLY BY OTHER STATIONARY OBJECT WITHOUT SUBSEQUENT FALL 07/09/2013 LAKSHMI ASSISTANT PLANT MANAGER, LIANNA A 72 9.5 PAIN IN LIMB 07/09/2013 LAKSHMI ASSISTANT PLANT MANAGER, LIANNA A 95 9.4 OTHER AND UNSPECIFIED INJURY TO HAND EXCEPT FINGER 07/09/2013 LAKSHMI ASSISTANT PLANT MANAGER, LIANNA A E917.4 STRIKING AGAINST OR STRUCK ACCIDENTALLY BY OTHER STATIONARY OBJECT WITHOUT SUBSEQUENT FALL 07/09/2013 LAKSHMI ASSISTANT PLANT MANAGER, LIANNA A 72 9.5 PAIN IN LIMB 07/09/2013 LAKSHMI ASSISTANT PLANT MANAGER, LIANNA A 95 9.4 OTHER AND UNSPECIFIED INJURY TO HAND EXCEPT FINGER 07/09/2013 LAKSHMI ASSISTANT PLANT MANAGER, LIANNA A E917.4 STRIKING AGAINST OR STRUCK ACCIDENTALLY BY OTHER STATIONARY OBJECT WITHOUT SUBSEQUENT FALL 07/09/2013 RAJOTTE ASSISTANT PLANT MANAGER, TERENCE A 729.5 PAIN IN LIMB 07/09/2013 RAJOTTE ASSISTANT PLANT MANAGER, TERENCE A 959.4 OTHER AND UNSPECIFIED INJURY TO HAND EXCEPT FINGER 07/09/2013 RAJOTTE ASSISTANT PLANT MANAGER, TERENCE A E917.4 STRIKING AGAINST OR STRUCK ACCIDENTALLY BY OTHER STATIONARY OBJECT WITHOUT SUBSEQUENT FALL 07/09/2013 MERCER ASSISTANT PLANT MANAGER, HEMAL R 729.5 PAIN IN LIMB 07/09/2013 MERCER ASSISTANT PLANT MANAGER, HEMAL R 959.4 OTHER AND UNSPECIFIED INJURY TO HAND EXCEPT FINGER 07/09/2013 MERCER ASSISTANT PLANT MANAGER, HEMAL R E917.4 STRIKING AGAINST OR STRUCK ACCIDENTALLY BY OTHER STATIONARY OBJECT WITHOUT SUBSEQUENT FALL 07/30/2013 RAJOTTE ASSISTANT PLANT MANAGER, TERENCE A 278.00 OBESITY 07/30/2013 RAJOTTE ASSISTANT PLANT MANAGER, TERENCE A 296.90 MOOD DISORDER 07/30/2013 RAJOTTE ASSISTANT PLANT MANAGER, TERENCE A 799.22 IRRITIBILITY 07/30/2013 RAJOTTE ASSISTANT PLANT MANAGER, TERENCE A V69.2 HIGH-RISK SEXUAL BEHAVIOR 07/30/2013 SELLERS LSCS, BRYON A 278.00 OBESITY 07/30/2013 SELLERS LSCS, BRYON A 296.90 MOOD DISORDER 07/30/2013 SELLERS LSCS, BRYON A 799.22 IRRITIBILITY 07/30/2013 SELLERS LSCS, BRYON A V6 9.2 HIGH-RISK SEXUAL BEHAVIOR 07/30/2013 SELLERS LSCS, BRYON A 278.00 OBESITY 07/30/2013 SELLERS LSCS, BRYON A 296.90 MOOD DISORDER 07/30/2013 SELLERS LSCS, BRYON A 799.22 IRRITIBILITY 07/30/2013 SELLERS LSCS, BRYON A V6 9.2 HIGH-RISK SEXUAL BEHAVIOR 07/30/2013 RAJOTTE ASSISTANT PLANT MANAGER, TERENCE A 278.00 OBESITY 07/30/2013 RAJOTTE ASSISTANT PLANT MANAGER, TERENCE A 296.90 MOOD DISORDER 07/30/2013 RAJOTTE ASSISTANT PLANT MANAGER, TERENCE A 799.22 IRRITIBILITY 07/30/2013 RAJOTTE ASSISTANT PLANT MANAGER, TERENCE A V69.2 HIGH-RISK SEXUAL BEHAVIOR 07/30/2013 SELLERS LSCS, BRYON A 278.00 OBESITY 07/30/2013 SELLERS LSCS, BRYON A 296.90 MOOD DISORDER 07/30/2013 SELLERS LSCS, BRYON A 799.22 IRRITIBILITY 07/30/2013 SELLERS LSCS, BRYON A V6 9.2 HIGH-RISK SEXUAL BEHAVIOR 07/30/2013 SELLERS LSCS, BRYON A 278.00 OBESITY 07/30/2013 SELLERS LSCS, BRYON A 296.90 MOOD DISORDER 07/30/2013 SELLERS LSCS, BRYON A 799.22 IRRITIBILITY 07/30/2013 SELLERS LSCS, BRYON A V6 9.2 HIGH-RISK SEXUAL BEHAVIOR 07/30/2013 SELLERS LSCS, BRYON A 278.00 OBESITY 07/30/2013 SELLERS LSCS, BRYON A 296.90 MOOD DISORDER 07/30/2013 SELLERS LSCS, BRYON A 799.22 IRRITIBILITY 07/30/2013 SELLERS LSCS, BRYON A V6 9.2 HIGH-RISK SEXUAL BEHAVIOR 07/30/2013 SELLERS LSCS, BRYON A 278.00 OBESITY 07/30/2013 SELLERS LSCS, BRYON A 296.90 MOOD DISORDER 07/30/2013 SELLERS LSCS, BRYON A 799.22 IRRITIBILITY 07/30/2013 SELLERS LSCS, BRYON A V6 9.2 HIGH-RISK SEXUAL BEHAVIOR 07/30/2013 SELLERS LSCS, BRYON A 278.00 OBESITY 07/30/2013 SELLERS LSCS, BRYON A 296.90 MOOD DISORDER 07/30/2013 SELLERS LSCS, BRYON A 799.22 IRRITIBILITY 07/30/2013 SELLERS LSCS, BRYON A V6 9.2 HIGH-RISK SEXUAL BEHAVIOR 07/30/2013 SELLERS LSCS, BRYON A 278.00 OBESITY 07/30/2013 SELLERS LSCS, BRYON A 296.90 MOOD DISORDER 07/30/2013 SELLERS LSCS, BRYON A 799.22 IRRITIBILITY 07/30/2013 SELLERS LSCS, BRYON A V6 9.2 HIGH-RISK SEXUAL BEHAVIOR 07/30/2013 RAJHENRYE ASSISTANT PLANT MANAGER TERENCE A 278.00 OBESITY 07/30/2013 RAJARMANDO SERRANON TERENCE A 296.90 MOOD DISORDER 07/30/2013 RAJOTTE ASSISTANT PLANT MANAGER, TERENCE A 799.22 IRRITIBILITY 07/30/2013 RAJOTTE ASSISTANT PLANT MANAGER, TERENCE A V69.2 HIGH-RISK SEXUAL BEHAVIOR 07/30/2013 RAJOTTE ASSISTANT PLANT MANAGER, TERENCE A 278.00 OBESITY 07/30/2013 RAJOTTE ASSISTANT PLANT MANAGER, TERENCE A 296.90 MOOD DISORDER 07/30/2013 RAJOTTE ASSISTANT PLANT MANAGER, TERENCE A 799.22 IRRITIBILITY 07/30/2013 RAJOTTE ASSISTANT PLANT MANAGER, TERENCE A V69.2 HIGH-RISK SEXUAL BEHAVIOR 07/30/2013 RAJOTTE ASSISTANT PLANT MANAGER, TERENCE A 278.00 OBESITY 07/30/2013 RAJOTTE ASSISTANT PLANT MANAGER, TERENCE A 296.90 MOOD DISORDER 07/30/2013 RAJOTTE ASSISTANT PLANT MANAGER, TERENCE A 799.22 IRRITIBILITY 07/30/2013 RAJOTTE ASSISTANT PLANT MANAGER, TERENCE A V69.2 HIGH-RISK SEXUAL BEHAVIOR 07/30/2013 RAJOTTE ASSISTANT PLANT MANAGER, TERENCE A 278.00 OBESITY 07/30/2013 RAJOTTE ASSISTANT PLANT MANAGER, TERENCE A 296.90 MOOD DISORDER 07/30/2013 RAJOTTE ASSISTANT PLANT MANAGER, TERENCE A 799.22 IRRITIBILITY 07/30/2013 RAJOTTE ASSISTANT PLANT MANAGER, TERENCE A V69.2 HIGH-RISK SEXUAL BEHAVIOR 07/30/2013 LAKSHMI ASSISTANT PLANT MANAGER, LIANNA A 278.00 OBESITY 07/30/2013 LAKSHMI ASSISTANT PLANT MANAGER, LIANNA A 296.90 MOOD DISORDER 07/30/2013 LAKSHMI ASSISTANT PLANT MANAGER, LIANNA A 799.22 IRRITIBILITY 07/30/2013 LAKSHMI ASSISTANT PLANT MANAGER, LIANNA A V6 9.2 HIGH-RISK SEXUAL BEHAVIOR 07/30/2013 LAKSHMI ASSISTANT PLANT MANAGER, LIANNA A 278.00 OBESITY 07/30/2013 LAKSHMI ASSISTANT PLANT MANAGER, LIANNA A 296.90 MOOD DISORDER 07/30/2013 LAKSHMI ASSISTANT PLANT MANAGER, LIANNA A 799.22 IRRITIBILITY 07/30/2013 LAKSHMI ASSISTANT PLANT MANAGER, LIANNA A V6 9.2 HIGH-RISK SEXUAL BEHAVIOR 07/30/2013 RAJOTTE ASSISTANT PLANT MANAGER, TERENCE A 278.00 OBESITY 07/30/2013 RAJOTTE ASSISTANT PLANT MANAGER, TERENCE A 296.90 MOOD DISORDER 07/30/2013 RAJOTTE ASSISTANT PLANT MANAGER, TERENCE A 799.22 IRRITIBILITY 07/30/2013 RAJOTTE ASSISTANT PLANT MANAGER, TERENCE A V69.2 HIGH-RISK SEXUAL BEHAVIOR 07/30/2013 IAM MERCER APRNRICIA R 278.00 OBESITY 07/30/2013 SYLVIE ASSISTANT PLANT MANAGER, HEMAL R 296.90 MOOD DISORDER 07/30/2013 SYLVIE ASSISTANT PLANT MANAGER, HEMAL R 799.22 IRRITIBILITY 07/30/2013 IAM MERCER APRNRICIA R V69.2 HIGH-RISK SEXUAL BEHAVIOR 08/20/2013 RAJOTTE ASSISTANT PLANT MANAGER, TERENCE A 789.00 ABDOMINAL PAIN UNSPECIFIED SITE 08/20/2013 SELLERS LSCS, BRYON A 789.00 ABDOMINAL PAIN UNSPECIFIED SITE 08/20/2013 SELLERS LSCS, BRYON A 789.00 ABDOMINAL PAIN UNSPECIFIED SITE 08/20/2013 SELLERS LSCS, BRYON A 789.00 ABDOMINAL PAIN UNSPECIFIED SITE 08/20/2013 SELLERS LSCS, BRYON A 789.00 ABDOMINAL PAIN UNSPECIFIED SITE 08/20/2013 SELLERS LSCS, BRYON A 789.00 ABDOMINAL PAIN UNSPECIFIED SITE 08/20/2013 SELLERS LSCS, BRYON A 789.00 ABDOMINAL PAIN UNSPECIFIED SITE 08/20/2013 RAJOTTE ASSISTANT PLANT MANAGER, TERENCE A 789.00 ABDOMINAL PAIN UNSPECIFIED SITE 08/20/2013 RAJOTTE ASSISTANT PLANT MANAGER, TERENCE A 789.00 ABDOMINAL PAIN UNSPECIFIED SITE 08/20/2013 RAJOTTE ASSISTANT PLANT MANAGER, TERENCE A 789.00 ABDOMINAL PAIN UNSPECIFIED SITE 08/20/2013 RAJOTTE ASSISTANT PLANT MANAGER, TERENCE A 789.00 ABDOMINAL PAIN UNSPECIFIED SITE 08/20/2013 LAKSHMI ASSISTANT PLANT MANAGER, LIANNA A 789.00 ABDOMINAL PAIN UNSPECIFIED SITE 08/20/2013 LAKSHMI ASSISTANT PLANT MANAGER, LIANNA A 789.00 ABDOMINAL PAIN UNSPECIFIED SITE 08/20/2013 RAJOTTE ASSISTANT PLANT MANAGER, TERENCE A 789.00 ABDOMINAL PAIN UNSPECIFIED SITE 08/20/2013 IAM MERCER APRNRICIA R 789.00 ABDOMINAL PAIN UNSPECIFIED SITE 02/11/2014 RAJOTTE ASSISTANT PLANT MANAGER, TERENCE A 620.2 OVARIAN CYST 02/11/2014 RAJOTTE ASSISTANT PLANT MANAGER, TERENCE A 789.03 ABDOMINAL PAIN RIGHT LOWER QUADRANT 02/11/2014 RAJOTTE ASSISTANT PLANT MANAGER, TERENCE A V25.09 CONTRACEPTIVE COUNSELING - GENERAL 02/11/2014 CRISPINOTTE ASSISTANT PLANT MANAGER, TERENCE A 620.2 OVARIAN CYST 02/11/2014 RAJOTTE ASSISTANT PLANT MANAGER, TERENCE A 789.03 ABDOMINAL PAIN RIGHT LOWER QUADRANT 02/11/2014 RAJOTTE ASSISTANT PLANT MANAGER, TERENCE A V25.09 CONTRACEPTIVE COUNSELING - GENERAL 02/11/2014 RAJOTTE ASSISTANT PLANT MANAGER, TERENCE A 620.2 OVARIAN CYST 02/11/2014 RAJOTTE ASSISTANT PLANT MANAGER, TERENCE A 789.03 ABDOMINAL PAIN RIGHT LOWER QUADRANT 02/11/2014 RAJOTTE ASSISTANT PLANT MANAGER, TERENCE A V25.09 CONTRACEPTIVE COUNSELING - GENERAL 02/11/2014 CRISPINOTTE ASSISTANT PLANT MANAGER, TERENCE A 620.2 OVARIAN CYST 02/11/2014 RAJHENRYE ASSISTANT PLANT MANAGER, TERENCE A 789.03 ABDOMINAL PAIN RIGHT LOWER QUADRANT 02/11/2014 JAGDEEPE ASSISTANT PLANT MANAGER, TERENCE A V25.09 CONTRACEPTIVE COUNSELING - GENERAL 02/11/2014 LAKSHMI ASSISTANT PLANT MANAGER, LIANNA A 62 0.2 OVARIAN CYST 02/11/2014 LAKSHMI ASSISTANT PLANT MANAGER, LIANNA A 789.03 ABDOMINAL PAIN RIGHT LOWER QUADRANT 02/11/2014 LAKSHMI ASSISTANT PLANT MANAGER, LIANNA A V25.09 CONTRACEPTIVE COUNSELING - GENERAL 02/11/2014 LAKSHMI ASSISTANT PLANT MANAGER, LIANNA A 62 0.2 OVARIAN CYST 02/11/2014 LAKSHMI ASSISTANT PLANT MANAGER, LIANNA A 789.03 ABDOMINAL PAIN RIGHT LOWER QUADRANT 02/11/2014 LAKSHMI ASSISTANT PLANT MANAGER, LIANNA A V25.09 CONTRACEPTIVE COUNSELING - GENERAL 02/11/2014 AVILA ASSISTANT PLANT MANAGER, TERENCE A 620.2 OVARIAN CYST 02/11/2014 AVILA SERRANON, TERENCE A 789.03 ABDOMINAL PAIN RIGHT LOWER QUADRANT 02/11/2014 AVILA ASSISTANT PLANT MANAGER, TERENCE A V25.09 CONTRACEPTIVE COUNSELING - GENERAL 02/11/2014 MERCER ASSISTANT PLANT MANAGER, HEMAL R 620.2 OVARIAN CYST 02/11/2014 MERCER ASSISTANT PLANT MANAGER, HEMAL R 789.03 ABDOMINAL PAIN RIGHT LOWER QUADRANT 02/11/2014 MERCER ASSISTANT PLANT MANAGER, HEMAL R V25.09 CONTRACEPTIVE COUNSELING - GENERAL 05/19/2014 MAI JOHANSEN, PEE T Ot 564.00 UNSPEC CONSTIPATION 05/19/2014 MAI JOHANSEN, PEE No Ot 787.01 NAUSEA WITH VOMITING 05/19/2014 MAI JOHANSEN, PEE No Ot 789.00 ABDOMINAL PAIN, UNSPECIFIED SITE 07/01/2014 RAJOTTE ASSISTANT PLANT MANAGER, TERENCE A 536.8 DYSPEPSIA 07/01/2014 RAJOTTE ASSISTANT PLANT MANAGER, TERENCE A 536.8 DYSPEPSIA 07/01/2014 RAJOTTE ASSISTANT PLANT MANAGER, TERENCE A 536.8 DYSPEPSIA 07/01/2014 LAKSHMI ASSISTANT PLANT MANAGER, LIANNA A 53 6.8 DYSPEPSIA 07/01/2014 LAKSHMI ASSISTANT PLANT MANAGER, LIANNA A 53 6.8 DYSPEPSIA 07/01/2014 RAJOTTE ASSISTANT PLANT MANAGER, TERENCE A 536.8 DYSPEPSIA 07/01/2014 IAM MERCER APRNRICIA R 536.8 DYSPEPSIA 08/05/2014 RAJOTTE ASSISTANT PLANT MANAGER, TERENCE A V74.1 TB SCREENING 08/05/2014 LAKSHMI ASSISTANT PLANT MANAGER, LIANNA A V7 4.1 TB SCREENING 08/05/2014 LAKSHMI ASSISTANT PLANT MANAGER, LIANNA A V7 4.1 TB SCREENING 08/05/2014 CRISPINOTTE ASSISTANT PLANT MANAGER, TERENCE A V74.1 TB SCREENING 08/05/2014 IAM MERCER APRNRICIA R V74.1 TB SCREENING 09/29/2014 LAKSHMI ASSISTANT PLANT MANAGER, LIANNA A V2 5.5 IMPLANON INSERTION 09/29/2014 CRISPINOTTE ASSISTANT PLANT MANAGER, TERENCE A V25.5 IMPLANON INSERTION 09/29/2014 SYLVIE BRICEÑO HEMAL R V25.5 IMPLANON INSERTION 10/28/2014 JAGDEEPE ASSISTANT PLANT MANAGER, TERENCE A 733.6 COSTOCHONDRITIS 10/28/2014 SYLVIE BRICEÑO HEMAL R 733.6 COSTOCHONDRITIS 11/11/2014 SYLVIE BRICEÑO HEMAL R 487.1 INFLUENZA 04/16/2018 CRISPINHENRYTERENCE Tim A SENIOR PORTFOLIO MANAGER Ot 620.2 OVARIAN CYST NEC/NOS 04/16/2018 JAGDEEPRACHEL TimYL A SENIOR PORTFOLIO MANAGER Ot 620.2 OVARIAN CYST NEC/NOS 04/16/2018 SARITA RODRIGUEZ SENIOR PORTFOLIO MANAGER Ot F41.9 ANXIETY DISORDER, UNSPECIFIED 04/16/2018 SARITA RODRIGUEZ SENIOR PORTFOLIO MANAGER Ot Z87.42 PERSONAL HISTORY OF OTH DISEASES OF THE 04/16/2018 CRISPINARMANDO TERENCE A SENIOR PORTFOLIO MANAGER Ot 620.2 OVARIAN CYST NEC/NOS 04/17/2018 JENNIFER, SARITA SENIOR PORTFOLIO MANAGER Ot F41.9 ANXIETY DISORDER, UNSPECIFIED 04/17/2018 JENNIFER SARITA SENIOR PORTFOLIO MANAGER Ot Z87.42 PERSONAL HISTORY OF OTH DISEASES OF THE 07/09/2018 TERENCE GRAMAJO SENIOR PORTFOLIO MANAGER Ot 620.2 OVARIAN CYST NEC/NOS 01/29/2019 ETHEL DE JESUS APRN Ot F41 .9 ANXIETY DISORDER, UNSPECIFIED 01/29/2019 ETHEL DE JESUS APRN Ot S61.011A LACERATION W/O FB OF RIGHT THUMB W/O DAM 01/29/2019 ETHEL DE JESUS APRN Ot W26.8XXA CONTACT WITH OTHER SHARP OBJECT(S), NEC, 01/29/2019 ETHEL DE JESUS APRN Ot Z23 ENCOUNTER FOR IMMUNIZATION 01/29/2019 ETHEL DE JESUS APRN Ot Z87.448 PERSONAL HISTORY OF OTHER DISEASES OF UR 01/29/2019 TERENCE GRAMAJO SENIOR PORTFOLIO MANAGER Ot 620.2 OVARIAN CYST NEC/NOS 01/31/2019 ETHEL DE JESUS APRN Ot F41 .9 ANXIETY DISORDER, UNSPECIFIED 01/31/2019 ETHEL DE JESUS APRN Ot S61.011A LACERATION W/O FB OF RIGHT THUMB W/O DAM 01/31/2019 ETHEL DE JESUS APRN Ot W26.8XXA CONTACT WITH OTHER SHARP OBJECT(S), NEC, 01/31/2019 ETHEL DE JESUS APRN Ot Z23 ENCOUNTER FOR IMMUNIZATION 01/31/2019 ETHEL DE JESUS APRN Ot Z87.448 PERSONAL HISTORY OF OTHER DISEASES OF UR 02/27/2019 MANOJ GUEVARA APRN Ot R10.2 PELVIC AND PERINEAL PAIN 03/20/2019 MANOJ GUEVARA ASSISTANT PLANT MANAGER Ot R10.2 PELVIC AND PERINEAL PAIN 03/08/2020 ETHEL DE JESUS APRN Ot F41 .9 ANXIETY DISORDER, UNSPECIFIED 03/08/2020 ETHEL DE JESUS APRN Ot S51.812A LACERATION WITHOUT FOREIGN BODY OF LEFT 03/08/2020 ETHEL DE JESUS APRN Ot W26.0XXA CONTACT WITH KNIFE, INITIAL ENCOUNTER Procedures Code Description [place] [address] URIN E TEST (IN- HOUSE) 09/26/2012 22804 VISU AL ACUITY SCREEN 06/03/2013 90112 XRAY HAND RIGHT MIN 3 VIEWS 07/09/2013 45262 UA L JERZY DIP 07/30/2013 42603 URIN E TEST (IN- HOUSE) 07/30/2013 42390 PSYT X PT&/FAMILY 45 MINUTES 08/12/2013 61089 PSYC H DIAGNOSTIC EVALUATION 08/18/2013 14080 PSYT X PT&/FAMILY 30 MINUTES 08/18/2013 65456 US A BDOMINAL ULTRASOUND, COMPLETE 08/25/2013 14480 US P ELVIC COMPL (REFLEX CPT- 08145) 08/25/2013 20392 PSYT X PT&/FAMILY 45 MINUTES 08/29/2013 27738 PSYT X PT&/FAMILY 45 MINUTES 09/08/2013 80893 PSYT X PT&/FAMILY 45 MINUTES 09/16/2013 22874 PSYT X PT&/FAMILY 45 MINUTES 10/01/2013 94600 PSYT X PT&/FAMILY 30 MINUTES 11/03/2013 38230 PSYT X PT&/FAMILY 30 MINUTES 11/25/2013 Obstetric Seals, Cecil 02/11/2014 43523 TB T EST INTRADERMAL 08/05/2014 44847 PREG VANNESSA TEST, URINE (IN- HOUSE) 08/20/2014 12703 IMPL ANON INSERTION 09/29/2014 16917 PREG VANNESSA TEST, URINE (IN- HOUSE) 09/29/2014 08723 INFL UENZA A & B (IN-HOUSE) 11/11/2014 Results Test Result Range Comp. Metabolic Panel (14) - 10/10/16 09 :50 Glucose, Serum 85 mg/dL 65-99 BUN 9 mg/dL 6-20 Creatinine, Serum 0.74 mg/dL 0.57-1.00 eGFR If NonAfricn Am 119 mL/min/1.73 >59 eGFR If Africn Am 137 mL/min/1.73 >5 9 BUN/Creatinine Ratio 12 8-20 Sodium, Serum 139 mmol/L 134-144 Potassium, Serum 4.5 mmol/L 3.5-5.2 Chloride, Serum 98 mmol/L 96-106 Carbon Dioxide, Total 24 mmol/L 18-29 Calcium, Serum 9.5 mg/dL 8.7-10.2 Protein, Total, Serum 7.2 g/dL 6.0-8.5 Albumin, Serum 4.0 g/dL 3.5-5.5 Globulin, Total 3.2 g/dL 1.5-4.5 A/G Ratio 1.3 1.1-2.5 Bilirubin, Total 0.3 mg/dL 0.0-1.2 Alkaline Phosphatase, S 92 IU/L 43-101 AST (SGOT) 18 IU/L 0-40 ALT (SGPT) 21 IU/L 0-32 Lipid Panel - 10/10/16 09:50 Cholesterol, Total 166 mg/dL 100-169 Triglycerides 129 mg/dL 0-89 HDL Cholesterol 32 mg/dL >39 VLDL Cholesterol Edy 26 mg/dL 5-40 LDL Cholesterol Calc 108 mg/dL 0-109 Hemoglobin A1c - 10/10/16 09:50 Hemoglobin A1c 5.4 % 4.8-5.6 Thyroid [place] Profile - 10/10/16 09:50 TSH 5.760 uIU/mL 0.450-4.500 Thyroxine (T4) Free, Direct, S - 6 09:50 T4,Free (Direct) 1.00 ng/dL 0.82-1.77 Thyroid Peroxidase (TPO) Ab - 10/10/16 0 9:50 Thyroid Peroxidase (TPO) Ab 9 IU/mL 0- 34 Interpretive Comment Comment CULTURE, URINE - 07/02/18 16:23 CULTURE, URINE, ROUTINE SEE NOTE NRG GC/CHLAMYDIA (SWAB OR URINE)-RAPID - 13:37 CHLAMYDIA TRACHOMATIS RNA, TMA NOT DETECTED NOT DETECTED NEISSERIA GONORRHOEAE RNA, TMA NOT DETECTED NOT DETECTED COMMENT NRG CULTURE, URINE - 01/04/19 13:37 CULTURE, URINE, ROUTINE SEE NOTE NRG GC/CHLAMYDIA (SWAB OR URINE)-RAPID - 11/09 16:29 CHLAMYDIA TRACHOMATIS RNA, TMA NOT DETECTED NOT DETECTED NEISSERIA GONORRHOEAE RNA, TMA NOT DETECTED NOT DETECTED COMMENT NRG TESTOSTERONE, TOTAL (WOMEN, CHILDREN, HY POGONADAL MALES) - 07/01/19 10:25 TESTOSTERONE, TOTAL, LC/MS/MS 61 ng/dL 2-45 FREE TESTOSTERONE 6.2 pg/mL 0.1-6.4 VITAMIN D, 25-H - 11/07/19 11:48 VITAMIN D,25-OH,TOTAL,IA 16 ng/mL 30-10 0 TEST, SERUM (QUAL) - 02/19/20 17:42 HCG, TOTAL, QL NEGATIVE See Note: Encounters ACCT No. Visit Date/Time Discharge Status Pt. Type Provider Facility Loc./Unit Complaint [id number] 11/11/2014 12:43:00 11/11/2014 23:59: 59 CLS Outpatient HEMAL MERCER APRN [id number] 10/28/2014 14:15:00 10/28/2014 23:59: 59 CLS Outpatient TERENCE GRAMAJO APRN [id number] 09/29/2014 15:50:00 09/29/2014 23:59: 59 CLS Outpatient LIANNA MARTINS APRN [id number] 08/20/2014 14:28:00 08/20/2014 23:59: 59 CLS Outpatient LIANNA MARTINS APRN [id number] 08/05/2014 10:41:00 08/05/2014 23:59: 59 CLS Outpatient TERENCE GRAMAJO APRN [id number] 07/15/2014 14:24:00 07/15/2014 23:59: 59 CLS Outpatient TERENCE GRAMAJO APRN [id number] 07/01/2014 08:35:00 07/01/2014 23:59: 59 CLS Outpatient TERENCE GRAMAJO APRN [id number] 02/11/2014 10:18:00 02/11/2014 23:59: 59 CLS Outpatient TERENCE GRAMAJO APRN [id number] 11/20/2013 12:45:00 11/20/2013 23:59: 59 CLS Outpatient BRYON RAMIREZ [id number] 11/03/2013 10:15:00 11/03/2013 23:59: 59 CLS Outpatient BRYON RAMIREZ [id number] 09/29/2013 10:04:00 09/29/2013 23:59: 59 CLS Outpatient BRYON RAMIREZ [id number] 09/16/2013 13:11:00 09/16/2013 23:59: 59 CLS Outpatient MARLO ARBOLEDABRYON [id number] 09/08/2013 13:30:00 09/08/2013 23:59: 59 CLS Outpatient BRYON RAMIREZ [id number] 08/29/2013 09:35:00 08/29/2013 23:59: 59 CLS Outpatient BRYON RAMIREZ [id number] 08/20/2013 11:33:00 08/20/2013 23:59: 59 CLS Outpatient TERENCE GRAMAJO APRN [id number] 08/18/2013 14:10:00 08/18/2013 23:59: 59 CLS Outpatient BRYON RAMIREZ [id number] 08/12/2013 10:50:00 08/12/2013 23:59: 59 CLS Outpatient BRYON RAMIREZ [id number] 07/30/2013 11:28:00 07/30/2013 23:59: 59 CLS Outpatient TERENCE GRAMAJO APRN [id number] 12/05/2012 10:46:00 12/05/2012 23:59: 59 CLS Outpatient [id number] 09/26/2012 16:16:00 09/26/2012 23:59: 59 CLS Outpatient [id number] 08/22/2012 13:09:00 08/22/2012 23:59:5 9 CLS Outpatient [id number] 07/09/2013 10:34:00 Document Registration [id number] 05/27/2013 16:32:00 Document Registration [id number] 01/30/2013 14:32:00 Document Registration [id number] 03/05/2020 13:10:00 020 13:28:00 DIS Outpatient ETHEL DE JESUS APRN [facility] ER LEFT ARM LACERATION [id number] 02/25/2019 13:00:00 019 23:59:59 CLS Outpatient MANOJ GUEVARA APRN [facility] RAD PELVIC PAIN [id number] 01/29/2019 19:56:00 019 20:30:00 DIS Emergency ETHEL DE JESUS APRN [facility] ER CUT R THUMB,WANTS TETAN US SHOT [id number] 04/16/2018 14:37:00 018 15:45:00 DIS Emergency SARITA RODRIGUEZ [facility] ER SOB [id number] 05/19/2014 07:31:00 014 09:20:00 DIS Emergency PEE ONEILL MD [facility] ER ABD PAIN [id number] 08/25/2013 08:58:00 013 23:59:59 CLS Outpatient TERENCE GRAMAJO SENIOR PORT[employer]IO MANAGER [facility] RAD LOWER LEFT QUAD PAIN, MENSES [id number] 10/11/2016 13:05:00 Document Registration [id number] 10/01/2019 11:20:00 10/01/2019 23:59:5 9 CLS Outpatient [facility] [id number] 02/19/2020 17:30:00 Document Registration [id number] 11/07/2019 11:00:00 Document Registration [id number] 07/01/2019 09:20:00 Document Registration [id number] 02/19/2019 14:40:00 Document Registration [id number] 01/04/2019 12:40:00 Document Registration [id number] 07/02/2018 14:40:00 Document Registration
--- NOTE | 2020-04-21 01:24 | ED Abdominal Pain ---
General Chief Complaint: Abdominal/GI Problems Stated Complaint: PAIN AROUND OVARIES Nursing Triage Note: TO ED VIA POV AND AMBULATORY TO ROOM 8 WITH C/O PAIN IN "OVARIES" FOR 2 DAYS. STATES WENT TO URGENT CARE YESTERDAY AND WAS GIVEN SHOT OF TORADOL WITH NO RELIEF. Sepsis Screen: No Definite Risk Source of Information: Patient Exam Limitations: No Limitations (RONNY GREENWOOD,) History of Present Illness Date Seen by Provider: Apr 21, 2020 Time Seen by Provider: 01:10 Initial Comments Skyler ("Shcorbin") Dilan is here at the ED regarding lower abdominal pain. She states she is having pain in her ovaries and has a history of ovarian cysts. Her left side is worse than her right. This pain has been happening for 2 days and she is unable to sleep. She has taken ibuprofen, Tylenol, and extra strength Tylenol with no relief. She went to Urgent Care and they gave her a shot of Toradol but the pain relief did not last long. She is extremely concerned about working today because the pain is worsened with straining. 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 LMP was 04/05- that restarted 04/12-. She is on control pills and this is the first time they have not controlled her cycle. She admits to nausea and decreased appetite, but no vomiting. Timing/Duration: 1-2 Days Severity/Quality: Moderate Location: RLQ, LLQ, Suprapubic Radiation: No Radiation Activities at Onset: None Modifying Factors: Worsens With Movement Associated Symptoms: Nausea/Vomiting (RONNY GREENWOOD,) Initial Comments Here with lower abdominal pain over the last few days. Concerned about ovarian pain. Does have history of ovarian problems. She is currently having breakthrough bleeding on her control. Seen at urgent care yesterday and had Toradol which didn't help. She reports that ibuprofen Tylenol and extra strength Tylenol are not helping but then admits that she has not been taking them because they never help. Denies blood in her stool. Denies dysuria or vaginal discharge. Timing/Duration: 2-3 Days Severity/Quality: Moderate, Cramping Location: RLQ, LLQ Radiation: No Radiation Associated Symptoms: No Back Pain, No Chest Pain, No Fever/Chills; Nausea/Vomiting; No Weakness (NELY AVERY MD) Allergies and Home Medications Allergies Coded Allergies: No Known Drug Allergies (Unverified , 05/19/14) Home Medications Alprazolam 0.25 Mg Tablet, 0.25 MG PO Q8H PRN for ANXIETY take 1/2 to 1 tablet every 8 hours for acute anxiety attack Prescribed by: SARITA RODRIGUEZ on 04/16/18 1515 Polyethylene Glycol 17 Gm Pack, 17 GM PO BID PRN for CONSTIPATION FOR CONSTIPATION Prescribed by: PEE KENT on 05/19/14 0916 Patient Home Medication List Home Medication List Reviewed: Yes (RONNY GREENWOOD,) Home Medication List Reviewed: Yes (NELY AVERY MD) Review of Systems Review of Systems Constitutional: no symptoms reported EENTM: No Symptoms Reported Respiratory: No Symptoms Reported Cardiovascular: No Symptoms Reported Gastrointestinal: No Symptoms Reported Genitourinary: See HPI Musculoskeletal: no symptoms reported Skin: no symptoms reported Psychiatric/Neurological: No Symptoms Reported Endocrine: No Symptoms Reported Hematologic/Lymphatic: No Symptoms Reported (RONNY GREENWOOD,) Constitutional: No chills, No fever EENTM: No Nose Congestion, No Throat Pain Respiratory: Denies Cough, Denies Shortness of Air Cardiovascular: No Symptoms Reported Gastrointestinal: See HPI, Abdominal Pain, Nausea; Denies Vomiting Genitourinary: See HPI Musculoskeletal: no symptoms reported (NELY AVERY MD) Past Ljgroau-Wjegrd-Esxixm Hx Past Med/Social Hx: Reviewed Nursing Past Med/Soc Hx (NELY AVERY MD) Patient Social History Alcohol Use: Denies Use Recreational Drug Use: No 2nd Hand Smoke Exposure: No Recent Foreign Travel: No Contact w/Someone Who Travel: No Recent Infectious Disease Expo: No Physical Abuse: No Sexual Abuse: No Mistreated: No Fear: No (RONNY GREENWOOD,) Past Medical History Surgeries: No Respiratory: No Cardiac: No Neurological: Yes Headaches /Migraines Reproductive Disorders: No Female Reproductive Disorders: Ovarian Cyst Gastrointestinal: No Musculoskeletal: No Endocrine: No Cancer: No Psychosocial: No Anxiety Integumentary: No Blood Disorders: No (RONNY GREENWOOD,) Family Medical History Reviewed Nursing Family Hx (NELY AVERY MD) Physical Exam Vital Signs Vital Signs - First Documented 04/21/20 00:06 Temp 37.1 Pulse 95 Resp 18 B/P (MAP) 131/76 (94) O2 Delivery Room Air (NELY AVERY MD) Vital Signs Capillary Refill : Less Than 3 Seconds (RONNY GREENWOOD,) Height/Weight/BMI Height: 5'5.00" Weight: 210lbs. oz. 95.451813jc; 37.00 BMI Method:Stated General Appearance: WD/WN, mild distress HEENT: PERRL/EOMI Neck: non-tender, full range of motion Respiratory: lungs clear, normal breath sounds Cardiovascular: regular rate, rhythm, no murmur Peripheral Pulses: 2+ Radial Pulses (R), 2+ Radial Pulses (L) Gastrointestinal: normal bowel sounds, tenderness (slightly tender in LQs, exquisite tenderness to palpation in groin areas bilaterally) Extremities: normal range of motion, normal inspection Neurologic/Psychiatric: alert, oriented x 3 Skin: normal color, warm/dry (RONNY GREENWOOD,) General Appearance: WD/WN, mild distress, obese Respiratory: lungs clear, normal breath sounds Cardiovascular: regular rate, rhythm, no murmur Gastrointestinal: soft, tenderness (slightly tender in LQs, moderate tenderness to palpation in groin areas bilaterally) Neurologic/Psychiatric: alert, oriented x 3 Skin: normal color, warm/dry (NELY AVERY MD) Progress/Results/Core Measures Results/Orders My Orders Orders - NELY AVERY MD Ketorolac Injection (Toradol Injection) (04/21/20 01:45) (NELY AVERY MD) Vital Signs/I&O 04/21/20 00:06 Temp 37.1 Pulse 95 Resp 18 B/P (MAP) 131/76 (94) O2 Delivery Room Air (NELY AVERY MD) Blood Pressure Mean: 94 Progress Progress Note : Progress Note I have seen and evaluated patient and agree with above except as indicated. I have directed the plan of care. Toradol 60 mg IM ordered. I did have a long discussion with the patient regarding options for evaluation. At this point, she would like to follow-up with the clinic and see if she can get a ultrasound which is a reasonable plan given the two day history of pain. I did discuss with the patient regarding return precautions and further evaluation. She reports she will return for any worsening of pain or other concerns. She will follow up with the clinic today. Discharged home with return precautions. Patient verbalized understanding of instructions and agreement with plan. (NELY AVERY MD) Departure Impression Primary Impression: Pelvic pain Disposition: HOME, SELF-CARE Condition: Improved Departure-Patient Inst. Decision time for Depature: 02:02 (NELY AVERY MD) Referrals: [facility] (PCP/Family) Primary Care Physician Patient Instructions: Acute Pelvic Pain (DC) Add. Discharge Instructions: All discharge instructions reviewed with patient and/or family. Voiced understanding. Take meds as directed. Follow up in the clinic today for recheck and further evaluation. Return for worse pain, fever, vomiting, increased bleeding, blood in your urine or stool or other concerns as needed. Scripts Ketorolac Tromethamine (Ketorolac Tromethamine) 10 Mg Tablet 10 MG PO Q6H PRN for PAIN-MODERATE (5-7), #12 TAB 0 Refills Prov: NELY AVERY MD 04/21/20 RONNY GREENWOOD, Apr 21, 2020 01:24 NELY AVERY MD Apr 21, 2020 02:00
[2020-04-21] MEDS ORDERED: KETOROLAC 60 MG/2 ML VIAL IM STA (01:45)
[2020-04-21] MEDS ORDERED: KETO10TA PO (02:06)
[2020-04-21 02:08] VITALS: BP 130/75
== END 2020-04-21 02:11 | disposition home or self-care (01) ==
LOC: EDUNIT# 23:58 → ER 04-21
DX: R10.2 Pelvic and perineal pain (principal); F41.9 Anxiety disorder, unspecified
CPT/HCPCS: 84703; 96372; 99284

== ENCOUNTER 2021-06-11 20:15 | Emergency (ER) | payer SELFPAY ==
[~2021-06-11] VITALS: Ht 162.5 cm; Wt 88.0 kg
[~2021-06-11 20:15] MED LIST changes: +KETO10TA PO
[2021-06-11 21:42] LABS: BILIRUBIN,URINE NEGATIVE (NEGATIVE); CLARITY,URINE CLEAR; COLOR,URINE YELLOW; GLUCOSE, URINE (UA) NEGATIVE (NEGATIVE); KETONES,URINE NEGATIVE (NEGATIVE); LEUKOCYTE ESTERASE ,URINE 2+ (NEGATIVE); NITRITE,URINE NEGATIVE (NEGATIVE); PH,URINE 6.5 (5-9); PROTEIN,URINE NEGATIVE (NEGATIVE)
[2021-06-11 21:52] LABS: RBC,URINE 25-50 /HPF
[2021-06-11 21:53] LABS: AMORPHOUS SEDIMENT,UR FEW AMOR URATES /LPF; BACTERIA,URINE FEW /HPF; WBC,URINE 25-50 /HPF
[2021-06-11 21:56] LABS: BASOPHILS # (AUTO) 0.1 10^3/uL (0.0-0.1); BASOPHILS % (AUTO) 0 % (0-10); EOSINOPHILS # (AUTO) 0.1 10^3/uL (0.0-0.3); EOSINOPHILS % (AUTO) 1 % (0-10); HEMATOCRIT 47 % (35-52); LYMPHOCYTES # (AUTO) 2.3 10^3/uL (1.0-4.0); LYMPHOCYTES % (AUTO) 14 % (12-44); MEAN CORPUSCULAR HEMOGLOBIN 29 pg (25-34); MEAN CORPUSCULAR HGB CONC 32 g/dL (32-36); MEAN CORPUSCULAR VOLUME 90 fL (80-99); MEAN PLATELET VOLUME 9.7 fL (9.0-12.2); MONOCYTES # (AUTO) 1.3 10^3/uL (0.0-1.0); MONOCYTES % (AUTO) 8 % (0-12); NEUTROPHILS # (AUTO) 12.6 10^3/uL (1.8-7.8); NEUTROPHILS % (AUTO) 77 % (42-75); PLATELET COUNT 319 10^3/uL (130-400); WHITE BLOOD COUNT 16.5 10^3/uL (4.3-11.0)
--- NOTE | 2021-06-11 21:56 | ED General ---
General Chief Complaint: General Problems/Pain Stated Complaint: STOMACH PAIN/ BACK PAIN/ HIP PAIN Source of Information: Patient Exam Limitations: No Limitations (ETHEL DE JESUS APRN) History of Present Illness Date Seen by Provider: Jun 11, 2021 Time Seen by Provider: 21:56 Initial Comments To ER with diffuse lower abdominal pain right greater than left. She also has pain down her low back that goes down the right leg. She is on Macrobid for uri nary tract infection. Poor appetite but no nausea or vomiting. No fevers but she has had chills. Timing/Duration: 2-3 Days Severity: Moderate Associated Systoms: Loss of Appetite (ETHEL DE JESUS APRN) Allergies and Home Medications Allergies Coded Allergies: No Known Drug Allergies (Unverified , 05/19/14) Home Medications Alprazolam 0.25 Mg Tablet, 0.25 MG PO Q8H PRN for ANXIETY take 1/2 to 1 tablet every 8 hours for acute anxiety attack Prescribed by: SARITA RODRIGUEZ on 04/16/18 1515 Ciprofloxacin HCl 500 Mg Tablet, 500 MG PO BID Prescribed by: ETHEL DE JESUS on 06/11/21 2256 Ketorolac Tromethamine 10 Mg Tablet, 10 MG PO Q6H PRN for PAIN-MODERATE (5-7) Prescribed by: NELY AVERY on 04/21/20 0206 Polyethylene Glycol 17 Gm Pack, 17 GM PO BID PRN for CONSTIPATION FOR CONSTIPATION Prescribed by: PEE KENT on 05/19/14 0916 Patient Home Medication List Home Medication List Reviewed: Yes (ETHEL DE JESUS APRN) Review of Systems Review of Systems Constitutional: see HPI EENTM: see HPI Respiratory: no symptoms reported Cardiovascular: no symptoms reported Genitourinary: no symptoms reported Musculoskeletal: no symptoms reported Skin: no symptoms reported Psychiatric/Neurological: No Symptoms Reported Hematologic/Lymphatic: No Symptoms Reported (ETHEL DE JESUS APRN) Past Dbicgvp-Vqlnjf-Nqojxv Hx Past Medical History Surgeries: No Respiratory: No Cardiac: No Neurological: Yes Headaches /Migraines Reproductive Disorders: No Female Reproductive Disorders: Ovarian Cyst Gastrointestinal: No Musculoskeletal: No Endocrine: No Cancer: No Psychosocial: No Anxiety Integumentary: No Blood Disorders: No (ETHEL DE JESUS APRN) Physical Exam Vital Signs Vital Signs - First Documented 06/11/21 22:49 Temp 37.1 Pulse 107 Resp 16 B/P (MAP) 122/70 (87) Pulse Ox 97 O2 Delivery Room Air (WAGNER GUERRIER DO) Vital Signs Capillary Refill : (ETHEL DE JESUS APRN) Height, Weight, BMI Height: 5'5.00" Weight: 210lbs. oz. 95.153215wh; 37.00 BMI Method:Stated General Appearance: No Apparent Distress, WD/WN, Other (Alert and oriented no distress a little tachycardic at 105 sinus blood pressure soft at 102/60 nontoxic-appearing.) Eyes: Bilateral Eye Normal Inspection, Bilateral Eye PERRL, Bilateral Eye EOMI Respiratory: Normal Breath Sounds, No Accessory Muscle Use, No Respiratory Distress Cardiovascular: Normal Peripheral Pulses, Tachycardia Gastrointestinal: Normal Bowel Sounds, Soft, Tenderness Extremity: Normal Capillary Refill, Normal Inspection Neurologic/Psychiatric: Alert, Oriented x3, No Motor/Sensory Deficits (ETHEL DE JESUS APRN) Progress/Results/Core Measures Suspected Sepsis SIRS Temperature: Pulse: Respiratory Rate: Laboratory Tests 06/11/21 21:39: White Blood Count 16.5H Blood Pressure / Mean: Laboratory Tests 06/11/21 21:39: Creatinine 0.97, Platelet Count 319 (ETHEL DE JESUS APRN) Results/Orders Lab Results Laboratory Tests Test 06/11/21 21:30 06/11/21 21:39 Range/Units Urine Color YELLOW Urine Clarity CLEAR Urine pH 6.5 5-9 Urine Specific [place] 1.015 L 1.016-1.022 Urine Protein NEGATIVE NEGATIVE Urine Glucose (UA) NEGATIVE NEGATIVE Urine Ketones NEGATIVE NEGATIVE Urine Nitrite NEGATIVE NEGATIVE Urine Bilirubin NEGATIVE NEGATIVE Urine Urobilinogen 4.0 < = 1.0 MG/DL Urine Leukocyte Esterase 2+ H NEGATIVE Urine RBC (Auto) 2+ H NEGATIVE Urine RBC 25-50 H /HPF Urine WBC 25-50 H /HPF Urine Crystals PRESENT H /LPF Urine Amorphous Sediment FEW [place]AVIA URATES H /LPF Urine Bacteria FEW H /HPF Urine Casts NONE /LPF Urine Mucus SMALL H /LPF Urine Culture Indicated YES White Blood Count 16.5 H 4.3-11.0 10^3/uL Red Blood Count 5.20 H 3.80-5.11 10^6/uL Hemoglobin 15.0 11.5-16.0 g/dL Hematocrit 47 35-52 % Mean Corpuscular Volume 90 80-99 fL Mean Corpuscular Hemoglobin 29 25-34 pg Mean Corpuscular Hemoglobin Concent 32 32-36 g/dL Red Cell Distribution Width 12.4 10.0-14.5 % Platelet Count 319 130-400 10^3/uL Mean Platelet Volume 9.7 9.0-12.2 fL Immature Granulocyte % (Auto) 1 % Neutrophils (%) (Auto) 77 H 42-75 % Lymphocytes (%) (Auto) 14 12-44 % Monocytes (%) (Auto) 8 0-12 % Eosinophils (%) (Auto) 1 0-10 % Basophils (%) (Auto) 0 0-10 % Neutrophils # (Auto) 12.6 H 1.8-7.8 10^3/uL Lymphocytes # (Auto) 2.3 1.0-4.0 10^3/uL Monocytes # (Auto) 1.3 H 0.0-1.0 10^3/uL Eosinophils # (Auto) 0.1 0.0-0.3 10^3/uL Basophils # (Auto) 0.1 0.0-0.1 10^3/uL Immature Granulocyte # (Auto) 0.1 0.0-0.1 10^3/uL Neutrophils % (Manual) 74 % Lymphocytes % (Manual) 20 % Monocytes % (Manual) 6 % Blood Morphology Comment NORMAL Sodium Level 139 135-145 MMOL/L Potassium Level 3.8 3.6-5.0 MMOL/L Chloride Level 108 H 98-107 MMOL/L Carbon Dioxide Level 19 L 21-32 MMOL/L Anion Gap 12 5-14 MMOL/L Blood Urea Nitrogen 12 7-18 MG/DL Creatinine 0.97 0.60-1.30 MG/DL Estimat Glomerular Filtration Rate 71 BUN/Creatinine Ratio 12 Glucose Level 97 70-105 MG/DL Calcium Level 10.4 H 8.5-10.1 MG/DL Serum Test, Qualitative NEGATIVE NEGATIVE (CHEYWAGNER Jj DO) My Orders Orders - WAGNER GUERRIER DO Iohexol Injection (Omnipaque 350 Mg/Ml 1 (06/11/21 23:00) Ns (Ivpb) (Sodium Chloride 0.9% Ivpb Bag (06/11/21 23:00) (JACKELINE GUERRIERA Jj DO) Vital Signs/I&O 06/11/21 06/12/21 22:49 00:09 Temp 37.1 36.9 Pulse 107 83 Resp 16 17 B/P (MAP) 122/70 (87) 109/66 (87) Pulse Ox 97 98 O2 Delivery Room Air Room Air (WAGNER GUERRIER DO) Vital Signs/I&O Capillary Refill : (ETHEL ED JESUS APRN) Departure Impression Primary Impression: Pyelonephritis of right kidney Disposition: HOME, SELF-CARE Condition: Stable Departure-Patient Inst. Decision time for Depature: 22:56 (ETHEL DE JESUS APRN) Referrals: [facility] (PCP/Family) Primary Care Physician Patient Instructions: Kidney Infection (DC) Add. Discharge Instructions: . Increase water intake. Start the new antibiotic called ciprofloxacin twice a day starting tomorrow morning. Stop the Macrobid. Take pain medication as needed. Return to ER for fevers or inability to take the oral antibiotics. Follow-up with your doctor next week for recheck. All discharge instructions reviewed with patient and/or family. Voiced understanding. Scripts Ciprofloxacin HCl (Ciprofloxacin HCl) 500 Mg Tablet 500 MG PO BID, #14 TAB Prov: ETHEL DE JESUS APRN 06/11/21 Work/School Note: Work Release Form Date Seen in the Emergency Department: Jun 11, 2021 Return to Work: Jun 14, 2021 ETHEL DE JESUS APRN Jun 11, 2021 21:56 WAGNER GUERRIER DO Jun 13, 2021 06:14
[2021-06-11 22:07] LABS: CALCIUM 10.4 MG/DL (8.5-10.1); CREATININE SERUM 0.97 MG/DL (0.60-1.30); POTASSIUM 3.8 MMOL/L (3.6-5.0)
[2021-06-11 22:27] LABS: LYMPHOCYTES % (MANUAL) 20 %; MONOCYTES % (MANUAL) 6 %; NEUTROPHILS % (MANUAL) 74 %; RBC MORPH NORMAL
[2021-06-11] MEDS ORDERED: cefTRIAXone 2,000 MG in WATER (STERILE) FOR INJECTION 20 ML IV ONE (22:30)
[2021-06-11] MEDS ORDERED: NS IV 1000 ML 1,000 ML IV SCH (22:30)
[2021-06-11] MEDS ORDERED: CIPR500T5 PO (22:56)
[2021-06-11] MEDS ORDERED: RX-ONDANSETRON 4 MG ODT (ZOFRAN) PPK #4 PO STA (22:57)
[2021-06-11] MEDS ORDERED: IOHEXOL 350 MG/ML 100 ML (OMNIPAQUE 350) VIAL IV ONE (23:00)
[2021-06-11] MEDS ORDERED: NS 100 ML (IVPB) BAG IV ONE (23:00)
--- NOTE | 2021-06-11 23:14 | Diagnostic Imaging Report ---
EXAMINATION: CT abdomen and pelvis with intravenous contrast. TECHNIQUE: Multiple contiguous axial images were obtained through the abdomen and pelvis after the uneventful administration of intravenous contrast. All CT scans use one or more of the following dose optimizing techniques: automated exposure control, MA and/or KvP adjustment based on patient size and exam type or iterative reconstruction. HISTORY: Lower abdominal pain. COMPARISON: None available. FINDINGS: The heart is unremarkable. Small amount of dependent opacities are seen in the lung bases. The liver, spleen, pancreas, adrenal glands and kidneys have a normal appearance. There is no pathologically enlarged mesenteric or retroperitoneal adenopathy. The bowel loops are nondilated. The appendix is visualized in the right lower quadrant and has a normal appearance. There is no free fluid or free air. No acute osseous abnormality. The urinary bladder is decompressed. Dominant follicle/cyst is seen in the right adnexa. There is no free air, loculated collection or adenopathy in the pelvis. IMPRESSION: 1. No evidence of bowel obstruction. Normal appendix. No free fluid or free air. 2. Dominant follicle/cyst in the right adnexa. Dictated by: Dictated on workstation # [id number]
[2021-06-12 00:09] VITALS: BP 109/66
== END 2021-06-12 00:09 | disposition home or self-care (01) ==
LOC: EDUNIT# 20:15 → ER 20:17
DX: N12 Tubulo-interstitial nephritis, not specified as acute or chronic (principal); F41.9 Anxiety disorder, unspecified; Z79.899 Other long term (current) drug therapy
CPT/HCPCS: 36415; 74177; 80048; 81000; 84703; 85007; 85027; 87088; 96374

== ENCOUNTER 2021-06-15 09:58 | Emergency (ER) | payer SELFPAY ==
[~2021-06-15] VITALS: Ht 162 cm; Wt 89.0 kg
[~2021-06-15 09:58] MED LIST changes: +CIPR500T5 PO
--- NOTE | 2021-06-15 10:50 | ED Syncope ---
General Chief Complaint: Dizziness/Syncope Stated Complaint: DIZZINESS,BACK PAIN,N/V Nursing Triage Note: ARRIVED VIA AMB TO ROOM 05. STATES SHE WAS HERE ON SAT AND DX WITH A KIDNEY INFECTION. GOT HER ABX FILLED YESTERDAY DUE TO MONEY ISSUES. TODAY IS DIZZY AND HAS FEELINGS LIKE SHE IS GOING TO PASS OUT. Source of Information: Patient Exam Limitations: No Limitations History of Present Illness Date Seen by Provider: Jun 15, 2021 Time Seen by Provider: 10:48 Initial Comments To ER with reports of lightheadedness nausea vomiting. She was seen here a few days ago and diagnosed with right pyelonephritis. She was given Rocephin and a prescription for antibiotics which she was only able to fill yesterday. She has had nausea and vomiting but no fevers or chills. Timing/Prior Episodes: Multiple Episodes Today Symptoms Prior to Episode: None Current Symptoms: Back to Normal Allergies and Home Medications Allergies Coded Allergies: No Known Drug Allergies (Unverified , 05/19/14) Home Medications Alprazolam 0.25 Mg Tablet, 0.25 MG PO Q8H PRN for ANXIETY take 1/2 to 1 tablet every 8 hours for acute anxiety attack Prescribed by: SARITA RODRIGUEZ on 04/16/18 1515 Ciprofloxacin HCl 500 Mg Tablet, 500 MG PO BID Prescribed by: ETHEL DE JESUS on 06/11/21 2256 Ketorolac Tromethamine 10 Mg Tablet, 10 MG PO Q6H PRN for PAIN-MODERATE (5-7) Prescribed by: NELY AVERY on 04/21/20 0206 Polyethylene Glycol 17 Gm Pack, 17 GM PO BID PRN for CONSTIPATION FOR CONSTIPATION Prescribed by: PEE KENT on 05/19/14 0916 Patient Home Medication List Home Medication List Reviewed: Yes Review of Systems Constitutional: see HPI EENTM: see HPI Respiratory: no symptoms reported Cardiovascular: no symptoms reported Genitourinary: no symptoms reported Musculoskeletal: see HPI Skin: no symptoms reported Psychiatric/Neurological: No Symptoms Reported Past Zpyrqsu-Ejypaq-Lwnegd Hx Patient Social History Smokeless Tobacco Frequency: Current Everyday User Substance use?: No Past Medical History Surgeries: No Respiratory: No Cardiac: No Neurological: Yes Headaches /Migraines Reproductive Disorders: No Female Reproductive Disorders: Ovarian Cyst Gastrointestinal: No Musculoskeletal: No Endocrine: No Cancer: No Psychosocial: No Anxiety Integumentary: No Blood Disorders: No Physical Exam Vital Signs Vital Signs - First Documented 06/15/21 10:20 Temp 36.0 Pulse 94 Resp 20 B/P (MAP) 122/77 (92) Pulse Ox 98 O2 Delivery Room Air Capillary Refill : Less Than 3 Seconds Height, Weight, BMI Height: 5'5.00" Weight: 210lbs. oz. 95.616015io; 33.00 BMI Method:Stated General Appearance: No Apparent Distress, WD/WN, Other (Alert and oriented very pleasant no distress blood pressure 122/84 heart rate 85 oxygen 97% on room air. Alert very talkative. No distress nontoxic-appearing.) HEENT: PERRL/EOMI, TMs Normal Neck: Full Range of Motion, Normal Inspection Cardiovascular: Regular Rate, Rhythm, Normal Peripheral Pulses Respiratory: No Accessory Muscle Use, No Respiratory Distress Gastrointestinal: Normal Bowel Sounds, Non Tender, Soft Neurologic/Psychiatric: Alert, Oriented x3 Cranial Nerves: Normal Hearing, Normal Speech, PERRL Motor/Sensory: No Motor Deficit, No Sensory Deficit Skin: Normal Color, Warm/Dry Progress/Results/Core Measures Results/Orders Lab Results Laboratory Tests Test 06/15/21 10:30 06/15/21 11:23 Range/Units White Blood Count 12.7 H 4.3-11.0 10^3/uL Red Blood Count 4.81 3.80-5.11 10^6/uL Hemoglobin 13.7 11.5-16.0 g/dL Hematocrit 43 35-52 % Mean Corpuscular Volume 88 80-99 fL Mean Corpuscular Hemoglobin 29 25-34 pg Mean Corpuscular Hemoglobin Concent 32 32-36 g/dL Red Cell Distribution Width 11.9 10.0-14.5 % Platelet Count 382 130-400 10^3/uL Mean Platelet Volume 9.7 9.0-12.2 fL Immature Granulocyte % (Auto) 1 % Neutrophils (%) (Auto) 81 H 42-75 % Lymphocytes (%) (Auto) 13 12-44 % Monocytes (%) (Auto) 4 0-12 % Eosinophils (%) (Auto) 0 0-10 % Basophils (%) (Auto) 1 0-10 % Neutrophils # (Auto) 10.3 H 1.8-7.8 10^3/uL Lymphocytes # (Auto) 1.7 1.0-4.0 10^3/uL Monocytes # (Auto) 0.5 0.0-1.0 10^3/uL Eosinophils # (Auto) 0.1 0.0-0.3 10^3/uL Basophils # (Auto) 0.1 0.0-0.1 10^3/uL Immature Granulocyte # (Auto) 0.1 0.0-0.1 10^3/uL Sodium Level 137 135-145 MMOL/L Potassium Level 4.0 3.6-5.0 MMOL/L Chloride Level 108 H 98-107 MMOL/L Carbon Dioxide Level 20 L 21-32 MMOL/L Anion Gap 9 5-14 MMOL/L Blood Urea Nitrogen 12 7-18 MG/DL Creatinine 0.94 0.60-1.30 MG/DL Estimat Glomerular Filtration Rate 74 BUN/Creatinine Ratio 13 Glucose Level 109 H 70-105 MG/DL Calcium Level 10.0 8.5-10.1 MG/DL Urine Color YELLOW Urine Clarity CLEAR Urine pH 5.5 5-9 Urine Specific [place] 1.025 H 1.016-1.022 Urine Protein NEGATIVE NEGATIVE Urine Glucose (UA) NEGATIVE NEGATIVE Urine Ketones TRACE H NEGATIVE Urine Nitrite NEGATIVE NEGATIVE Urine Bilirubin NEGATIVE NEGATIVE Urine Urobilinogen 2.0 < = 1.0 MG/DL Urine Leukocyte Esterase NEGATIVE NEGATIVE Urine RBC (Auto) 2+ H NEGATIVE Urine RBC 0-2 /HPF Urine WBC 2-5 /HPF Urine Squamous Epithelial Cells 10-25 H /HPF Urine Crystals NONE /LPF Urine Bacteria NEGATIVE /HPF Urine Casts NONE /LPF Urine Mucus NEGATIVE /LPF Urine Culture Indicated NO My Orders Orders - ETHEL DE JESUS ROLLER OPERATOR Cbc With Automated Diff (06/15/21 10:43) Basic Metabolic Panel (06/15/21 10:43) Ua Culture If Indicated (06/15/21 10:43) Ed Iv/Invasive Line Start (06/15/21 10:43) Ondansetron Injection (Zofran Injectio (06/15/21 11:00) Lactated Ringers (Lr 1000 Ml Iv Solution (06/15/21 11:00) Medications Given in ED Current Medications Medications Dose Ordered Sig/Suzanne Route Start Time Stop Time Status Last Admin Dose Admin Ondansetron HCl 8 mg ONCE ONCE IVP 06/15/21 11:00 06/15/21 11:01 DC 06/15/21 11:16 8 MG Vital Signs/I&O 06/15/21 10:20 Temp 36.0 Pulse 94 Resp 20 B/P (MAP) 122/77 (92) Pulse Ox 98 O2 Delivery Room Air Blood Pressure Mean: 92 Departure Impression Primary Impression: Vomiting Disposition: 01 HOME, SELF-CARE Condition: Stable Departure-Patient Inst. Decision time for Depature: 11:40 Referrals: [facility] (PCP/Family) Primary Care Physician Patient Instructions: NO INSTRUCTIONS GIVEN Add. Discharge Instructions: 1. Continue the antibiotics for 2 more days. Return to ER for any concerns. Nausea medication as directed. All discharge instructions reviewed with patient and/or family. Voiced understanding. Scripts Ondansetron (Ondansetron Odt) 8 Mg Tab.rapdis 8 MG PO Q6H PRN for NAUSEA/VOMITING, #10 TAB Prov: ETHEL DE JESUS APRN 06/15/21 Work/School Note: Work Release Form Date Seen in the Emergency Department: Jun 15, 2021 Return to Work: Jun 17, 2021 ETHEL DE JESUS APRN Jun 15, 2021 10:50
[2021-06-15 10:51] LABS: BASOPHILS # (AUTO) 0.1 10^3/uL (0.0-0.1); BASOPHILS % (AUTO) 1 % (0-10); EOSINOPHILS # (AUTO) 0.1 10^3/uL (0.0-0.3); EOSINOPHILS % (AUTO) 0 % (0-10); HEMATOCRIT 43 % (35-52); HEMOGLOBIN 13.7 g/dL (11.5-16.0); LYMPHOCYTES # (AUTO) 1.7 10^3/uL (1.0-4.0); LYMPHOCYTES % (AUTO) 13 % (12-44); MEAN CORPUSCULAR HEMOGLOBIN 29 pg (25-34); MEAN CORPUSCULAR HGB CONC 32 g/dL (32-36); MEAN CORPUSCULAR VOLUME 88 fL (80-99); MEAN PLATELET VOLUME 9.7 fL (9.0-12.2); MONOCYTES # (AUTO) 0.5 10^3/uL (0.0-1.0); MONOCYTES % (AUTO) 4 % (0-12); NEUTROPHILS # (AUTO) 10.3 10^3/uL (1.8-7.8); NEUTROPHILS % (AUTO) 81 % (42-75); PLATELET COUNT 382 10^3/uL (130-400); WHITE BLOOD COUNT 12.7 10^3/uL (4.3-11.0)
[2021-06-15] MEDS ORDERED: LACTATED RINGERS 1,000 ML IV SCH (11:00)
[2021-06-15] MEDS ORDERED: ONDANSETRON 4 MG/2 ML (SDV) Z0FRAN IVP ONE (11:00)
[2021-06-15 11:02] LABS: CREATININE SERUM 0.94 MG/DL (0.60-1.30)
[2021-06-15 11:26] LABS: BILIRUBIN,URINE NEGATIVE (NEGATIVE); CLARITY,URINE CLEAR; COLOR,URINE YELLOW; GLUCOSE, URINE (UA) NEGATIVE (NEGATIVE); KETONES,URINE TRACE (NEGATIVE); LEUKOCYTE ESTERASE ,URINE NEGATIVE (NEGATIVE); NITRITE,URINE NEGATIVE (NEGATIVE); PH,URINE 5.5 (5-9); PROTEIN,URINE NEGATIVE (NEGATIVE)
[2021-06-15 11:36] LABS: BACTERIA,URINE NEGATIVE /HPF; RBC,URINE 0-2 /HPF
[2021-06-15] MEDS ORDERED: ONDA8TAB13 PO (11:41)
[2021-06-15 12:29] VITALS: BP 114/50
== END 2021-06-15 12:28 | disposition home or self-care (01) ==
LOC: EDUNIT# 09:58 → ER 10:00
DX: R11.2 Nausea with vomiting, unspecified (principal); F41.9 Anxiety disorder, unspecified; Z79.899 Other long term (current) drug therapy
CPT/HCPCS: 36415; 80048; 81000; 85025

== ENCOUNTER → 2021-11-15 | Emergency (ER) | payer SELFPAY ==
[~2021-11-15] VITALS: Ht 162 cm; Wt 86.0 kg
[~2021-11-15] MED LIST changes: +KETOROLAC 30 MG/ML VIAL IVP ONE; +ONDA8TAB13 PO
[2021-11-15 13:50] VITALS: BP 130/77
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
[2021-11-15 14:28] LABS: BILIRUBIN,URINE NEGATIVE (NEGATIVE); CLARITY,URINE CLEAR; COLOR,URINE YELLOW; GLUCOSE, URINE (UA) NEGATIVE (NEGATIVE); KETONES,URINE NEGATIVE (NEGATIVE); LEUKOCYTE ESTERASE ,URINE TRACE (NEGATIVE); NITRITE,URINE NEGATIVE (NEGATIVE); PH,URINE 7.5 (5-9); PROTEIN,URINE NEGATIVE (NEGATIVE)
[2021-11-15 14:29] LABS: BASOPHILS # (AUTO) 0.1 10^3/uL (0.0-0.1); BASOPHILS % (AUTO) 1 % (0-10); EOSINOPHILS # (AUTO) 0.1 10^3/uL (0.0-0.3); EOSINOPHILS % (AUTO) 1 % (0-10); HEMATOCRIT 38 % (35-52); HEMOGLOBIN 12.6 g/dL (11.5-16.0); LYMPHOCYTES # (AUTO) 2.3 10^3/uL (1.0-4.0); LYMPHOCYTES % (AUTO) 22 % (12-44); MEAN CORPUSCULAR HEMOGLOBIN 29 pg (25-34); MEAN CORPUSCULAR HGB CONC 33 g/dL (32-36); MEAN CORPUSCULAR VOLUME 88 fL (80-99); MEAN PLATELET VOLUME 9.8 fL (9.0-12.2); MONOCYTES # (AUTO) 0.8 10^3/uL (0.0-1.0); MONOCYTES % (AUTO) 7 % (0-12); NEUTROPHILS # (AUTO) 7.1 10^3/uL (1.8-7.8); NEUTROPHILS % (AUTO) 69 % (42-75); PLATELET COUNT 253 10^3/uL (130-400); WHITE BLOOD COUNT 10.4 10^3/uL (4.3-11.0)
[2021-11-15 14:37] LABS: BACTERIA,URINE NEGATIVE /HPF; WBC,URINE 0-2 /HPF
[2021-11-15 14:38] LABS: AMORPHOUS SEDIMENT,UR MOD AMOR PHOSPHATE /LPF; SQUAMOUS EPITHELIAL CELL,UR 0-2 /HPF
--- NOTE | 2021-11-15 15:06 | Diagnostic Imaging Report ---
PROCEDURE: Pelvic comp/transvaginal sonogram. TECHNIQUE: Complete transabdominal and transvaginal pelvic ultrasound was performed. In addition, limited pelvic Doppler was performed. INDICATION: Severe pelvic pain. FINDINGS: Uterus is anteverted measuring 6.3 x 3.0 x 4.1 cm. Endometrium is 7 mm in thickness. No myometrial mass is detected. Right ovary measures 3.2 x 2.3 x 2.1 cm and left ovary measures 3.2 x 1.7 x 1.6 cm. There is blood flow to both ovaries. No adnexal mass or free fluid is seen. There is a cervical nabothian cyst present. IMPRESSION: Unremarkable transabdominal and transvaginal pelvic ultrasound. There appears to be normal blood flow to both ovaries, without evidence of torsion. Dictated by: Dictated on workstation # [id number]
== END | disposition home or self-care (01) ==
LOC: EDUNIT# 13:09 → ER 13:11
DX: R10.30 Lower abdominal pain, unspecified (principal)
CPT/HCPCS: 36415; 76830; 76856; 81000; 84703; 85025; 87491; 87591

== ENCOUNTER 2022-11-08 06:46 | Emergency (ER) | payer SELFPAY ==
[~2022-11-08] VITALS: Ht 163 cm; Wt 99.0 kg
[~2022-11-08 06:46] MED LIST changes: -KETOROLAC 30 MG/ML VIAL IVP ONE
--- NOTE | 2022-11-08 07:16 | ED Abdominal Pain ---
General Stated Complaint: CRAMPS Source of Information: Patient Exam Limitations: No Limitations History of Present Illness Date Seen by Provider: Nov 08, 2022 Time Seen by Provider: 07:08 Initial Comments Patient is a 22-year-old female who presents to the emergency department with a chief complaint of lower abdominal/pelvic cramping. Patient states her cramps started severely yesterday. She relates a history of having intermittent menstrual cycles over the last 6 to 8 weeks, every 2 weeks. She is not on any form of control, does not use condoms. She states that in the last 24 hours her menstrual cycle has been very heavy with very large clots. She took a little Tylenol during the night while she was at work. No ibuprofen or naproxen. Nothing makes the pain any better or worse. She does relate a history of ovarian cysts. She denies abnormal discharge; no concern for sexually transmitted infection. No dysuria, urgency or frequency. She is very minimally nauseous. No prior abdominal surgeries. No recent fevers, chills. No URI symptoms. She has never been before. She states its been "a while" since she did a test. All other review of systems reviewed and negative except as stated. Timing/Duration: 24 Hours Severity/Quality: Severe, Cramping Location: Suprapubic Radiation: Back (Low back) Activities at Onset: Other (At work) Modifying Factors: Improves With Other (Tylenol without relief) Associated Symptoms: Back Pain Allergies and Home Medications Allergies Coded Allergies: No Known Drug Allergies (Unverified , 05/19/14) Patient Home Medication List Home Medication List Reviewed: Yes Alprazolam (Xanax) 0.25 Mg Tablet, 0.25 MG PO Q8H PRN for ANXIETY Prescribed by: SARITA RODRIGUEZ on 04/16/18 1515 Ciprofloxacin HCl (Ciprofloxacin HCl) 500 Mg Tablet, 500 MG PO BID Prescribed by: ETHEL DE JESUS on 06/11/21 2256 Ketorolac Tromethamine (Ketorolac Tromethamine) 10 Mg Tablet, 10 MG PO Q6H PRN for PAIN-MODERATE (5-7) Prescribed by: NELY AVERY on 04/21/20 0206 Ondansetron (Ondansetron Odt) 8 Mg Tab.rapdis, 8 MG PO Q6H PRN for NAUSEA/VOMITING Prescribed by: ETHEL DE JESUS on 06/15/21 1141 Polyethylene Glycol (Miralax 17 Gm Packet) 17 Gm Pack, 17 GM PO BID PRN for CONSTIPATION Prescribed by: PEE KENT on 05/19/14 0916 Review of Systems Review of Systems Constitutional: see HPI EENTM: No Symptoms Reported Respiratory: No Symptoms Reported Cardiovascular: No Symptoms Reported Gastrointestinal: Abdominal Pain Genitourinary: Pain (Suprapubic pain) Musculoskeletal: back pain (Low back pain) Skin: no symptoms reported All Other Systems Reviewed Negative Unless Noted: Yes Past Vbhjtyg-Exxibz-Hhjbdu Hx Past Medical History Surgeries: No Respiratory: No Cardiac: No Neurological: Yes Headaches /Migraines Reproductive Disorders: No Female Reproductive Disorders: Ovarian Cyst Gastrointestinal: No Musculoskeletal: No Endocrine: No Cancer: No Psychosocial: No Anxiety Integumentary: No Blood Disorders: No Physical Exam Vital Signs Vital Signs - First Documented 11/08/22 07:20 Temp 36.5 Pulse 82 Resp 20 B/P (MAP) 112/66 (81) Pulse Ox 97 O2 Delivery Room Air Capillary Refill : Height/Weight/BMI Height: 5'5.00" Weight: 210lbs. oz. 95.473786fz; 32.00 BMI Method:Stated General Appearance: WD/WN, no apparent distress Respiratory: lungs clear, normal breath sounds, no respiratory distress, no accessory muscle use Cardiovascular: regular rate, rhythm (HR97) Gastrointestinal: normal bowel sounds, soft, tenderness (Mild suprapubic tenderness, no rebound or involuntary guarding) Extremities: normal range of motion Back: normal inspection, no CVA tenderness, no vertebral tenderness Skin: normal color, warm/dry Progress/Results/Core Measures Results/Orders Lab Results Laboratory Tests Test 11/08/22 07:38 Range/Units White Blood Count 10.1 4.3-11.0 10^3/uL Red Blood Count 4.63 3.80-5.11 10^6/uL Hemoglobin 13.2 11.5-16.0 g/dL Hematocrit 40 35-52 % Mean Corpuscular Volume 86 80-99 fL Mean Corpuscular Hemoglobin 29 25-34 pg Mean Corpuscular Hemoglobin Concent 33 32-36 g/dL Red Cell Distribution Width 11.9 10.0-14.5 % Platelet Count 332 130-400 10^3/uL Mean Platelet Volume 9.6 9.0-12.2 fL Immature Granulocyte % (Auto) 0 % Neutrophils (%) (Auto) 64 42-75 % Lymphocytes (%) (Auto) 26 12-44 % Monocytes (%) (Auto) 7 0-12 % Eosinophils (%) (Auto) 3 0-10 % Basophils (%) (Auto) 1 0-10 % Neutrophils # (Auto) 6.4 1.8-7.8 10^3/uL Lymphocytes # (Auto) 2.6 1.0-4.0 10^3/uL Monocytes # (Auto) 0.7 0.0-1.0 10^3/uL Eosinophils # (Auto) 0.3 0.0-0.3 10^3/uL Basophils # (Auto) 0.1 0.0-0.1 10^3/uL Immature Granulocyte # (Auto) 0.0 0.0-0.1 10^3/uL My Orders Orders - ARMAND KING MD Ed Iv/Invasive Line Start (11/08/22 07:17) Cbc With Automated Diff (11/08/22 07:17) Urine Bedside (11/08/22 07:17) Ketorolac Injection (Toradol Injection) (11/08/22 08:00) Medications Given in ED Current Medications Medications Dose Ordered Sig/Suzanne Route Start Time Stop Time Status Last Admin Dose Admin Ketorolac Tromethamine 30 mg ONCE ONCE IVP 11/08/22 08:00 11/08/22 08:01 DC 11/08/22 08:15 30 MG Vital Signs/I&O 11/08/22 07:20 Temp 36.5 Pulse 82 Resp 20 B/P (MAP) 112/66 (81) Pulse Ox 97 O2 Delivery Room Air Progress Progress Note : Time: 08:29 Progress Note Patient seen and evaluated by me, 22-year-old with pelvic pain and dysfunctional uterine bleeding. Evaluation today includes physical exam, CBC, urine test. Her CBC is reassuring, no signs of anemia. Urine test is negative. Vital signs are stable, no tachycardia, hypotension or hypertension. She is not hypoxic. No fever. Patient is treated with 30 mg of IV Toradol. She did gain some relief from her pelvic pain. She is reassured, advised to follow-up with her primary care physician. Return precautions provided. Recommendations for [id number] naproxen, 500 mg twice daily as well as pelvic heating pads that are available at [facility] at the pharmacy. No clinical or objective findings to warrant further evaluation. No signs of acute abdomen, concerns for acute surgical process. No complaints that would support the need for urinalysis or blood work or advanced imaging. Patient is comfortable with plan of care. All questions are sought and answered Departure Impression Primary Impression: Dysfunctional uterine bleeding Additional Impression: Pelvic cramping Disposition: 01 HOME, SELF-CARE Condition: Improved Departure-Patient Inst. Decision time for Depature: 08:22 Referrals: [facility] (PCP/Family) Primary Care Physician Patient Instructions: Heavy Periods ED Add. Discharge Instructions: Take [id number]-[id number] generic naproxen/Aleve. 2 pills with food twice daily as needed for pain. You can also get seiz-ejm-fvsbrfa heat pads available in the section at [facility] where [employer], [employer] etc. are sold. Please follow packaging instructions. If you develop fever, worsening pain, vomiting or any other emergent, concerning symptoms please return to the emergency room for reevaluation.. You should call [facility] and schedule a follow-up appointment regarding your irregular periods. Copy Copies To 1: PATRICIA FLORES KATHRYN M MD Nov 08, 2022 07:16
[2022-11-08 07:20] VITALS: BP 112/66
[2022-11-08 07:45] LABS: BASOPHILS # (AUTO) 0.1 10^3/uL (0.0-0.1); BASOPHILS % (AUTO) 1 % (0-10); EOSINOPHILS # (AUTO) 0.3 10^3/uL (0.0-0.3); EOSINOPHILS % (AUTO) 3 % (0-10); HEMATOCRIT 40 % (35-52); HEMOGLOBIN 13.2 g/dL (11.5-16.0); LYMPHOCYTES # (AUTO) 2.6 10^3/uL (1.0-4.0); LYMPHOCYTES % (AUTO) 26 % (12-44); MEAN CORPUSCULAR HEMOGLOBIN 29 pg (25-34); MEAN CORPUSCULAR HGB CONC 33 g/dL (32-36); MEAN CORPUSCULAR VOLUME 86 fL (80-99); MEAN PLATELET VOLUME 9.6 fL (9.0-12.2); MONOCYTES # (AUTO) 0.7 10^3/uL (0.0-1.0); MONOCYTES % (AUTO) 7 % (0-12); NEUTROPHILS # (AUTO) 6.4 10^3/uL (1.8-7.8); NEUTROPHILS % (AUTO) 64 % (42-75); PLATELET COUNT 332 10^3/uL (130-400); WHITE BLOOD COUNT 10.1 10^3/uL (4.3-11.0)
[2022-11-08] MEDS ORDERED: KETOROLAC 30 MG/ML VIAL IVP ONE (08:00)
== END 2022-11-08 08:37 | disposition home or self-care (01) ==
LOC: EDUNIT# 06:46 → ER 06:50
DX: N93.8 Other specified abnormal uterine and vaginal bleeding (principal); R10.2 Pelvic and perineal pain; Z32.02 Encounter for pregnancy test, result negative; Z28.311 Partially vaccinated for COVID-19
CPT/HCPCS: 36415; 84703; 85025; 99282

== ENCOUNTER 2023-01-12 12:04 | Emergency (ER) | payer BC ==
[~2023-01-12] VITALS: Ht 165 cm; Wt 96.5 kg
[2023-01-12 12:28] LABS: BILIRUBIN,URINE NEGATIVE (NEGATIVE); CLARITY,URINE CLEAR; COLOR,URINE YELLOW; GLUCOSE, URINE (UA) NEGATIVE (NEGATIVE); KETONES,URINE TRACE (NEGATIVE); LEUKOCYTE ESTERASE ,URINE NEGATIVE (NEGATIVE); NITRITE,URINE NEGATIVE (NEGATIVE); PH,URINE 6.5 (5-9); PROTEIN,URINE TRACE (NEGATIVE)
[2023-01-12] MEDS ORDERED: NS IV 1000 ML 1,000 ML IV SCH (12:30)
[2023-01-12 12:39] LABS: BACTERIA,URINE MODERATE /HPF; RBC,URINE 0-2 /HPF; WBC,URINE 0-2 /HPF
[2023-01-12] MEDS ORDERED: ONDANSETRON 4 MG/2 ML (SDV) Z0FRAN IVP ONE (12:45)
[2023-01-12 12:51] LABS: BASOPHILS % (AUTO) 0 % (0-10); EOSINOPHILS % (AUTO) 0 % (0-10); HEMATOCRIT 41 % (35-52); HEMOGLOBIN 13.5 g/dL (11.5-16.0); LYMPHOCYTES # (AUTO) 0.4 10^3/uL (1.0-4.0); LYMPHOCYTES % (AUTO) 2 % (12-44); MEAN CORPUSCULAR HEMOGLOBIN 28 pg (25-34); MEAN CORPUSCULAR HGB CONC 33 g/dL (32-36); MEAN CORPUSCULAR VOLUME 86 fL (80-99); MEAN PLATELET VOLUME 9.5 fL (9.0-12.2); MONOCYTES # (AUTO) 0.4 10^3/uL (0.0-1.0); MONOCYTES % (AUTO) 3 % (0-12); NEUTROPHILS # (AUTO) 15.4 10^3/uL (1.8-7.8); NEUTROPHILS % (AUTO) 95 % (42-75); PLATELET COUNT 319 10^3/uL (130-400); WHITE BLOOD COUNT 16.3 10^3/uL (4.3-11.0)
[2023-01-12 13:01] LABS: ALBUMIN 4.5 GM/DL (3.2-4.5)
--- NOTE | 2023-01-12 13:01 | ED Abdominal Pain ---
General Chief Complaint: Abdominal/GI Problems Stated Complaint: DEHYDRATED | ABD PAIN | VOMITING Nursing Triage Note: PT STATES ABD PAIN NV THAT STARTED ABOUT 0400 THIS A.M. VOMITED 10 TIMES WITH DIARRHEA. SORE THROAT STARTED SUNDAY AND COUGHING Source of Information: Patient Exam Limitations: No Limitations History of Present Illness Date Seen by Provider: Jan 12, 2023 Time Seen by Provider: 12:20 Initial Comments 22-year-old female presents to the ED for multiple complaints. She states that on Sunday she had a sore throat, Sunday she woke up with a runny nose, she started having body aches. States that yesterday she went to the clinic and was tested for COVID, strep, flu that were negative. She was told that she has an upper respiratory tract infection. She states that this morning she started vomiting around 4 AM. Reports she has vomited approximately every 45 minutes to an hour. States every time she tries to eat or drink she vomits immediately. Complains of upper abdominal pain, states pain is mild at this time, but worse with vomiting. Also reports some epigastric pain only when coughing and vomiting. Denies fevers, shortness of air. Currently on her menstrual cycle. Denies dysuria. Reports she has also had 2-3 episodes of loose stools today. Also complaining of coughing and sneezing. Allergies and Home Medications Allergies Coded Allergies: No Known Drug Allergies (Unverified , 05/19/14) Patient Home Medication List Home Medication List Reviewed: Yes Alprazolam (Xanax) 0.25 Mg Tablet, 0.25 MG PO Q8H PRN for ANXIETY Prescribed by: SARITA RODRIGUEZ on 04/16/18 1515 Ciprofloxacin HCl (Ciprofloxacin HCl) 500 Mg Tablet, 500 MG PO BID Prescribed by: ETHEL DE JESUS on 06/11/21 2256 Ketorolac Tromethamine (Ketorolac Tromethamine) 10 Mg Tablet, 10 MG PO Q6H PRN for PAIN-MODERATE (5-7) Prescribed by: NELY AVERY on 04/21/20 0206 Ondansetron (Ondansetron Odt) 8 Mg Tab.rapdis, 8 MG PO Q6H PRN for NAUSEA/VOMITING Prescribed by: ETHEL DE JESUS on 06/15/21 1141 Ondansetron (Ondansetron Odt) 4 Mg Tab.rapdis, 4 MG SL Q4H PRN for NAUSEA/VOMITING Prescribed by: Reba Guidry on 01/12/23 1441 Polyethylene Glycol (Miralax 17 Gm Packet) 17 Gm Pack, 17 GM PO BID PRN for CONSTIPATION Prescribed by: PEE KENT on 05/19/14 0916 Review of Systems Review of Systems Constitutional: see HPI Past Qveqjch-Pqwdhp-Fnzlpb Hx Past Medical History Surgeries: No Respiratory: No Cardiac: No Neurological: Yes Headaches /Migraines Last Menstrual Period: Jan 12, 2023 Reproductive Disorders: No Female Reproductive Disorders: Ovarian Cyst Gastrointestinal: No Musculoskeletal: No Endocrine: No Cancer: No Psychosocial: No Anxiety Integumentary: No Blood Disorders: No Physical Exam Vital Signs Vital Signs - First Documented 01/12/23 12:16 Temp 36.8 Pulse 106 Resp 18 B/P (MAP) 107/70 (82) Pulse Ox 97 O2 Delivery Room Air Capillary Refill : Height/Weight/BMI Height: 5'5.00" Weight: 210lbs. oz. 95.461952ud; 35.00 BMI Method:Stated General Appearance: WD/WN, no apparent distress HEENT: PERRL/EOMI, TMs normal, pharynx normal; No pharyngeal erythema, No tonsillar exudate; other (Postnasal drainage) Neck: supple, normal inspection Respiratory: lungs clear, normal breath sounds, no respiratory distress, no accessory muscle use Cardiovascular: no edema, no gallop, no JVD, no murmur, tachycardia Gastrointestinal: normal bowel sounds, soft, no organomegaly, no pulsatile mass, tenderness (Mild upper abdominal tenderness) Extremities: normal range of motion, normal inspection Neurologic/Psychiatric: alert, normal mood/affect Skin: normal color, warm/dry Progress/Results/Core Measures Results/Orders Lab Results Laboratory Tests Test 01/12/23 12:05 01/12/23 12:35 01/12/23 12:40 Range/Units Urine Color YELLOW Urine Clarity CLEAR Urine pH 6.5 5-9 Urine Specific [place] 1.015 L 1.016-1.022 Urine Protein TRACE H NEGATIVE Urine Glucose (UA) NEGATIVE NEGATIVE Urine Ketones TRACE H NEGATIVE Urine Nitrite NEGATIVE NEGATIVE Urine Bilirubin NEGATIVE NEGATIVE Urine Urobilinogen 0.2 < = 1.0 MG/DL Urine Leukocyte Esterase NEGATIVE NEGATIVE Urine RBC (Auto) 2+ H NEGATIVE Urine RBC 0-2 /HPF Urine WBC 0-2 /HPF Urine Squamous Epithelial Cells 10-25 H /HPF Urine Crystals NONE /LPF Urine Bacteria MODERATE H /HPF Urine Casts NONE /LPF Urine Mucus MODERATE H /LPF Urine Culture Indicated YES Influenza Type A (RT-PCR) Not Detected Not Detecte Influenza Type B (RT-PCR) Not Detected Not Detecte SARS-CoV-2 RNA (RT-PCR) Not Detected Not Detecte Group A Streptococcus Screen NEGATIVE NEGATIVE White Blood Count 16.3 H 4.3-11.0 10^3/uL Red Blood Count 4.75 3.80-5.11 10^6/uL Hemoglobin 13.5 11.5-16.0 g/dL Hematocrit 41 35-52 % Mean Corpuscular Volume 86 80-99 fL Mean Corpuscular Hemoglobin 28 25-34 pg Mean Corpuscular Hemoglobin Concent 33 32-36 g/dL Red Cell Distribution Width 12.1 10.0-14.5 % Platelet Count 319 130-400 10^3/uL Mean Platelet Volume 9.5 9.0-12.2 fL Immature Granulocyte % (Auto) 0 % Neutrophils (%) (Auto) 95 H 42-75 % Lymphocytes (%) (Auto) 2 L 12-44 % Monocytes (%) (Auto) 3 0-12 % Eosinophils (%) (Auto) 0 0-10 % Basophils (%) (Auto) 0 0-10 % Neutrophils # (Auto) 15.4 H 1.8-7.8 10^3/uL Lymphocytes # (Auto) 0.4 L 1.0-4.0 10^3/uL Monocytes # (Auto) 0.4 0.0-1.0 10^3/uL Eosinophils # (Auto) 0.0 0.0-0.3 10^3/uL Basophils # (Auto) 0.0 0.0-0.1 10^3/uL Immature Granulocyte # (Auto) 0.1 0.0-0.1 10^3/uL Neutrophils % (Manual) 74 % Lymphocytes % (Manual) 5 % Monocytes % (Manual) 1 % Band Neutrophils 20 % Sodium Level 138 135-145 MMOL/L Potassium Level 4.2 3.6-5.0 MMOL/L Chloride Level 105 98-107 MMOL/L Carbon Dioxide Level 25 21-32 MMOL/L Anion Gap 8 5-14 MMOL/L Blood Urea Nitrogen 15 7-18 MG/DL Creatinine 0.88 0.60-1.30 MG/DL Estimat Glomerular Filtration Rate 94 BUN/Creatinine Ratio 17 Glucose Level 128 H 70-105 MG/DL Calcium Level 9.5 8.5-10.1 MG/DL Corrected Calcium 9.1 8.5-10.1 MG/DL Total Bilirubin 0.4 0.1-1.0 MG/DL Aspartate Amino Transf (AST/SGOT) 29 5-34 U/L Alanine Aminotransferase (ALT/SGPT) 32 0-55 U/L Alkaline Phosphatase 71 40-136 U/L Troponin I < 0.028 <0.028 NG/ML Total Protein 7.8 6.4-8.2 GM/DL Albumin 4.5 3.2-4.5 GM/DL Amylase Level 47 25-125 U/L Lipase 8 8-78 U/L Monoscreen NEGATIVE NEGATIVE Micro Results Microbiology 01/12/23 Throat Culture - Preliminary, Resulted My Orders Orders - REBA GUIDRY APRN Ua Culture If Indicated (01/12/23 12:08) Urine Bedside (01/12/23 12:08) Comprehensive Metabolic Panel (01/12/23 12:30) Lipase (01/12/23 12:30) Amylase (01/12/23 12:30) Cbc With Automated Diff (01/12/23 12:30) Ns Iv 1000 Ml (Sodium Chloride 0.9%) (01/12/23 12:30) Rapid Strep A Screen (01/12/23 12:32) Ondansetron Injection (Zofran Injectio (01/12/23 12:45) Covid 19 Inhouse Test (01/12/23 12:33) Influenza A And B By Pcr (01/12/23 12:33) Monotest (01/12/23 12:33) Urine Culture (01/12/23 12:05) Manual Differential (01/12/23 12:40) Chest 1 View, Ap/Pa Only (01/12/23 13:01) Troponin I [place] (01/12/23 13:01) Metoclopramide Injection (Reglan Injecti (01/12/23 13:45) Lidocaine 2% Viscous 15 Ml (Xylocaine Vi (01/12/23 14:00) Antacid Suspension (Mylanta Suspension (01/12/23 14:00) Medications Given in ED Vital Signs/I&O 01/12/23 01/12/23 12:16 14:47 Temp 36.8 36.8 Pulse 106 107 Resp 18 18 B/P (MAP) 107/70 (82) 102/62 Pulse Ox 97 97 O2 Delivery Room Air Room Air 01/13/23 00:00 Intake Total 1000 ml Balance 1000 ml Blood Pressure Mean: 82 Progress Progress Note : Time: 12:32 Progress Note Patient seen and evaluated, resting comfortably bed, no acute distress. Based on exam and symptoms, differential diagnosis includes but is not limited to, URI, gastroenteritis, GERD, COVID, flu, strep, mono. Work-up initiated including CBC, CMP, amylase, lipase, troponin, chest x-ray, UA, urine . IV fluids and Zofran ordered. 1341 Labs reviewed. CBC shows elevated WBC 16.3, likely due to vomiting. CMP grossly normal, glucose 128. Troponin negative. Amylase and lipase normal. UA shows trace ketones, 2+ RBC, 0-2 WBC, 10-25, epithelial cells, moderate bacteria. Negative nitrite negative leukocytes. Likely contaminated specimen. Patient is also on her menstrual cycle. Blood in urine also likely due to contamination. Patient states her nausea started to come back. Reglan ordered. 1437 after Reglan, patient was given GI cocktail. Patient reevaluated, states she has been to feel better. Patient agreeable to discharge at this time. Results discussed with patient. Will discharge with Zofran. Discharge instructions and return precautions provided. Departure Impression Primary Impression: Gastroenteritis Disposition: 01 HOME, SELF-CARE Condition: Stable Departure-Patient Inst. Decision time for Depature: 14:39 Referrals: [facility] (PCP/Family) Primary Care Physician Patient Instructions: Viral Gastroenteritis in Adults Add. Discharge Instructions: Take Zofran as needed for nausea, it may cause constipation, so only take when needed. Return for recurrent vomiting, uncontrolled pain, fevers greater than 100.4, or any other new, concerning, or worsening symptoms. All discharge instructions reviewed with patient and/or family. Voiced un derstanding. Scripts Ondansetron (Ondansetron Odt) 4 Mg Tab.rapdis 4 MG SL Q4H PRN for NAUSEA/VOMITING, #15 TAB 0 Refills Prov: REBA GUIDRY APRN 01/12/23 REBA GUIDRY APRN Jan 12, 2023 13:01
[2023-01-12 13:02] LABS: POTASSIUM 4.2 MMOL/L (3.6-5.0)
[2023-01-12 13:03] LABS: CALCIUM 9.5 MG/DL (8.5-10.1)
[2023-01-12 13:04] LABS: TOTAL PROTEIN 7.8 GM/DL (6.4-8.2)
[2023-01-12 13:06] LABS: BILIRUBIN,TOTAL 0.4 MG/DL (0.1-1.0)
[2023-01-12 13:08] LABS: CREATININE SERUM 0.88 MG/DL (0.60-1.30)
[2023-01-12 13:16] LABS: BAND NEUTROPHILS 20 %; LYMPHOCYTES % (MANUAL) 5 %; MONOCYTES % (MANUAL) 1 %; NEUTROPHILS % (MANUAL) 74 %
--- NOTE | 2023-01-12 13:20 | Diagnostic Imaging Report ---
Showing: Chest pain Portable chest 1:10 PM Heart size and pulmonary vascularity are normal. Lungs are clear. There are no effusions or pneumothoraces. IMPRESSION: Negative chest Dictated by: Dictated on workstation # [id number]
[2023-01-12] MEDS ORDERED: METOCLOPRAMIDE INJ 10 MG/2 ML (REGLAN) IVP ONE (13:45)
[2023-01-12] MEDS ORDERED: ANTACID SUSP 30 ML UDC (MYLANTA) PO ONE (14:00)
[2023-01-12] MEDS ORDERED: LIDOCAINE 2% VISCOUS 15 ML UDC PO ONE (14:00)
[2023-01-12] MEDS ORDERED: ONDA4TAB11 SL (14:41)
[2023-01-12 14:47] VITALS: BP 102/62
[2023-01-16] MEDS ORDERED: AMOX500C2 PO (12:27)
[2023-01-16] MEDS ORDERED: METR-145 PO (12:27)
== END 2023-01-12 14:47 | disposition home or self-care (01) ==
LOC: EDUNIT# 12:04 → ER 12:06
DX: K52.9 Noninfective gastroenteritis and colitis, unspecified (principal); D72.829 Elevated white blood cell count, unspecified; Z20.828 Contact with and (suspected) exposure to other viral communicable diseases
CPT/HCPCS: 36415; 71045; 80053; 81000; 82150; 83690; 84484; 84703; 85007; 85027; 86308; 87077; 87088; 87430; 87636

== ENCOUNTER 2023-06-20 12:04 | Emergency (ER) | payer SELFPAY ==
[~2023-06-20] VITALS: Ht 162 cm; Wt 90.7 kg
[~2023-06-20 12:04] MED LIST changes: +AMOX500C2 PO; +METR-145 PO; +ONDA4TAB11 SL
[2023-06-20 12:13] VITALS: BP 136/67
--- NOTE | 2023-06-20 12:21 | ED Abdominal Pain ---
General Chief Complaint: Abdominal/GI Problems Stated Complaint: SEVERE PAIN IN LOWER ABD AND OVARIAN AREA Nursing Triage Note: ARRIVED VIA AMB TO ROOM 03 WITH COMPLAINTS OF LOWER ABD/OVARIAN PAIN STARTING ON SUNDAY. STATES HER PERIODS HAVE BEEN ODD LASTING [address] SEEN A DR FOR THAT. Source of Information: Patient Exam Limitations: No Limitations (KEILY TOLENTINO) History of Present Illness Date Seen by Provider: Jun 20, 2023 Time Seen by Provider: 12:19 Initial Comments Patient is a 23-year-old female who presents ED with lower abdominal pain. Pain is described as sharp started on Sunday. Pain is intermittent. She states pain last for about 5 to 10 minutes. No radiation. No nausea vomiting or diarrhea. She reports similar type pain in the past but not as severe. She started her menstrual cycle on Sunday. She denies of any heavier vaginal bleeding but does have a history of abnormal bleeding in the past. No history of previous abdominal surgery. Has been taken Tylenol ibuprofen without much improvement. Patient denies fever, chills, chest pain, cough, shortness of breath. Not concern for . No vaginal discharge or concern for sexual transmitted i nfection. Patient denies dysuria, hematuria, increased urine frequency (KEILY TOLENTINO) Allergies and Home Medications Allergies Coded Allergies: No Known Drug Allergies (Unverified , 05/19/14) Patient Home Medication List Home Medication List Reviewed: Yes (KEILY TOLENTINO) Alprazolam (Xanax) 0.25 Mg Tablet, 0.25 MG PO Q8H PRN for ANXIETY Prescribed by: SARITA RODRIGUEZ on 04/16/18 1515 Amoxicillin (Amoxicillin) 500 Mg Capsule, 1,000 MG PO BID Prescribed by: PEE KENT on 01/16/23 1227 Ciprofloxacin HCl (Ciprofloxacin HCl) 500 Mg Tablet, 500 MG PO BID Prescribed by: ETHEL DE JESUS on 06/11/21 2256 Ketorolac Tromethamine (Ketorolac Tromethamine) 10 Mg Tablet, 10 MG PO Q6H PRN for PAIN-MODERATE (5-7) Prescribed by: NELY AVERY on 04/21/20 0206 Ketorolac Tromethamine (Ketorolac Tromethamine) 10 Mg Tablet, 10 MG PO TID Prescribed by: MARTIN DENNIS on 06/20/23 1321 Metronidazole (Metronidazole) 500 Mg Tablet, 500 MG PO BID Prescribed by: PEE KENT on 01/16/23 1227 Ondansetron (Ondansetron Odt) 8 Mg Tab.rapdis, 8 MG PO Q6H PRN for NAUSEA/VOMITING Prescribed by: ETHEL DE JESUS on 06/15/21 1141 Ondansetron (Ondansetron Odt) 4 Mg Tab.rapdis, 4 MG SL Q4H PRN for NAUSEA/VOMITING Prescribed by: Reba Lyles on 01/12/23 1441 Polyethylene Glycol (Miralax 17 Gm Packet) 17 Gm Pack, 17 GM PO BID PRN for CONSTIPATION Prescribed by: PEE KENT on 05/19/14 0916 Review of Systems Review of Systems Constitutional: No diaphoresis EENTM: No Double Vision, No Eye Pain Respiratory: Denies Cough, Denies Orthopnea Cardiovascular: Denies Chest Pain Gastrointestinal: Abdominal Pain; Denies Diarrhea, Denies Nausea, Denies Vomiting Genitourinary: Denies Burning, Denies Discharge, Denies Drainage, Denies Frequency Musculoskeletal: No back pain, No joint pain, No joint swelling, No muscle pain, No muscle stiffness Skin: No change in color, No change in hair/nails (KEILY TOLENTINO) All Other Systems Reviewed Negative Unless Noted: Yes (KEILY TOLENTINO) Past Pmxylwf-Shusbx-Xlffjg Hx Patient Social History Tobacco Use?: Yes Tobacco type used: Cigarettes Smokeless Tobacco Frequency: Current Everyday User Substance use?: Yes Substance type: Marijuana Alcohol Use?: No (KEILY TOLENTINO) Past Medical History Surgeries: No Respiratory: No Cardiac: No Neurological: Yes Headaches /Migraines Last Menstrual Period: Jun 07, 2023 Reproductive Disorders: No Female Reproductive Disorders: Ovarian Cyst Gastrointestinal: No Musculoskeletal: No Endocrine: No Cancer: No Psychosocial: No Anxiety Integumentary: No Blood Disorders: No (KEILY TOLENTINO) Physical Exam Vital Signs Vital Signs - First Documented 06/20/23 12:13 Temp 36.1 Pulse 76 Resp 16 B/P (MAP) 136/67 (90) Pulse Ox 97 O2 Delivery Room Air (PEE ONEILL MD) Vital Signs Capillary Refill : Less Than 3 Seconds (KEILY TOLENTINO) Height/Weight/BMI Height: 5'5.00" Weight: 210lbs. oz. 95.012776ez; 34.00 BMI Method:Stated General Appearance: WD/WN, no apparent distress HEENT: PERRL/EOMI, normal ENT inspection, TMs normal, pharynx normal Neck: non-tender, full range of motion, supple Respiratory: chest non-tender, lungs clear, normal breath sounds, no respiratory distress, no accessory muscle use Cardiovascular: regular rate, rhythm, no edema, no gallop, no JVD Gastrointestinal: normal bowel sounds, soft, no organomegaly, tenderness (Bilateral lower abdominal tenderness. Normal bowel sound throughout. No rebound or guarding) Extremities: normal range of motion, non-tender, normal inspection, no pedal edema Back: normal inspection, no CVA tenderness, no vertebral tenderness Neurologic/Psychiatric: cardiac/vascular sonographer II-XII nml as tested, no motor/sensory deficits, alert, normal mood/affect, oriented x 3 Skin: normal color, warm/dry (KEILY TOLENTINO) Progress/Results/Core Measures Results/Orders Lab Results Laboratory Tests Test 06/20/23 12:26 06/20/23 12:34 Range/Units Urine Color RED H Urine Clarity CLOUDY Urine pH 6.0 5-9 Urine Specific [place] 1.025 H 1.016-1.022 Urine Protein 3+ H NEGATIVE Urine Glucose (UA) NEGATIVE NEGATIVE Urine Ketones NEGATIVE NEGATIVE Urine Nitrite NEGATIVE NEGATIVE Urine Bilirubin 1+ H NEGATIVE Urine Urobilinogen 1 < = 1.0 MG/DL Urine Leukocyte Esterase NEGATIVE NEGATIVE Urine RBC (Auto) 3+ H NEGATIVE Urine RBC TNTC H /HPF Urine WBC NONE /HPF Urine Squamous Epithelial Cells NONE /HPF Urine Crystals NONE /LPF Urine Bacteria NEGATIVE /HPF Urine Casts NONE /LPF Urine Mucus NEGATIVE /LPF Urine Culture Indicated NO Urine Test NEGATIVE NEGATIVE White Blood Count 14.4 H 4.3-11.0 10^3/uL Red Blood Count 4.65 3.80-5.11 10^6/uL Hemoglobin 12.9 11.5-16.0 g/dL Hematocrit 41 35-52 % Mean Corpuscular Volume 87 80-99 fL Mean Corpuscular Hemoglobin 28 25-34 pg Mean Corpuscular Hemoglobin Concent 32 32-36 g/dL Red Cell Distribution Width 13.1 10.0-14.5 % Platelet Count 353 130-400 10^3/uL Mean Platelet Volume 9.7 9.0-12.2 fL Immature Granulocyte % (Auto) 0 % Neutrophils (%) (Auto) 76 H 42-75 % Lymphocytes (%) (Auto) 15 12-44 % Monocytes (%) (Auto) 6 0-12 % Eosinophils (%) (Auto) 2 0-10 % Basophils (%) (Auto) 1 0-10 % Neutrophils # (Auto) 10.9 H 1.8-7.8 10^3/uL Lymphocytes # (Auto) 2.2 1.0-4.0 10^3/uL Monocytes # (Auto) 0.8 0.0-1.0 10^3/uL Eosinophils # (Auto) 0.3 0.0-0.3 10^3/uL Basophils # (Auto) 0.1 0.0-0.1 10^3/uL Immature Granulocyte # (Auto) 0.1 0.0-0.1 10^3/uL Neutrophils % (Manual) 74 % Lymphocytes % (Manual) 14 % Monocytes % (Manual) 11 % Eosinophils % (Manual) 1 % Basophils % (Manual) 0 % Band Neutrophils 0 % Blood Morphology Comment NORMAL Sodium Level 137 135-145 MMOL/L Potassium Level 4.2 3.6-5.0 MMOL/L Chloride Level 106 98-107 MMOL/L Carbon Dioxide Level 22 21-32 MMOL/L Anion Gap 9 5-14 MMOL/L Blood Urea Nitrogen 17 7-18 MG/DL Creatinine 0.81 0.60-1.30 MG/DL Estimat Glomerular Filtration Rate 103 BUN/Creatinine Ratio 21 Glucose Level 92 70-105 MG/DL Calcium Level 9.3 8.5-10.1 MG/DL Corrected Calcium 9.0 8.5-10.1 MG/DL Total Bilirubin 0.5 0.1-1.0 MG/DL Aspartate Amino Transf (AST/SGOT) 25 5-34 U/L Alanine Aminotransferase (ALT/SGPT) 37 0-55 U/L Alkaline Phosphatase 78 40-136 U/L Total Protein 7.6 6.4-8.2 GM/DL Albumin 4.4 3.2-4.5 GM/DL Lipase 9 8-78 U/L (PEE ONEILL MD) Medications Given in ED Current Medications Medications Dose Ordered Sig/Suzanne Route Start Time Stop Time Status Last Admin Dose Admin Iohexol 100 ml ONCE ONCE IV 06/20/23 13:15 06/20/23 13:16 DC 06/20/23 13:07 80 ML Ketorolac Tromethamine 30 mg ONCE ONCE IVP 06/20/23 12:30 06/20/23 12:31 DC 06/20/23 12:33 30 MG Sodium Chloride 100 ml ONCE ONCE IV 06/20/23 13:15 06/20/23 13:16 DC 06/20/23 13:08 80 ML (PEE ONEILL MD) Vital Signs/I&O 06/20/23 12:13 Temp 36.1 Pulse 76 Resp 16 B/P (MAP) 136/67 (90) Pulse Ox 97 O2 Delivery Room Air (PEE ONEILL MD) Blood Pressure Mean: 90 Departure Communication (PCP) Patient presents ED with lower abdominal pain. Pain is described as sharp bilateral in the lower abdomen. Not currently on control. She states she is trying to get . Started her menstrual cycle on Sunday. No nausea vomiting diarrhea fever. Vital signs stable. She does not appear in acute dis tress. She is tender bilateral lower abdomen. Patient had a ultrasound performed at the clinic. She has not followed up with results. CBC, CMP, lipase, urinalysis was ordered. She reports similar type pain but not as severe. No vaginal discharge. Not concern for sexual transmitted infection. Differential diagnoses UTI, PID, appendicitis, menstrual pain, ovarian cyst. Due to pain being bilateral unlikely ovarian cyst/ovarian torsion or appendicitis however she was tender to right lower quadrant. CBC showed a slight elevated white blood count of 14.. Chemistry grossly unremarkable. Urinalysis negative for or infection. CT abdomen pelvis was negative for acute appendicitis, urolithiasis, nephrolithiasis. Chronic findings noted. no large ovarian cyst noted. She received Toradol with some improvement of pain. This does not appear surgical. She does not appear toxic or severe pain. Will discharge with anti-inflammatories. This is likely menstrual pain. She does not want to start control due to trying to get . She reports history of abnormal bleeding in the past. Ultrasound would be a better way to evaluate her uterus and ovaries. 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 If any worsening symptoms return back to ED for further evaluation. (KEILY TOLENTINO) Impression Primary Impression: Abdominal pain Disposition: 01 HOME, SELF-CARE Condition: Stable Departure-Patient Inst. Decision time for Depature: 13:20 (KEILY TOLENTINO) Referrals: [facility] (PCP/Family) Primary Care Physician Patient Instructions: Abdominal Pain, Adult ED Add. Discharge Instructions: Recommend follow-up with [facility] for reevaluation of your ultrasound. Take ketorolac for abdominal pain. If any worsening pain, fever vomiting to return back to ED. All discharge instructions reviewed with patient and/or family. Voiced understanding. Scripts Ketorolac Tromethamine (Ketorolac Tromethamine) 10 Mg Tablet 10 MG PO TID, #15 TAB Prov: KEILY TOLENTINO 06/20/23 ATTENDING PHYSICIAN NOTE: I was physically present as attending physician in the emergency department during the care of this patient, but I was not directly involved in the decision making or delivery of care for this patient. (PEE ONEILL MD) KEILY TOLENTINO Jun 20, 2023 12:21 PEE ONEILL MD Jun 20, 2023 19:47
[2023-06-20] MEDS ORDERED: KETOROLAC INJ 30 MG/ML VIAL IVP ONE (12:30)
[2023-06-20 12:40] LABS: CLARITY,URINE CLOUDY; COLOR,URINE RED; GLUCOSE, URINE (UA) NEGATIVE (NEGATIVE); KETONES,URINE NEGATIVE (NEGATIVE); NITRITE,URINE NEGATIVE (NEGATIVE); PROTEIN,URINE 3+ (NEGATIVE)
[2023-06-20 12:41] LABS: BACTERIA,URINE NEGATIVE /HPF; BILIRUBIN,URINE 1+ (NEGATIVE); LEUKOCYTE ESTERASE ,URINE NEGATIVE (NEGATIVE); RBC,URINE TNTC /HPF
[2023-06-20 12:42] LABS: BASOPHILS # (AUTO) 0.1 10^3/uL (0.0-0.1); BASOPHILS % (AUTO) 1 % (0-10); EOSINOPHILS # (AUTO) 0.3 10^3/uL (0.0-0.3); EOSINOPHILS % (AUTO) 2 % (0-10); HEMATOCRIT 41 % (35-52); HEMOGLOBIN 12.9 g/dL (11.5-16.0); LYMPHOCYTES # (AUTO) 2.2 10^3/uL (1.0-4.0); LYMPHOCYTES % (AUTO) 15 % (12-44); MEAN CORPUSCULAR HEMOGLOBIN 28 pg (25-34); MEAN CORPUSCULAR HGB CONC 32 g/dL (32-36); MEAN CORPUSCULAR VOLUME 87 fL (80-99); MEAN PLATELET VOLUME 9.7 fL (9.0-12.2); MONOCYTES # (AUTO) 0.8 10^3/uL (0.0-1.0); MONOCYTES % (AUTO) 6 % (0-12); NEUTROPHILS # (AUTO) 10.9 10^3/uL (1.8-7.8); NEUTROPHILS % (AUTO) 76 % (42-75); PLATELET COUNT 353 10^3/uL (130-400); WHITE BLOOD COUNT 14.4 10^3/uL (4.3-11.0)
[2023-06-20 12:50] LABS: ALBUMIN 4.4 GM/DL (3.2-4.5)
[2023-06-20 12:51] LABS: POTASSIUM 4.2 MMOL/L (3.6-5.0)
[2023-06-20 12:52] LABS: CALCIUM 9.3 MG/DL (8.5-10.1)
[2023-06-20 12:53] LABS: TOTAL PROTEIN 7.6 GM/DL (6.4-8.2)
[2023-06-20 12:55] LABS: BILIRUBIN,TOTAL 0.5 MG/DL (0.1-1.0)
[2023-06-20 12:57] LABS: CREATININE SERUM 0.81 MG/DL (0.60-1.30)
[2023-06-20 13:12] LABS: BAND NEUTROPHILS 0 %; BASOPHILS % (MANUAL) 0 %; EOSINOPHILS % (MANUAL) 1 %; LYMPHOCYTES % (MANUAL) 14 %; MONOCYTES % (MANUAL) 11 %; NEUTROPHILS % (MANUAL) 74 %
[2023-06-20 13:13] LABS: RBC MORPH NORMAL
--- NOTE | 2023-06-20 13:13 | Diagnostic Imaging Report ---
PROCEDURE: CT abdomen and pelvis with contrast, rule out appendicitis. TECHNIQUE: Multiple contiguous axial images were obtained through the abdomen and pelvis after the administration of intravenous contrast. All CT scans use one or more of the following dose optimizing techniques: automated exposure control, MA and/or KvP adjustment based on patient size and exam type or iterative reconstruction. INDICATION: Right lower quadrant pain. COMPARISON: 06/11/2021. FINDINGS: The appendix is retrocecal, nonfocal, and nonacute. There is no appendicitis. There is some chronic prominence of the bowel contreras with fatty mural deposition within the distal ileum through the terminal ileal level. This appears similar to the prior and likely reflects changes of chronic inflammatory disease. No features of active focal enteritis or colitis. No pneumatosis. No free gas. No bowel obstruction. The liver, gallbladder, bile ducts, spleen, adrenals, and pancreas are all unremarkable. The kidneys are unobstructed. The aortoiliac and mesenteric vessels are patent, nonaneurysmal, and nonacute. The uterus and adnexa are unremarkable. There is a minute amount of free fluid in the right adnexa which is within physiologic limits. The urinary bladder is unremarkable. No abscess, hematoma, or acute fluid collection. No acute appearing abdominal wall pathology. The lung bases and the bony structures are nonacute. IMPRESSION: 1. Normal appendix. Unobstructed and unremarkable urinary tracts. 2. There is some chronic fatty mural deposition within the contreras of the distal small bowel through the terminal ileum which likely reflects changes of chronic inflammatory disease. No stricture, ulcer, mass, fistula, abscess, obstruction, or perforation. Dictated by: Dictated on workstation # [id number]
[2023-06-20] MEDS ORDERED: IOHEXOL 350 MG/ML 100 ML (OMNIPAQUE 350) VIAL IV ONE (13:15)
[2023-06-20] MEDS ORDERED: NS 100 ML (IVPB) BAG IV ONE (13:15)
[2023-06-20] MEDS ORDERED: HOLD METFORMIN - RECEIVED CONTRAST 20 ML VIAL IV SCH (13:15)
[2023-06-20] MEDS ORDERED: KETO10TA PO (13:21)
== END 2023-06-20 13:25 | disposition home or self-care (01) ==
LOC: EDUNIT# 12:04 → ER 12:07
DX: R10.31 Right lower quadrant pain (principal); R10.32 Left lower quadrant pain; F17.210 Nicotine dependence, cigarettes, uncomplicated
CPT/HCPCS: 36415; 74177; 80053; 81000; 83690; 84703; 85007; 85027